=== PATIENT | male | born 1960 | race Caucasian/White ===

== ENCOUNTER 2022-04-29 07:36 | Inpatient (IN) | payer OTHER, SELFPAY ==
[2022-04-29] VITALS (23 sets, daily range): BP systolic 121–178; BP diastolic 87–119; PULSE 86–108; RESP 18–33; TEMP 36.5–36.9; O2SAT 79–98; BMI 36.0; BMI 35.6
--- NOTE | 2022-04-29 07:42 | EKG12_ITS ---
Test Reason : REPEAT-CP Blood Pressure : / mmHG Vent. Rate : 102 BPM Atrial Rate : 102 BPM P-R Int : 206 ms QRS Dur : 114 ms QT Int : 360 ms P-R-T Axes : 028 218 078 degrees QTc Int : 469 ms Sinus tachycardia Right superior axis deviation Inferior infarct , age undetermined Possible Anterior infarct , age undetermined Abnormal ECG Confirmed by HARMAN WILSON, ALYSHA ([id number]), medical transcription editor TAMMIE ESPOSITO ([id number]) on 05/03/2022 6:21:07 AM Referred By: SAVANAH Confirmed By:ALYSHA HAMMER MD
--- NOTE | 2022-04-29 07:57 | EDS_ITS ---
HPI History of Present Illness Chief Complaint: Chest Pain Narrative Narrative: 61-year-old male presenting with chest pain. He states he has a dull ache in the left upper side of his chest. This started about 630. Its associated with some dyspepsia. Patient took Rolaids and this did not help. He states he was on his way to work and became concerned because he is not had this pain before. He does admit he has been a little bit short of breath recently. He states he has been out of his triamterene hydrochlorothiazide combo medicine because he has not seen his doctor. He states that his doctor had to cancel the last couple of appointments and he did not have any refills for this because he did not let him know he was out. He states has been taking these for the last few days he notes that his lower extremity edema and shortness of breath is improved. He states he takes this is a water pill. He also has diabetes, hypertension, or hyperlipidemia. He denies fever, chills, cough. Denies nausea or vomiting. He denies history of CAD. He states last stress test was many years ago. No history of DVT/PE. [facility] Medical History Hypertension Hypothyroid Pre-diabetes Home Medications glimepiride 2 mg tablet 4 mg PO DAILY 08/29/16 [History Last Taken Unknown] losartan 100 mg tablet 100 mg PO DAILY 08/29/16 [History Last Taken Unknown] triamterene 37.5 mg-hydrochlorothiazide 25 mg tablet (Maxzide-25mg) 1 tab PO DAILY 08/29/16 [History Last Taken Unknown] levothyroxine 25 mcg tablet 25 mcg PO DAILY 04/29/22 [History Last Taken Unknown] Allergy/AdvReac Type Severity Reaction Status Date / Time No Known Allergies Allergy Verified 04/29/22 07:37 Social History Smoking Status: Never smoker ROS ROS ED Constitutional Constitutional ED: Denies chills or fever(s) Eyes Eyes: Denies none or blurry vision ENT ENT ED: Denies rhinorrhea Cardiovascular Cardiovascular: Reports as per HPI Respiratory/Chest Respiratory/Chest: Reports dyspnea; Denies cough Gastrointestinal Gastrointestinal: Denies abdominal pain or constipation Genitourinary Genitourinary ED: Denies dysuria or hematuria Musculoskeletal Musculoskeletal: Denies arthralgias or back pain Integumentary Denies abscess or Abrasions Neurologic Neurologic: Denies headache(s) or paresthesias Psychiatric Psychiatric: Denies anxiety or depression EXAM Physical Exam Const Vital Signs: 04/29/22 07:38 04/29/22 07:46 04/29/22 08:53 Temperature 97.7 F L Temperature Source Oral Pulse Rate 103 H 104 H Respiratory Rate 22 H Respiratory Pattern Normal Blood Pressure 178/119 H 170/116 H Blood Pressure Mean 138 Pulse Ox 97 Oxygen Delivery Method Room Air Oxygen Flow Rate (L/min) 04/29/22 08:50 04/29/22 08:50 04/29/22 08:45 Temperature Temperature Source Pulse Rate 105 H Respiratory Rate 33 H Respiratory Pattern Blood Pressure 170/116 H Blood Pressure Mean 134 Pulse Ox 90 90 79 Oxygen Delivery Method Nasal Cannula Nasal Cannula Room Air Oxygen Flow Rate (L/min) 6 6 04/29/22 09:02 04/29/22 09:11 04/29/22 09:10 Temperature Temperature Source Pulse Rate 104 H 103 H Respiratory Rate Respiratory Pattern Blood Pressure 156/109 H 125/87 H Blood Pressure Mean Pulse Ox 87 Oxygen Delivery Method Nasal Cannula Oxygen Flow Rate (L/min) 6 04/29/22 09:20 04/29/22 10:00 04/29/22 10:36 Temperature Temperature Source Pulse Rate Respiratory Rate Respiratory Pattern Blood Pressure Blood Pressure Mean Pulse Ox 94 94 Oxygen Delivery Method Non-Rebreather High Flow High Flow Oxygen Flow Rate (L/min) 15 8 8 Positive well nourished General Appearance ED: NAD; Negative for pallor HEENT Reports TM's clear and moist mucous membranes Tympanic Membrane ED: Yes TM's clear Eyes PERRL and EOMs intact bilaterally Chest Wall inspection of chest normal Resp normal respiratory effort and clear to auscultation bilaterally Auscultation: Negative for rales, rhonchi or wheezes Cardio regular rate and regular rhythm GI normal to inspection, nondistended, normoactive bowel sounds Neuro oriented x3 and CN's II-XII intact bilaterally Sensorium / Orientation: awake and alert Psych mental status grossly normal Skin no rashes or lesions noted General Skin Exam: Negative for jaundice or pallor Heart Score History: Slightly/Non-Suspicious ECG: Normal Age: >45 - <65 years Risk Factors: >/= 3 Risk Factors or History of CAD Score: 3 MDM MDM MDM Narrative Medical decision making narrative: 61-year-old male presenting with chest discomfort on the left side of his chest associated with dyspepsia. He also states he has had shortness of breath recently which she attributes to being out of his triamterene hydrochlorothiazide. Patient is currently on this and states his shortness of breath has been getting better as well as swelling. EKG was obtained and on my interpretation shows a sinus rhythm with a ventricular rate of 102 bpm without sign of ischemic change or dysrhythmia. [place] interval 104 ms, QRS duration 114 ms, QTC 453 ms. Chest x-ray on my interpretation shows no acute cardiopulmonary process and radiologist agree. CBC shows a normal white blood cell count of 9.0. Hemoglobin and hematocrit are 17.2/52.5. Platelet count 360 renal function and electrolytes unremarkable. High-sensitivity troponin initially 38. Patient was reevaluated at 8:15 AM and he states that he has had an uptick in his pain level to about a 4. The patient will be given some nitroglycerin. Since his D-dimer is also elevated at 1.58 he will have a CTA of the chest. CTA of the chest was negative for PE or dissection but does show concern for a right lower lung mass concerning for primary neoplastic process with metastasis to the perihilar lymph nodes. There are also areas in the right mid lung fraser concerning for metastasis. There is also a finding of loculated pleural effusion. Placed the radiologist also interpreted the CTA is showing it is evidence of involvement of the celiac axis and there is something lymphadenopathy here. Patient came back from the CTA of the chest his oxygen had dropped down to 79 he was placed on oxygen via nasal cannula. He is currently on 8 L satting 94% but he is in no distress. He is speaking full sentences without any accessory muscle use. His second high-sensitivity troponin came back at 70 which is a change of 32. Patient did receive 325 mg of aspirin. BNP slightly elevated given the fact that he is oxygen dependent currently and that his troponins have increased will need to be admitted for further care. Will discuss with hospitalist. Impression: 1. Chest pain 2. Elevated troponin 3. Right lung mass 4. Hypoxic respiratory 5. Loculated pleural effusion Lab Data Attestation: I reviewed the patient's lab results. Labs: Laboratory Results - last 24 hr 04/29/22 04/29/22 04/29/22 07:45 07:45 07:45 WBC 9.0 RBC 6.23 H Hgb 17.2 H Hct 52.5 MCV 84.3 MCH 27.6 MCHC 32.8 RDW Std Deviation 44.9 H RDW Coeff of Miles 15.4 H Plt Count 360 MPV 10.2 Immature Gran % (Auto) 0.200 Neut % (Auto) 66.0 Lymph % (Auto) 22.7 [place] % (Auto) 10.1 H Eos % (Auto) 0.3 Baso % (Auto) 0.7 Absolute Neuts (auto) 5.9 Absolute Lymphs (auto) 2.04 Nucleated RBC % 0 D-Dimer Quant (PE/DVT) 1.58 H* Sodium 135 L Potassium 3.5 Chloride 98 Carbon Dioxide 27.0 Anion Gap 10 BUN 17 Creatinine 1.19 Estim Creat Clear Calc 67.31 Est GFR (MDRD) Af Amer 80 Est GFR (MDRD) Non-Af 66 BUN/Creatinine Ratio 14.3 Glucose 199 H Calcium 10.0 Troponin I High Sens 38 B-Natriuretic Peptide 04/29/22 04/29/22 07:45 10:12 WBC RBC Hgb Hct MCV MCH MCHC RDW Std Deviation RDW Coeff of Miles Plt Count MPV Immature Gran % (Auto) Neut % (Auto) Lymph % (Auto) [place] % (Auto) Eos % (Auto) Baso % (Auto) Absolute Neuts (auto) Absolute Lymphs (auto) Nucleated RBC % D-Dimer Quant (PE/DVT) Sodium Potassium Chloride Carbon Dioxide Anion Gap BUN Creatinine Estim Creat Clear Calc Est GFR (MDRD) Af Amer Est GFR (MDRD) Non-Af BUN/Creatinine Ratio Glucose Calcium Troponin I High Sens 70 B-Natriuretic Peptide 123.8 H Radiography Diagnostic Testing: Clinical Impression(s) from Imaging Studies Chest CTA 04/29/22 08:09 IMPRESSION: No demonstrated PE, or thoracic aortic aneurysm or dissection. Suspicious large infrarenal noncalcified mass in the right medial lower lung field measuring 6.93 x 3.63 x 2.95 cm suspicious for a primary neoplastic process. Additionally, there are suspicious mediastinal and perihilar lymph nodes likely representing metastasis and there are noncalcified nodules in the right midlung field also concerning for metastasis. Diffuse pleural thickening in both hemithoraces with loculated right pleural effusion Calcified coronary vessels Degenerative bony changes Celiac axis adenopathy also suspected Electronically Signed: Priyank Treviño MD at 9:07 EDT , Discharge Plan Triage Chief Complaint: Chest Pain ED Provider: Michael Loomis Dx/Rx/DC Orders Prescriptions: No Action glimepiride 2 MG tablet 4 mg PO DAILY triamterene-hydrochlorothiazid [Maxzide-25mg] 1 EACH tablet 1 tab PO DAILY losartan 100 MG tablet 100 mg PO DAILY levothyroxine 25 mcg tablet 25 mcg PO DAILY Primary Care Provider: Carri Gannon Referrals: Carri Gannon DO [Primary Care Provider] -
[2022-04-29 07:58] LABS: Absolute Lymphocyte Count 2.04 X10^3/uL (0.83-4.51); Absolute Neutrophil Count 5.9 X10^3/uL (2.0-7.7); Basophil# 0.06 X10^3/uL; Basophil% 0.7 % (0-1); Eosinophil# 0.03 X10^3/uL; Eosinophils% 0.3 % (0-5); Hematocrit 52.5 % (40-54); Hemoglobin 17.2 g/dL (13.0-16.5); Lymphocyte # 2.04 X10^3/ul (0.83-4.51); Lymphocyte % 22.7 % (19-41); Mean Corp Hgb Conc 32.8 g/dL (32-36); Mean Corpuscular Hgb 27.6 pg (27.0-32.0); Mean Corpuscular Volume 84.3 fL (80-94); Mean Platelet Vol. 10.2 fl (6.2-12.0); Monocyte# 0.91 X10^3/uL; Monocyte% 10.1 % (0-10); NRBC Flagged by Analyzer 0 % (0-5); Neutrophil # 5.93 X10^3/uL (2.7-7.7); Platelet Count 360 K/mm3 (150-450); RBC Distribution Width CV 15.4 % (11.6-14.6); RBC Distribution Width SD 44.9 fl (35.1-43.9); Red Blood Count 6.23 M/mm3 (4.6-6.2)
[2022-04-29 08:08] LABS: D-Dimer Quantitative (DVT/PE) 1.58 FEU/ug/m (0.27-0.49)
[2022-04-29 08:09] LABS: Anion Gap 10 (5-15); BUN 17 mg/dL (7-18); BUN/Creat Ratio 14.3 RATIO (10-20); Chloride 98 mmol/L (98-107); Creatinine, Serum 1.19 mg/dL (0.70-1.30); EST Glomerular Filtration Rate 66 mL/min (>60); Est Glom Filt Rate - Afr Amer 80 mL/min (>60); Estimated Creatinine Clearance 67.31 ml/min; Glucose 199 mg/dL (74-106); Potassium 3.5 mmol/L (3.5-5.1); Sodium Level 135 mmol/L (136-145); Troponin-I HS (w/2H Reflex) 38 pg/mL (3.0-78.0)
--- NOTE | 2022-04-29 08:09 | CT_ITS ---
STUDY: CTA CHEST REASON FOR EXAM: Male, 61 years old. Atypical chest pain, diaphoresis RADIATION DOSAGE (If Supplied By Facility): CTDIvol = ( 15.68 ) mGy, DLP = ( 532.14 ) mGycm TECHNIQUE: The examination was performed with the intravenous administration of IV-100 ml Isovue 370. Post-processing of the angiographic images was performed, with multiplanar reformation and 3D reconstruction. Individualized dose optimization techniques were used for this CT. COMPARISON: None. FINDINGS: Normal enhancement of the main pulmonary artery and right and left pulmonary arteries. Normal enhancement of the bilateral peripheral pulmonary arteries. There is no demonstrated pulmonary embolism. Normal thoracic aorta and visualized great vessels. There is no demonstrated aortic dissection. Normal heart and pericardium. There are calcifications of the coronary arteries. No suspicious axillary adenopathy. There are scattered subcentimeter in short axis dimension axillary lymph nodes. There are multiple concerning mediastinal and perihilar lymph nodes measuring up to 1.5 cm in short axis dimension. There is peribronchial thickening. The lungs are well expanded. Chronic interstitial changes noted in both lung fraser with a suspicious infrahilar mass in the right lower lung field measuring 6.39 x 3.63 x 2.95 cm concerning for neoplastic process. There is associated retraction of the right lung and a loculated right pleural effusion. There is diffuse pleural thickening throughout the left hemithorax with associated atelectasis but no discrete lesion is identified. There are also noncalcified nodules in the right middle lobe present largest on axial image 122 measures 1.06 cm. There are others measuring less than a centimeter there also concerning for metastasis. Normal chest wall structures. There are degenerative changes of thoracic spine. Limited cuts of the upper abdomen do not show suspicious solid organ abnormality, there are concerning soft tissue densities around the celiac axis concerning for lymph nodes. CT/CTA Chest W/WO Contrast IMPRESSION: No demonstrated PE, or thoracic aortic aneurysm or dissection. Suspicious large infrarenal noncalcified mass in the right medial lower lung field measuring 6.93 x 3.63 x 2.95 cm suspicious for a primary neoplastic process. Additionally, there are suspicious mediastinal and perihilar lymph nodes likely representing metastasis and there are noncalcified nodules in the right midlung field also concerning for metastasis. Diffuse pleural thickening in both hemithoraces with loculated right pleural effusion Calcified coronary vessels Degenerative bony changes Celiac axis adenopathy also suspected Electronically Signed: Priyank Treviño MD at 9:07 EDT ,
--- NOTE | 2022-04-29 08:50 | EKG12_ITS ---
Test Reason : cp admit Blood Pressure : / mmHG Vent. Rate : 097 BPM Atrial Rate : 097 BPM P-R Int : 206 ms QRS Dur : 104 ms QT Int : 360 ms P-R-T Axes : 035 211 101 degrees QTc Int : 457 ms Normal sinus rhythm Inferior infarct , age undetermined Anterolateral infarct , age undetermined Abnormal ECG When compared with ECG of 29-APR-2022 08:50, MANUAL COMPARISON REQUIRED, DATA IS UNCONFIRMED Confirmed by IRENE WILSON, LILLIAM ([id number]), make up editor TAMMIE ESPOSITO ([id number]) on 05/02/2022 2:06:26 PM Referred By: Christopher Confirmed By:LILLIAM BONILLA MD
[2022-04-29] MEDS: Nitroglycerin SL (ED/IMG/CATH) 0.4 MG TABLET SL ×3 (08:53→09:11)
[2022-04-29] MEDS: Aspirin 81 MG TAB.CHEW 324 MG PO (08:53)
[2022-04-29 09:37] LABS: BNP,B-Type NATRIURETIC PEPTIDE 123.8 pg/mL (0-100)
[2022-04-29 09:49] LABS: Reflex Troponin-HS? (from REC) Y
[2022-04-29 10:39] LABS: Troponin-I HS 70 pg/mL (3.0-78.0)
--- NOTE | 2022-04-29 11:09 | PCM.HP.STD ---
HPI - General General Date of Admission: 04/29/22 Date of Service: 04/29/22 Chief Complaint: Chest pain HPI Narrative ESSENCE ENGLAND, is a 61 M who presented to the emergency department [facility] on 04/29/2022 after experiencing chest pain in the left axillary side of his chest that radiated into the medial aspect of his left arm to just above his elbow. He reported that it started about 630 this morning and was associated with some dyspepsia for which he took some Rolaids. Rolaids did not help his symptoms. He had no associated new shortness of breath but had been experiencing some shortness of breath over the last 2 weeks. He attributed this to running out of his Maxide and noted that his shortness of breath did improve after he reinitiated his Maxide. He started going to work this morning but became concerned because the pain had not gone away and he was still asked parents and it and it was a new symptom for him. He does have a family history of coronary disease in both of his parents and he has a history of diabetes and hypertension. Upon presentation his temperature was 97.7 heart rate was 103, respiratory rate was 22, blood pressure 178/119 and his oxygen saturation was 97% on room air however when he returned from CT scan he developed acute hypoxia with oxygen saturations dropping is 79% on room air and his blood pressure increased to 170/6116 with a heart rate of 105 and a respiratory rate of 33. At that time he was placed on a nonrebreather and eventually was able to be weaned to 6 L heated high flow nasal cannula. His CBC was only remarkable for erythrocytosis with a hemoglobin of 17.2. His chemistry panel was unremarkable other than hyperglycemia with his at blood glucose of 199. A D-dimer was obtained and found to be 1.58. His initial troponin was 38 with a repeat of 70. Given his D-dimer elevation a CTA of the chest was performed. The CTA showed no PE or thoracic aneurysm or dissection but showed a suspicious large infrahilar noncalcified mass in the right medial lower lung field that measured 6.93 x 3.63 x 2.95 cm that was suspicious for a primary neoplastic process and additionally there were suspicious mediastinal and perihilar lymph nodes that were concerning for metastasis. He also had a noncalcified nodules in the right midlung field that were concerning for metastatic disease. He had diffuse pleural thickening in both hemithoraces with a loculated right pleural effusion that small. EKG showed normal sinus rhythm with normal intervals however had some T wave inversions in the inferior and lateral leads. [facility] Medical History Diabetes mellitus, type 2 Hypertension Hypothyroid NSTEMI (non-ST elevated myocardial infarction) Obesity DEVI (obstructive sleep apnea) Home Medications glimepiride 2 mg tablet 4 mg PO DAILY BS 08/29/16 [History Last Taken 04/29/22] losartan 100 mg tablet 100 mg PO DAILY BP 08/29/16 [History Last Taken 04/28/22] triamterene 37.5 mg-hydrochlorothiazide 25 mg tablet (Maxzide-25mg) 1 tab PO DAILY excess fluid 08/29/16 [History Last Taken 04/29/22] levothyroxine 25 mcg tablet 25 mcg PO DAILY Thyroid] 04/29/22 [History Last Taken 04/29/22] Allergy/AdvReac Type Severity Reaction Status Date / Time No Known Allergies Allergy Verified 04/29/22 07:37 Family History (Updated 04/29/22 @ 16:[address] Jeanette White DO) Mother CVA (cerebral vascular accident) Other Diabetes Heart disease Hypertension Surgical History no surgical history no surgical history Social History (Updated 04/29/22 @ 16:[address] Jeanette White DO) household members: spouse housing: house current occupational status: employed current occupational exposures/hazards: No Smoking Status: Never smoker alcohol intake: current alcohol intake frequency: holidays/special occasions only substance use type: does not use what type of physical activity do you participate in: none ROS Constitutional Constitutional: Denies anorexia, change in weight, chills, fatigue, fever(s), malaise, night sweats, weakness or other Eyes Eyes: Denies blurry vision, change in eye color, change in vision, discharge from eye(s), double vision, erythema, eye pain, loss of vision or other ENT HEENT: Denies abnormal hearing, dysphagia, ear pain, epistaxis, headache(s), hearing loss, nasal congestion, nasal discharge, post nasal drip, sinus pressure, sore throat or other Cardiovascular Cardiovascular: Reports chest pain, dyspnea on exertion, edema and orthopnea; Denies claudication, lightheadedness, palpitations, paroxysmal nocturnal dyspnea, rapid heart rate, syncope or other Respiratory/Chest Respiratory/Chest: Reports dyspnea and shortness of breath with exertion; Denies cough, excessive phlegm production, hemoptysis, productive cough, shortness of breath at rest, wheezing or other Gastrointestinal Gastrointestinal: Denies abdominal pain, coffee ground emesis, constipation, diarrhea, dyspepsia, hematemesis, hematochezia, loose stools, melena, nausea, vomiting or other Genitourinary Genitourinary: Denies burning urination, difficulty urinating, dysuria, hematuria, nocturia, urinary frequency, urinary hesitancy, urinary incontinence, urinary urgency or other Musculoskeletal Musculoskeletal: Denies arthralgias, back pain, joint pain, joint stiffness, joint swelling, myalgias, neck pain or other Neurologic Neurologic: Denies abnormal gait, abnormal speech, confusion, disequilibrium, dizziness, focal weakness, headache(s), numbness, paresthesias, seizure-like activity, seizures, syncope, tingling, tremor(s) or other Psychiatric Psychiatric: Denies anxiety, depression, homicidal ideation, suicidal ideation or other Endocrine Endocrinology: Denies change in body appearance, cold intolerance, excessive sweating, heat intolerance, polydipsia, polyuria or other Hematologic/Lymphatic Hematologic/Lymphatic: Denies anemia, easy bleeding, easy bruising, lymphadenopathy or other Allergic/Immunologic Allergic/Immunologic: Denies rhinitis, hives, eczemia, asthma or other Vital Signs Vital Signs Vital Signs: 04/29/22 07:38 04/29/22 07:46 04/29/22 08:53 Temperature 97.7 F L Temperature Source Oral Pulse Rate 103 H 104 H Respiratory Rate 22 H Respiratory Pattern Normal Blood Pressure 178/119 H 170/116 H Blood Pressure Mean 138 Pulse Ox 97 Oxygen Delivery Method Room Air Oxygen Flow Rate (L/min) 04/29/22 08:50 04/29/22 08:50 04/29/22 08:45 Temperature Temperature Source Pulse Rate 105 H Respiratory Rate 33 H Respiratory Pattern Blood Pressure 170/116 H Blood Pressure Mean 134 Pulse Ox 90 90 79 Oxygen Delivery Method Nasal Cannula Nasal Cannula Room Air Oxygen Flow Rate (L/min) 6 6 04/29/22 09:02 04/29/22 09:11 04/29/22 09:10 Temperature Temperature Source Pulse Rate 104 H 103 H Respiratory Rate Respiratory Pattern Blood Pressure 156/109 H 125/87 H Blood Pressure Mean Pulse Ox 87 Oxygen Delivery Method Nasal Cannula Oxygen Flow Rate (L/min) 6 04/29/22 09:20 04/29/22 10:00 04/29/22 10:36 Temperature Temperature Source Pulse Rate Respiratory Rate Respiratory Pattern Blood Pressure Blood Pressure Mean Pulse Ox 94 94 Oxygen Delivery Method Non-Rebreather High Flow High Flow Oxygen Flow Rate (L/min) 15 8 8 04/29/22 11:00 Temperature 98 F Temperature Source Temporal Pulse Rate 88 Respiratory Rate 18 Respiratory Pattern Blood Pressure 132/94 H Blood Pressure Mean 106 Pulse Ox 96 Oxygen Delivery Method High Flow Oxygen Flow Rate (L/min) Weight Weight: 113.8 kg Body Mass Index (BMI) 36.0 Physical Exam Const alert, oriented x3, no apparent distress and well nourished Constitutional Narrative: Obese, upper middle-aged white male, sitting up in bed, appears comfortable nontoxic, at bedside HEENT normocephalic, head/scalp atraumatic, hearing grossly normal bilaterally and moist oral mucous membranes HEENT Narrative: Mallampati 3, dentition is good for age, no thrush Eyes PERRL, EOMs intact bilaterally and conjunctivae normal Eyes Narrative: No scleral icterus Neck no lymphadenopathy, supple and no carotid bruits Neck Narrative: Trachea midline, no thyroid enlargement Resp no retractions and no use of accessory muscles Resp Narrative: Few crackles at bases bilaterally, currently quiring 4 L nasal cannula Auscultation: crackles; Negative for rhonchi or wheezes Cardio regular rate, regular rhythm, S1 normal heart sound, S2 normal heart sound, no murmurs, no rub, no gallops, no clicks and no JVD GI normal to inspection, nondistended, normoactive bowel sounds, soft to palpation and non-tender Extremity Extremity Narrative: 2+ pedal pulses, trace bilateral lower extremity edema, no cyanosis or clubbing Neuro oriented x3, CN's II-XII intact bilaterally, moves all extremities and no focal motor deficits Speech: speech normal Motor Exam: strength 5/5 throughout Psych affect normal Psych Narrative: Very pleasant and appropriately interactive Results Lab / Micro Data Result Diagrams: 04/29/22 07:45 04/29/22 07:45 Labs: Laboratory Results - last 24 hr 04/29/22 07:45: WBC 9.0, RBC 6.23 H, Hgb 17.2 H, Hct 52.5, MCV 84.3, MCH 27.6, MCHC 32.8, RDW Std Deviation 44.9 H, RDW Coeff of Miles 15.4 H, Plt Count 360, MPV 10.2, Immature Gran % (Auto) 0.200, Neut % (Auto) 66.0, Lymph % (Auto) 22.7, [place] % (Auto) 10.1 H, Eos % (Auto) 0.3, Baso % (Auto) 0.7, Absolute Neuts (auto) 5.9, Absolute Lymphs (auto) 2.04, Nucleated RBC % 0 04/29/22 07:45: D-Dimer Quant (PE/DVT) 1.58 H* 04/29/22 07:45: Sodium 135 L, Potassium 3.5, Chloride 98, Carbon Dioxide 27.0, Anion Gap 10, BUN 17, Creatinine 1.19, Estim Creat Clear Calc 67.31, Est GFR (MDRD) Af Amer 80, Est GFR (MDRD) Non-Af 66, BUN/Creatinine Ratio 14.3, Glucose 199 H, Calcium 10.0, Troponin I High Sens 38 04/29/22 07:45: B-Natriuretic Peptide 123.8 H 04/29/22 10:12: Troponin I High Sens 70 Radiology Impression Chest CTA 04/29/22 08:09 IMPRESSION: No demonstrated PE, or thoracic aortic aneurysm or dissection. Suspicious large infrarenal noncalcified mass in the right medial lower lung field measuring 6.93 x 3.63 x 2.95 cm suspicious for a primary neoplastic process. Additionally, there are suspicious mediastinal and perihilar lymph nodes likely representing metastasis and there are noncalcified nodules in the right midlung field also concerning for metastasis. Diffuse pleural thickening in both hemithoraces with loculated right pleural effusion Calcified coronary vessels Degenerative bony changes Celiac axis adenopathy also suspected Electronically Signed: Priyank Treviño MD at 9:07 EDT , Assessment & Plan Assessment/Plan (1) NSTEMI (non-ST elevated myocardial infarction): (2) Lung mass: (3) Acute respiratory failure with hypoxia: (4) Erythrocytosis: PLAN: Plan NSTEMI -EKG shows T wave inversions in the inferior and lateral leads -Troponin trended from 38-->70 to greater than 13,000 -Heparin drip initiated -As needed nitro -Check lipids -Check hemoglobin A1c -High intensity dose statin -Aspirin 81 mg daily -Check echocardiogram -Cardiology consult for cardiac catheterization -Hopeful for cardiac catheterization to be done on Monday after CT-guided biopsy of his lung mass as he will most likely need to be on antiplatelet therapy following cardiac catheterization Right-sided lung mass/lymphadenopathy -Suspicious for primary lung carcinoma -Will need CT-guided biopsy -Anticipate this will be done on Monday -Pulmonary medicine consulted-appreciate input Acute hypoxic respiratory failure -Patient developed acute hypoxia with tachypnea, tachycardia, elevated blood pressure after lying flat for a CT in the emergency department -Initially required a nonrebreather and then was weaned to 6 L heated high flow nasal cannula -Currently is on 4 L nasal cannula -Wean as able -COVID and respiratory viral panel are negative -Lasix IV push 40 mg twice daily I do suspect there is some component of flash pulmonary edema related to his infarct -Reevaluate in a.m. Erythrocytosis -Question acute versus chronic -May be related to untreated DEVI -Repeat CBC in a.m. Hypertension -Hold Maxide -Continue losartan DM-2 -Hold home glimepiride -Check hemoglobin A1c -Sliding scale insulin -Cardiac/carb controlled diet -Accu-Cheks as ordered Hypothyroidism -Continue home levothyroxine -Check TSH DEVI -Patient noncompliant with CPAP -Monitor Obesity -Recommend weight loss -Complicates treatment, prognosis, outcomes CODE STATUS -Full code Charges/Coding Visit Charges Inpatient E&M: 08085 Init Hosp L3
--- NOTE | 2022-04-29 11:49 | CON.PCM.CC_ITS ---
Assessment & Plan Assessment/Plan (1) Lung mass: PLAN: Plan RECOMMENDATIONS: 1. Supplemental oxygen to maintain saturations at or above 90%. 2. Consider CT-guided lung biopsy, while the patient is admitted to the hospital. 3. If CT-guided lung biopsy is not feasible, an EBUS procedure can be arranged for the patient after discharge. 4. Cardiac stress test as ordered. IMPRESSIONS: 1. Chest discomfort and associated hypoxia The patient presented to the hospital with left-sided chest discomfort and subsequently developed hypoxia in the emergency department requiring the initiation of supplemental oxygen. The patient's chest imaging did demonstrate findings concerning for chronic interstitial changes along with a right-sided loculated effusion, pleural thickening on the left and a right lower lobe lung mass. No PE was identified. In light of his presenting symptoms, the patient is going to be admitted to the hospital and a cardiac stress test will be obtained. In the interim, continue supplemental oxygen to maintain saturations at or above 90%. 2. Abnormal chest imaging As noted above, the patient had a CTA chest completed which demonstrated a right lower lobe lung mass with what appeared to be a loculated effusion, chronic interstitial changes and pleural thickening in the left hemidiaphragm. The patient has no prior smoking history. I explained to the patient that these fi ndings would require additional work-up including biopsy. I would first discussed the case with radiology to see if percutaneous CT-guided lung biopsy would be feasible. If not, the patient can follow-up on an outpatient basis with us and we can arrange bronchoscopy with mediastinal lymph node sampling facilitated by EBUS. 3. Hypertension/hypothyroidism/diabetes mellitus Complicates care, management, recovery and prognosis. Continue home medications as indicated. This note was generated with [employer]AL[employer] dictation software. It may contain incorrect words, spelling, and punctuation that were not noted in checking the note before signing. HPI Consult Data Date of Consult: 04/30/22 HPI Narrative Reason for Consultation: Lung mass HPI Narrative: The patient is a 61-year-old male, with a history as outlined below, who presented to the emergency department with left-sided chest discomfort. The patient denied any known cardiac or pulmonary history. He is a lifelong non- smoker. He denied a history of venous thromboembolic disease. The patient did report that for approximately 1 week he was out of his antihypertensive medication and that since being back on the medication the chest discomfort has improved somewhat. The patient denied any unintentional weight loss or hemoptysis. He denied any high risk occupational exposure history. He was employed primarily in an office setting. The patient denied any significant amount of shortness of breath at his baseline, but did readily admit to being out of shape and overweight. On presentation to the emergency department, the patient was noted to be afebrile and hypertensive with a blood pressure of 178/119 mmHg. initial laboratory evaluation revealed no evidence of a leukocytosis. D-dimer was noted to be 1.58. Chemistry profile was unrevealing. Troponin was noted to be 70 with a BNP of 124. CTA chest did not demonstrate evidence for pulmonary embolism. However, there was evidence of peritracheal and subcarinal adenopathy along with interstitial septal thickening along with basilar predominant interstitial changes, what appears to be a loculated right-sided effusion and a sizable lung mass of approximately 6 cm in size. Left-sided pleural thickening was also noted. Although the patient was initially on room air in the emergency department, he apparently decompensated and ended up on high flow supplemental oxygen, thus prompting his admission to the hospital for further work-up. In light of his presenting symptoms, a cardiac stress test has been ordered. [facility] Medical History Diabetes mellitus, type 2 Hypertension Hypothyroid NSTEMI (non-ST elevated myocardial infarction) Obesity DEVI (obstructive sleep apnea) Home Medications glimepiride 2 mg tablet 4 mg PO DAILY BS 08/29/16 [History Last Taken 04/29/22] losartan 100 mg tablet 100 mg PO DAILY BP 08/29/16 [History Last Taken 04/28/22] triamterene 37.5 mg-hydrochlorothiazide 25 mg tablet (Maxzide-25mg) 1 tab PO DAILY excess fluid 08/29/16 [History Last Taken 04/29/22] levothyroxine 25 mcg tablet 25 mcg PO DAILY Thyroid] 04/29/22 [History Last Taken 04/29/22] Allergy/AdvReac Type Severity Reaction Status Date / Time No Known Allergies Allergy Verified 04/29/22 07:37 Family History (Updated 04/29/22 @ 16:[address] Jeanette White DO) Mother CVA (cerebral vascular accident) Other Diabetes Heart disease Hypertension Surgical History no surgical history Social History (Updated 04/29/22 @ 16:[address] Jeanette White, DO) household members: spouse housing: house current occupational status: employed current occupational exposures/hazards: No Smoking Status: Never smoker alcohol intake: current alcohol intake frequency: holidays/special occasions only substance use type: does not use what type of physical activity do you participate in: none ROS ROS Narrative 10 systems were reviewed with pertinent positives as noted in the HPI above. Physical Exam Const alert, oriented x3 and no apparent distress Constitutional Narrative: is present at the bedside. General Appearance: cooperative Nutritional Appearance: obese HEENT normocephalic and head/scalp atraumatic Eyes PERRL, EOMs intact bilaterally and conjunctivae normal Neck supple General: trachea midline Chest inspection of chest normal Resp normal respiratory effort Auscultation: Negative for rales, rhonchi or wheezes Cardio regular rate and regular rhythm GI normal to inspection, nondistended, normoactive bowel sounds Extremity no clubbing, cyanosis or edema Skin no rashes or lesions noted Neuro oriented x3, CN's II-XII intact bilaterally, moves all extremities and no focal motor deficits Psych cooperative and affect normal Lab / Micro Data Result Diagrams: 04/30/22 06:48 04/30/22 06:48 Labs: Laboratory Results - last 24 hr 04/29/22 07:45: WBC 9.0, RBC 6.23 H, Hgb 17.2 H, Hct 52.5, MCV 84.3, MCH 27.6, MCHC 32.8, RDW Std Deviation 44.9 H, RDW Coeff of Miles 15.4 H, Plt Count 360, MPV 10.2, Immature Gran % (Auto) 0.200, Neut % (Auto) 66.0, Lymph % (Auto) 22.7, [place] % (Auto) 10.1 H, Eos % (Auto) 0.3, Baso % (Auto) 0.7, Absolute Neuts (auto) 5.9, Absolute Lymphs (auto) 2.04, Nucleated RBC % 0 04/29/22 07:45: D-Dimer Quant (PE/DVT) 1.58 H* 04/29/22 07:45: Sodium 135 L, Potassium 3.5, Chloride 98, Carbon Dioxide 27.0, Anion Gap 10, BUN 17, Creatinine 1.19, Estim Creat Clear Calc 67.31, Est GFR (MDRD) Af Amer 80, Est GFR (MDRD) Non-Af 66, BUN/Creatinine Ratio 14.3, Glucose 199 H, Calcium 10.0, Troponin I High Sens 38 04/29/22 07:45: B-Natriuretic Peptide 123.8 H 04/29/22 10:12: Troponin I High Sens 70 Micro: Microbiology 04/29/22 11:15 Nasal Secretion SARS-CoV-2 Antigen (Rapid) - Final Radiology Impression Chest CTA 04/29/22 08:09 IMPRESSION: No demonstrated PE, or thoracic aortic aneurysm or dissection. Suspicious large infrarenal noncalcified mass in the right medial lower lung field measuring 6.93 x 3.63 x 2.95 cm suspicious for a primary neoplastic process. Additionally, there are suspicious mediastinal and perihilar lymph nodes likely representing metastasis and there are noncalcified nodules in the right midlung field also concerning for metastasis. Diffuse pleural thickening in both hemithoraces with loculated right pleural effusion Calcified coronary vessels Degenerative bony changes Celiac axis adenopathy also suspected Electronically Signed: Priyank Trevñio MD at 9:07 EDT , Charges/Coding Visit Charges Inpatient E&M: 03728 Init Hosp L3
[2022-04-29 14:11] LABS: Troponin-I HS 13378 pg/mL (3.0-78.0)
--- NOTE | 2022-04-29 14:28 | CASEMGMT ---
WERNER SANCHEZ assessment: Face to Face with patient for initial transition planning/care coordination assessment. RN DANIEL introduced self and role at [facility], pt voices understanding and consents to assessment. Pt is sitting up in bed in no distress on 4L nc. Pt is A/Ox4 and answers all questions appropriately. Pt's is at bedside during assessment. Care providers, pharmacy,?and demographics verified. ? Presentation: Left chest pain starting this am Admitting dx: CP/lung mass PCP: Teressa Specialists: None Preferred Pharmacy: [facility] Insurance: [employer] Prescription Benefit:?[employer] Living Will/HPOA: Pt has LW/HPOA and is aware that they are not on file at [facility]. Pt states , Agatha Sparks, is HPOA. LNOK: Agatha Sparks, Living Arrangements: Pt lives with in 1 story home with 1 step in and states no concerns at home. Pt is independent with ADL's. Transportation: Pt drives self and states no transportation concerns. DME/HHC: Pt has no current DME or need for any further DME. Pt states no preference for DME company, if qualifies for home oxygen at discharge. Pt has no hx of HHC or SNF. Pt states no concerns with going home at time of discharge. Pt works multimedia production assistant. Pt states does not smoke cigarettes or drink ETOH. Pt voices no further concerns/needs. CM to follow for any further discharge planning/needs. Advised pt/ to ask for CM if any further questions/concerns/needs arise, voices understanding. Pt Goal: Home ? Plan: Home, pending home oxygen testing. [place] WERNER SANCHEZ
--- NOTE | 2022-04-29 14:49 | ECHOCS_ITS ---
Reason For Study: Chest Pain Procedure This was a 2D Doppler, Color Flow transthoracic echocardiogram. The study was technically difficult. Contrast injection was performed. Exam performed portable in patient room. Left Ventricle Moderately dilated left ventricle. The estimated ejection fraction is 15-20 %. Right Ventricle Normal right ventricle. Mild global right ventricular systolic dysfunction. Atria The left atrium is mildly enlarged. Normal right atrium. Mitral Valve The mitral valve is structurally normal. No prolapse or stenosis seen. Mild (1+) mitral valve insufficiency. Tricuspid Valve Normal tricuspid valve. Aortic Valve Normal aortic valve. Pulmonic Valve The pulmonic valve is not well visualized. Medication Diluted definity 2ml given slow IV push to enhance endocardial definition. MMode/2D Measurements & Calculations LVIDd: 5.3 cm IVSd: 1.1 cm Ao root diam: 3.4 cm LVIDs: 4.6 cm LVPWd: 1.3 cm LA dimension: 4.1 cm RVDd: 3.3 cm FS: 12.6 % LAV(MOD-bp): 60.5 ml LVAd ap4: 39.8 cm2 SV(MOD-sp4): 28.9 ml LAV(MOD-bp) Indexed: 26.5 ml/m2 LVLd ap4: 8.9 cm LAV(MOD-sp2): 74.5 ml EDV(MOD-sp4): 145.7 ml LAV(MOD-sp4): 49.5 ml EDV(sp4-el): 150.8 ml LVAs ap4: 34.6 cm2 LVLs ap4: 8.3 cm ESV(MOD-sp4): 116.8 ml ESV(sp4-el): 122.8 ml EF(MOD-sp4): 19.9 % EF(sp4-el): 18.6 % SV(sp4-el): 28.0 ml LA A4 area: 19.0 cm2 RA A4 area: 13.3 cm2 Time Measurements MV dec time: 0.10 sec Doppler Measurements & Calculations MV E max jayro: 108.6 cm/sec Lat Peak E' Jayro: 9.2 cm/sec MV V2 max: 146.4 cm/sec MV A max jayro: 123.7 cm/sec E/E' lat: 11.9 MV max P.6 mmHg MV E/A: 0.88 MV V2 mean: 94.5 cm/sec MV mean P.1 mmHg MV V2 VTI: 25.8 cm MV P1/2t max jayro: 116.1 cm/sec Ao V2 max: 85.5 cm/sec LV V1 max: 81.0 cm/sec MV P1/2t: 63.0 msec Ao max P.9 mmHg LV V1 max P.6 mmHg MV dec slope: 539.9 cm/sec2 MVA(P1/2t): 3.5 cm2 PA V2 max: 61.8 cm/sec ECHO/Echo Complete W/ Contrast Interpretation Summary The estimated ejection fraction is 15-20 %. Severe LV systolic Dysfunction with SWMA as described,Apical akinesia with severe distal septal Hypokinesia Contrast echo used Ordering Physician: Jeanette White Referring Physician: Carri Gannon Performed By: Cesario Rachel RCS
--- NOTE | 2022-04-29 15:09 | CON.PCM.CA_ITS ---
Documented by User: Eleanor BEARDEN, PA 04/29/22 16:26 Assessment & Plan Assessment/Plan (1) NSTEMI (non-ST elevated myocardial infarction): PLAN: * Troponin significantly, will start on maximum medical therapy with ASA, Statin, BB. He is currently on Losartan at home. He will start on a Heparin Drip * Will plan for a heart cath to further evaluate. His lung mass that does require biopsy complicates this. Since he is pain free at the moment, it is reasonable to pursue his lung biopsy first while he is on maximum medical therapy and plan for a heart cath following this as he will likely need an intervention based on his elevated troponin and EKG. However will need to monitor pt closely for angina and worsening symptoms. Of note he did have orthopnea during his CTA and did have hypoxemia, will treat with diuretics for elevated BNP and O2. Will need to monitor this for his heart cath. * echo is pending (2) Lung mass: PLAN: * he is being followed by pulmonary with plans for a biopsy HPI Consult Data Date of Consult: 04/29/22 HPI Narrative HPI Narrative: ESSENCE ENGLAND, is a 61 M who presented to [facility] ER for chest pain. This was described as a dull ache in his left upper chest. Radiated down his left arm, it was a 4/10. It lasted for several hours. Currently it is improved and sometimes he feels that it is there. He also had dyspepsia that was not relieved with rolaids. The discomfort started at approx 0630, since he had not had this before he presented to the ER for further evaluation. He notes that he does have HTN but ran out of his diuretic for a few weeks but did restart it this week when he started to feel more SOB with exertion. His DDimer was elevated, he did have a CTA this was negative for PE but did demonstrate a mass primary neoplastic process with metastasis to the perihilar lymph nodes.? There are also areas in the right mid lung fraser concerning for metastasis.? There is also a finding of loculated pleural effusion. During his CTA he did desaturate and did become SOB. he did require 6L O2. Because of his CTA he was admitted to PCU. His troponins finished trending. Troponins trended 30/78/22618. BTNP was 123. [facility] Medical History Diabetes mellitus, type 2 Hypertension Hypothyroid NSTEMI (non-ST elevated myocardial infarction) Obesity DEVI (obstructive sleep apnea) Home Medications glimepiride 2 mg tablet 4 mg PO DAILY BS 08/29/16 [History Last Taken 04/29/22] losartan 100 mg tablet 100 mg PO DAILY BP 08/29/16 [History Last Taken 04/28/22] triamterene 37.5 mg-hydrochlorothiazide 25 mg tablet (Maxzide-25mg) 1 tab PO DAILY excess fluid 08/29/16 [History Last Taken 04/29/22] levothyroxine 25 mcg tablet 25 mcg PO DAILY Thyroid] 04/29/22 [History Last Taken 04/29/22] Allergy/AdvReac Type Severity Reaction Status Date / Time No Known Allergies Allergy Verified 04/29/22 07:37 Family History (Updated 04/29/22 @ 16:[address] Jeanette White DO) Mother CVA (cerebral vascular accident) Other Diabetes Heart disease Hypertension Surgical History no surgical history Social History (Updated 04/29/22 @ 16:[address] Jeanette White DO) household members: spouse housing: house current occupational status: employed current occupational exposures/hazards: No Smoking Status: Never smoker alcohol intake: current alcohol intake frequency: holidays/special occasions only substance use type: does not use what type of physical activity do you participate in: none ROS Constitutional Constitutional: Denies change in weight, chills, fatigue, frequent falls, headache(s) or lethargy Eyes Eyes: Denies acute decrease in peripheral vision, blurry vision or change in vision ENT HEENT: Denies dizziness, dry mouth, epistaxis, headache(s), tinnitus or vertigo Cardiovascular Cardiovascular: Reports other Details: See HPI Respiratory/Chest Respiratory/Chest: Reports dyspnea on exertion; Denies cough, dyspnea, tachypnea or wheezing Gastrointestinal Gastrointestinal: Denies abdominal pain, bloating, coffee ground emesis, diarrhea, heartburn, hematemesis, hematochezia, melena or nausea Genitourinary Genitourinary: Denies hematuria Musculoskeletal Musculoskeletal: Denies myalgias, numbness or tingling Neurologic Neurologic: Denies abnormal gait, abnormal speech, memory loss, paresthesias or weakness Physical Exam Const alert, oriented x3 and no apparent distress General Appearance: cooperative Nutritional Appearance: obese HEENT normocephalic and head/scalp atraumatic Eyes PERRL, EOMs intact bilaterally and conjunctivae normal Neck supple General: trachea midline Chest inspection of chest normal Resp normal respiratory effort Auscultation: crackles bilateral base Cardio regular rate and regular rhythm GI normal to inspection, nondistended, normoactive bowel sounds Extremity no clubbing, cyanosis or edema Skin no rashes or lesions noted Neuro oriented x3, CN's II-XII intact bilaterally, moves all extremities and no focal motor deficits Psych cooperative and affect normal Risk Stratification Risk Stratification Applicable: Yes Age >/= 65: No >/= 3 CAD Risk Factors (HTN, HLD, DM, family hx of CAD, or current smoker): Yes Aspirin Use in the Past 7 Days: No Severe Angina (>/= episodes in 24 hours): Yes EKG ST Changes >/= 0.5mm: No Positive Cardiac Marker: Yes FREDDY Risk Stratification Score: 3 FREDDY % Risk: 13% Risk Charges/Coding Visit Charges Office Visits / Consults: 71000 IP Consult L4 Objective Data Vital Signs: Vital Signs Temp Pulse Resp BP Pulse Ox O2 Del Method O2 Flow Rate 98.0 F 99 20 H 142/94 H 97 Nasal Cannula 4 04/29/22 13:46 04/29/22 13:46 04/29/22 13:46 04/29/22 13:46 04/29/22 14:00 04/29/22 14:45 04/29/22 14:45 Oxygen Flow Rate (L/min) 4 Oxygen Delivery Method Nasal Cannula Weight: 248 lb 14.43 oz Body Mass Index (BMI) 35.6 Lab / Micro Data Result Diagrams: 04/29/22 07:45 04/29/22 07:45 Labs: Laboratory Results - last 24 hr 04/29/22 07:45: WBC 9.0, RBC 6.23 H, Hgb 17.2 H, Hct 52.5, MCV 84.3, MCH 27.6, MCHC 32.8, RDW Std Deviation 44.9 H, RDW Coeff of Miles 15.4 H, Plt Count 360, MPV 10.2, Immature Gran % (Auto) 0.200, Neut % (Auto) 66.0, Lymph % (Auto) 22.7, [place] % (Auto) 10.1 H, Eos % (Auto) 0.3, Baso % (Auto) 0.7, Absolute Neuts (auto) 5.9, Absolute Lymphs (auto) 2.04, Nucleated RBC % 0 04/29/22 07:45: D-Dimer Quant (PE/DVT) 1.58 H* 04/29/22 07:45: Sodium 135 L, Potassium 3.5, Chloride 98, Carbon Dioxide 27.0, Anion Gap 10, BUN 17, Creatinine 1.19, Estim Creat Clear Calc 67.31, Est GFR (MDRD) Af Amer 80, Est GFR (MDRD) Non-Af 66, BUN/Creatinine Ratio 14.3, Glucose 199 H, Calcium 10.0, Troponin I High Sens 38 04/29/22 07:45: B-Natriuretic Peptide 123.8 H 04/29/22 10:12: Troponin I High Sens 70 04/29/22 13:40: Troponin I High Sens [id number] H* Micro: Microbiology 04/29/22 11:30 Mucosa - Nasopharyngeal Respiratory Panel (PCR) - Final 04/29/22 11:15 Nasal Secretion SARS-CoV-2 Antigen (Rapid) - Final Cardiology Labs/Tests 04/29/22 07:45: WBC 9.0, RBC 6.23 H, Hgb 17.2 H, Hct 52.5, MCV 84.3, MCH 27.6, MCHC 32.8, Plt Count 360, MPV 10.2, Immature Gran % (Auto) 0.200, Neut % (Auto) 66.0, Lymph % (Auto) 22.7, [place] % (Auto) 10.1 H, Eos % (Auto) 0.3, Baso % (Auto) 0.7, Absolute Neuts (auto) 5.9, Nucleated RBC % 0 04/29/22 07:45: D-Dimer Quant (PE/DVT) 1.58 H* 04/29/22 07:45: Sodium 135 L, Potassium 3.5, Chloride 98, Carbon Dioxide 27.0, Anion Gap 10, BUN 17, Creatinine 1.19, Est GFR (MDRD) Af Amer 80, Est GFR (MDRD) Non-Af 66, BUN/Creatinine Ratio 14.3, Glucose 199 H, Calcium 10.0 04/29/22 07:45: B-Natriuretic Peptide 123.8 H Rhythm:SR, there was an 8 beat run of VT EKG:NSRm inferior and anterolateral infarct ECHO:pending Radiography Diagnostic Testing: Radiology Impression Chest CTA 04/29/22 08:09 IMPRESSION: No demonstrated PE, or thoracic aortic aneurysm or dissection. Suspicious large infrarenal noncalcified mass in the right medial lower lung field measuring 6.93 x 3.63 x 2.95 cm suspicious for a primary neoplastic process. Additionally, there are suspicious mediastinal and perihilar lymph nodes likely representing metastasis and there are noncalcified nodules in the right midlung field also concerning for metastasis. Diffuse pleural thickening in both hemithoraces with loculated right pleural effusion Calcified coronary vessels Degenerative bony changes Celiac axis adenopathy also suspected Electronically Signed: Priyank Treviño MD at 9:07 EDT , Documented by User: Dr. Maco Ewnig MD 04/29/22 17:08 Assessment & Plan Assessment/Plan (1) NSTEMI (non-ST elevated myocardial infarction): (2) Lung mass: PLAN: Plan 61-year-old patient seen and evaluated today at bedside along with the nursing staff I independently reviewed all his medical record including the EKG, cardiac telemetry, current lab evaluation medical treatment His presentation is symptoms of left-sided chest discomfort with some radiation to the left arm Also had recently noted progressive symptoms of shortness of breath. Patient has no prior cardiac history he is an ex smoker years ago. Cardiac examination essentially normal Cardiac care plan recommendations; 1. Noted has significantly elevated cardiac biomarker with high sensitive troponins With an EKG consistent with a recent anteroseptal [place] 2. We will continue medical therapy with heparin, aspirin, beta-duncan and statin 3. Patient has CTA which revealed evidence of lung, right-sided and scheduled to undergo CT-guided biopsy. 4. Based on his clinical presentation with a clinical diagnosis of non-ST e levation [place], recommended to proceed and evaluated further with a left heart cath, this will be set up on Monday following CT-guided biopsy of the mass. We will continue on heparin and his symptoms of chest pain improved. HPI Consult Data Date of Consult: 04/29/22 [facility] Medical History Diabetes mellitus, type 2 Hypertension Hypothyroid NSTEMI (non-ST elevated myocardial infarction) Obesity DEVI (obstructive sleep apnea) Home Medications glimepiride 2 mg tablet 4 mg PO DAILY BS 08/29/16 [History Last Taken 04/29/22] losartan 100 mg tablet 100 mg PO DAILY BP 08/29/16 [History Last Taken 04/28/22] triamterene 37.5 mg-hydrochlorothiazide 25 mg tablet (Maxzide-25mg) 1 tab PO DAILY excess fluid 08/29/16 [History Last Taken 04/29/22] levothyroxine 25 mcg tablet 25 mcg PO DAILY Thyroid] 04/29/22 [History Last Taken 04/29/22] Allergy/AdvReac Type Severity Reaction Status Date / Time No Known Allergies Allergy Verified 04/29/22 07:37 Family History (Updated 04/29/22 @ 16:[address] Jeanette White DO) Mother CVA (cerebral vascular accident) Other Diabetes Heart disease Hypertension Surgical History no surgical history Social History (Updated 04/29/22 @ 16:[address] Jeanette White DO) household members: spouse housing: house current occupational status: employed current occupational exposures/hazards: No Smoking Status: Never smoker alcohol intake: current alcohol intake frequency: holidays/special occasions only substance use type: does not use what type of physical activity do you participate in: none Risk Stratification Age >/= 65: No FREDDY Risk Stratification Score: 3 FREDDY % Risk: 13% Risk Lab / Micro Data Result Diagrams: 04/29/22 07:45 04/29/22 07:45
--- NOTE | 2022-04-29 15:23 | CHAPLAIN ---
Type of Pastoral Visit _x__ Initial Visit ___ Follow-up Visit ___ On-call Visit ___ General Patient Visit ___ Spiritual Assessment ___ Family Conference ___ Bereavement ___ Rapid Response ___ Code Blue ___ Other (describe below) Pastoral Care Referral From __x_ Patient ___ Family ___ Nurse ___ Physician ___ Technology Integration Specialist ___ Dye Operator ___ Other (describe below) Sacrament/Intervention _x__ Active listening ___ Anointing ___ Rastafari ___ Bereavement ___ Communion ___ Sierra exploration ___ _x__ Life review _x__ Prayer ___ Reconciliation ___ Sacrament of Sick ___ Supportive presence ___ Wedding ___ Other (describe below) Pastoral Comments patient and spouse are in room; spouse is an acquaintance of this assistant director of public works; pt and spouse talk openly about health and situation; pt to have more tests done and has some apprehension until results come in ; pt willing for presence, prayer, and follow up next week
--- NOTE | 2022-04-29 15:25 | CASEMGMT ---
According to the [employer] website, the following are in-network tertiary facilities: [facility], [place], [facility], [facility], [facility], and . Mateo CALDERA CM
[2022-04-29 16:35] LABS: Bedside Glucose 228 mg/dL (74-106)
[2022-04-29 16:45] LABS: International Normalized Ratio 1.3; Prothrombin Time (Protime)PT. 15.8 SECONDS (11.7-14.9)
[2022-04-29] MEDS: Heparin Injection (Vial) 5,000 UNIT/ML VIAL 8000 UNIT IV (16:56)
[2022-04-29] MEDS: Insulin Lispro 100 UNIT/ML INSULN.PEN SC (16:58)
[2022-04-29] MEDS: Metoprolol Tartrate 25 MG Tablet PO (17:00)
[2022-04-29] MEDS: Furosemide 40 MG/4 ML Vial IV (17:01)
[2022-04-29] MEDS: HEPARIN/D5w 25,000 UNITS 25,000 UNITS/250 ML IV.SOLN. 15 UNITS CONT INF (17:04)
[2022-04-29 19:45] LABS: Magnesium 1.9 mg/dL (1.6-2.6)
[2022-04-29] MEDS: Atorvastatin Calcium 80 MG Tablet PO (20:55)
[2022-04-29] MEDS: Potassium Chloride Oral Tablet 20 MEQ 60 MEQ PO (21:24)
[2022-04-29 23:39] LABS: Partial Thromboplast Time 92.1 Seconds (24.1-36.2)
[2022-04-30] VITALS (19 sets, daily range): BP systolic 113–129; BP diastolic 77–94; PULSE 77–88; RESP 14–18; TEMP 36.3–37.2; O2SAT 95–98
[2022-04-30 00:31] LABS: Bedside Glucose 173 mg/dL (74-106)
[2022-04-30] MEDS: Levothyroxine 25 MCG TABLET PO (06:29)
[2022-04-30] MEDS: Insulin Lispro 100 UNIT/ML INSULN.PEN SC ×3 (06:29→17:01)
[2022-04-30 06:54] LABS: Absolute Lymphocyte Count 2.11 X10^3/uL (0.83-4.51); Absolute Neutrophil Count 8.1 X10^3/uL (2.0-7.7); Basophil# 0.05 X10^3/uL; Basophil% 0.4 % (0-1); Eosinophil# 0.02 X10^3/uL; Eosinophils% 0.2 % (0-5); Hematocrit 46.6 % (40-54); Hemoglobin 15.6 g/dL (13.0-16.5); Lymphocyte # 2.11 X10^3/ul (0.83-4.51); Lymphocyte % 18.5 % (19-41); Mean Corp Hgb Conc 33.5 g/dL (32-36); Mean Corpuscular Hgb 27.7 pg (27.0-32.0); Mean Corpuscular Volume 82.6 fL (80-94); Mean Platelet Vol. 9.9 fl (6.2-12.0); Monocyte% 9.6 % (0-10); NRBC Flagged by Analyzer 0 % (0-5); Neutrophil # 8.09 X10^3/uL (2.7-7.7); Neutrophil % 70.9 % (47-70); Platelet Count 336 K/mm3 (150-450); RBC Distribution Width CV 15.3 % (11.6-14.6); RBC Distribution Width SD 45.3 fl (35.1-43.9); Red Blood Count 5.64 M/mm3 (4.6-6.2); White Blood Count 11.4 K/mm3 (4.4-11.0)
[2022-04-30 07:05] LABS: Partial Thromboplast Time 71.4 Seconds (24.1-36.2)
[2022-04-30 07:10] LABS: Bedside Glucose 163 mg/dL (74-106)
[2022-04-30 07:43] LABS: ALB/GLOB Ratio 0.8 RATIO (0.9-2.4); AST(SGOT) 228 U/L (15-37); Alanine Aminotransfer ALT/SGPT 52 U/L (16-61); Albumin, Serum 3.4 g/dL (3.2-5.0); Alkaline Phosphatase 121 U/L (45-117); Anion Gap 9 (5-15); BUN 18 mg/dL (7-18); Calcium,Total 8.9 mg/dL (8.5-10.1); Chloride 98 mmol/L (98-107); Cholesterol 122 mg/dL (200); Creatinine, Serum 1.06 mg/dL (0.70-1.30); EST Glomerular Filtration Rate 75 mL/min (>60); Est Glom Filt Rate - Afr Amer 91 mL/min (>60); Estimated Creatinine Clearance 75.56 ml/min; Globulin 4.1 g/dL (2.2-4.2); Glucose 159 mg/dL (74-106); High Density Lipoprotein 35 mg/dL; Magnesium 2.3 mg/dL (1.6-2.6); Phosphorus 2.9 mg/dL (2.5-4.9); Potassium 3.6 mmol/L (3.5-5.1); Protein, Total 7.5 g/dL (6.4-8.2); Sodium Level 135 mmol/L (136-145); Thyroid Stim Hormone (TSH) 2.36 uIU/mL (0.358-3.74); Triglycerides 98 mg/dL; Very Low Density Lipoprotein 20 mg/dL (5-40)
[2022-04-30 08:18] LABS: Hemoglobin A1c 8.2 % (3.8-5.6)
[2022-04-30] MEDS: Aspirin E.C. 81 MG Tablet PO (08:35)
[2022-04-30] MEDS: Furosemide 40 MG/4 ML Vial IV ×2 (08:35→17:00)
[2022-04-30] MEDS: Metoprolol Tartrate 25 MG Tablet PO ×2 (08:35→21:38)
[2022-04-30] MEDS: HEPARIN/D5w 25,000 UNITS 25,000 UNITS/250 ML IV.SOLN. 14 UNITS CONT INF (08:36)
[2022-04-30] MEDS: Losartan Potassium 100 MG Tablet PO (08:39)
[2022-04-30] MEDS: Pantoprazole Sodium 40 MG Tablet PO (08:47)
[2022-04-30] MEDS: 0.9% Saline Lock 10 ML Syringe IV ×2 (08:48→17:00)
--- NOTE | 2022-04-30 10:45 | CASEMGMT ---
Social Work SW met w/pt in room, offered support in light of new finding of lung mass. Pt states is having a biopsy Monday and a heart cath Monday as well. Pt states at this point it's just waiting to find out what is going on. Pt states is managing okay. Pt states is supportive, will be here shortly. Support offered, SW let pt know that SW remains available for support as needed. ANNIKA Dennis
--- NOTE | 2022-04-30 10:56 | PCM.PN.HOSP ---
Subjective Subjective Short runs of VT late yesterday and through the evening. Electrolytes replaced. Patient was asymptomatic during these events with no palpitations. Denies any current chest pain. Shortness of breath is much improved. Objective Data Objective Data Vital Signs: Vital Signs Temp Pulse Resp BP Pulse Ox O2 Del Method O2 Flow Rate 97.3 F L 85 14 124/89 H 95 Nasal Cannula 2 04/30/22 08:00 04/30/22 08:35 04/30/22 08:00 04/30/22 08:35 04/30/22 08:49 04/30/22 08:49 04/30/22 08:49 Oxygen Flow Rate (L/min) 2 Oxygen Delivery Method Nasal Cannula Weight: 112.3 kg Body Mass Index (BMI) 35.6 Intake & Output: Intake and Output for Last 24 Hours 04/28/22 04/29/22 04/30/22 23:59 23:59 23:59 Intake Total 620.5 / 620.5 227.67 / 227.67 Balance 620.5 / 620.5 227.67 / 227.67 Lab / Micro Data Result Diagrams: 04/30/22 06:48 04/30/22 06:48 Labs: Laboratory Results - last 24 hr 04/29/22 13:40: Troponin I [place] Sens [id number] H* 04/29/22 16:00: PT 15.8 H, INR 1.3, APTT 30.0 04/29/22 16:15: POC Glucose 228 H 04/29/22 19:20: Magnesium 1.9 04/29/22 21:11: POC Glucose 173 H 04/29/22 23:04: APTT 92.1 H* 04/30/22 06:28: POC Glucose 163 H 04/30/22 06:48: Hemoglobin A1c 8.2 H 04/30/22 06:48: WBC 11.4 H, RBC 5.64, Hgb 15.6, Hct 46.6, MCV 82.6, MCH 27.7, MCHC 33.5, RDW Std Deviation 45.3 H, RDW Coeff of Miles 15.3 H, Plt Count 336, MPV 9.9, Immature Gran % (Auto) 0.400, Neut % (Auto) 70.9 H, Lymph % (Auto) 18.5 L, [place] % (Auto) 9.6, Eos % (Auto) 0.2, Baso % (Auto) 0.4, Absolute Neuts (auto) 8.1 H, Absolute Lymphs (auto) 2.11, Nucleated RBC % 0 04/30/22 06:48: Sodium 135 L, Potassium 3.6, Chloride 98, Carbon Dioxide 28.0, Anion Gap 9, BUN 18, Creatinine 1.06, Estim Creat Clear Calc 75.56, Est GFR (MDRD) Af Amer 91, Est GFR (MDRD) Non-Af 75, BUN/Creatinine Ratio 17.0, Glucose 159 H, Calcium 8.9, Phosphorus 2.9, Magnesium 2.3, Total Bilirubin 1.10 H, AST 228 H, ALT 52, Alkaline Phosphatase 121 H, Total Protein 7.5, Albumin 3.4, Globulin 4.1, Albumin/Globulin Ratio 0.8 L, Triglycerides 98, Cholesterol 122, LDL Cholesterol 67, VLDL Cholesterol 20, HDL Cholesterol 35 L, TSH 2.36 04/30/22 06:48: APTT 71.4 H Micro: Microbiology 04/29/22 11:30 Mucosa - Nasopharyngeal Respiratory Panel (PCR) - Final 04/29/22 11:15 Nasal Secretion SARS-CoV-2 Antigen (Rapid) - Final Physical Exam Const alert, oriented x3, no apparent distress and well nourished Constitutional Narrative: Obese, upper middle-aged white male, sitting up in bed, appears comfortable nontoxic, nursing at bedside HEENT normocephalic, head/scalp atraumatic, hearing grossly normal bilaterally and moist oral mucous membranes Resp normal respiratory effort, no retractions, no use of accessory muscles and clear to auscultation bilaterally Auscultation: Negative for crackles, rhonchi or wheezes Cardio regular rate, regular rhythm, S1 normal heart sound, S2 normal heart sound, no murmurs, no rub, no gallops and no clicks GI normal to inspection, nondistended, normoactive bowel sounds, soft to palpation and non-tender Extremity no clubbing, cyanosis or edema Neuro oriented x3, CN's II-XII intact bilaterally, moves all extremities and no focal motor deficits Speech: speech normal Assessment & Plan Assessment/Plan (1) NSTEMI (non-ST elevated myocardial infarction): (2) Lung mass: (3) Acute respiratory failure with hypoxia: (4) Erythrocytosis: PLAN: Plan NSTEMI -EKG shows T wave inversions in the inferior and lateral leads -Troponin trended from 38-->70 to greater than 13,000 -Heparin drip initiated -As needed nitro -Total cholesterol is 122/LDL 67/HDL 35 -Hemoglobin A1c is 8.2 -We will continue high intensity dose statin for pleiotropic effects but likely reduce at discharge to 20 mg given the fact that the patient's LDL was only 67 -Aspirin 81 mg daily -Continue CHANTELL inhibitor -Continue beta-duncan -Echocardiogram is pending -Cardiology is following -Hopeful for cardiac catheterization to be done on Monday after CT-guided biopsy of his lung mass as he will most likely need to be on antiplatelet therapy following cardiac catheterization Right-sided lung mass/lymphadenopathy -Suspicious for primary lung carcinoma -Will need CT-guided biopsy -Discussed with CT today to try to get this done first thing on Monday morning so he can have cardiac catheterization following -Pulmonary medicine following Acute hypoxic respiratory failure -Patient developed acute hypoxia with tachypnea, tachycardia, elevated blood pressure after lying flat for a CT in the emergency department -Initially required a nonrebreather and then was weaned to 6 L heated high flow nasal cannula -Resolved--> we have now been able to wean to room air -COVID and respiratory viral panel are negative -We will continue IV Lasix for now and likely convert to p.o. tomorrow Ventricular tachycardia -Likely related to acute ischemic event -Short asymptomatic runs -Maximize magnesium and potassium levels for magnesium greater than 2 (currently 2.3), potassium greater than 4, currently 3.6) -40 mill equivalents of p.o. potassium given given ongoing diuresis and potassium less than 4 Erythrocytosis -Resolved Hypertension -Hold Maxide -Continue losartan -Beta-duncan added DM-2 -Hold home glimepiride -A1c is elevated at 8.2 -Needs more aggressive glycemic control with goal less than 7 -Will consider SGLP 2 inhibitor at discharge -Sliding scale insulin -Cardiac/carb controlled diet -Accu-Cheks as ordered Hypothyroidism -Continue home levothyroxine -TSH within normal limits at 2.36 DEVI -Patient noncompliant with CPAP -Monitor -Utilize nocturnal oxygen at 2 L Obesity -Recommend weight loss -Complicates treatment, prognosis, outcomes CODE STATUS -Full code Charges/Coding Visit Charges Inpatient E&M: 04164 Subs Hosp L2
[2022-04-30 12:39] LABS: Partial Thromboplast Time 53.7 Seconds (24.1-36.2)
[2022-04-30] MEDS: Potassium Chloride Oral Tablet 20 MEQ 40 MEQ PO (12:46)
[2022-04-30] MEDS: Heparin Injection (Vial) 5,000 UNIT/ML VIAL IV (13:00)
[2022-04-30 13:10] LABS: Bedside Glucose 190 mg/dL (74-106)
--- NOTE | 2022-04-30 14:45 | PN.CARD_ITS ---
Subjective Subjective Mild symptoms shortness of breath at rest No chest pain Objective Data Vital Signs: Vital Signs Temp Pulse Resp BP Pulse Ox O2 Del Method O2 Flow Rate 97.3 F L 85 14 124/89 H 95 Nasal Cannula 2 04/30/22 08:00 04/30/22 08:35 04/30/22 08:00 04/30/22 08:35 04/30/22 08:49 04/30/22 08:49 04/30/22 08:49 Oxygen Flow Rate (L/min) 2 Oxygen Delivery Method Nasal Cannula Weight: 247 lb 9.266 oz Body Mass Index (BMI) 35.6 Intake & Output: Intake and Output for Last 24 Hours 04/28/22 04/29/22 04/30/22 23:59 23:59 23:59 Intake Total 620.5 / 620.5 289.27 / 289.27 Balance 620.5 / 620.5 289.27 / 289.27 Lab / Micro Data Result Diagrams: 04/30/22 06:48 04/30/22 06:48 Labs: Laboratory Results - last 24 hr 04/29/22 16:00: PT 15.8 H, INR 1.3, APTT 30.0 04/29/22 16:15: POC Glucose 228 H 04/29/22 19:20: Magnesium 1.9 04/29/22 21:11: POC Glucose 173 H 04/29/22 23:04: APTT 92.1 H* 04/30/22 06:28: POC Glucose 163 H 04/30/22 06:48: Hemoglobin A1c 8.2 H 04/30/22 06:48: WBC 11.4 H, RBC 5.64, Hgb 15.6, Hct 46.6, MCV 82.6, MCH 27.7, MCHC 33.5, RDW Std Deviation 45.3 H, RDW Coeff of Miles 15.3 H, Plt Count 336, MPV 9.9, Immature Gran % (Auto) 0.400, Neut % (Auto) 70.9 H, Lymph % (Auto) 18.5 L, Branch % (Auto) 9.6, Eos % (Auto) 0.2, Baso % (Auto) 0.4, Absolute Neuts (auto) 8.1 H, Absolute Lymphs (auto) 2.11, Nucleated RBC % 0 04/30/22 06:48: Sodium 135 L, Potassium 3.6, Chloride 98, Carbon Dioxide 28.0, Anion Gap 9, BUN 18, Creatinine 1.06, Estim Creat Clear Calc 75.56, Est GFR (MDRD) Af Amer 91, Est GFR (MDRD) Non-Af 75, BUN/Creatinine Ratio 17.0, Glucose 159 H, Calcium 8.9, Phosphorus 2.9, Magnesium 2.3, Total Bilirubin 1.10 H, AST 228 H, ALT 52, Alkaline Phosphatase 121 H, Total Protein 7.5, Albumin 3.4, Globulin 4.1, Albumin/Globulin Ratio 0.8 L, Triglycerides 98, Cholesterol 122, LDL Cholesterol 67, VLDL Cholesterol 20, HDL Cholesterol 35 L, TSH 2.36 04/30/22 06:48: APTT 71.4 H 04/30/22 12:21: APTT 53.7 H 04/30/22 12:44: POC Glucose 190 H Micro: Microbiology 04/29/22 11:30 Mucosa - Nasopharyngeal Respiratory Panel (PCR) - Final 04/29/22 11:15 Nasal Secretion SARS-CoV-2 Antigen (Rapid) - Final Cardiology Labs/Tests 04/29/22 16:00: PT 15.8 H, INR 1.3, APTT 30.0 04/29/22 19:20: Magnesium 1.9 04/29/22 23:04: APTT 92.1 H* 04/30/22 06:48: Hemoglobin A1c 8.2 H 04/30/22 06:48: WBC 11.4 H, RBC 5.64, Hgb 15.6, Hct 46.6, MCV 82.6, MCH 27.7, MCHC 33.5, Plt Count 336, MPV 9.9, Immature Gran % (Auto) 0.400, Neut % (Auto) 70.9 H, Lymph % (Auto) 18.5 L, Branch % (Auto) 9.6, Eos % (Auto) 0.2, Baso % (Auto) 0.4, Absolute Neuts (auto) 8.1 H, Nucleated RBC % 0 04/30/22 06:48: Sodium 135 L, Potassium 3.6, Chloride 98, Carbon Dioxide 28.0, Anion Gap 9, BUN 18, Creatinine 1.06, Est GFR (MDRD) Af Amer 91, Est GFR (MDRD) Non-Af 75, BUN/Creatinine Ratio 17.0, Glucose 159 H, Calcium 8.9, Phosphorus 2.9, Magnesium 2.3, Total Bilirubin 1.10 H, Triglycerides 98, Cholesterol 122, LDL Cholesterol 67, VLDL Cholesterol 20, HDL Cholesterol 35 L 04/30/22 06:48: APTT 71.4 H 04/30/22 12:21: APTT 53.7 H Rhythm: EKG: ECHO: Stress Test: Cardiac Cath: PCI: CT Surgery: Holter monitor: EPS: PPM: CXR: Chest CT Scan: Radiography Diagnostic Testing: Radiology Impression Echocardiogram 04/29/22 14:49 Interpretation Summary The estimated ejection fraction is 15-20 %. Severe LV systolic Dysfunction with SWMA as described,Apical akinesia with severe distal septal Hypokinesia Contrast echo used Ordering Physician: Jeanette White Referring Physician: Carri Gannon Performed By: Cesario Rachel RCS Physical Exam Cardio Cardio Narrative: Cardiac rhythm is normal sinus, episodes of nonsustained ventricular tachycardia Cardiovascular exam S1-S2 regular Chest exam clear to auscultation bilaterally Examination lower extremity no lower extremity edema. Assessment & Plan Assessment/Plan (1) Lung mass: (2) NSTEMI (non-ST elevated myocardial infarction): PLAN: 61-year-old patient Seen and evaluated today at bedside Mild symptoms of shortness of breath Symptoms of chest pain improving. Cardiac care plan; 1. This patient with the right lung mass, CT showed right-sided lung mass with lymphadenopathy suspicious for primary lung carcinoma and NSTEMI Currently on medical treatment. Also patient had diabetes mellitus with hemoglobin A1c in the range of around 8.2 Other medical problem include obesity obstructive sleep apnea and also noted noncompliant with CPAP, hypertension and hypothyroidism. Echocardiographic evaluation showed severe LV systolic dysfunction ejection fraction in the range of 15-20% with apical akinesia and severe distal septal hypokinesia Mild mitral regurgitation.: Patient has significantly elevated troponins Patient has episodes of nonsustained ventricular tachycardia, following electro lyte magnesium and potassium Currently he is on treatment with aspirin, heparin, losartan and beta-blocke, high-dose statin, atorvastatin 80 mg. 2. I discussed cardiac catheterization to be done on Monday following CT-guided biopsy of the right lung mass Explained the cardiac catheterization procedure and plan in detail to the patient and all questions answered and he elected to proceed on Monday following CT-guided lung biopsy.
[2022-04-30 18:21] LABS: Bedside Glucose 165 mg/dL (74-106)
--- NOTE | 2022-04-30 18:45 | NURSING ---
Charting reviewed with Zion Butt RN
--- NOTE | 2022-04-30 18:46 | NURSING ---
Patient does want to receive the flu shot this admission but he wants to get it on discharge. Flu shot left on SEP so it can be given at a later date per patient request.
[2022-04-30] MEDS: Atorvastatin Calcium 80 MG Tablet PO (21:38)
[2022-04-30 23:00] LABS: Bedside Glucose 153 mg/dL (74-106)
[2022-05-01] VITALS (14 sets, daily range): BP systolic 107–128; BP diastolic 74–86; PULSE 72–87; RESP 14–18; TEMP 36.6–37.2; O2SAT 93–98
[2022-05-01] MEDS: HEPARIN/D5w 25,000 UNITS 25,000 UNITS/250 ML IV.SOLN. 15 UNITS CONT INF ×2 (01:14→17:31)
[2022-05-01 01:52] LABS: Partial Thromboplast Time 68.4 Seconds (24.1-36.2)
[2022-05-01] MEDS: Levothyroxine 25 MCG TABLET PO (06:45)
[2022-05-01 06:52] LABS: Anion Gap 7 (5-15); BUN 20 mg/dL (7-18); BUN/Creat Ratio 19.2 RATIO (10-20); Calcium,Total 8.8 mg/dL (8.5-10.1); Chloride 98 mmol/L (98-107); Creatinine, Serum 1.04 mg/dL (0.70-1.30); EST Glomerular Filtration Rate 77 mL/min (>60); Est Glom Filt Rate - Afr Amer 93 mL/min (>60); Estimated Creatinine Clearance 77.02 ml/min; Glucose 140 mg/dL (74-106); Potassium 3.2 mmol/L (3.5-5.1); Sodium Level 135 mmol/L (136-145)
[2022-05-01 07:06] LABS: Bedside Glucose 133 mg/dL (74-106)
--- NOTE | 2022-05-01 07:32 | PCM.PN.INT ---
Assessment & Plan Assessment/Plan (1) Lung mass: PLAN: Plan RECOMMENDATIONS: 1. Supplemental oxygen to maintain saturations at or above 90%. 2. Proceed with CT-guided lung biopsy prior to cardiac catheterization. 3. If CT-guided lung biopsy is not feasible, an EBUS procedure can be arranged for the patient after discharge. 4. Continue diuresis as tolerated by hemodynamics and renal function. 5. Encourage incentive spirometer use and mobilize patient as tolerated. IMPRESSIONS: 1. Chest discomfort and associated hypoxia The patient presented to the hospital with left-sided chest discomfort and subsequently developed hypoxia in the emergency department requiring the initiation of supplemental oxygen. The patient's chest imaging did demonstrate findings concerning for chronic interstitial changes along with a right-sided loculated effusion, pleural thickening on the left and a right lower lobe lung mass. No PE was identified. Subsequent work-up revealed evidence of an NSTEMI with an ejection fraction of approximately 15 to 20%. I do suspect that this is the precipitating etiology for the patient's hypoxia. Cardiology is following with tentative plans for cardiac catheterization on Monday. In the interim, continue supplemental oxygen to maintain saturations at or above 90%, along with diuresis as tolerated by hemodynamics and renal function.. 2. Abnormal chest imaging As noted above, the patient had a CTA chest completed which demonstrated a right lower lobe lung mass with what appeared to be a loculated effusion, chronic interstitial changes and pleural thickening in the left hemidiaphragm. The patient has no prior smoking history. I explained to the patient that these findings would require additional work-up including biopsy. There are tentative plans for the patient to undergo a CT-guided lung biopsy tomorrow morning, which will then be followed by cardiac catheterization. 3. Hypertension/hypothyroidism/diabetes mellitus Complicates care, management, recovery and prognosis. Continue home medications as indicated. This note was generated with [employer] dictation software. It may contain incorrect words, spelling, and punctuation that were not noted in checking the note before signing. Subjective Subjective The patient was seen and examined at the bedside this morning. Events from the last 24 hours have been reviewed. The patient is currently afebrile, hemodynamically stable and maintaining appropriate oxygen saturations on 2 L/min via nasal cannula. Potassium is low this morning at 3.2. The patient does report interval improvement in his dyspnea. He denies any chest pain at the present time. Objective Data Objective Data The patient's most recent lab work, culture data and imaging studies have all been personally reviewed. Surface echocardiogram demonstrated a moderately dilated LV with an ejection fraction of 15 to 20%. Mild global RV systolic dysfunction was noted as well. Vital Signs: Vital Signs Temp Pulse Resp BP Pulse Ox O2 Del Method O2 Flow Rate 98.4 F 74 16 112/74 98 Nasal Cannula 2 05/01/22 06:00 05/01/22 06:00 05/01/22 06:00 05/01/22 06:00 05/01/22 06:00 05/01/22 06:00 05/01/22 06:00 Oxygen Flow Rate (L/min) 2 Oxygen Delivery Method Nasal Cannula Weight: 242 lb 4.608 oz Body Mass Index (BMI) 35.6 Intake & Output: Intake and Output for Last 24 Hours 04/29/22 04/30/22 05/01/22 23:59 23:59 23:59 Intake Total 620.5 / 620.5 1009.27 / 1609.27 983.5 / 983.5 Balance 620.5 / 620.5 1009.27 / 1609.27 983.5 / 983.5 Lab / Micro Data Attestation: I reviewed the patient's lab results. Result Diagrams: 04/30/22 06:48 05/01/22 05:08 Labs: Laboratory Results - last 24 hr 04/30/22 06:48: Hemoglobin A1c 8.2 H 04/30/22 06:48: Sodium 135 L, Potassium 3.6, Chloride 98, Carbon Dioxide 28.0, Anion Gap 9, BUN 18, Creatinine 1.06, Estim Creat Clear Calc 75.56, Est GFR (MDRD) Af Amer 91, Est GFR (MDRD) Non-Af 75, BUN/Creatinine Ratio 17.0, Glucose 159 H, Calcium 8.9, Phosphorus 2.9, Magnesium 2.3, Total Bilirubin 1.10 H, AST 228 H, ALT 52, Alkaline Phosphatase 121 H, Total Protein 7.5, Albumin 3.4, Globulin 4.1, Albumin/Globulin Ratio 0.8 L, Triglycerides 98, Cholesterol 122, LDL Cholesterol 67, VLDL Cholesterol 20, HDL Cholesterol 35 L, TSH 2.36 04/30/22 12:21: APTT 53.7 H 04/30/22 12:44: POC Glucose 190 H 04/30/22 16:56: POC Glucose 165 H 04/30/22 19:00: APTT 63.0 H 04/30/22 21:36: POC Glucose 153 H 05/01/22 01:15: APTT 68.4 H 05/01/22 05:08: Sodium 135 L, Potassium 3.2 L, Chloride 98, Carbon Dioxide 30.0, Anion Gap 7, BUN 20 H, Creatinine 1.04, Estim Creat Clear Calc 77.02, Est GFR (MDRD) Af Amer 93, Est GFR (MDRD) Non-Af 77, BUN/Creatinine Ratio 19.2, Glucose 140 H, Calcium 8.8 05/01/22 06:43: POC Glucose 133 H Micro: Microbiology 04/29/22 11:30 Mucosa - Nasopharyngeal Respiratory Panel (PCR) - Final 04/29/22 11:15 Nasal Secretion SARS-CoV-2 Antigen (Rapid) - Final Radiography Diagnostic Testing: Radiology Impression Echocardiogram 04/29/22 14:49 Interpretation Summary The estimated ejection fraction is 15-20 %. Severe LV systolic Dysfunction with SWMA as described,Apical akinesia with severe distal septal Hypokinesia Contrast echo used Ordering Physician: Jeanette White Referring Physician: Carri Gannon Performed By: Cesario Rachel RCS Physical Exam Const alert, oriented x3 and no apparent distress Constitutional Narrative: is present at the bedside. General Appearance: cooperative Nutritional Appearance: obese HEENT normocephalic and head/scalp atraumatic Eyes PERRL, EOMs intact bilaterally and conjunctivae normal Neck supple General: trachea midline Chest inspection of chest normal Resp normal respiratory effort Auscultation: Negative for rales, rhonchi or wheezes Cardio regular rate and regular rhythm GI normal to inspection, nondistended, normoactive bowel sounds Extremity no clubbing, cyanosis or edema Skin no rashes or lesions noted Neuro oriented x3, CN's II-XII intact bilaterally, moves all extremities and no focal motor deficits Psych cooperative and affect normal Charges/Coding Visit Charges Inpatient E&M: 25246 Subs Hosp L2
[2022-05-01] MEDS: Potassium Chloride Oral Tablet 20 MEQ 60 MEQ PO (09:36)
[2022-05-01] MEDS: Pantoprazole Sodium 40 MG Tablet PO (09:42)
[2022-05-01] MEDS: Metoprolol Tartrate 25 MG Tablet PO (09:42)
[2022-05-01] MEDS: Furosemide 40 MG Tablet PO (09:42)
[2022-05-01] MEDS: Losartan Potassium 100 MG Tablet PO (09:42)
--- NOTE | 2022-05-01 10:17 | PN.HOSP_ITS ---
Subjective Subjective Ports that his shortness of breath is much better overall. No chest pain. Is a bit concerned about his procedures tomorrow. Denies the need for anything but just dates he is slightly anxious about everything. I reviewed the processes with him and he voiced understanding. We did discuss the possibility that his cardiac catheterization reveals extensive coronary disease and that transfer may be required. He stated that his hospital of [facility] choice [facility]. I will have case management check with his insurance options in the morning. Objective Data Objective Data Vital Signs: Vital Signs Temp Pulse Resp BP Pulse Ox O2 Del Method O2 Flow Rate 97.8 F 84 16 122/86 H 97 Room Air 2 05/01/22 09:00 05/01/22 09:42 05/01/22 09:00 05/01/22 09:42 05/01/22 09:00 05/01/22 09:45 05/01/22 09:00 Oxygen Flow Rate (L/min) 2 Oxygen Delivery Method Room Air Weight: 109.9 kg Body Mass Index (BMI) 35.6 Intake & Output: Intake and Output for Last 24 Hours 04/29/22 04/30/22 05/01/22 23:59 23:59 23:59 Intake Total 620.5 / 620.5 1009.27 / 1609.27 983.5 / 983.5 Balance 620.5 / 620.5 1009.27 / 1609.27 983.5 / 983.5 Lab / Micro Data Result Diagrams: 04/30/22 06:48 05/01/22 05:08 Labs: Laboratory Results - last 24 hr 04/30/22 12:21: APTT 53.7 H 04/30/22 12:44: POC Glucose 190 H 04/30/22 16:56: POC Glucose 165 H 04/30/22 19:00: APTT 63.0 H 04/30/22 21:36: POC Glucose 153 H 05/01/22 01:15: APTT 68.4 H 05/01/22 05:08: Sodium 135 L, Potassium 3.2 L, Chloride 98, Carbon Dioxide 30.0, Anion Gap 7, BUN 20 H, Creatinine 1.04, Estim Creat Clear Calc 77.02, Est GFR (MDRD) Af Amer 93, Est GFR (MDRD) Non-Af 77, BUN/Creatinine Ratio 19.2, Glucose 140 H, Calcium 8.8 05/01/22 06:43: POC Glucose 133 H Micro: Microbiology 04/29/22 11:30 Mucosa - Nasopharyngeal Respiratory Panel (PCR) - Final 04/29/22 11:15 Nasal Secretion SARS-CoV-2 Antigen (Rapid) - Final Radiography Diagnostic Testing: Radiology Impression Echocardiogram 04/29/22 14:49 Interpretation Summary The estimated ejection fraction is 15-20 %. Severe LV systolic Dysfunction with SWMA as described,Apical akinesia with severe distal septal Hypokinesia Contrast echo used Ordering Physician: Jeanette White Referring Physician: Carri Gannon Performed By: Cesario Rachel RCS Physical Exam Const alert, oriented x3, no apparent distress and well nourished Constitutional Narrative: Obese, upper middle-aged white male, sitting up in bed, appears comfortable nontoxic HEENT normocephalic, head/scalp atraumatic, hearing grossly normal bilaterally and m oist oral mucous membranes Resp normal respiratory effort, no retractions, no use of accessory muscles and clear to auscultation bilaterally Resp Narrative: On room air Auscultation: Negative for crackles, rhonchi or wheezes Cardio regular rate, regular rhythm, S1 normal heart sound, S2 normal heart sound, no murmurs, no rub, no gallops and no clicks GI normal to inspection, nondistended, normoactive bowel sounds, soft to palpation and non-tender Extremity no clubbing, cyanosis or edema Extremity Narrative: Lower extremity edema has resolved Neuro oriented x3, moves all extremities and no focal motor deficits Speech: speech normal Psych affect normal Psych Narrative: Very pleasant and appropriately interactive Assessment & Plan Assessment/Plan (1) NSTEMI (non-ST elevated myocardial infarction): (2) Lung mass: (3) Acute respiratory failure with hypoxia: (4) Erythrocytosis: (5) Cardiomyopathy: (6) Hypokalemia: PLAN: Plan NSTEMI -EKG shows T wave inversions in the inferior and lateral leads -Troponin trended from 38-->70 to greater than 13,000 -Heparin drip initiated -Total cholesterol is 122/LDL 67/HDL 35 -Hemoglobin A1c is 8.2 -We will continue high intensity dose statin for pleiotropic effects but likely reduce at discharge to 20 mg given the fact that the patient's LDL was only 67 -Aspirin 81 mg daily -We will convert to Entresto -Continue beta-duncan but switch from metoprolol to Coreg with reduced ejection fraction -Echocardiogram showed EF of 15 to 20% with severe LV dysfunction having wall motion abnormality consisting of apical akinesia and severe distal septal hypokinesia, ventricle was mildly dilated -Cardiology is following -Catheterization tomorrow after CT-guided biopsy Right-sided lung mass/lymphadenopathy -Suspicious for primary lung carcinoma -CT-guided biopsy in a.m. -Pulmonary following appreciate input Cardiomyopathy -Echo shows EF of 15 to 20% -We will optimize medical therapy with converting metoprolol to Coreg 6.25 and uptitrate as able, initiating Entresto, also will initiate Tradjenta -Continue daily Lasix 40 mg -Could consider the addition of Aldactone depending on tolerance to above -Continue to follow BMP with the above changes -Would not be surprised based on his EF if this was ischemic although will need cardiac catheterization tomorrow to verify Acute hypoxic respiratory failure secondary to flash pulmonary edema -Patient developed acute hypoxia with tachypnea, tachycardia, elevated blood pressure after lying flat for a CT in the emergency department -Initially required a nonrebreather and then was weaned to 6 L heated high flow nasal cannula -Resolved--> patient remains on room air Hypokalemia -60 mill equivalents p.o. potassium -Repeat lab in a.m. -Recheck magnesium level in a.m. Ventricular tachycardia -Likely related to acute ischemic event and reduced ejection fraction -Short asymptomatic runs -Optimizing electrolytes with magnesium and potassium replacement to keep greater than 2 and 4 respectively Hypertension -Continue beta-duncan but convert to as above -Start Entresto -Discontinue losartan -Continue Lasix DM-2 -Hold home glimepiride -A1c is elevated at 8.2 -Needs more aggressive glycemic control with goal less than 7 -Start SGLP 2 inhibitor today -Continue sliding scale insulin -Cardiac/carb controlled diet -Accu-Cheks as ordered Hypothyroidism -Continue home levothyroxine -TSH within normal limits at 2.36 DEVI -Patient noncompliant with CPAP -Monitor -Utilize nocturnal oxygen at 2 L Obesity -Recommend weight loss -Complicates treatment, prognosis, outcomes CODE STATUS -Full code Charges/Coding Visit Charges Inpatient E&M: 75524 Subs Hosp L2
[2022-05-01] MEDS: LINAGLIPTIN 5 MG TABLET PO (11:39)
[2022-05-01] MEDS: Insulin Lispro 100 UNIT/ML INSULN.PEN SC (11:40)
--- NOTE | 2022-05-01 14:21 | PCM.PN.CARD ---
Subjective Subjective Seen and evaluated today at bedside at bedside at time of evaluation He still has a mild symptoms of shortness of breath Chest pain resolved. Objective Data Vital Signs: Vital Signs Temp Pulse Resp BP Pulse Ox O2 Del Method O2 Flow Rate 97.8 F 84 16 122/86 H 97 Room Air 2 05/01/22 09:00 05/01/22 09:42 05/01/22 09:00 05/01/22 09:42 05/01/22 09:00 05/01/22 09:45 05/01/22 09:00 Oxygen Flow Rate (L/min) 2 Oxygen Delivery Method Room Air Weight: 242 lb 4.608 oz Body Mass Index (BMI) 35.6 Intake & Output: Intake and Output for Last 24 Hours 04/29/22 04/30/22 05/01/22 23:59 23:59 23:59 Intake Total 620.5 / 620.5 1009.27 / 1609.27 983.5 / 983.5 Balance 620.5 / 620.5 1009.27 / 1609.27 983.5 / 983.5 Lab / Micro Data Result Diagrams: 04/30/22 06:48 05/01/22 05:08 Labs: Laboratory Results - last 24 hr 04/30/22 16:56: POC Glucose 165 H 04/30/22 19:00: APTT 63.0 H 04/30/22 21:36: POC Glucose 153 H 05/01/22 01:15: APTT 68.4 H 05/01/22 05:08: Sodium 135 L, Potassium 3.2 L, Chloride 98, Carbon Dioxide 30.0, Anion Gap 7, BUN 20 H, Creatinine 1.04, Estim Creat Clear Calc 77.02, Est GFR (MDRD) Af Amer 93, Est GFR (MDRD) Non-Af 77, BUN/Creatinine Ratio 19.2, Glucose 140 H, Calcium 8.8 05/01/22 06:43: POC Glucose 133 H Cardiology Labs/Tests 04/30/22 19:00: APTT 63.0 H 05/01/22 01:15: APTT 68.4 H 05/01/22 05:08: Sodium 135 L, Potassium 3.2 L, Chloride 98, Carbon Dioxide 30.0, Anion Gap 7, BUN 20 H, Creatinine 1.04, Est GFR (MDRD) Af Amer 93, Est GFR (MDRD) Non-Af 77, BUN/Creatinine Ratio 19.2, Glucose 140 H, Calcium 8.8 Rhythm: EKG: ECHO: Stress Test: Cardiac Cath: PCI: CT Surgery: Holter monitor: EPS: PPM: CXR: Chest CT Scan: Physical Exam Cardio Cardio Narrative: Review of cardiac telemetry showed underlying normal sinus Cardiovascular exam S1-S2 regular, no systolic or diastolic murmur Chest examination mild bilateral basal rales Examination of abdomen soft Examination of lower extremity no lower extremity edema noted. Assessment & Plan Assessment/Plan (1) Hypokalemia: (2) Acute respiratory failure with hypoxia: (3) Lung mass: (4) NSTEMI (non-ST elevated myocardial infarction): PLAN: 61-year-old patient Patient with right lung mass and non-ST elevation ID Severe LV systolic dysfunction with EF in the range of 15-20% With remarkable segmental wall motion abnormality Responding well to medical therapy still having mild symptoms of shortness of breath Chest pain resolved On the cardiac telemetry showed no further episodes of nonsustained ventricular tachycardia on the current treatment with beta-duncan, heparin, atorvastatin aspirin Diuretic with carvedilol and Lasix Serum electrolytes with magnesium and potassium has been monitored. Cardiac care plan; 1. Patient is scheduled to undergo CT-guided right lung mass tomorrow 2. Patient is scheduled to undergo left heart catheterization by Dr. Soto Explained in detail the cardiac care plan and the indication for cardiac catheterization, risk benefit of the procedure To the patient and his .
[2022-05-01 15:00] LABS: Bedside Glucose 235 mg/dL (74-106)
[2022-05-01 18:06] LABS: Bedside Glucose 147 mg/dL (74-106)
--- NOTE | 2022-05-01 18:24 | NURSING ---
Charting reviewed with Zion Butt RN
[2022-05-01] MEDS: SACUBITRIL/VALSARTAN 49-51 MG TABLET 1 EACH PO (22:26)
[2022-05-01] MEDS: Carvedilol 6.25 MG Tablet PO (22:26)
[2022-05-01] MEDS: Atorvastatin Calcium 80 MG Tablet PO (22:26)
[2022-05-01 23:06] LABS: Bedside Glucose 198 mg/dL (74-106)
[2022-05-02] VITALS (22 sets, daily range): BP systolic 95–121; BP diastolic 52–89; PULSE 71–85; RESP 9–31; TEMP 36.5–37.3; O2SAT 90–98; BMI 35.9
--- NOTE | 2022-05-02 | ASPIGT_PTH ---
PATIENT: ESSENCE ENGLAND LOC: [facility] U#:[id number] AGE/SX: 61/M ROOM: [facility] RE04/29/[address]: Dr. Jeanette White DO : 1960 BED: 1 DIS: 05/04/2022 SPEC #: [id number] RECD: 05/02/22 10:40 STATUS: [place] REQ #: [id number] TERELL: 05/02/22 00:[address]: Jeanette White DEPT: SURGICAL PATHOLOGY RECD BY: Escobar Begum ENTERED: 05/02/22 10:40 SP TYPE: ASP RAD OTHR DR: MD Dr. Esequiel Coelho DO Dr. Farouk Belal, MD Dr. Kristin McClay, MD Dr. Roberto Damian Dr., MD Christina Muller, EDUCATION SITE MANAGER-C Tissues: Lung, NOS Procedures: FNA Specimen Adequacy Special Stain Group II Surgery Specimen Level IV Imprint (control) HEADER OPERATION: CT-guided lung biopsy PRE-OP DIAGNOSIS: Right lung mass TISSUE SUBMITTED: Right lung 20-gauge core x4 MICROSCOPIC DIAGNOSIS Right lung mass, CT-guided needle core biopsy: Densely collagenized tissue. Minimal chronic inflammation. No evidence of malignancy. AM:jayy 05/03/2022 COMMENT The specimen is evaluated at the time of biopsy by Dr. Pham. Immediate Evaluation = No evidence of malignancy. MICROSCOPIC DESCRIPTION Slides are reviewed. GROSS DESCRIPTION Received is one container labeled with the patient's name and not further designated. The specimen consists of multiple elongated fragments of padilla tissue that in aggregate measure 1 x 0.1 x <0.1 cm. The specimen is totally submitted in one cassette. Four touch imprints are prepared at the time of core biopsy. / AM:jayy 05/02/2022 TC:5 CPT: 97902, 58615
--- NOTE | 2022-05-02 00:01 | CT_ITS ---
PROCEDURE: CT GUIDED CORE NEEDLE BIOPSY OF A left lower lobe LUNG LESION INDICATION: Male, 61 years old. R lung mass -- please do as early as possible Monday PHYSICIAN: Dr. EDINSON Stein CONSENT: Written informed consent was obtained having explained the risks, benefits and alternatives in detail with the patient who accepted the risks and agreed to proceed. Laboratory review and clinical assessment was performed. CONSCIOUS SEDATION PROTOCOL: The Drugs used were: 2 mg Versed, IV., and 50 mcg Fentanyl, IV. The sedation time was: 16 minutes. Conscious sedation was started at 10:07 AM and terminated at 10:23 AM. The conscious sedation protocol was independently monitored. RADIATION DOSAGE (If Supplied By Facility): CTDIvol = ( 24 ) mGy, DLP = ( 909.38 ) mGycm Individualized dose optimization techniques were used for this CT. TECHNIQUE: The patient was placed in the prone position. A noncontrast CT was performed to localize the lesion in the left lower lobe . The skin surface was prepped and draped in a sterile fashion. 1% lidocaine was used for local anesthesia. Using CT guidance, a 20-gauge coaxial biopsy device was advanced to the periphery of the lesion. A total of 4 core specimens were obtained. The specimens were placed in a formalin solution. A post procedure CT demonstrated no adverse sequelae or pneumothorax. The patient tolerated the procedure well without adverse event. A negative biopsy does not exclude malignancy. Further imaging or clinical followup based on patient condition and degree of clinical suspicion for malignancy. Suggest rebiopsy, if biopsy results do not match with clinical scenario. CT/Biopsy/Inj or Needle Placement IMPRESSION: 1. CT directed core needle biopsy of the left lower lobe pulmonary nodule using CT image guidance with image documentation as described. Pathology results are pending. 2. Conscious Sedation protocol utilized with independent monitoring. Electronically Signed: Rashi Farnsworth MD at 10:50 EDT ,
--- NOTE | 2022-05-02 05:55 | EKG12_ITS ---
Test Reason : AM EKG Blood Pressure : / mmHG Vent. Rate : 075 BPM Atrial Rate : 075 BPM P-R Int : 220 ms QRS Dur : 104 ms QT Int : 450 ms P-R-T Axes : 028 214 164 degrees QTc Int : 502 ms Sinus rhythm with 1st degree A-V block Inferior infarct , age undetermined Anterolateral infarct , age undetermined Prolonged QT Abnormal ECG When compared with ECG of 29-APR-2022 13:03, MANUAL COMPARISON REQUIRED, DATA IS UNCONFIRMED Confirmed by IRENE WILSON, LILLIAM ([id number]), assignment desk editor TAMMIE ESPOSITO ([id number]) on 05/02/2022 2:05:41 PM Referred By: Confirmed By:LILLIAM BONILLA MD
[2022-05-02] MEDS: Levothyroxine 25 MCG TABLET PO (06:27)
[2022-05-02 07:10] LABS: Bedside Glucose 164 mg/dL (74-106)
[2022-05-02 07:19] LABS: Partial Thromboplast Time 71.3 Seconds (24.1-36.2)
[2022-05-02 07:20] LABS: Absolute Lymphocyte Count 2.15 X10^3/uL (0.83-4.51); Basophil# 0.05 X10^3/uL; Basophil% 0.5 % (0-1); Eosinophil# 0.04 X10^3/uL; Eosinophils% 0.4 % (0-5); Hematocrit 47.3 % (40-54); Hemoglobin 15.4 g/dL (13.0-16.5); Lymphocyte # 2.15 X10^3/ul (0.83-4.51); Mean Corp Hgb Conc 32.6 g/dL (32-36); Mean Corpuscular Hgb 27.3 pg (27.0-32.0); Mean Corpuscular Volume 83.9 fL (80-94); Mean Platelet Vol. 10.4 fl (6.2-12.0); Monocyte# 0.99 X10^3/uL; Monocyte% 9.6 % (0-10); NRBC Flagged by Analyzer 0 % (0-5); Neutrophil % 68.2 % (47-70); Platelet Count 335 K/mm3 (150-450); RBC Distribution Width CV 15.2 % (11.6-14.6); RBC Distribution Width SD 46.3 fl (35.1-43.9); Red Blood Count 5.64 M/mm3 (4.6-6.2); White Blood Count 10.3 K/mm3 (4.4-11.0)
[2022-05-02 07:25] LABS: Anion Gap 9 (5-15); BUN 21 mg/dL (7-18); BUN/Creat Ratio 20.6 RATIO (10-20); Chloride 101 mmol/L (98-107); Creatinine, Serum 1.02 mg/dL (0.70-1.30); EST Glomerular Filtration Rate 79 mL/min (>60); Est Glom Filt Rate - Afr Amer 95 mL/min (>60); Estimated Creatinine Clearance 78.53 ml/min; Glucose 154 mg/dL (74-106); Magnesium 2.3 mg/dL (1.6-2.6); Potassium 3.7 mmol/L (3.5-5.1); Sodium Level 135 mmol/L (136-145)
[2022-05-02] MEDS: 0.9% Saline Lock 10 ML Syringe IV (08:15)
[2022-05-02] MEDS: Carvedilol 6.25 MG Tablet PO ×2 (09:19→22:45)
[2022-05-02] MEDS: Midazolam 2 MG/2 ML Syringe IV (10:05)
[2022-05-02] MEDS: fentaNYL 100 MCG/2 ML Ampul IV (10:07)
[2022-05-02] MEDS: Lidocaine 2% (20 ml mdv) 20 ML Vial INFILT (10:07)
--- NOTE | 2022-05-02 10:30 | RAD_ITS ---
STUDY: X-RAY CHEST REASON FOR EXAM: Male, 61 years old. Post lung bx -- Immediately post lung biopsy TECHNIQUE: Immediate post right lung biopsy radiographs were obtained. COMPARISON: None. FINDINGS: There is evidence of a small right apical pneumothorax. RAD/Chest Insp/Exp 2 View IMPRESSION: Small right apical pneumothorax on the immediate post right lung biopsy radiograph. The patient is asymptomatic. Electronically Signed: Rashi Farnsworth MD at 11:10 EDT ,
--- NOTE | 2022-05-02 12:30 | RAD_ITS ---
STUDY: X-RAY CHEST REASON FOR EXAM: Male, 61 years old. 2 HR POST BX TECHNIQUE: AP inspiration and expiration views. COMPARISON: Comparison is made with prior study done earlier today. FINDINGS: Stable small right apical pneumothorax. RAD/Chest Insp/Exp 2 View IMPRESSION: Stable small right apical pneumothorax. Electronically Signed: Rashi Farnsworth MD at 12:49 EDT ,
--- NOTE | 2022-05-02 12:52 | PN.HOSP_ITS ---
Objective Data Objective Data Vital Signs: Vital Signs Temp Pulse Resp BP Pulse Ox O2 Del Method O2 Flow Rate 97.7 F L 79 31 H 103/79 97 Room Air 2 05/02/22 09:56 05/02/22 11:24 05/02/22 11:24 05/02/22 11:24 05/02/22 11:24 05/02/22 11:24 05/02/22 10:05 Oxygen Flow Rate (L/min) [4] 2 Oxygen Flow Rate (L/min) [3] 2 Oxygen Flow Rate (L/min) [2] 2 Oxygen Flow Rate (L/min) 2 Oxygen Delivery Method [4] Nasal Cannula Oxygen Delivery Method [3] Nasal Cannula Oxygen Delivery Method [2] Nasal Cannula Oxygen Delivery Method [1 ( Room Air Initial Baseline)] Oxygen Delivery Method Room Air Weight: 113.398 kg Body Mass Index (BMI) 35.9 Intake & Output: Intake and Output for Last 24 Hours 04/30/22 05/01/22 05/02/22 23:59 23:59 23:59 Intake Total 1009.27 / 1609.27 2307.75 / 3057.75 968.25 / 968.25 Balance 1009.27 / 1609.27 2307.75 / 3057.75 968.25 / 968.25 Lab / Micro Data Result Diagrams: 05/03/22 03:19 05/04/22 04:27 Labs: Laboratory Results - last 24 hr 05/01/22 11:36: POC Glucose 235 H 05/01/22 17:06: POC Glucose 147 H 05/01/22 22:24: POC Glucose 198 H 05/02/22 06:23: APTT 71.3 H 05/02/22 06:23: WBC 10.3, RBC 5.64, Hgb 15.4, Hct 47.3, MCV 83.9, MCH 27.3, MCHC 32.6, RDW Std Deviation 46.3 H, RDW Coeff of Miles 15.2 H, Plt Count 335, MPV 10.4, Immature Gran % (Auto) 0.300, Neut % (Auto) 68.2, Lymph % (Auto) 21.0, [place] % (Auto) 9.6, Eos % (Auto) 0.4, Baso % (Auto) 0.5, Absolute Neuts (auto) 7.0, Absolute Lymphs (auto) 2.15, Nucleated RBC % 0 05/02/22 06:23: Sodium 135 L, Potassium 3.7, Chloride 101, Carbon Dioxide 25.0, Anion Gap 9, BUN 21 H, Creatinine 1.02, Estim Creat Clear Calc 78.53, Est GFR (MDRD) Af Amer 95, Est GFR (MDRD) Non-Af 79, BUN/Creatinine Ratio 20.6 H, Glucose 154 H, Calcium 9.0, Magnesium 2.3 05/02/22 06:25: POC Glucose 164 H Micro: Microbiology 04/29/22 11:30 Mucosa - Nasopharyngeal Respiratory Panel (PCR) - Final 04/29/22 11:15 Nasal Secretion SARS-CoV-2 Antigen (Rapid) - Final Radiography Diagnostic Testing: Radiology Impression Biopsy CT 05/02/22 00:01 IMPRESSION: 1. CT directed core needle biopsy of the left lower lobe pulmonary nodule using CT image guidance with image documentation as described. Pathology results are pending. 2. Conscious Sedation protocol utilized with independent monitoring. Electronically Signed: Rashi Farnsworth MD at 10:50 EDT , Chest X-Ray 05/02/22 10:30 IMPRESSION: Small right apical pneumothorax on the immediate post right lung biopsy radiograph. The patient is asymptomatic. Electronically Signed: Rashi Farnsworth MD at 11:10 EDT , Chest X-Ray 05/02/22 12:30 IMPRESSION: Stable small right apical pneumothorax. Electronically Signed: Rashi Farnsworth MD at 12:49 EDT ,
--- NOTE | 2022-05-02 13:01 | PCM.PN.HOSP ---
Subjective Subjective Patient denies any issues. Currently on room air. Appears comfortable. Awaiting his biopsy and heart catheterization later today. Objective Data Objective Data Vital Signs: Vital Signs Temp Pulse Resp BP Pulse Ox O2 Del Method O2 Flow Rate 97.7 F L 79 31 H 103/79 97 Room Air 2 05/02/22 09:56 05/02/22 11:24 05/02/22 11:24 05/02/22 11:24 05/02/22 11:24 05/02/22 11:24 05/02/22 10:05 Oxygen Flow Rate (L/min) [4] 2 Oxygen Flow Rate (L/min) [3] 2 Oxygen Flow Rate (L/min) [2] 2 Oxygen Flow Rate (L/min) 2 Oxygen Delivery Method [4] Nasal Cannula Oxygen Delivery Method [3] Nasal Cannula Oxygen Delivery Method [2] Nasal Cannula Oxygen Delivery Method [1 ( Room Air Initial Baseline)] Oxygen Delivery Method Room Air Weight: 113.398 kg Body Mass Index (BMI) 35.9 Intake & Output: Intake and Output for Last 24 Hours 04/30/22 05/01/22 05/02/22 23:59 23:59 23:59 Intake Total 1009.27 / 1609.27 2307.75 / 3057.75 968.25 / 968.25 Balance 1009.27 / 1609.27 2307.75 / 3057.75 968.25 / 968.25 Lab / Micro Data Result Diagrams: 05/02/22 06:23 05/02/22 06:23 Labs: Laboratory Results - last 24 hr 05/01/22 11:36: POC Glucose 235 H 05/01/22 17:06: POC Glucose 147 H 05/01/22 22:24: POC Glucose 198 H 05/02/22 06:23: APTT 71.3 H 05/02/22 06:23: WBC 10.3, RBC 5.64, Hgb 15.4, Hct 47.3, MCV 83.9, MCH 27.3, MCHC 32.6, RDW Std Deviation 46.3 H, RDW Coeff of [place] 15.2 H, Plt Count 335, MPV 10.4, Immature Gran % (Auto) 0.300, Neut % (Auto) 68.2, Lymph % (Auto) 21.0, [place] % (Auto) 9.6, Eos % (Auto) 0.4, Baso % (Auto) 0.5, Absolute Neuts (auto) 7.0, Absolute Lymphs (auto) 2.15, Nucleated RBC % 0 05/02/22 06:23: Sodium 135 L, Potassium 3.7, Chloride 101, Carbon Dioxide 25.0, Anion Gap 9, BUN 21 H, Creatinine 1.02, Estim Creat Clear Calc 78.53, Est GFR (MDRD) Af Amer 95, Est GFR (MDRD) Non-Af 79, BUN/Creatinine Ratio 20.6 H, Glucose 154 H, Calcium 9.0, Magnesium 2.3 05/02/22 06:25: POC Glucose 164 H Micro: Microbiology 04/29/22 11:30 Mucosa - Nasopharyngeal Respiratory Panel (PCR) - Final 04/29/22 11:15 Nasal Secretion SARS-CoV-2 Antigen (Rapid) - Final Radiography Diagnostic Testing: Radiology Impression Biopsy CT 05/02/22 00:01 IMPRESSION: 1. CT directed core needle biopsy of the left lower lobe pulmonary nodule using CT image guidance with image documentation as described. Pathology results are pending. 2. Conscious Sedation protocol utilized with independent monitoring. Electronically Signed: Rashi Farnsworth MD at 10:50 EDT , Chest X-Ray 05/02/22 10:30 IMPRESSION: Small right apical pneumothorax on the immediate post right lung biopsy radiograph. The patient is asymptomatic. Electronically Signed: Rashi Farnsworth MD at 11:10 EDT , Chest X-Ray 05/02/22 12:30 IMPRESSION: Stable small right apical pneumothorax. Electronically Signed: Rashi Farnsworth MD at 12:49 EDT , Physical Exam Const alert, oriented x3, no apparent distress and well nourished Constitutional Narrative: Obese, upper middle-aged white male, sitting up in bed, appears comfortable nontoxic, at bedside HEENT normocephalic, head/scalp atraumatic, hearing grossly normal bilaterally and moist oral mucous membranes Resp normal respiratory effort, no retractions, no use of accessory muscles and clear to auscultation bilaterally Resp Narrative: On room air Auscultation: Negative for crackles, rhonchi or wheezes Cardio regular rate, regular rhythm, S1 normal heart sound, S2 normal heart sound, no murmurs, no rub, no gallops and no clicks GI normal to inspection, nondistended, normoactive bowel sounds, soft to palpation and non-tender Extremity no clubbing, cyanosis or edema Neuro oriented x3, moves all extremities and no focal motor deficits Speech: speech normal Assessment & Plan Assessment/Plan (1) NSTEMI (non-ST elevated myocardial infarction): (2) Lung mass: (3) Acute respiratory failure with hypoxia: (4) Erythrocytosis: (5) Cardiomyopathy: (6) Hypokalemia: PLAN: Plan NSTEMI -EKG shows T wave inversions in the inferior and lateral leads -Troponin trended from 38-->70 to greater than 13,000 -Heparin drip initiated -Total cholesterol is 122/LDL 67/HDL 35 -Hemoglobin A1c is 8.2 -We will continue high intensity dose statin for pleiotropic effects but likely reduce at discharge to 20 mg given the fact that the patient's LDL was only 67 -Aspirin 81 mg daily -Continue Entresto -Continue Coreg -Echocardiogram showed EF of 15 to 20% with severe LV dysfunction having wall motion abnormality consisting of apical akinesia and severe distal septal hypokinesia, ventricle was mildly dilated -Cardiology is following -Cardiac catheterization with pneumothorax after biopsy Postprocedural pneumothorax -We will hyperoxygenated -Small and does not need chest tube -Chest x-ray in a.m. that -Pulmonary medicine aware Right-sided lung mass/lymphadenopathy -Await final pathology -CT-guided biopsy performed and preliminary results are fibrotic changes -Pulmonary following appreciate input Cardiomyopathy -Echo shows EF of 15 to 20% -We will optimize medical therapy with converting metoprolol to Coreg 6.25 and uptitrate as able, initiating Entresto, also will initiate Tradjenta -Continue daily Lasix 40 mg -Could consider the addition of Aldactone depending on tolerance to above -Continue to follow BMP with the above changes -Would not be surprised based on his EF if this was ischemic although will need cardiac catheterization tomorrow to verify Acute hypoxic respiratory failure secondary to flash pulmonary edema -Patient developed acute hypoxia with tachypnea, tachycardia, elevated blood pressure after lying flat for a CT in the emergency department -Initially required a nonrebreather and then was weaned to 6 L heated high flow nasal cannula -Resolved--> patient remains on room air Hypokalemia - resolved Ventricular tachycardia -Likely related to acute ischemic event and reduced ejection fraction -Short asymptomatic runs -Optimizing electrolytes with magnesium and potassium replacement to keep greater than 2 and 4 respectively Hypertension -Continue beta-duncan but convert to as above -Continue Entresto -Continue Lasix DM-2 -Hold home glimepiride -A1c is elevated at 8.2 -Needs more aggressive glycemic control with goal less than 7 -Continue SGLP 2 inhibitor today -Continue sliding scale insulin -Cardiac/carb controlled diet -Accu-Cheks as ordered Hypothyroidism -Continue home levothyroxine -TSH within normal limits at 2.36 DEVI -Patient noncompliant with CPAP -Monitor -Utilize nocturnal oxygen at 2 L Obesity -Recommend weight loss -Complicates treatment, prognosis, outcomes CODE STATUS -Full code Charges/Coding Visit Charges Inpatient E&M: 33185 Subs Hosp L2
[2022-05-02 13:40] LABS: Bedside Glucose 150 mg/dL (74-106)
--- NOTE | 2022-05-02 14:32 | PCM.PN.INT ---
Documented by User: Dr. Jarod Elliott MD 05/02/22 17:09 Assessment & Plan Assessment/Plan (1) Lung mass: PLAN: Plan RECOMMENDATIONS: 1. Empiric supplemental oxygen at 4 L to help with pneumothorax resolution 2. Consider bare-metal stent if necessary on heart catheterization 3. Continue diuresis as tolerated by hemodynamics and renal function. 4. Encourage incentive spirometer use and mobilize patient as tolerated. 5. Will need to follow with serial CT scans to ensure resolution IMPRESSIONS: 1. Chest discomfort and associated hypoxia The patient presented to the hospital with left-sided chest discomfort and subsequently developed hypoxia in the emergency department requiring the initiation of supplemental oxygen. The patient's chest imaging did demonstrate findings concerning for chronic interstitial changes along with a right-sided loculated effusion, pleural thickening on the left and a right lower lobe lung mass. No PE was identified. Subsequent work-up revealed evidence of an NSTEMI with an ejection fraction of approximately 15 to 20%. I do suspect that this is the precipitating etiology for the patient's hypoxia. Cardiology is following with tentative plans for cardiac catheterization tomorrow, given potential need for antiplatelet therapy following catheterization. Biopsy complicated by iatrogenic pneumothorax. Patient placed on supplemental oxygen to help with resolution 2. Abnormal chest imaging As noted above, the patient had a CTA chest completed which demonstrated a right lower lobe lung mass with what appeared to be a loculated effusion, chronic interstitial changes and pleural thickening in the left hemidiaphragm. The patient has no prior smoking history; however, the patient does report a remote history of a previous pleural effusion with thoracentesis at an outside facility. 3. Hypertension/hypothyroidism/diabetes mellitus Complicates care, management, recovery and prognosis. Continue home medications as indicated. This note was generated with [employer] dictation software. It may contain incorrect words, spelling, and punctuation that were not noted in checking the note before signing. Subjective Subjective On evaluation, patient is sitting comfortably, upright in bed with at bedside. Patient denies pain or shortness of breath. Patient feels subjectively better following biopsy. Patient states he felt sharp stabbing pain initially, but this has resolved. Patient is not reporting any cough. Patient did not have supplemental oxygen in place during my evaluation. Objective Data Objective Data Vital Signs: Vital Signs Temp Pulse Resp BP Pulse Ox O2 Del Method O2 Flow Rate 36.6 C 72 16 103/76 97 Room Air 2 05/02/22 13:05 05/02/22 13:05 05/02/22 13:05 05/02/22 13:05 05/02/22 13:05 05/02/22 13:15 05/02/22 10:05 Oxygen Flow Rate (L/min) [4] 2 Oxygen Flow Rate (L/min) [3] 2 Oxygen Flow Rate (L/min) [2] 2 Oxygen Flow Rate (L/min) 2 Oxygen Delivery Method [4] Nasal Cannula Oxygen Delivery Method [3] Nasal Cannula Oxygen Delivery Method [2] Nasal Cannula Oxygen Delivery Method [1 ( Room Air Initial Baseline)] Oxygen Delivery Method Room Air Weight: 113.398 kg Body Mass Index (BMI) 35.9 Intake & Output: Intake and Output for Last 24 Hours 04/30/22 05/01/22 05/02/22 23:59 23:59 23:59 Intake Total 1009.27 / 1609.27 2307.75 / 3057.75 1010.25 / 1010.25 Balance 1009.27 / 1609.27 2307.75 / 3057.75 1010.25 / 1010.25 Lab / Micro Data Attestation: I reviewed the patient's lab results. Result Diagrams: 05/02/22 06:23 05/02/22 06:23 Labs: Laboratory Results - last 24 hr 05/01/22 11:36: POC Glucose 235 H 05/01/22 17:06: POC Glucose 147 H 05/01/22 22:24: POC Glucose 198 H 05/02/22 06:23: APTT 71.3 H 05/02/22 06:23: WBC 10.3, RBC 5.64, Hgb 15.4, Hct 47.3, MCV 83.9, MCH 27.3, MCHC 32.6, RDW Std Deviation 46.3 H, RDW Coeff of [place] 15.2 H, Plt Count 335, MPV 10.4, Immature Gran % (Auto) 0.300, Neut % (Auto) 68.2, Lymph % (Auto) 21.0, [place] % (Auto) 9.6, Eos % (Auto) 0.4, Baso % (Auto) 0.5, Absolute Neuts (auto) 7.0, Absolute Lymphs (auto) 2.15, Nucleated RBC % 0 05/02/22 06:23: Sodium 135 L, Potassium 3.7, Chloride 101, Carbon Dioxide 25.0, Anion Gap 9, BUN 21 H, Creatinine 1.02, Estim Creat Clear Calc 78.53, Est GFR (MDRD) Af Amer 95, Est GFR (MDRD) Non-Af 79, BUN/Creatinine Ratio 20.6 H, Glucose 154 H, Calcium 9.0, Magnesium 2.3 05/02/22 06:25: POC Glucose 164 H 05/02/22 13:11: POC Glucose 150 H Micro: Microbiology 04/29/22 11:30 Mucosa - Nasopharyngeal Respiratory Panel (PCR) - Final 04/29/22 11:15 Nasal Secretion SARS-CoV-2 Antigen (Rapid) - Final Radiography Diagnostic Testing: Radiology Impression Biopsy CT 05/02/22 00:01 IMPRESSION: 1. CT directed core needle biopsy of the left lower lobe pulmonary nodule using CT image guidance with image documentation as described. Pathology results are pending. 2. Conscious Sedation protocol utilized with independent monitoring. Electronically Signed: Rashi Farnsworth MD at 10:50 EDT , Chest X-Ray 05/02/22 10:30 IMPRESSION: Small right apical pneumothorax on the immediate post right lung biopsy radiograph. The patient is asymptomatic. Electronically Signed: Rashi Farnsworth MD at 11:10 EDT , Chest X-Ray 05/02/22 12:30 IMPRESSION: Stable small right apical pneumothorax. Electronically Signed: Rashi Farnsworth MD at 12:49 EDT , Physical Exam Const alert, oriented x3 and no apparent distress Constitutional Narrative: is present at the bedside. General Appearance: cooperative Nutritional Appearance: obese HEENT normocephalic and head/scalp atraumatic Eyes PERRL, EOMs intact bilaterally and conjunctivae normal Neck supple General: trachea midline Chest inspection of chest normal Resp normal respiratory effort Auscultation: Negative for rales, rhonchi or wheezes Cardio regular rate and regular rhythm GI normal to inspection, nondistended, normoactive bowel sounds Extremity no clubbing, cyanosis or edema Skin no rashes or lesions noted Neuro oriented x3, CN's II-XII intact bilaterally, moves all extremities and no focal motor deficits Psych cooperative and affect normal Charges/Coding Visit Charges Inpatient E&M: 64695 Subs Hosp L2 Documented by User: PERRY MOORE 05/02/22 15:04 Assessment & Plan Assessment/Plan (1) Lung mass: PLAN: Plan RECOMMENDATIONS: 1. Supplemental oxygen to maintain saturations at or above 90%. 2. Proceed with CT-guided lung biopsy prior to cardiac catheterization. 3. Continue diuresis as tolerated by hemodynamics and renal function. 4. Encourage incentive spirometer use and mobilize patient as tolerated. IMPRESSIONS: 1. Chest discomfort and associated hypoxia The patient presented to the hospital with left-sided chest discomfort and subsequently developed hypoxia in the emergency department requiring the initiation of supplemental oxygen. The patient's chest imaging did demonstrate findings concerning for chronic interstitial changes along with a right-sided loculated effusion, pleural thickening on the left and a right lower lobe lung mass. No PE was identified. Subsequent work-up revealed evidence of an NSTEMI with an ejection fraction of approximately 15 to 20%. I do suspect that this is the precipitating etiology for the patient's hypoxia. Cardiology is following with tentative plans for cardiac catheterization after lung biopsy, given potential need for antiplatelet therapy following catheterization. In the interim, continue supplemental oxygen to maintain saturations at or above 90%, along with diuresis as tolerated by hemodynamics and renal function. 2. Abnormal chest imaging As noted above, the patient had a CTA chest completed which demonstrated a right lower lobe lung mass with what appeared to be a loculated effusion, chronic interstitial changes and pleural thickening in the left hemidiaphragm. The patient has no prior smoking history; however, the patient does report a remote history of a previous pleural effusion with thoracentesis at an outside facility. The patient is in agreement to proceed with CT-guided lung biopsy this morning, which will then be followed by cardiac catheterization. 3. Hypertension/hypothyroidism/diabetes mellitus Complicates care, management, recovery and prognosis. Continue home medications as indicated. This note was generated with [employer] dictation software. It may contain incorrect words, spelling, and punctuation that were not noted in checking the note before signing. Subjective Subjective On evaluation, patient is sitting comfortably, upright in bed with at bedside. Patient denies pain or shortness of breath. Objective Data Objective Data Patient is alert and appropriately interactive. Patient is aware of plan for lung biopsy and heart cath today. Patient has flat affect, and expresses apprehension for results of procedures. Patient is able to speak in complete sentences, and has had no episodes of chest pain since the emergency department. Lab / Micro Data Attestation: I reviewed the patient's lab results. Result Diagrams: 05/02/22 06:23 05/02/22 06:23 Physical Exam Const alert, oriented x3 and no apparent distress General Appearance: cooperative; Negative for in distress, lethargic, ill appearing, frail or patient mechanically ventilated Nutritional Appearance: obese HEENT normocephalic, head/scalp atraumatic and moist oral mucous membranes Eyes PERRL, EOMs intact bilaterally, conjunctivae normal and no scleral icterus Neck supple and no JVD General: trachea midline Lymph Lymphatic: no lymphadenopathy noted Chest inspection of chest normal Resp normal respiratory effort Effort and Inspection: able to speak in complete sentences; Negative for tachypneic, labored, actively coughing, uses accessory muscles or prolonged expiratory phase Auscultation: clear to auscultation bilaterally; Negative for rales, rhonchi or wheezes Cardio regular rate, regular rhythm, S1 normal heart sound, S2 normal heart sound, no murmurs, no rub, no gallops and no JVD GI normal to inspection, nondistended, normoactive bowel sounds and soft to palpation Inspection: Negative for anasarca present or abdominal distention Palpation: Negative for tender, guarding, rigid or ascites Extremity no clubbing, cyanosis or edema Skin no rashes or lesions noted Neuro oriented x3, CN's II-XII intact bilaterally, moves all extremities and no focal motor deficits Speech: speech normal Psych cooperative Psych Narrative: Flat affect, expresses apprehension. Appearance: well kempt; Negative for unkempt Activity / Motor Behavior: Negative for restless Speech: normal speech Mood & Affect: flat affect; Negative for anxious or labile affect
[2022-05-02] MEDS: HEPARIN/D5w 25,000 UNITS 25,000 UNITS/250 ML IV.SOLN. 15 UNITS CONT INF (14:57)
[2022-05-02] MEDS: Pantoprazole Sodium 40 MG Tablet PO (15:06)
[2022-05-02] MEDS: LINAGLIPTIN 5 MG TABLET PO (15:06)
[2022-05-02] MEDS: Furosemide 40 MG Tablet PO (15:06)
[2022-05-02] MEDS: SACUBITRIL/VALSARTAN 49-51 MG TABLET 1 EACH PO ×2 (15:06→22:45)
[2022-05-02] MEDS: Insulin Lispro 100 UNIT/ML INSULN.PEN SC (16:18)
[2022-05-02 16:50] LABS: Bedside Glucose 195 mg/dL (74-106)
[2022-05-02 21:37] LABS: Partial Thromboplast Time 57.4 Seconds (24.1-36.2)
[2022-05-02] MEDS: Atorvastatin Calcium 80 MG Tablet PO (22:45)
[2022-05-03] VITALS (23 sets, daily range): BP systolic 88–121; BP diastolic 58–84; PULSE 67–90; RESP 14–19; TEMP 36.4–36.9; O2SAT 95–99; BMI 35.0
[2022-05-03 00:31] LABS: Bedside Glucose 165 mg/dL (74-106)
[2022-05-03 03:45] LABS: Absolute Lymphocyte Count 2.37 X10^3/uL (0.83-4.51); Absolute Neutrophil Count 6.9 X10^3/uL (2.0-7.7); Basophil# 0.05 X10^3/uL; Basophil% 0.5 % (0-1); Hematocrit 45.1 % (40-54); Hemoglobin 15.3 g/dL (13.0-16.5); Lymphocyte # 2.37 X10^3/ul (0.83-4.51); Lymphocyte % 22.9 % (19-41); Mean Corp Hgb Conc 33.9 g/dL (32-36); Mean Corpuscular Hgb 28.4 pg (27.0-32.0); Mean Corpuscular Volume 83.8 fL (80-94); Mean Platelet Vol. 10.4 fl (6.2-12.0); Monocyte# 1.05 X10^3/uL; Monocyte% 10.1 % (0-10); NRBC Flagged by Analyzer 0 % (0-5); Neutrophil # 6.86 X10^3/uL (2.7-7.7); Neutrophil % 66.3 % (47-70); Platelet Count 329 K/mm3 (150-450); RBC Distribution Width CV 15.3 % (11.6-14.6); RBC Distribution Width SD 45.8 fl (35.1-43.9); Red Blood Count 5.38 M/mm3 (4.6-6.2); White Blood Count 10.4 K/mm3 (4.4-11.0)
[2022-05-03 04:09] LABS: Partial Thromboplast Time 64.6 Seconds (24.1-36.2)
[2022-05-03 04:13] LABS: Anion Gap 7 (5-15); BUN 22 mg/dL (7-18); Calcium,Total 9.1 mg/dL (8.5-10.1); Chloride 101 mmol/L (98-107); EST Glomerular Filtration Rate 81 mL/min (>60); Est Glom Filt Rate - Afr Amer 98 mL/min (>60); Glucose 158 mg/dL (74-106); Magnesium 2.3 mg/dL (1.6-2.6); Phosphorus 3.3 mg/dL (2.5-4.9); Potassium 3.4 mmol/L (3.5-5.1); Sodium Level 135 mmol/L (136-145)
[2022-05-03] MEDS: Levothyroxine 25 MCG TABLET PO (06:32)
[2022-05-03] MEDS: Aspirin E.C. 81 MG Tablet PO (06:33)
[2022-05-03 07:25] LABS: Bedside Glucose 146 mg/dL (74-106)
[2022-05-03] MEDS: 0.9% Normal Saline 1,000 ML 15 ML IV (07:34)
--- NOTE | 2022-05-03 07:41 | RAD_ITS ---
STUDY: X-RAY CHEST REASON FOR EXAM: Male, 61 years old. Pneumothorax TECHNIQUE: AP portable upright. COMPARISON: Comparison is made with prior study dated 05/02/2022. FINDINGS: The previously seen right apical pneumothorax has decreased in size. Minimal right apical pneumothorax persists. RAD/Chest 1 View (Portable) IMPRESSION: Interval decrease in size of the right pneumothorax. A minimal right apical pneumothorax persists. Electronically Signed: Rashi Farnsworth MD at 9:21 EDT ,
--- NOTE | 2022-05-03 08:22 | EKG12_ITS ---
Test Reason : HEART CATH Blood Pressure : / mmHG Vent. Rate : 071 BPM Atrial Rate : 071 BPM P-R Int : 222 ms QRS Dur : 112 ms QT Int : 440 ms P-R-T Axes : 016 190 137 degrees QTc Int : 478 ms Consider limb lead misplacement Possible Sinus rhythm with 1st degree A-V block Inferior infarct , age undetermined, cannot be excluded Anterolateral infarct , age undetermined, cannot be excluded Recommend repeat ECG Abnormal ECG Confirmed by HARMAN WILSON, ALYSHA ([id number]), editorial cartoonist TAMMIE ESPOSITO ([id number]) on 05/04/2022 11:11:45 AM Referred By: ALYCIA Confirmed By:ALYSHA HAMMER MD
--- NOTE | 2022-05-03 09:36 | PN.CC_ITS ---
Assessment & Plan Assessment/Plan (1) Lung mass: PLAN: Plan RECOMMENDATIONS: 1. Ok to discontinue oxygen therapy 2. Consider bare-metal stent if necessary on heart catheterization. Await cath 3. Continue diuresis as tolerated by hemodynamics and renal function. 4. Encourage incentive spirometer use and mobilize patient as tolerated. 5. Will need to follow with serial CT scans to ensure resolution or stability for 2 years IMPRESSIONS: 1. Chest discomfort and associated hypoxia The patient presented to the hospital with left-sided chest discomfort and subsequently developed hypoxia in the emergency department requiring the initiation of supplemental oxygen. The patient's chest imaging did demonstrate findings concerning for chronic interstitial changes along with a right-sided loculated effusion, pleural thickening on the left and a right lower lobe lung mass. No PE was identified. Subsequent work-up revealed evidence of an NSTEMI with an ejection fraction of approximately 15 to 20%. I do suspect that this is the precipitating etiology for the patient's hypoxia. Cardiology is following with tentative plans for cardiac catheterization today. Biopsy complicated by iatrogenic pneumothorax. Patient placed on supplemental oxygen to help with resolution 2. Abnormal chest imaging As noted above, the patient had a CTA chest completed which demonstrated a right lower lobe lung mass with what appeared to be a loculated effusion, chronic interstitial changes and pleural thickening in the left hemidiaphragm. The patient has no prior smoking history; however, the patient does report a remote history of a previous pleural [facility]. 3. Hypertension/hypothyroidism/diabetes mellitus Complicates care, management, recovery and prognosis. Continue home medications as indicated. This note was generated with [employer] dictation software. It may contain incorrect words, spelling, and punctuation that were not noted in checking the note before signing. Subjective Subjective Patient did well overnight. Patient reports no dyspnea. Patient has been on supplemental oxygen and tolerating this well without any epistaxis. Patient with several questions about the biopsy and plan moving forward. Objective Data Objective Data Vital Signs: Vital Signs Temp Pulse Resp BP Pulse Ox O2 Del Method O2 Flow Rate 36.6 C 74 18 108/72 95 Nasal Cannula 3 05/03/22 06:45 05/03/22 07:00 05/03/22 06:45 05/03/22 06:45 05/03/22 08:25 05/03/22 08:25 05/03/22 08:25 Oxygen Flow Rate (L/min) [4] 2 Oxygen Flow Rate (L/min) [3] 2 Oxygen Flow Rate (L/min) [2] 2 Oxygen Flow Rate (L/min) 3 Oxygen Delivery Method [4] Nasal Cannula Oxygen Delivery Method [3] Nasal Cannula Oxygen Delivery Method [2] Nasal Cannula Oxygen Delivery Method [1 ( Room Air Initial Baseline)] Oxygen Delivery Method Nasal Cannula Weight: 110.9 kg Body Mass Index (BMI) 35.0 Intake & Output: Intake and Output for Last 24 Hours 05/01/22 05/02/22 05/03/22 23:59 23:59 23:59 Intake Total 2307.75 / 3057.75 1517.25 / 1517.25 231.25 / 231.25 Balance 2307.75 / 3057.75 1517.25 / 1517.25 231.25 / 231.25 Lab / Micro Data Attestation: I reviewed the patient's lab results. Result Diagrams: 05/03/22 03:19 05/03/22 03:19 Labs: Laboratory Results - last 24 hr 05/02/22 13:11: POC Glucose 150 H 05/02/22 16:17: POC Glucose 195 H 05/02/22 21:11: APTT 57.4 H 05/02/22 22:41: POC Glucose 165 H 05/03/22 03:19: WBC 10.4, RBC 5.38, Hgb 15.3, Hct 45.1, MCV 83.8, MCH 28.4, MCHC 33.9, RDW Std Deviation 45.8 H, RDW Coeff of Miles 15.3 H, Plt Count 329, MPV 10.4, Immature Gran % (Auto) 0.200, Neut % (Auto) 66.3, Lymph % (Auto) 22.9, [place] % (Auto) 10.1 H, Eos % (Auto) 0.0, Baso % (Auto) 0.5, Absolute Neuts (auto) 6.9, Absolute Lymphs (auto) 2.37, Nucleated RBC % 0 05/03/22 03:19: Sodium 135 L, Potassium 3.4 L, Chloride 101, Carbon Dioxide 27.0, Anion Gap 7, BUN 22 H, Creatinine 1.00, Estim Creat Clear Calc 80.10, Est GFR (MDRD) Af Amer 98, Est GFR (MDRD) Non-Af 81, BUN/Creatinine Ratio 22.0 H, Glucose 158 H, Calcium 9.1, Phosphorus 3.3, Magnesium 2.3 05/03/22 03:19: APTT 64.6 H 05/03/22 06:36: POC Glucose 146 H Micro: Microbiology 04/29/22 11:30 Mucosa - Nasopharyngeal Respiratory Panel (PCR) - Final 04/29/22 11:15 Nasal Secretion SARS-CoV-2 Antigen (Rapid) - Final Radiography Diagnostic Testing: Radiology Impression Biopsy CT 05/02/22 00:01 IMPRESSION: 1. CT directed core needle biopsy of the left lower lobe pulmonary nodule using CT image guidance with image documentation as described. Pathology results are pending. 2. Conscious Sedation protocol utilized with independent monitoring. Electronically Signed: Rashi Farnsworth MD at 10:50 EDT , Chest X-Ray 05/02/22 10:30 IMPRESSION: Small right apical pneumothorax on the immediate post right lung biopsy radiograph. The patient is asymptomatic. Electronically Signed: Rasih Farnsworth MD at 11:10 EDT , Chest X-Ray 05/02/22 12:30 IMPRESSION: Stable small right apical pneumothorax. Electronically Signed: Rashi Farnsworth MD at 12:49 EDT , Chest X-Ray 05/03/22 07:41 IMPRESSION: Interval decrease in size of the right pneumothorax. A minimal right apical pneumothorax persists. Electronically Signed: Rashi Farnsworth MD at 9:21 EDT , Physical Exam Const alert, oriented x3 and no apparent distress Constitutional Narrative: is present at the bedside. General Appearance: cooperative Nutritional Appearance: obese HEENT normocephalic and head/scalp atraumatic Eyes PERRL, EOMs intact bilaterally and conjunctivae normal Neck supple General: trachea midline Chest inspection of chest normal Resp normal respiratory effort Auscultation: Negative for rales, rhonchi or wheezes Cardio regular rate, regular rhythm, S1 normal heart sound, S2 normal heart sound, no murmurs, no rub and no gallops GI normal to inspection, nondistended, normoactive bowel sounds Extremity no clubbing, cyanosis or edema Skin no rashes or lesions noted Neuro oriented x3, CN's II-XII intact bilaterally, moves all extremities and no focal motor deficits Psych cooperative and affect normal Charges/Coding Visit Charges Inpatient E&M: 50747 Subs Hosp L2
[2022-05-03] MEDS: Carvedilol 6.25 MG Tablet PO ×2 (10:04→21:33)
[2022-05-03] MEDS: SACUBITRIL/VALSARTAN 49-51 MG TABLET 1 EACH PO ×2 (10:04→21:33)
--- NOTE | 2022-05-03 11:39 | NURSING ---
report called to Sahil CALDERA superintendent geophysical laboratory
--- NOTE | 2022-05-03 12:38 | CL.D_ITS ---
Patient Name: ESSENCE ENGLAND Study Date: 05/03/2022 Performing: Chester Soto MD Ht: 70 inches 177.8 cm : 1960 Wt: 244.49 lbs 110.9 kg Age: 61 Gender: male BSA: 2.27 PROCEDURE(S) PERFORMED [id number])LHC/COR/LV CLINICAL PROFILE AND INDICATIONS Indications: Suspected CAD, Suspected CAD Heart Failure: NYHA Class: 3, Newly Diagnosed: Yes, Heart Failure Type: Systolic Stress/Imaging Stress/Image Study Performed: No CONCLUSIONS Severe triple-vessel disease as noted above with depressed left ventricular systolic function noted. Patient is also noted to have a lung mass which has been biopsied and awaiting pathology. RECOMMENDATIONS Will need to consider evaluation for viability as well as candidate chart for coronary artery bypass surgery. This will also depend on the results of the pathology for the lung mass. DESCRIPTION OF PROCEDURE The patient arrived to the procedure lab. The risks and benefits of the procedure as well as a full description of our services here and current unavailability of surgical backup were fully explained to the patient and/or their significant other prior to the catheterization. The Timeout was completed, verifying the correct patient and procedure. The patient's procedural site was prepped and draped in the usual fashion. Local anesthetic was given subcutaneously to right radial region with Lidocaine 2%. Using a modified Seldinger technique, arterial access was obtained via the right radial artery, a 6Fr sheath was inserted. Right Coronary Artery selective angiography was then performed in multiple views using a 5 Fr. 4.0 Auxier catheter. Left Coronary Artery selective angiography was performed in multiple views using a 5 Fr. 4.0 Auxier catheter.The arterial sheath was pulled and a TR Band was applied for hemostasis CORONARY ANGIOGRAPHY DOMINANCE: Right Dominant LEFT HEART ASSESSMENT Left Ventricular Ejection Fraction: by LV Gram 20 % Global Hypokinesis - Severe. Inferior Mid Akinesis Depressed Left Ventricular systolic function LEFT MAIN: Angiographically normal LEFT ANTERIOR DESCENDING ARTERY: MID LAD: The mid left anterior descending artery is subtotally occluded with a small ghost vessel. A small diagonal branch is also noted. CIRCUMFLEX ARTERY: This is a nondominant vessel with the first bifurcating obtuse marginal branch with proximal high-grade stenosis and diffuse distal disease noted in the rest of the circumflex artery. RIGHT CORONARY ARTERY: Dominant right coronary artery ectatic with proximal 60 to 70%, mid 80% and distal eccentric 80% stenosis and severe disease noted in the posterior descending artery COMPLICATIONS No Complications PROCEDURE MEDICATIONS Fentanyl 50 mcg IV Versed 1 mg IV Oxygen: 2 L/min via nasal cannula Heparin given IA 05/03/2022 12:19:34 SUMMARY OF HEMODYNAMIC DATA Time AIR REST ECG 12:00:14 AO 92/57 (74) SA 12:20:23 LV 80/7, 19 12:27:41 LV 82/6, 19 12:27:48 LV 78/13, 24 12:28:53 LVp 78/16, 23 12:28:57 AOp 83/51 (65) 12:29:02 Signed By Chester Soto MD On 05/03/2022 12:37:57 Chester Soto MD
--- NOTE | 2022-05-03 12:38 | PN.CARD_ITS ---
Subjective Subjective Patient seen and evaluated. Appears to be doing well. Underwent repeat chest x-ray as well as cardiac catheterization today. Objective Data Vital Signs: Vital Signs Temp Pulse Resp BP Pulse Ox O2 Del Method O2 Flow Rate 98 F 73 16 100/69 99 Nasal Cannula 3 05/03/22 10:00 05/03/22 10:00 05/03/22 10:00 05/03/22 10:00 05/03/22 10:00 05/03/22 10:00 05/03/22 10:00 Oxygen Flow Rate (L/min) [4] 2 Oxygen Flow Rate (L/min) [3] 2 Oxygen Flow Rate (L/min) [2] 2 Oxygen Flow Rate (L/min) 3 Oxygen Delivery Method [4] Nasal Cannula Oxygen Delivery Method [3] Nasal Cannula Oxygen Delivery Method [2] Nasal Cannula Oxygen Delivery Method [1 ( Room Air Initial Baseline)] Oxygen Delivery Method Nasal Cannula Weight: 244 lb 7.882 oz Body Mass Index (BMI) 35.0 Intake & Output: Intake and Output for Last 24 Hours 05/01/22 05/02/22 05/03/22 23:59 23:59 23:59 Intake Total 2307.75 / 3057.75 1517.25 / 1517.25 231.25 / 231.25 Balance 2307.75 / 3057.75 1517.25 / 1517.25 231.25 / 231.25 Lab / Micro Data Result Diagrams: 05/03/22 03:19 05/03/22 03:19 Labs: Laboratory Results - last 24 hr 05/02/22 13:11: POC Glucose 150 H 05/02/22 16:17: POC Glucose 195 H 05/02/22 21:11: APTT 57.4 H 05/02/22 22:41: POC Glucose 165 H 05/03/22 03:19: WBC 10.4, RBC 5.38, Hgb 15.3, Hct 45.1, MCV 83.8, MCH 28.4, MCHC 33.9, RDW Std Deviation 45.8 H, RDW Coeff of Miles 15.3 H, Plt Count 329, MPV 10.4, Immature Gran % (Auto) 0.200, Neut % (Auto) 66.3, Lymph % (Auto) 22.9, [place] % (Auto) 10.1 H, Eos % (Auto) 0.0, Baso % (Auto) 0.5, Absolute Neuts (auto) 6.9, Absolute Lymphs (auto) 2.37, Nucleated RBC % 0 05/03/22 03:19: Sodium 135 L, Potassium 3.4 L, Chloride 101, Carbon Dioxide 27.0, Anion Gap 7, BUN 22 H, Creatinine 1.00, Estim Creat Clear Calc 80.10, Est GFR (MDRD) Af Amer 98, Est GFR (MDRD) Non-Af 81, BUN/Creatinine Ratio 22.0 H, Glucose 158 H, Calcium 9.1, Phosphorus 3.3, Magnesium 2.3 05/03/22 03:19: APTT 64.6 H 05/03/22 06:36: POC Glucose 146 H Cardiology Labs/Tests 05/02/22 21:11: APTT 57.4 H 05/03/22 03:19: WBC 10.4, RBC 5.38, Hgb 15.3, Hct 45.1, MCV 83.8, MCH 28.4, MCHC 33.9, Plt Count 329, MPV 10.4, Immature Gran % (Auto) 0.200, Neut % (Auto) 66.3, Lymph % (Auto) 22.9, [place] % (Auto) 10.1 H, Eos % (Auto) 0.0, Baso % (Auto) 0.5, Absolute Neuts (auto) 6.9, Nucleated RBC % 0 05/03/22 03:19: Sodium 135 L, Potassium 3.4 L, Chloride 101, Carbon Dioxide 27.0, Anion Gap 7, BUN 22 H, Creatinine 1.00, Est GFR (MDRD) Af Amer 98, Est GFR (MDRD) Non-Af 81, BUN/Creatinine Ratio 22.0 H, Glucose 158 H, Calcium 9.1, Phosphorus 3.3, Magnesium 2.3 05/03/22 03:19: APTT 64.6 H Rhythm: EKG: ECHO: Stress Test: Cardiac Cath: PCI: CT Surgery: Holter monitor: EPS: PPM: CXR: Chest CT Scan: Radiography Diagnostic Testing: Radiology Impression Chest X-Ray 05/02/22 12:30 IMPRESSION: Stable small right apical pneumothorax. Electronically Signed: Rashi Farnsworth MD at 12:49 EDT , Chest X-Ray 05/03/22 07:41 IMPRESSION: Interval decrease in size of the right pneumothorax. A minimal right apical pneumothorax persists. Electronically Signed: Rashi Farnsworth MD at 9:21 EDT , Physical Exam Const alert, oriented x3 and no apparent distress General Appearance: cooperative HEENT hearing grossly normal bilaterally Head and Scalp: atraumatic Eyes EOMs intact bilaterally Neck General: normal visual inspection Chest inspection of chest normal and palpation of chest normal Resp normal respiratory effort Auscultation: clear to auscultation bilaterally Cardio regular rate, regular rhythm, S1 normal heart sound and S2 normal heart sound Jugular Venous Distention: JVD GI normal to inspection, nondistended, normoactive bowel sounds Extremity normal capillary refill and no pedal edema Peripheral Pulses: Yes pulses 2+ throughout and femoral pulses present Skin no rashes or lesions noted Neuro oriented x3 and CN's II-XII intact bilaterally Psych Appearance: grossly normal and appropriate Assessment & Plan Assessment/Plan (1) Cardiomyopathy: PLAN: He does have evidence of severe cardiomyopathy. He underwent a cardiac catheterization today which demonstrated the following: Normal left main coronary tree. Left anterior descending artery with subtotal occlusion noted in the mid LAD. Left circumflex artery with high-grade proximal disease. Dominant right coronary artery with diffuse disease noted in the proximal mid and distal segments. Severe left ventricular systolic dysfunction with an estimated ejection fraction of 20% with an akinetic mid inferior wall. Based on the above angiographic findings I would recommend consideration for coronary artery bypass surgery. He will however need a viability scan or a cardiac MRI before proceeding with such a test. In addition this is complicated by the fact that he does have a mass in the right lung which has been biopsied and would need to await the final pathology results before further definitive therapy is undertaken. I did explain the above to his and the patient that he may need to be seen as an outpatient in 1 of these tertiary care facilities. Thank you for allowing me to participate in the care of your patient. Please don't hesitate to call if any issues arise.
--- NOTE | 2022-05-03 12:51 | PCM.PN.HOSP ---
Subjective Subjective Soundly on my arrival. Heart cath later today. Objective Data Objective Data Vital Signs: Vital Signs Temp Pulse Resp BP Pulse Ox O2 Del Method O2 Flow Rate 98 F 73 16 100/69 99 Nasal Cannula 3 05/03/22 10:00 05/03/22 10:00 05/03/22 10:00 05/03/22 10:00 05/03/22 10:00 05/03/22 10:00 05/03/22 10:00 Oxygen Flow Rate (L/min) [4] 2 Oxygen Flow Rate (L/min) [3] 2 Oxygen Flow Rate (L/min) [2] 2 Oxygen Flow Rate (L/min) 3 Oxygen Delivery Method [4] Nasal Cannula Oxygen Delivery Method [3] Nasal Cannula Oxygen Delivery Method [2] Nasal Cannula Oxygen Delivery Method [1 ( Room Air Initial Baseline)] Oxygen Delivery Method Nasal Cannula Weight: 110.9 kg Body Mass Index (BMI) 35.0 Intake & Output: Intake and Output for Last 24 Hours 05/01/22 05/02/22 05/03/22 23:59 23:59 23:59 Intake Total 2307.75 / 3057.75 1517.25 / 1517.25 231.25 / 231.25 Balance 2307.75 / 3057.75 1517.25 / 1517.25 231.25 / 231.25 Lab / Micro Data Result Diagrams: 05/03/22 03:19 05/03/22 03:19 Labs: Laboratory Results - last 24 hr 05/02/22 13:11: POC Glucose 150 H 05/02/22 16:17: POC Glucose 195 H 05/02/22 21:11: APTT 57.4 H 05/02/22 22:41: POC Glucose 165 H 05/03/22 03:19: WBC 10.4, RBC 5.38, Hgb 15.3, Hct 45.1, MCV 83.8, MCH 28.4, MCHC 33.9, RDW Std Deviation 45.8 H, RDW Coeff of Miles 15.3 H, Plt Count 329, MPV 10.4, Immature Gran % (Auto) 0.200, Neut % (Auto) 66.3, Lymph % (Auto) 22.9, [place] % (Auto) 10.1 H, Eos % (Auto) 0.0, Baso % (Auto) 0.5, Absolute Neuts (auto) 6.9, Absolute Lymphs (auto) 2.37, Nucleated RBC % 0 05/03/22 03:19: Sodium 135 L, Potassium 3.4 L, Chloride 101, Carbon Dioxide 27.0, Anion Gap 7, BUN 22 H, Creatinine 1.00, Estim Creat Clear Calc 80.10, Est GFR (MDRD) Af Amer 98, Est GFR (MDRD) Non-Af 81, BUN/Creatinine Ratio 22.0 H, Glucose 158 H, Calcium 9.1, Phosphorus 3.3, Magnesium 2.3 05/03/22 03:19: APTT 64.6 H 05/03/22 06:36: POC Glucose 146 H Micro: Microbiology 04/29/22 11:30 Mucosa - Nasopharyngeal Respiratory Panel (PCR) - Final 04/29/22 11:15 Nasal Secretion SARS-CoV-2 Antigen (Rapid) - Final Radiography Diagnostic Testing: Radiology Impression Chest X-Ray 05/03/22 07:41 IMPRESSION: Interval decrease in size of the right pneumothorax. A minimal right apical pneumothorax persists. Electronically Signed: Rashi Farnsworth MD at 9:21 EDT , Physical Exam Const no apparent distress and well nourished Constitutional Narrative: Obese upper middle-aged white male, lying in bed sleeping soundly, appears comfortable nontoxic HEENT normocephalic and head/scalp atraumatic Resp normal respiratory effort, no retractions, no use of accessory muscles and clear to auscultation bilaterally Auscultation: Negative for crackles, rhonchi or wheezes Cardio regular rate, regular rhythm, S1 normal heart sound, S2 normal heart sound, no murmurs, no rub, no gallops, no clicks and no JVD GI normal to inspection, nondistended, normoactive bowel sounds, soft to palpation and non-tender Extremity no clubbing, cyanosis or edema Extremity Narrative: Lower extremity edema has resolved Neuro Neuro Narrative: Patient sleeping Assessment & Plan Assessment/Plan (1) NSTEMI (non-ST elevated myocardial infarction): (2) Lung mass: (3) Acute respiratory failure with hypoxia: (4) Erythrocytosis: (5) Cardiomyopathy: (6) Hypokalemia: PLAN: Plan NSTEMI -EKG shows T wave inversions in the inferior and lateral leads -Troponin trended from 38-->70 to greater than 13,000 -Heparin drip initiated -Total cholesterol is 122/LDL 67/HDL 35 -Hemoglobin A1c is 8.2 -We will continue high intensity dose statin for pleiotropic effects but likely reduce at discharge to 20 mg given the fact that the patient's LDL was only 67 -Aspirin 81 mg daily -Continue Entresto -Continue Coreg -Echocardiogram showed EF of 15 to 20% with severe LV dysfunction having wall motion abnormality consisting of apical akinesia and severe distal septal hypokinesia, ventricle was mildly dilated -Cardiology is following -Cardiac catheterization today pending Postprocedural pneumothorax -Continue hyperoxygenation -Repeat chest x-ray in a.m. -Chest x-ray from this morning shows resolving right apical pneumothorax -Pulmonary medicine is following Right-sided lung mass/lymphadenopathy -Await final pathology--> remains pending -CT-guided biopsy performed and preliminary results are fibrotic changes -Pulmonary following appreciate input Cardiomyopathy -Echo shows EF of 15 to 20% -Continue Tradjenta -Continue Coreg -Continue Entresto -Continue daily Lasix 40 mg -We will hold off on the addition of Aldactone at this time given blood pressures are normal but low normal -Continue to follow BMP with the above changes -Cardiac catheterization pending Acute hypoxic respiratory failure secondary to flash pulmonary edema -Patient developed acute hypoxia with tachypnea, tachycardia, elevated blood pressure after lying flat for a CT in the emergency department -Initially required a nonrebreather and then was weaned to 6 L heated high flow nasal cannula -Resolved--> patient on oxygen but for hyperoxygenation secondary to pneumothorax which is resolving Hypokalemia -40 mill equivalents p.o. potassium and repeat in a.m. -Need to discharge home on low-dose potassium supplementation Ventricular tachycardia -Likely related to acute ischemic event and reduced ejection fraction -Short asymptomatic runs -Optimizing electrolytes with magnesium and potassium replacement to keep greater than 2 and 4 respectively Hypertension -Continue Coreg -Continue Entresto -Continue Lasix DM-2 -Hold home glimepiride -A1c is elevated at 8.2 -Needs more aggressive glycemic control with goal less than 7 -Continue SGLP 2 inhibitor -Restart metformin at discharge -Continue sliding scale insulin -Cardiac/carb controlled diet -Accu-Cheks as ordered Hypothyroidism -Continue home levothyroxine -TSH within normal limits at 2.36 DEVI -Patient noncompliant with CPAP -Monitor -Utilize nocturnal oxygen at 2 L Obesity -Recommend weight loss -Complicates treatment, prognosis, outcomes CODE STATUS -Full code Charges/Coding Visit Charges Inpatient E&M: 61054 Subs Hosp L2
[2022-05-03] MEDS: LINAGLIPTIN 5 MG TABLET PO (14:26)
[2022-05-03] MEDS: Pantoprazole Sodium 40 MG Tablet PO (14:26)
--- NOTE | 2022-05-03 14:37 | CHAPLAIN ---
Type of Pastoral Visit ___ Initial Visit _x__ Follow-up Visit ___ On-call Visit ___ General Patient Visit ___ Spiritual Assessment ___ Family Conference ___ Bereavement ___ Rapid Response ___ Code Blue ___ Other (describe below) Pastoral Care Referral From _x__ Patient ___ Family ___ Nurse ___ Physician ___ [employer] Worker ___ Lawyers ___ Other (describe below) Sacrament/Intervention _x__ Active listening ___ Anointing ___ Mu-Ism ___ Bereavement ___ Communion ___ [place] exploration ___ ___ Life review _x__ Prayer ___ Reconciliation ___ Sacrament of Sick _x__ Supportive presence ___ Wedding ___ Other (describe below) Pastoral Comments patient is returned from his procedures and spouse is at bedside; pt reports on what he knows so far - some of it is positive and some not as much; spouse states waiting on confirmation of situation and a plan for what is next; pt states that it is taking him some time to take it all in; pt open to support through presence and prayer
[2022-05-03] MEDS: Furosemide 40 MG Tablet PO (15:33)
[2022-05-03] MEDS: Potassium Chloride Oral Tablet 20 MEQ 40 MEQ PO (15:33)
[2022-05-03] MEDS: Insulin Lispro 100 UNIT/ML INSULN.PEN SC (15:37)
[2022-05-03 16:01] LABS: Bedside Glucose 174 mg/dL (74-106)
[2022-05-03] MEDS: Atorvastatin Calcium 80 MG Tablet PO (21:33)
[2022-05-03 22:05] LABS: Bedside Glucose 177 mg/dL (74-106)
[2022-05-04] VITALS (8 sets, daily range): BP systolic 97–106; BP diastolic 72–76; PULSE 71–77; RESP 16; TEMP 36.7–36.8; O2SAT 91–98
[2022-05-04 05:55] LABS: Anion Gap 5 (5-15); BUN 20 mg/dL (7-18); BUN/Creat Ratio 21.6 RATIO (10-20); Calcium,Total 8.9 mg/dL (8.5-10.1); Chloride 105 mmol/L (98-107); Creatinine, Serum 0.93 mg/dL (0.70-1.30); EST Glomerular Filtration Rate 88 mL/min (>60); Est Glom Filt Rate - Afr Amer 106 mL/min (>60); Estimated Creatinine Clearance 86.13 ml/min; Glucose 151 mg/dL (74-106); Potassium 3.7 mmol/L (3.5-5.1); Sodium Level 137 mmol/L (136-145)
--- NOTE | 2022-05-04 06:00 | RAD_ITS ---
INDICATION: PTX EXAMINATION/TECHNIQUE: X-RAY - XR Chest 1 View COMPARISON: 05/03/22 . FINDINGS: LINES/DEVICES: None. LUNGS: Trace right apical pneumothorax, decreased from May 03, 2022. No consolidation. Trace bilateral basilar pleural effusions. Mild perihilar and basilar interstitial thickening. No pneumothorax. MEDIASTINUM AND CARDIOVASCULAR STRUCTURES: Cardiac silhouette not enlarged. BONES AND SOFT TISSUES: Unremarkable. RAD/Chest 1 View (Portable) IMPRESSION: Mild perihilar and basilar interstitial edema with trace infralateral effusions. Electronically Signed: Grant Estrada MD at 6:42 EDT ,
[2022-05-04] MEDS: Levothyroxine 25 MCG TABLET PO (06:41)
[2022-05-04] MEDS: Insulin Lispro 100 UNIT/ML INSULN.PEN SC ×2 (06:41→11:07)
[2022-05-04 07:00] LABS: Bedside Glucose 164 mg/dL (74-106)
--- NOTE | 2022-05-04 08:01 | PN.CARD_ITS ---
Subjective Subjective Patient seen and evaluated. Appears to be doing well this morning. Objective Data Vital Signs: Vital Signs Temp Pulse Resp BP Pulse Ox O2 Del Method O2 Flow Rate 98.2 F 71 16 98/72 98 Room Air 3 05/04/22 04:00 05/04/22 04:00 05/04/22 04:00 05/04/22 04:00 05/04/22 04:00 05/04/22 04:00 05/04/22 04:00 Oxygen Flow Rate (L/min) [4] 2 Oxygen Flow Rate (L/min) [3] 2 Oxygen Flow Rate (L/min) [2] 2 Oxygen Flow Rate (L/min) 3 Oxygen Delivery Method [4] Nasal Cannula Oxygen Delivery Method [3] Nasal Cannula Oxygen Delivery Method [2] Nasal Cannula Oxygen Delivery Method [1 ( Room Air Initial Baseline)] Oxygen Delivery Method Room Air Weight: 247 lb 9.266 oz Body Mass Index (BMI) 35.0 Intake & Output: Intake and Output for Last 24 Hours 05/02/22 05/03/22 05/04/22 23:59 23:59 23:59 Intake Total 1517.25 / 1517.25 1357.00 / 1557.00 200 / 200 Balance 1517.25 / 1517.25 1357.00 / 1557.00 200 / 200 Lab / Micro Data Result Diagrams: 05/03/22 03:19 05/04/22 04:27 Labs: Laboratory Results - last 24 hr 05/03/22 15:36: POC Glucose 174 H 05/03/22 21:31: POC Glucose 177 H 05/04/22 04:27: Sodium 137, Potassium 3.7, Chloride 105, Carbon Dioxide 27.0, Anion Gap 5, BUN 20 H, Creatinine 0.93, Estim Creat Clear Calc 86.13, Est GFR (MDRD) Af Amer 106, Est GFR (MDRD) Non-Af 88, BUN/Creatinine Ratio 21.6 H, Glucose 151 H, Calcium 8.9 05/04/22 06:40: POC Glucose 164 H Cardiology Labs/Tests 05/04/22 04:27: Sodium 137, Potassium 3.7, Chloride 105, Carbon Dioxide 27.0, Anion Gap 5, BUN 20 H, Creatinine 0.93, Est GFR (MDRD) Af Amer 106, Est GFR (MDRD) Non-Af 88, BUN/Creatinine Ratio 21.6 H, Glucose 151 H, Calcium 8.9 Rhythm: EKG: ECHO: Stress Test: Cardiac Cath: PCI: CT Surgery: Holter monitor: EPS: PPM: CXR: Chest CT Scan: Radiography Diagnostic Testing: Radiology Impression Chest X-Ray 05/03/22 07:41 IMPRESSION: Interval decrease in size of the right pneumothorax. A minimal right apical pneumothorax persists. Electronically Signed: Rashi Farnsworth MD at 9:21 EDT , Chest X-Ray 05/04/22 06:00 IMPRESSION: Mild perihilar and basilar interstitial edema with trace infralateral effusions. Electronically Signed: Grant Estrada MD at 6:42 EDT , Physical Exam Const no apparent distress and well nourished Constitutional Narrative: Obese upper middle-aged white male, lying in bed sleeping soundly, appears comfortable nontoxic HEENT normocephalic and head/scalp atraumatic Resp normal respiratory effort, no retractions, no use of accessory muscles and clear to auscultation bilaterally Auscultation: Negative for crackles, rhonchi or wheezes Cardio regular rate, regular rhythm, S1 normal heart sound, S2 normal heart sound, no murmurs, no rub, no gallops, no clicks and no JVD GI normal to inspection, nondistended, normoactive bowel sounds, soft to palpation and non-tender Extremity no clubbing, cyanosis or edema Extremity Narrative: Lower extremity edema has resolved Neuro Neuro Narrative: Patient sleeping Assessment & Plan Assessment/Plan (1) Cardiomyopathy: PLAN: He does have evidence of severe cardiomyopathy. He underwent a cardiac catheterization which demonstrated the following: Normal left main coronary tree. Left anterior descending artery with subtotal occlusion noted in the mid LAD. Left circumflex artery with high-grade proximal disease. Dominant right coronary artery with diffuse disease noted in the proximal mid a nd distal segments. Severe left ventricular systolic dysfunction with an estimated ejection fraction of 20% with an akinetic mid inferior wall. Based on the above angiographic findings I would recommend consideration for coronary artery bypass surgery. He will however need a viability scan or a c ardiac MRI before proceeding with such a test. In addition this is complicated by the fact that he does have a mass in the right lung which has been biopsied and would need to await the final pathology results before further definitive therapy is undertaken. I did explain the above to his and the patient that he may need to be seen as an outpatient in 1 of these tertiary care facilities. Thank you for allowing me to participate in the care of your patient. Please don't hesitate to call if any issues arise.
[2022-05-04] MEDS: Carvedilol 6.25 MG Tablet PO (08:45)
[2022-05-04] MEDS: LINAGLIPTIN 5 MG TABLET PO (08:45)
[2022-05-04] MEDS: Furosemide 40 MG Tablet PO (08:45)
[2022-05-04] MEDS: Pantoprazole Sodium 40 MG Tablet PO (08:45)
[2022-05-04] MEDS: Aspirin E.C. 81 MG Tablet PO (08:45)
[2022-05-04] MEDS: SACUBITRIL/VALSARTAN 49-51 MG TABLET 1 EACH PO (08:45)
[2022-05-04] MEDS: FLU VACC QS2022-23(6MOS UP)/PF 60 MCG/0.5 ML SYRINGE IM (10:30)
--- NOTE | 2022-05-04 11:10 | DS.PCM_ITS ---
Providers Date of Admission: 04/29/22 Date of Discharge: 05/04/22 Primary Care Physician: Dr. Carri Gannon, DO Consultations 04/29/22 11:54 Consult: Call Or Contact Centre Team Leader / Pulmonary Medicine Routine Consulting Provider: [facility] Reason for Consult: R infrahilar lung mass EMERGENT Consult: No Notified: Yes Date Notified: 04/29/22 Time Notified: 11:06 Method of Notification: Text 04/29/22 14:26 Consult: Cardiology Routine Consulting Provider: Maco Ewing Reason for Consult: NSTEMI EMERGENT Consult: No Notified: Yes Date Notified: 04/29/22 Time Notified: 14:26 Method of Notification: Text Reason For Visit: CHEST PAIN/ LUNG MASS Diagnosis Discharge Diagnosis (1) Cardiomyopathy: Status: Acute Code(s): I42.9 - Cardiomyopathy, unspecified Medications at Discharge Home Medications glimepiride 2 mg tablet 4 mg PO DAILY BS 08/29/16 levothyroxine 25 mcg tablet 25 mcg PO DAILY Thyroid] 04/29/22 aspirin 81 mg tablet,delayed release 81 mg PO BREAKFAST #0 tabs 05/04/22 atorvastatin 80 mg tablet 80 mg PO QHS #30 tabs 05/04/22 carvedilol 6.25 mg tablet 6.25 mg PO BID #60 tabs 05/04/22 empagliflozin 10 mg tablet (Jardiance) 10 mg PO DAILY #30 tabs 05/04/22 furosemide 40 mg tablet 40 mg PO DAILY #30 tabs 05/04/22 sacubitril 49 mg-valsartan 51 mg tablet (Entresto) 1 tab PO BID #60 tabs 05/04/22 Hospital Course Operations None Procedures 2-D Echocardiogram, Cardiac catheterization, EKG and - (CT-guided biopsy) Summary of Care Provided Minutes Spent on Discharge: 39 Hospital Course: Mr. Saravia is a 61-year-old white male who presented to the emergency department [facility] on 04/29/2022 after experiencing chest pain in the left axillary side of his chest that radiated into the medial aspect of his left arm just above the elbow. He reported that it started approximately 6:30 in the morning of admission and was associated with some dyspepsia for which she took some Rolaids. The Rolaids provided no relief. He had no new associated shortness of breath but had been experiencing increasing shortness of breath in the last 2 weeks prior to presentation. He had attributed this to running out of his Maxide and noticed that his shortness of breath did improve after he reinitiated his Maxide. Upon presentation his temperature was 97.7 heart rate was 103, respiratory rate was 22, blood pressure 178/119 and his oxygen saturation was 97% on room air however when he returned from CT scan he developed acute hypoxia with oxygen saturations dropping is 79% on room air and his blood pressure increased to 170/6116 with a heart rate of 105 and a respiratory rate of 33.? At that time he was placed on a nonrebreather and eventually was able to be weaned to 6 L heated high flow nasal cannula.? His CBC was only remarkable for erythrocytosis with a hemoglobin of 17.2.? His chemistry panel was unremarkable other than hyperglycemia with his at blood glucose of 199.? A D-dimer was obtained and found to be 1.58.? His initial troponin was 38 with a repeat of 70.? Given his D-dimer elevation a CTA of the chest was per formed.? The CTA showed no PE or thoracic aneurysm or dissection but showed a suspicious large infrahilar noncalcified mass in the right medial lower lung field that measured 6.93 x 3.63 x 2.95 cm that was suspicious for a primary neoplastic process and additionally there were suspicious mediastinal and perihilar lymph nodes that were concerning for metastasis.? He also had a noncalcified nodules in the right midlung field that were concerning for metastatic disease.? He had diffuse pleural thickening in both hemithoraces with a loculated right pleural effusion that small.? EKG showed normal sinus rhythm with normal intervals however had some T wave inversions in the inferior and lateral leads. He was admitted to the PCU and his cardiac enzymes were cycled and trended up to greater than 13,000 therefore a stress test was held and cardiac catheterization was recommended. A heparin drip was initiated at that point and cardiology was consulted. An echocardiogram was obtained and showed an ejection fraction of 15 to 70% with severe LV dysfunction and wall motion abnormalities including apical akinesis and severe distal septal hypokinesis. He was started on goal-directed therapy for heart failure including a beta- jackie and Coreg and Entresto along with Jardiance. He was maintained on the aspirin and statin that he was started on on presentation. The mass in his chest was able to be biopsied on Monday. Unfortunately, he developed a pneumothorax as a result and his cardiac cath that was planned for following his biopsy was delayed to Monday. His pneumothorax resolved spontaneously without any intervention other than hyperoxygenation. Cardiac cath position revealed severe triple-vessel disease with a depressed LV. The case was discussed with cardiology during his hospitalization and they recommended follow-up as an outpatient with CT surgery given the work-up with his chest mass was in progress. Initial biopsy of his chest mass pathology revealed densely collagenous tissue and minimal chronic inflammation with no evidence of malignancy. I discussed the case with pulmonology and they still are suspicious that there may be a malignancy here and will follow-up as an outpatient. His hemoglobin A1c was obtained while he was hospitalized and found to be 8.2. He was maintained on his glimepiride at discharge and Jardiance 10 mg daily was ad ded to his regimen for improved control and to help with his heart failure. Overall his cholesterol panel was good with a total cholesterol 122/LDL 67/HDL 35 however he was placed on a high intensity dose statin for pleiotropic effects in the short-term until he can further address his coronary artery disease with definitive treatment. Cardiology is working on setting up appointment for him to be evaluated at [facility] with Dr. Jackson per patient's preference. As noted above he was discharged on new medications including atorvastatin 80 mg nightly, carvedilol 6.25 mg twice daily, Jardiance 10 mg daily, Lasix 40 mg daily, and Entresto 1 mg p.o. twice daily. His losartan and Maxide were discontinued prior to discharge. We reviewed diet for heart failure, discussed daily weighing, and information with regards to heart failure was sent with him upon discharge. I encouraged him to weigh himself on a daily basis and if he gains more than 3 to 5 pounds in a 24-hour period to take an extra Lasix dose and contact cardiology. He was instructed to follow-up with pulmonary medicine and an appointment was made for him prior to discharge. He will need a follow-up CT scan in 6 to 8 weeks. He is to follow-up with his primary care physician in the next 1 to 2 weeks. He is to follow-up with cardiology in the next 4 weeks. And as noted above CT surgery will be jose luating the patient soon for CABG. He was discharged home in stable condition on 05/04/2022. He may go back to work but we did discuss avoiding extensive exertional activities. Discharge diagnoses: NSTEMI type I Postprocedural pneumothorax-resolved Right-sided lung mass/lymphadenopathy Ischemic cardiomyopathy Acute hypoxic respiratory failure secondary to flash pulmonary edema-resolved Hypokalemia-resolved Nonsustained ventricular tachycardia-stabilized Hypertension [id number] Hypothyroidism DEVI Obesity Physical Exam Const alert, oriented x3, no apparent distress and well nourished Constitutional Narrative: Obese upper middle-aged white male, sitting up in bed, appears comfortable, nontoxic, very pleasant General Appearance: cooperative, comfortable, well kempt and well developed Orientation / Consciousness: awake, oriented to person, oriented to place and oriented to time Exam Limitations: no limitations HEENT normocephalic, head/scalp atraumatic, hearing grossly normal bilaterally and moist oral mucous membranes Eyes PERRL, EOMs intact bilaterally and conjunctivae normal Eyes Narrative: No scleral icterus Neck no lymphadenopathy, supple and no carotid bruits Neck Narrative: Trachea midline, no thyroid enlargement Resp normal respiratory effort, no retractions, no use of accessory muscles and clear to auscultation bilaterally Auscultation: Negative for crackles, rhonchi or wheezes Cardio regular rate, regular rhythm, S1 normal heart sound, S2 normal heart sound, no murmurs, no rub, no gallops, no clicks and no JVD GI normal to inspection, nondistended, normoactive bowel sounds, soft to palpation and non-tender Extremity no clubbing, cyanosis or edema Skin no rashes or lesions noted, no wounds, skin turgor normal and no jaundice Neuro oriented x3, CN's II-XII intact bilaterally, moves all extremities and no focal motor deficits Speech: speech normal Motor Exam: strength 5/5 throughout Psych affect normal Psych Narrative: Very pleasant and appropriately interactive Weight / BMI Weight Weight: 112.3 kg Body Mass Index (BMI) 35.0 ABG / Lab / Microbiology Data Result Diagrams: 05/03/22 03:19 05/04/22 04:27 Laboratory: Laboratory Results - last 24 hr 05/03/22 15:36: POC Glucose 174 H 05/03/22 21:31: POC Glucose 177 H 05/04/22 04:27: Sodium 137, Potassium 3.7, Chloride 105, Carbon Dioxide 27.0, An ion Gap 5, BUN 20 H, Creatinine 0.93, Estim Creat Clear Calc 86.13, Est GFR ( MDRD) Af Amer 106, Est GFR (MDRD) Non-Af 88, BUN/Creatinine Ratio 21.6 H, Glucose 151 H, Calcium 8.9 05/04/22 06:40: POC Glucose 164 H Microbiology: Microbiology 04/29/22 11:30 Mucosa - Nasopharyngeal Respiratory Panel (PCR) - Final 04/29/22 11:15 Nasal Secretion SARS-CoV-2 Antigen (Rapid) - Final Radiography Diagnostic Testing: Radiology Impression Chest X-Ray 05/04/22 06:00 IMPRESSION: Mild perihilar and basilar interstitial edema with trace infralateral effusions. Electronically Signed: Grant Estrada MD at 6:42 EDT Reading Location ID and State: [facility] / [place] Tel , Service support , D/C Instructions Discharge Diet: Low fat / Low cholesterol (Limit oral fluids to 2 L or less) and 1800 Calorie Control Diet Meaningful Use Info Meaningful Use Diagnoses (Choose all that apply): AMI and CHF AMI/Post PCI/Angioplasty Aspirin given w/in 24hrs of arrival?: Yes ASA at discharge?: Yes Statins at discharge?: Yes Maldonado/ARB at discharge?: Yes Beta Jackie at discharge?: Yes Done w/ Acute VT measure.: Yes CHF MALDONADO/ARB ordered at discharge?: Yes Documented LVEF (%): 15 Discharge Plan Admission Admit Date/Time: 04/29/22 11:08 Primary Reason for Your Visit: Shortness of breath Attending Provider: Jeanette White Primary Care Provider: Carri Gannno Consulting Providers: Jarod Elliott ; Esequiel Gibson ; Christopher Rico ; Roberto Chavez ; Tammy Chiu NP ; Maco Ewing Instructions Patient Instructions: Heart Failure Flare Up Signs, Heart Failure Make Changes Diet, RAD print developer automatic Instructions Needle Biopsy: Lung, Heart Failure and Physical Activity, Heart Failure, RAD RN Procedural Sedation Additional Instructions / Restrictions: Dr. Soto is in the process of making you a follow-up appointment with the CT surgeon over at [facility] (Dr. Sánchez) Please weigh yourself daily and take an extra dose of Lasix if you gain more than 3 to 5 pounds in a 24-hour period and at that time call cardiology--> I recommend weighing yourself the same time every day Monitor your home blood pressure periodically Discharge Orders/Prescriptions Prescriptions: New aspirin 81 mg Tablet,Delayed Release (Dr/Ec) 81 mg PO BREAKFAST Qty: 0 0RF atorvastatin 80 mg Tablet 80 mg PO QHS Qty: 30 1RF carvedilol 6.25 mg Tablet 6.25 mg PO BID Qty: 60 1RF furosemide 40 mg Tablet 40 mg PO DAILY Qty: 30 1RF Entresto 49-51 mg Tablet 1 tab PO BID Qty: 60 1RF Jardiance 10 mg tablet 10 mg PO DAILY Qty: 30 1RF Continued glimepiride 2 MG tablet 4 mg PO DAILY levothyroxine 25 mcg tablet 25 mcg PO DAILY Discontinued triamterene-hydrochlorothiazid [Maxzide-25mg] 1 EACH tablet 1 tab PO DAILY losartan 100 MG tablet 100 mg PO DAILY Referrals / Follow Up: Chester Soto MD [Med Staff - Active Staff] - Within 1 Month Carri Gannon DO [Primary Care Provider] - Within 1 Week Tammy Chiu NP, [employer]PAREL MANAGER-C [Med Staff - Adv Practice Prof] - 05/19/22 8:15 am Disposition Disposition (needs filled in before D/C Order can be placed): Home, Self Care Charges/Coding Visit Charges Inpatient E&M: 26018 Disch Hosp
--- NOTE | 2022-05-04 11:12 | CASEMGMT ---
Addendum entered by Tonya Shaikh 05/04/22 12:21: This RN CM able to reach Oma at [employer] prior auth and prior auth for Entresto started and they are requesting clinicals to be faxed. Dr. White and pt aware, voice understanding. Clinicals faxed jessica. Call to [facility] pharmacy and Jardiance is covered but cost is $160. There is a jardiance co-pay card online and pt/ are agreeable to inputting info and obtaining card. Card was then tubed to [facility] retail pharmacy and copy to pt/. CM To follow for Entresto PA. Pt/ voice no further questions/concerns/needs for discharge. Mateo RN CM Original Note: Per Kiley CALDERA, pt does not qualify for home oxygen. Call to [facility] pharmacy and per Su, pt's Entresto needs a prior auth and the tradjenta is not on formulary but januvia is. Dr. White updated and states tradjenta changed to jardiance as it is supposed to be a SGLT2 inhibitor. Call to try and complete prior auth and this RN CM has been hung up on twice. CM still attempting to complete prior auth for Entresto. Mateo CALDERA CM
[2022-05-04 11:30] LABS: Bedside Glucose 214 mg/dL (74-106)
--- NOTE | 2022-05-04 12:28 | PN.CC_ITS ---
Assessment & Plan Assessment/Plan (1) Lung mass: PLAN: Plan RECOMMENDATIONS: 1. Ok to discontinue oxygen therapy 2. Outpatient evaluation for CABG at [facility] 3. Continue diuresis as tolerated by hemodynamics and renal function. 4. Encourage incentive spirometer use and mobilize patient as tolerated. 5. Will need to follow with serial CT scans to ensure resolution or stabili ty for 2 years IMPRESSIONS: 1. Chest discomfort and associated hypoxia The patient presented to the hospital with left-sided chest discomfort and subsequently developed hypoxia in the emergency department requiring the initiation of supplemental oxygen. The patient's chest imaging did demonstrate findings concerning for chronic interstitial changes along with a right-sided loculated effusion, pleural thickening on the left and a right lower lobe lung mass. No PE was identified. Subsequent work-up revealed evidence of an NSTEMI with an ejection fraction of approximately 15 to 20%. Cath consistent with triple vessel disease. Biopsy is negative. 2. Abnormal chest imaging As noted above, the patient had a CTA chest completed which demonstrated a right lower lobe lung mass with what appeared to be a loculated effusion, chronic interstitial changes and pleural thickening in the left hemidiaphragm. The patient has no prior smoking history; however, the patient does report a remote history of a previous pleural effusion with thoracentesis at an outside facility. 3. Hypertension/hypothyroidism/diabetes mellitus Complicates care, management, recovery and prognosis. Continue home medications as indicated. This note was generated with [employer] dictation software. It may contain incorrect words, spelling, and punctuation that were not noted in checking the note before signing. Subjective Subjective Patient did well overnight. No chest pain at this time. No orthostatic symptoms reported. Objective Data Objective Data Vital Signs: Vital Signs Temp Pulse Resp BP Pulse Ox O2 Del Method O2 Flow Rate 36.7 C 73 16 97/72 98 Room Air 0 05/04/22 11:38 05/04/22 11:38 05/04/22 11:38 05/04/22 11:38 05/04/22 11:38 05/04/22 11:38 05/04/22 10:51 Oxygen Flow Rate (L/min) [ 0 AMBULATING on Room Air] Oxygen Flow Rate (L/min) [At 0 REST on Room Air] Oxygen Flow Rate (L/min) [4] 2 Oxygen Flow Rate (L/min) [3] 2 Oxygen Flow Rate (L/min) [2] 2 Oxygen Flow Rate (L/min) 2 Oxygen Delivery Method [4] Nasal Cannula Oxygen Delivery Method [3] Nasal Cannula Oxygen Delivery Method [2] Nasal Cannula Oxygen Delivery Method [1 ( Room Air Initial Baseline)] Oxygen Delivery Method Room Air Weight: 112.3 kg Body Mass Index (BMI) 35.0 Intake & Output: Intake and Output for Last 24 Hours 05/02/22 05/03/22 05/04/22 23:59 23:59 23:59 Intake Total 1517.25 / 1517.25 1357.00 / 1557.00 200 / 200 Balance 1517.25 / 1517.25 1357.00 / 1557.00 200 / 200 Lab / Micro Data Attestation: I reviewed the patient's lab results. Result Diagrams: 05/03/22 03:19 05/04/22 04:27 Labs: Laboratory Results - last 24 hr 05/03/22 15:36: POC Glucose 174 H 05/03/22 21:31: POC Glucose 177 H 05/04/22 04:27: Sodium 137, Potassium 3.7, Chloride 105, Carbon Dioxide 27.0, Anion Gap 5, BUN 20 H, Creatinine 0.93, Estim Creat Clear Calc 86.13, Est GFR (MDRD) Af Amer 106, Est GFR (MDRD) Non-Af 88, BUN/Creatinine Ratio 21.6 H, Glucose 151 H, Calcium 8.9 05/04/22 06:40: POC Glucose 164 H 05/04/22 11:06: POC Glucose 214 H Micro: Microbiology 04/29/22 11:30 Mucosa - Nasopharyngeal Respiratory Panel (PCR) - Final 04/29/22 11:15 Nasal Secretion SARS-CoV-2 Antigen (Rapid) - Final Radiography Diagnostic Testing: Radiology Impression Chest X-Ray 05/04/22 06:00 IMPRESSION: Mild perihilar and basilar interstitial edema with trace infralateral effusions. Electronically Signed: Grant Estrada MD at 6:42 EDT , Physical Exam Const alert, oriented x3 and no apparent distress General Appearance: cooperative Nutritional Appearance: obese HEENT normocephalic and head/scalp atraumatic Eyes PERRL, EOMs intact bilaterally and conjunctivae normal Neck supple General: trachea midline Chest inspection of chest normal Resp normal respiratory effort Auscultation: Negative for rales, rhonchi or wheezes Cardio regular rate, regular rhythm, S1 normal heart sound, S2 normal heart sound, no murmurs, no rub and no gallops GI normal to inspection, nondistended, normoactive bowel sounds Extremity no clubbing, cyanosis or edema Skin no rashes or lesions noted Neuro oriented x3, CN's II-XII intact bilaterally, moves all extremities and no focal motor deficits Psych cooperative and affect normal Charges/Coding Visit Charges Inpatient E&M: 90776 Subs Hosp L2
--- NOTE | 2022-05-04 14:00 | CASEMGMT ---
Kendra BEARDEN not back yet. [facility] retail pharmacy is agreeable to fill 2 tabs, one for tonight and one for the am so that pt can go home and have his meds. Per [facility] BEARD[facility] rep, PA should not take more than 24 hours. CM to follow. Pt/ agreeable to all. Mateo CALDERA CM
--- NOTE | 2022-05-05 14:55 | CASEMGMT ---
Call to [facility] BEARDEN as this RN CM has not obtained fax stating auth approved or denied and they had stated that the max time would be 24 hours. Per rep, they are checking with pharmacist to make sure they have all the documentation needed. This RN CM then got cut off. Call back to [facility] and this RN CM spoke with pharmacist who then states has all clinical info needed and she will approve Entresto for 12 months. Call to pt and [facility] pharmacy to update, voice understanding. Mateo CALDERA CM
== END 2022-05-04 14:23 | disposition home or self-care (01) | DRG 280 ==
LOC: ED 08:11 → PCU 11:15
PROVIDERS: Internal Medicine Interventional Cardiology; Admitting Provider Internal Medicine; Emergency Provider Student in an Organized Health Care Education/Training Program; PCP Family Medicine; Visit Provider Internal Medicine
DX: I21.4 Non-ST elevation (NSTEMI) myocardial infarction (principal); J96.01 Acute respiratory failure with hypoxia; J81.0 Acute pulmonary edema; I47.20 Ventricular tachycardia, unspecified; C34.91 Malignant neoplasm of unspecified part of right bronchus or lung; J90 Pleural effusion, not elsewhere classified; J95.811 Postprocedural pneumothorax; E11.65 Type 2 diabetes mellitus with hyperglycemia; Z79.4 Long term (current) use of insulin; I25.10 Atherosclerotic heart disease of native coronary artery without angina pectoris; E03.9 Hypothyroidism, unspecified; E87.6 Hypokalemia; I34.0 Nonrheumatic mitral (valve) insufficiency; G47.33 Obstructive sleep apnea (adult) (pediatric); J92.9 Pleural plaque without asbestos; I25.5 Ischemic cardiomyopathy; I10 Essential (primary) hypertension; E66.9 Obesity, unspecified; Z68.35 Body mass index [BMI] 35.0-35.9, adult; Z23 Encounter for immunization; Z91.199 Patient's noncompliance with other medical treatment and regimen due to unspecified reason; Z20.822 Contact with and (suspected) exposure to COVID-19; Z79.82 Long term (current) use of aspirin; Z79.84 Long term (current) use of oral hypoglycemic drugs; Z79.890 Hormone replacement therapy; Z79.899 Other long term (current) drug therapy; Z87.891 Personal history of nicotine dependence; R59.9 Enlarged lymph nodes, unspecified
CPT/HCPCS: 36415; 71045; 71046; 71275; 77012; 80048; 80053; 80061; 82962; 83036; 83735; 83880; 84100; 84443; 84484; 85025; 85379; 85610; 85730; 87633; 87811; 88172; 88305; 88313; 93005; 93306; 93458; 94762; 99152; 99153; 99156; 99251; 99285; J7030; J7050; Q9957; Q9967; 90686; A4216; C1769; C1894; C2613; C8929; G0463; J1940

== ENCOUNTER → 2022-07-05 | Outpatient (CLI) | payer OTHER, SELFPAY ==
--- NOTE | 2022-07-05 09:42 | PCM.CR.ITP ---
Diagnosis - General Information Admitting Diagnosis: NSTEMI, PCI w/RAMILA to LAD Secondary Diagnosis: DM Type II, Obesity, HTN, mixed Hyperlipidemia, GERD Personal Learning Style:: Audio/Visual, Written Barriers to Learning: No Barriers Stage of change r/t lifestyle modifications:: Action Gave educational material for:: Treating Heart Disease, Emotions & Heart Disease, Stress Management & Relaxation, Sleep Disorders & Heart Disease, How The Heart Works, What it means to have Heart Disease, How Coronary Artery Disease is Diagnosed, Heart Procedures, What Heart Medications Do, Risk Factors & Modifications, Living an Active Life, Nutrition - Education/Goals Individual Counseling: Initial Assessment: Abnormal Cholesterol Levels, High Blood Pressure, Overweight/Obesity, Diabetes, A. Fasting Blood Sugar >100 - 151, A1c 8.2%, B. Waist Circumference >35/Females >40/Males, Low HDL <40/Males or <50/Females - 35 Cardiac Rehabilitation Goals: 1. Maintain the individual as the primary focus of care. 2. To improve the patient's quality of life. 3. Identification of cardiac risk factors and provide cardiac risk factor management. 4. Enhance the psychosocial status of the patient. 5. Reconditioning enough to allow the patient to resume customary activities. 6. Control symptoms of cardiac disease Personal Goals: Initial Assessment: Improve energy level, Improve muscle strength and endurance, Improve diet and eating habits (eat healthier), Control risk factors (learn risk factor modification) Scale for measuring improvement of personal goals: Enter appropriate number in Comments. 2 = Unchanged. 3 = Slightly Better. 4 = Moderate Improvement. 5 = Met my Goal - Diagnosis & Disease Process Outcomes/Goals: Pt IDs own risk factors & lifestyle modifications by Session 10, Verbalizes symptoms of angina & response by session 3., Pt independently manages Plan/Interventions: Assist Pt to ID & engage in lifestyle modification to reduce CVD risk, Instruct on individual risk factors, Review symptoms of angina & emergency actions, Review secondary diagnosis & identify educational needs. - Safety Referral to Physical Therapy: No Referral to [facility] Case Management: No Assistive Devices:: None Exercise - Initial Assessment - Visit Date of Eval: 07/05/22 Session #:: 0 - Pre-cardiac rehab evaluation Mets: Pre-: >7 METS for 30 minutes by discharge - Physician Prescribed Exercise Modalities: Treadmill, Rower, Airdyne Intensity: 60-80% of age predicted maximum heart rate reserve Current METSs:: 4.0 Target Heart Rate:: 103-119 Resting Blood Pressure: 98/68 EKG Type: Sinus bradycardia rhythm Current Physical Activity or Exercising minutes: 30-60 - Outcomes & Goals Goals:: Verbalizes understanding of THR, RPE & goal METS by session 6, Documents in home exercise log/reports 30 min aerobic 5 day/wk by DC, Demonstrates accurate pulse taking by DC - Intervention & Plan Exercise Program Goals: Instruct on personal THR & RPE, Instruct on MET level & personal MET goal, Show patient to take own pulse /validate performance until accurate, Instruct on home exercise - Physical Activity Home Exercise Physical Activity - Home Exercise: Safe Exercise, Warm-up, Self-monitoring, Cool-Down, Home Exercise > 30 min Daily, Sitting Time <3 hours/daily - Outcomes & Goals Outcomes/Goals: Demonstrates correct Warm-up/exercise Cool-Down (S3) if = 2.5 METs, Verbalizes symptoms of exercise intolerance by Session 3 (S3), Demonstrate safe equipment use (S3) & follows exercise prescrition (6) - Intervention & Plan Plan/Intervention: Instruct warm-up & cool-down if exercising at > 2 METs, Instruct on symptoms of exercise intolerance & actions to take, Instruct & monitor on saf, Assess intial functional capacity & safety risk Nutrition - Initial Assessment - Program Goals Nutrition Program Goals: LDL <100 optimal. 100 - 129 Near optimal. 130 - 159 Borderline High. 160 - 189 High. Total Cholesterol <200 desirable. 200 - 239 Borderline High. >/= 240 High. HDL < 40 Low >/=60 High. Triglycerides <150 desirable. <199 optimal. VlDL 5 - 40. HgbA1C <7%. BMI <25 Patient has diagnosis of Hyperlipidemia (ICD E78)?: Yes - Visit Date of Assessment:: 07/05/22 Session #:: 0 - pre-cardiac rehab evaluation - Cholesterol/Lipids (Other Core Measures) Triglycerides (mg/dL): 98 Total Cholesterol (mg/dL): 122 LDL Cholesterol (mg/dL): 67 HDL Cholesterol (mg/dL): 35 Determine presence & major risk factors that modify LDL goal: Hypertension or hypertensive medication, Low HDL cholesterol <40 mg/dL*, Family history of premature CHD in Male < 55 years: female <65 yearsFa, Age men > 45 years; women >/= 55 years Outcomes/Goals: Pt IDs own risk factors & lifestyle modifications by Session 10, Verbalizes symptoms of angina & response by session 3., Pt independently manages Intervention/Plan: Instruct on personal lipid levels & lipid goals/NCEP guidelines, Instruct on cholesterol - Diabetes (Other Core Measures) Diabetes Type: Diagnosis Type II ICD-10 E11 Fasting blood glucose:: 151 Hgb A1C (4.2 - 6.3): 8.2 Insulin dependent injection/pump?: Yes Non-Insulin Dependent?: Yes Do you monitor your blood sugar at home?: Yes Referral to Diabetic Clinic:: Yes Outcomes/Goals:: Able to state symptoms of, Able to state, Able to state Intervention/Plan:: Instruct on, Refer to, Instruct on - Weight Mgt (Other Care) Not Applicable: No Height: 5 ft 9 in Weight:: 235 lb BMI: 34.7 Diagnosis Overweight/Obesity BMI> 30% ICD-10 E66: Yes Diagnosis High BMI/Morbid Obesity BMI> 35% ICD-10 Z68: No Outcomes/Goals: Pt sets, maintains & shows weight loss goal & trend during rehab Intervention/Plan: Instruct on ideal BMI & set weight loss goal w/patient, Assist pt to ID & incorporate diet changes for weight loss by S9, Refer to Structured Weight Loss program as appropriate, Encourage goal of using 250-300dcal per session for weight loss - Healthy Eating Habits Will attend diet classes:: Yes Outcomes/Goals:: Consume diet rich in vegs,fruits,whole grain/high fiber,fish,lean meat, Limit sat/trans fats,cholesterol & added salts & sugars Intervention/Plan:: Assess current eating habits - Education Gave educational materials for:: Signs & symptoms of hypoglycemia, Signs & symptoms of hyperglycemia, Relate diabetes to coronary artery disease, Healthy eating Nutrition - 30-Day Assessment Nutrition - 60-Day Assessment Nutrition - 90-Day Assessment Nutrition - Final Assessment Core - Initial Assessment - Visit Date of Eval: 07/05/22 Session #:: 0 - pre-cardiac rehab evaluation - Medication Compliance Preventative Medication(s):: Aspirin, Ticagrelor/P2Y12 inhibitor - causing shortness of breath, may be changing to Plavix, Statin/lipid, Beta duncan H/O mental health issues: depression, anxiety, or addiction?: No Doesn?t believe in the benefits of treatment?: No Believes medications are unnecessary or harmful?: No Has a concern about medication side effects?: Yes - Concerned with the dyspnea related to possibly the [employer] concern over the cost of medications?: No Outcomes/Goals: Verbalizes medications,desired effect & common side effects @ DC, Pt self-reports following medication regimen, Keeps card in wallet w/medications listed by DC Interventions/plans: Instruct on medication effects & side effects, Review medication list w/patient every two weeks, Instruct importance of taking meds as ordered & assist problem solving - Tobacco Use Tobacco Use: Non-smoker - Hypertension Resting Blood Pressure:: 98/68 - controlled, no symptoms [employer] Hypertension Guidelines: [place] [employer] Hypertension Guidelines. Normal BP Less than 120/80. Elevated BP 120/80. Hypertension Stage 1: BP 130-139/80-89. Hypertesnion Stage 2: BP 140 or higher/90 or higher. Hypertension Crisis: BP higher than 180/120 Outcomes/Goals: Able to verbalize/achieve optimal blood pressure <130/80, Incorporates diet changes & exercise for blood pressure control by DC Interventions/plan: Instruct on optimal blood pressure, hypertension & medications, Instruct on effects of sodium, alcohol, stress, exercise &hypertension - Tobacco Cessation Referral Smoking Cessation Referral:: No Individual Education/Counseling:: No Education Schedule Given:: Yes Core - 30-Day Assessment Core - 60-Day Assessment Core - 90 Day Assessment Core - Final Assessment Psychosocial - Initial Assess - VIsit Date of Eval: 07/05/22 Session #:: 0 - pre-cardiac rehab evaluation Not Applicable: Yes History of previous Mental disease:: No - Psychosocial Test Tool Used:: [facility] QOL Cardiac, PHQ-9 Questionnaire phq-9 Severity: Severity. 1-4 Minimal Depression. 5-9 Mild Depression. 10-14 Moderate Depression. 15-19 Moderately Sever Depression. 20-27 Severe Depression. Rule: See PHQ-9 Score: 14 - Recommend Behavioral Counseling for patient - Referral to Behavioral Health PS - Interventions: Yes Referral to Behavioral Health if PHQ-9 score >9:, Yes Referral to Physician if PHQ-9 if score is 5-9: - Dr. Gannon or Dr. Melo to address Depression, Yes Attend Stress Management Classes, No Referral to [facility] - Outcomes/Goals: See list Psychosocial Outcomes/Goals:: ID's personal stressors & 2 strategies to manage stress by discharge - Intervention/Plan: See List Interventions/Plan:: Assess stressors,coping strategies & signs of derpression on admission, Instruct/assist pt to develop coping & personal stress Mgt strategies, Refer to Behavioral Health if appropriate, Instruct patient to recognize signs & symptoms of depression, Instruct patient to recog Psychosocial - 30-Day Assess Psychosocial - 60-Day Assess Psychosocial - 90-Day Assess Psychosocial - Final Assessmen Patient Health Questionnaire Initial Assessment 1. Little interest or pleasure in doing things: Several days 2. Feeling down, depressed, or hopeless: Several days 3. Trouble falling or staying asleep, or sleeping too much: Nearly every day 4. Feeling tired or having little energy: Nearly every day 5. Poor appetite or overeating: Several days 6. Feeling bad about yourself -- or that you are a failure or have let yourself or your family down: Several days 7. Trouble concentrating on things, such as reading the newspaper or watching television: Several days 8. Moving or speaking so slowly that other people could have noticed. Or the opposite - being so fidgety or restless that you have been moving around a lot more than usual: Nearly every day 9. Thoughts that you would be better off , or of hurting yourself in some way: Not at all How difficult have these problems made it for you to do your work, take care of things at home, or get along with other people?: Somewhat difficult Total Score: 14 BLANCO-Q SV Test - Statements CAD is a disease of the arteries in the heart: False Examples of risk factors for heart disease: True Angina is chest pain or discomfort: True The benefits of resistance training include: True Eating more meat and dairy products: False Anti-platelet medications such as aspirin are important: True The only effective way to manage stress: False An exercise warm-up slowly increases heart rate: True Prepared, processed foods usually have high sodium: True Depression is common after a heart attack: True The statin medications lower cholesterol: True To control blood pressure, lower the amount of sodium: True If someone gets chest discomfort during walking: False Transfats are partially hydrogenated vegetable oils: True Sleep apnea that is not treated increases the risk: False To control cholesterol, one should become a vegetarian: False Someone knows if he/she is exercising at the right level: True Diabetes cannot be prevented with exercise & health eating: False Stress is a large risk for heart attack: False A diet that can help lower blood pressure is rich in: True - Total Score Total Correct Responses: 19 Self-Efficacy Initial Assessment We would like to know how confident you are in doing certain activities. Please select your confidence level for:: Select your confidence level for the following using the scale 1-10 where 1 is not at all confident and 10 is totally confident. Your score is the average of all 6 responses. Fatigue: How confident are you that you can keep the fatigue caused by your disease from interfering with the things you want to do? Select Number: 2 Physical Discomfort or Pain: How confident are you that you can keep the physical discomfort or pain of your disease from interfering with the things you want to do? Select Number: 4 Emotional Distress: How confident are you that you can keep the emotional distress caused by your disease from interfering with the things you want to do? Select Number: 5 Other Symptoms or Health Problems: How confident are you that you can keep other symptoms or health problems from interfering with the things you want to do? Select Number: 4 Different Tasks and Activities: How confident are you that you can do the different tasks and activities needed to manage your health condition so as to reduce your need to see a doctor? Select Number: 4 Medication: How confident are you that you can do things other than just taking medication to reduce how much your illness affects your everyday life? Select Number: 5 Total Score:: 4 Nutrition Survey - Nutrition Survey Initial Have you lost >10 lbs over the past 2 months without trying?: Yes Are you following a special diet at home for diabetes, low fat, or low salt?: Yes Are you interested in meeting with a dietitian for help understanding your diet?: Yes Do you eat less than 3 meals a day?: No Do you eat fatty meats (shirley, sausage, ribs, etc), fried foods, desserts, large amounts of salad dressings, margarine, butter, or cheese most days?: No Do you have food allergies? [Enter types in comment field]: No Do you eat in restaurants more than 3 times a week?: No Do you season food with salt, seasoning salt, or garlic salt?: No Do you used canned, boxed, frozen meals, or soups, seasoning packets?: No Total Score:: 3
--- NOTE | 2022-07-05 09:42 | PCM.CR.HP2 ---
CR - History & Physical - General Arrival date:: 07/05/22 Arrival time:: 09:30 Date of Referral:: 06/14/22 Date of CR Evaluation:: 07/05/22 Referring Physician: Dr. Breanna Aguilar Primary Diagnosis: PTCA, PCI w/RAMILA - History of Present Cardiac Event Onset Date: Enter Onset Date of cardiac illnesses in Comment field below Acute Myocardial Infarction within 12 months:: Yes - Non-ST Elevated Myocardial Infarction 05/03/[address] Sánchez PTCA or coronary stenting:: Yes - 06/14/2022 Vessel: LAD disease Type of Symptoms:: Dyspnea, discomfort on left side of chest, was driving to work and decided better stop in the emergency room to be checked, chest pain Interventions with present event:: Heart Cath @ [facility], refer to Dr. Sánchez possible CABG Were there any complications?: Heart was not viable for CABG, Dr. Sánchez stented the LAD vessel. - Sleep Disorder Evaluation Hx of Sleep Apnea: Yes Do you snore loudly (louder than talking or can be heard through closed doors)?: Yes Do you often feel tired/ fatigued/ sleepy during daytime?: Yes Has anyone observed you stop breathing during sleep?: Yes History of Hypertension (for STOP score): Yes - History of DEVI on CPAP at home (non-compliant with wearing). STOP Results: Positive - Medications Home Medications: Ambulatory Orders Medication Instructions Recorded glimepiride 2 mg tablet 4 mg PO DAILY BS 08/29/16 levothyroxine 25 mcg tablet 25 mcg PO DAILY Thyroid] 04/29/22 aspirin 81 mg tablet,delayed 81 mg PO BREAKFAST #0 tabs 05/04/22 release atorvastatin 80 mg tablet 80 mg PO QHS #30 tabs 05/04/22 carvedilol 6.25 mg tablet 6.25 mg PO BID #60 tabs 05/04/22 empagliflozin 10 mg tablet 10 mg PO DAILY #30 tabs 05/04/22 (Jardiance) furosemide 40 mg tablet 40 mg PO DAILY #30 tabs 05/04/22 sacubitril 49 mg-valsartan 51 mg 1 tab PO BID #60 tabs 05/04/22 tablet (Entresto) losartan 100 mg tablet (Cozaar) 100 mg PO DAILY 07/05/22 ticagrelor 90 mg tablet (Brilinta) 90 mg PO Q12H 07/05/22 - Allergies Allergies/Adverse Reactions: Allergies No Known Allergies Allergy (Verified 05/19/22 08:13) Advanced Directives - Advanced Directives Power of Tie Bucker: Yes Living Will: Yes Advance Directives Information Provided: No Advance Directives on File: Yes DNR Order?:: No - MOLST See MOLST form: No Past Medical History - Covid-19 Screening Fever: No Unexplained muscle aches: No Current respiratory symptoms: No Upper respiratory infections symptoms: No - History of GERD Gastro-intestinal symptoms: Yes Yik-Dzff-Kghvte symptoms: No Has High Risk Exposures ID'd by Health dept/Inf Control team: No 65 years or older:: No Lives in Assisted Living facility:: No Has a chronic lung disease or moderate to severe asthma:: No Has a serious heart condition:: Yes Immunocompromised:: No Severely obese (Body Mass Index of 40 or higher):: No Diabetic:: Yes Has chronic kidney disease undergoing dialysis:: No Has liver disease:: No - Past Medical Illness Medical History: Past Medical History (Last Updated 05/31/22 @ 20:29 by Beverley Nevarez) Atherosclerosis of coronary artery without angina pectoris I25.10 Cardiomyopathy I42.9 Diabetes mellitus, type 2 E11.9 Essential hypertension I10 Hypothyroid E03.9 Lung mass R91.8 NSTEMI (non-ST elevated myocardial infarction) Onset Date: 04/29/22 I21.4 Obesity E66.9 DEVI (obstructive sleep apnea) G47.33 Noncompliant with CPAP - Past Surgical History Surgical History: Past Surgical History (Last Updated 06/27/22 @ 13:34 by Janice Keene) History of coronary artery stent placement Onset Date: 06/14/22 Z95.5 PCI-RAMILA-LAD w/ 2.5 x 23 mm RAMILA 06/14/22 History of left heart catheterization Onset Date: 05/03/22 Z98.890 - Family History Summary Family History: Family History (Last Updated 04/29/22 @ 16:[address] Jeanette White, DO) Mother CVA (cerebral vascular accident) Other Diabetes Heart disease Hypertension Social History - Smoking History Smoking Status: Never smoker Hx Tobacco Use: No Hx Smoking Exposure: No - Alcohol Use Alcohol Usage: No - Substance Abuse Hx Substance Use: No - Occupation Occupation (List type of work in comments):: Employed Hours worked per day:: 8 Returned to work on:: 06/20/22 - Hobbies, Recreation, Social Activities Hobbies: None - Just moved from [place] and built a home so trying to get the home together., Other Social Environment - Status Marital Status: - Current Living Arrangements Living Environment:: Spouse - Children Do any of your children live nearby?: No - Safety Do you feel safe in your surroundings?: Yes - Assistance Do you need any assistance at home?: no Review of Systems - Review of Systems Hints: Right click = Denies (Slash). Left click = Reports ([place]) Review of Present Symptoms: Reports: Shortness of Breath at Rest, Shortness of Breath with Exertion, Fatigue, Appetite - Special Diet - Not really diet but recommended low sodium low fats. Denies: Angina, Dizziness/Lightheadedness, Heart Arrhythmia/Irregularities, Appetite - Normal - not really, have lost weight has cut down on added sugars and portions., Sleep - Normal - Having to sleep in a recliner at night or on sofa with multiple pillows. Patient feels the fluid is being maintained with the lasix 40 mg daily, Sexual Changes - Pain Is Patient Pain Free?: Yes Pain Location: none Risk Factor Assessment - Chief Complaint Chief Complaint: Patient is a [address] Melo who was originally seen here at [facility] by Dr. Soto. Patient was referred to Dr. Sánchez at [facility] for possible coronary artery bypass, but Dr. Sánchez felt the heart was not viable enough for the surgery so settled for a single stent in the LAD vessel. - Vital Signs Temperature: 97.6 F Respiratory Rate: 14 Pulse Ox: 98 Blood Pressure: 98/68 - Pulse Pulse Rate: 74 - Hypertension How long have you been treated?: maybe 9 years now On medication(s)?: yes Blood Pressure Sitting - Left Arm: 98/68 - Blood Cholesterol/Lipids Total Cholesterol (mg/dL) Goal = less than 200 mg/dL: 122 HDL Cholesterol (mg/dL) Goal = less than 40 mg/dL: 35 LDL Cholesterol (mg/dL) Goal = less than 70 mg/dL: 67 Triglycerides (mg/dL) Goal = less than 150 mg/dL: 98 - Diabetes Diabetic History: Type II, Medication Dependent Nutrition Referral for Diabetes: Yes - Obesity Height: 5 ft 10 in Weight:: 248 lb Weight in Pounds: 248.0 lbs Weight Source: Stated by Patient Body Mass Index (BMI): 35.6 Nutritional Referral for Obesity: Yes - Risk Stratification Risk Guidelines: Lowest Risk: Risk Factor for Smoking, Risk Factor for Dyslipidemia, Risk Factor for Hypertension, Risk Factor for Sedentary Lifestyle, Moderate Risk: Risk Factor for Sedentary Lifestyle, Highest Risk: Risk Factor for Diabetes - Glucose 151, last A1c 8.2%, Risk Factor for Obesity - BMI 35. - Family History Family History: Family History (Last Updated 04/29/22 @ 16:[address] Jeanette White, DO) Mother CVA (cerebral vascular accident) Other Diabetes Heart disease Hypertension Motivation - Motivation to Participate On a scale of 1 to 10, how prepared are you to commit to attending program?: 8 What do you see as barriers to successfully being able to complete the program?: none What do you see as the benefits of succesfully completing the program? In other words, what do you hope to get out of participating in the program?: Hopefully improve physical health Are there issues you are dealing with that will interfere with completing the program?: fatigue, continued shortness of breath Do you have a spouse or signficant other, family or friends who will help support you to complete the program?: Yes
[2022-07-05 10:59] VITALS: BP 98/68; BMI 34.7
[2022-07-05 11:01] VITALS: BP 98/68; PULSE 74; RESP 14; TEMP 36.4; O2SAT 98; BMI 35.6
== END | disposition home or self-care (01) ==
LOC: CR 09:30
PROVIDERS: PCP Family Medicine; Visit Provider Internal Medicine Cardiovascular Disease
DX: I10 Essential (primary) hypertension (principal); E11.9 Type 2 diabetes mellitus without complications; E03.9 Hypothyroidism, unspecified; I25.10 Atherosclerotic heart disease of native coronary artery without angina pectoris; G47.33 Obstructive sleep apnea (adult) (pediatric)

== ENCOUNTER 2022-07-25 13:36 | Outpatient (RCR) | payer OTHER, SELFPAY ==
[2022-07-05 10:59] VITALS: BMI 34.7
== END 2022-08-09 23:59 ==
LOC: DC 13:36
PROVIDERS: PCP Family Medicine; Visit Provider Internal Medicine Cardiovascular Disease
DX: E03.9 Hypothyroidism, unspecified (principal); E11.9 Type 2 diabetes mellitus without complications; I10 Essential (primary) hypertension; I25.10 Atherosclerotic heart disease of native coronary artery without angina pectoris; G47.33 Obstructive sleep apnea (adult) (pediatric)
CPT/HCPCS: 97802

== ENCOUNTER 2022-08-08 15:45 | Outpatient (RCR) | payer OTHER, SELFPAY ==
[2022-07-05 10:59] VITALS: BMI 34.7
--- NOTE | 2022-08-08 08:27 | CR.ITP_ITS ---
Diagnosis Exercise - 30-day Assessment - Visit Date of Eval: 08/08/22 Session #:: 8 - Physician Prescribed Exercise Modalities: Treadmill, Airdyne, NuStep Frequency: 3x/week for 12 weeks [36 sessions] Intensity: 60-80% of age predicted maximum heart rate reserve Duration: 30 - 45 minutes Current METSs:: 4.0 Target Heart Rate:: 103-119 Current RPE:: 12 Maximum Excercise HR:: 93 Resting Blood Pressure: 90/60 Maximum Exercise Blood Pressure: 110/62 EKG Type: NSR w/ BBB occasional PVCs, vent couplet, rare PAC Current Physical Activity or Exercising minutes: 36:32 - Outcomes & Goals Goals:: Verbalizes understanding of THR, RPE & goal METS by session 6, Documents in home exercise log/reports 30 min aerobic 5 day/wk by DC, Demonstrates accurate pulse taking by DC - Intervention & Plan Exercise Program Goals: Instruct on personal THR & RPE, Instruct on MET level & personal MET goal, Show patient to take own pulse /validate performance until accurate, Instruct on home exercise - 30-day Reassessments 30 day Reassessments:: Progressing - Physical Activity Home Exercise Physical Activity - Home Exercise: Safe Exercise, Warm-up, Self-monitoring, Cool-Down, Home Exercise > 30 min Daily, Sitting Time <3 hours/daily - Outcomes & Goals Outcomes/Goals: Demonstrates correct Warm-up/exercise Cool-Down (S3) if = 2.5 METs, Verbalizes symptoms of exercise intolerance by Session 3 (S3), Demonstrate safe equipment use (S3) & follows exercise prescrition (6) - Intervention & Plan Plan/Intervention: Instruct warm-up & cool-down if exercising at > 2 METs, Instruct on symptoms of exercise intolerance & actions to take, Instruct & monitor on saf, Assess intial functional capacity & safety risk - 30-day Reassessments 30 day Reassessments:: Progressing Nutrition - Initial Assessment Nutrition - 30-Day Assessment - Program Goals Nutrition Program Goals: LDL <100 optimal. 100 - 129 Near optimal. 130 - 159 Borderline High. 160 - 189 High. Total Cholesterol <200 desirable. 200 - 239 Borderline High. >/= 240 High. HDL < 40 Low >/=60 High. Triglycerides <150 desirable. <199 optimal. VlDL 5 - 40. HgbA1C <7%. BMI <25 Patient has diagnosis of Hyperlipidemia (ICD E78)?: Yes - Visit Date of Assessment:: 08/08/22 Session #:: 8 - Cholesterol/Lipids (Other Core Measures) Triglycerides (mg/dL): 98 - 04/30/2022 Total Cholesterol (mg/dL): 122 LDL Cholesterol (mg/dL): 67 HDL Cholesterol (mg/dL): 35 Determine presence & major risk factors that modify LDL goal: Hypertension or hypertensive medication, Low HDL cholesterol <40 mg/dL*, Family history of p remature CHD in Male < 55 years: female <65 yearsFa Outcomes/Goals: Pt IDs own risk factors & lifestyle modifications by Session 10, Verbalizes symptoms of angina & response by session 3., Pt independently manages Intervention/Plan: Instruct on personal lipid levels & lipid goals/NCEP guidelines, Instruct on cholesterol Referral to dietitian:: Yes - Medical Nutrition Therapy 30-day Reassessments:: Progressing - Diabetes (Other Core Measures) Diabetes Type: Diagnosis Type II ICD-10 E11 Fasting blood glucose:: 151 Hgb A1C (4.2 -6.3): 8.2 Insulin dependent injection/pump?: No Non-Insulin Dependent?: Yes Do you monitor your blood sugar at home?: No Referral to Diabetic Clinic:: Yes - Weight Mgt (Other Care) Not Applicable: No Height: 5 ft 9 in Weight:: 222 lb BMI: 32.8 Diagnosis Overweight/Obesity BMI> 30% ICD-10 E66: Yes Diagnosis High BMI/Morbid Obesity BMI> 35% ICD-10 Z68: No Outcomes/Goals: Pt sets, maintains & shows weight loss goal & trend during rehab Intervention/Plan: Instruct on ideal BMI & set weight loss goal w/patient, Assist pt to ID & incorporate diet changes for weight loss by S9, Refer to Structured Weight Loss program as appropriate, Encourage goal of using 250- 300dcal per session for weight loss 30 day Reassessments:: Progressing - Healthy Eating Habits Will attend diet classes:: Yes Outcomes/Goals:: Consume diet rich in vegs,fruits,whole grain/high fiber,fish,lean meat, Limit sat/trans fats,cholesterol & added salts & sugars Intervention/Plan:: Assess current eating habits - Education Gave educational materials for:: Healthy eating Nutrition - 60-Day Assessment Nutrition - 90-Day Assessment Nutrition - Final Assessment Core - Initial Assessment Core - 30-Day Assessment - Visit Date of Eval: 08/08/22 Session #:: 8 - Medication Compliance Preventative Medication(s):: Aspirin, Statin/lipid, Beta duncan H/O mental health issues: depression, anxiety, or addiction?: No Doesn?t believe in the benefits of treatment?: No Believes medications are unnecessary or harmful?: No Has a concern about medication side effects?: No Expresses concern over the cost of medications?: No Outcomes/Goals: Verbalizes medications,desired effect & common side effects @ DC, Pt self-reports following medication regimen, Keeps card in wallet w/medications listed by DC Interventions/plans: Instruct on medication effects & side effects, Review medication list w/patient every two weeks, Instruct importance of taking meds as ordered & assist problem solving - Tobacco Use Tobacco Use: Non-smoker - Hypertension Hypertension Diagnosis:: Hypertension ICD-10 I10 Resting Blood Pressure:: 90/60 [place] [employer] Hypertension Guidelines: [place] [employer] Hypertension Guidelines. Normal BP Less than 120/80. Elevated BP 120/80. Hypertension Stage 1: BP 130-139/80-89. Hypertesnion Stage 2: BP 140 or higher/90 or higher. Hypertension Crisis: BP higher than 180/120 Peak Exercise Blood Pressure:: 120/74 Outcomes/Goals: Able to verbalize/achieve optimal blood pressure <130/80, Incorporates diet changes & exercise for blood pressure control by DC Interventions/plan: Instruct on optimal blood pressure, hypertension & medications, Instruct on effects of sodium, alcohol, stress, exercise &hypertension 30 day Reassessments:: Progressing - Tobacco Cessation Referral Smoking Cessation Referral:: No Individual Education/Counseling:: No Education Schedule Given:: Yes Core - 60-Day Assessment Core - 90 Day Assessment Core - Final Assessment Psychosocial - Initial Assess Psychosocial - 30-Day Assess - VIsit Date of Eval: 08/08/22 Session #:: 8 Not Applicable: Yes History of previous Mental disease:: No - Psychosocial Test Tool Used:: [employer] QOL Cardiac, PHQ-9 Questionnaire phq-9 Severity: Severity. 1-4 Minimal Depression. 5-9 Mild Depression. 10-14 Moderate Depression. 15-19 Moderately Sever Depression. 20-27 Severe Depression. Rule: - Referral to Behavioral Health PS - Interventions: Yes Referral to Physician if PHQ-9 if score is 5-9:, Yes Attend Stress Management Classes, No Referral to Behavioral Health if PHQ-9 score >9:, No Referral to [facility] - Outcomes/Goals: See list Psychosocial Outcomes/Goals:: ID's personal stressors & 2 strategies to manage stress by discharge - Intervention/Plan: See List Interventions/Plan:: Assess stressors,coping strategies & signs of derpression on admission, Instruct/assist pt to develop coping & personal stress Mgt strategies, Instruct patient to recognize signs & symptoms of depression, Instruct patient to recog - 30-day Reassessments: 30 day Reassessments:: Progressing Psychosocial - 60-Day Assess Psychosocial - 90-Day Assess Psychosocial - Final Assessmen Patient Health Questionnaire 30-Day Re-eval Assessment 1. Little interest or pleasure in doing things: Several days 2. Feeling down, depressed, or hopeless: Several days 3. Trouble falling or staying asleep, or sleeping too much: Nearly every day 4. Feeling tired or having little energy: Nearly every day 5. Poor appetite or overeating: Several days 6. Feeling bad about yourself -- or that you are a failure or have let yourself or your family down: Several days 7. Trouble concentrating on things, such as reading the newspaper or watching television: Several days 8. Moving or speaking so slowly that other people could have noticed. Or the opposite - being so fidgety or restless that you have been moving around a lot more than usual: Nearly every day 9. Thoughts that you would be better off , or of hurting yourself in some way: Not at all How difficult have these problems made it for you to do your work, take care of things at home, or get along with other people?: Very difficult Total Score: 14 Self-Efficacy 30-Day Re-eval Assessment We would like to know how confident you are in doing certain activities. Please select your confidence level for:: Select your confidence level for the [facility] using the scale 1-10 where 1 is not at all confident and 10 is totally confident. Your score is the average of all 6 responses. Fatigue: How confident are you that you can keep the fatigue caused by your disease from interfering with the things you want to do? Select Number: 2 Physical Discomfort or Pain: How confident are you that you can keep the physical discomfort or pain of your disease from interfering with the things you want to do? Select Number: 4 Emotional Distress: How confident are you that you can keep the emotional distress caused by your disease from interfering with the things you want to do? Select Number: 5 Other Symptoms or Health Problems: How confident are you that you can keep other symptoms or health problems from interfering with the things you want to do? Select Number: 4 Different Tasks and Activities: How confident are you that you can do the different tasks and activities needed to manage your health condition so as to reduce your need to see a doctor? Select Number: 4 Medication: How confident are you that you can do things other than just taking medication to reduce how much your illness affects your everyday life? Select Number: 5 Total Score:: 4 Nutrition Survey
[2022-08-08 08:39] VITALS: BP 120/74; BP 90/60; BMI 32.8
== END 2022-08-09 23:59 ==
LOC: CR 15:45
PROVIDERS: PCP Family Medicine; Visit Provider Internal Medicine Cardiovascular Disease
DX: I21.4 Non-ST elevation (NSTEMI) myocardial infarction (principal); Z95.5 Presence of coronary angioplasty implant and graft
CPT/HCPCS: 93798

== ENCOUNTER → 2022-08-10 | Outpatient (CLI) | payer OTHER, SELFPAY ==
[2022-07-05 10:59] VITALS: BMI 34.7
[2022-08-08 08:39] VITALS: BMI 32.8
== END | disposition home or self-care (01) ==
LOC: SL 14:58
PROVIDERS: PCP Family Medicine; Visit Provider Internal Medicine Critical Care Medicine
DX: Z00.00 Encounter for general adult medical examination without abnormal findings (principal)

== ENCOUNTER 2022-08-29 16:34 | Outpatient (RCR) | payer SELFPAY | END 2022-09-06 23:59 | LOC: DC 16:34 | PROVIDERS: PCP Family Medicine; Visit Provider Internal Medicine Cardiovascular Disease | DX: E11.9 Type 2 diabetes mellitus without complications (principal); I10 Essential (primary) hypertension; E03.9 Hypothyroidism, unspecified; I25.10 Atherosclerotic heart disease of native coronary artery without angina pectoris; G47.33 Obstructive sleep apnea (adult) (pediatric) | CPT/HCPCS: 97803 ==

== ENCOUNTER 2022-09-05 15:45 | Outpatient (RCR) | payer OTHER, SELFPAY ==
[2022-08-10 00:40] VITALS: BP 120/74; BP 90/60
== END 2022-09-06 23:59 ==
LOC: CR 15:45
PROVIDERS: PCP Family Medicine; Visit Provider Internal Medicine Cardiovascular Disease
DX: I21.4 Non-ST elevation (NSTEMI) myocardial infarction (principal); Z95.5 Presence of coronary angioplasty implant and graft
CPT/HCPCS: 93798

== ENCOUNTER → 2022-09-12 | Outpatient (CLI) | payer OTHER, SELFPAY ==
[2022-07-05 10:59] VITALS: BMI 34.7
--- NOTE | 2022-09-12 06:56 | CT_ITS ---
STUDY: CT CHEST WITHOUT CONTRAST REASON FOR EXAM: Male, 61 years old. Lung Mass follow up RADIATION DOSAGE (If Supplied By Facility): CTDIvol = ( 16.55 ) mGy, DLP = ( 587.10 ) mGycm TECHNIQUE: Transaxial imaging was performed without the administration of intravenous contrast material. Multiplanar coronal and sagittal images were reformatted. Individualized dose optimization techniques were used for this CT. COMPARISON: Comparison is made with prior study dated April 29, 2022. FINDINGS: CHEST Mildly enlarged left axillary lymph nodes. Small right axillary lymph notes. Stable small bilateral pleural effusions. Stable chronic interstitial changes in both lungs worse in the lung bases. 4 cm x 4 cm heterogeneous mass in the posterior medial segment of the right lower lobe. There is evidence of twisting of the hilar structures into this mass lesion. This most likely represents round atelectasis. Stable pleural thickening in the lateral aspect of the left lung. Stable noncalcified nodules in the peripheral aspect of the right upper lobe. There are calcifications of the coronary arteries. Multiple mediastinal lymph nodes. These are slightly enlarged. Normal hilar regions. Normal unenhanced pulmonary arteries. There is atherosclerotic calcification of the aortic arch with tortuosity and elongation of the aortic arch and descending thoracic aorta. There are multi-level degenerative changes of the thoracic spine. There is no demonstrated abnormality of the visualized upper abdomen. CT/Chest without Contrast IMPRESSION: Essentially stable examination. Findings are suggestive of a round atelectasis with bilateral pleural effusions slightly greater on the right side with the pleural thickening more prominent in the left hemithorax. Electronically Signed: Rashi Farnsworth MD at 11:26 EST ,
== END | disposition home or self-care (01) ==
PROVIDERS: PCP Family Medicine; Referring Provider Internal Medicine Critical Care Medicine; Visit Provider Internal Medicine Critical Care Medicine
DX: R91.8 Other nonspecific abnormal finding of lung field (principal)
CPT/HCPCS: 71250

== ENCOUNTER 2022-09-26 14:00 | Outpatient (RCR) | payer OTHER, SELFPAY | END 2022-10-07 23:59 | LOC: DC 14:00 | PROVIDERS: PCP Family Medicine; Visit Provider Internal Medicine Cardiovascular Disease | DX: I10 Essential (primary) hypertension (principal); E11.9 Type 2 diabetes mellitus without complications; E03.9 Hypothyroidism, unspecified; I25.10 Atherosclerotic heart disease of native coronary artery without angina pectoris; G47.33 Obstructive sleep apnea (adult) (pediatric) | CPT/HCPCS: 97803 ==

== ENCOUNTER → 2022-10-04 | Outpatient (CLI) | payer OTHER, SELFPAY ==
[2022-10-03 11:48] VITALS: BMI 33.7
--- NOTE | 2022-10-04 09:40 | PFTCOMP_ITS ---
COMPLETE PULMONARY FUNCTION TEST INTERPRETATION Brief HPI: Patient is a 61-year-old male, currently under the care of Tammy Chiu, who presents to [facility] for complete pulmonary function tests secondary to diagnosis of dyspnea. Respiratory therapist reports good effort and reproducible results. Interpretation: Forced expiration spirometry shows no large airways obstructive ventilatory defect with an FEV1 of 53% predicted. There is no significant bronchodilator response by strict ATS criteria. Spirograms are of poor quality and show exhalation for only 1 to 3 seconds, likely underestimating FVC. The respiratory flow volume loop shows a normal pattern. Lung volumes by body plethysmography show a moderately decreased total lung capacity at 4.36 L, 68% predicted. FRC and RV are elevated out of proportion. Lung volume measurements are consistent with air-trapping. Diffusion capacity by carbon monoxide is decreased at 50% predicted. The airway resistance is slightly elevated. No previous pulmonary function tests were available for review. Impression: Moderate restrictive ventilatory defect with a symmetric reduction diffusion capacity. There is some subtle signs of possible concomitant airway obstruction.
== END | disposition home or self-care (01) ==
LOC: PSN 06:53
PROVIDERS: PCP Family Medicine; Referring Provider Nurse Practitioner Acute Care; Visit Provider Nurse Practitioner Acute Care
DX: R06.02 Shortness of breath (principal)
CPT/HCPCS: 94060; 94726; 94729

== ENCOUNTER 2022-10-07 15:45 | Outpatient (RCR) | payer OTHER, SELFPAY ==
[2022-09-07 00:26] VITALS: BP 120/74; BP 90/60
--- NOTE | 2022-10-03 11:39 | CR.ITP_ITS ---
Diagnosis Exercise - 90-day Assessment - Visit Date of Eval: 10/03/22 Session #:: 32 - Physician Prescribed Exercise Modalities: Treadmill, Airdyne, NuStep Frequency: 3x/week for 12 weeks [36 sessions] Intensity: 60-80% of age predicted maximum heart rate reserve Current METSs:: 5 Target Heart Rate:: 103-119 Current RPE:: 11-13 Maximum Excercise HR:: 100 Resting Blood Pressure: 98/54 Maximum Exercise Blood Pressure: 124/76 EKG Type: NSR to ST with occas multifocal PVC's - Outcomes & Goals Goals:: Verbalizes understanding of THR, RPE & goal METS by session 6, Documents in home exercise log/reports 30 min aerobic 5 day/wk by DC, Demonstrates accurate pulse taking by DC, Other additional outcome/goals: see below - Intervention & Plan Exercise Program Goals: Instruct on personal THR & RPE, Instruct on MET level & personal MET goal, Show patient to take own pulse /validate performance until accurate, Instruct on home exercise, Other additional plan/int - 30-day Reassessments 30 day Reassessments:: Met - Physical Activity Home Exercise Physical Activity - Home Exercise: Safe Exercise, Warm-up, Self-monitoring, Cool-Down, Home Exercise > 30 min Daily, Sitting Time <3 hours/daily - Outcomes & Goals Outcomes/Goals: Demonstrates correct Warm-up/exercise Cool-Down (S3) if = 2.5 METs, Verbalizes symptoms of exercise intolerance by Session 3 (S3), Demonstrate safe equipment use (S3) & follows exercise prescrition (6), Other: See below - Intervention & Plan Plan/Intervention: Instruct warm-up & cool-down if exercising at > 2 METs, Instruct on symptoms of exercise intolerance & actions to take, Instruct & monitor on saf, Assess intial functional capacity & safety risk, Other See below - 30-day Reassessments 30 day Reassessments:: Met Nutrition - Initial Assessment Nutrition - 30-Day Assessment Nutrition - 60-Day Assessment Nutrition - 90-Day Assessment - Program Goals Nutrition Program Goals: LDL <100 optimal. 100 - 129 Near optimal. 130 - 159 Borderline High. 160 - 189 High. Total Cholesterol <200 desirable. 200 - 239 Borderline High. >/= 240 High. HDL < 40 Low >/=60 High. Triglycerides <150 desirable. <199 optimal. VlDL 5 - 40. HgbA1C <7%. BMI <25 Patient has diagnosis of Hyperlipidemia (ICD E78)?: Yes - Visit Date of Assessment:: 10/03/22 Session #:: 32 - Cholesterol/Lipids (Other Core Measures) Determine presence & major risk factors that modify LDL goal: Hypertension or hypertensive medication, Low HDL cholesterol <40 mg/dL*, Family history of premature CHD in Male < 55 years: female <65 yearsFa, Age men > 45 years; women >/= 55 years Outcomes/Goals: Pt IDs own risk factors & lifestyle modifications by Session 10, Verbalizes symptoms of angina & response by session 3., Pt independently manages, Other Additional Outcomes/Goals: Intervention/Plan: Advocate for lipid panel cholesterol medication if applicable, Instruct on personal lipid levels & lipid goals/NCEP guidelines, Instruct on cholesterol, Other additional plan/int 30-day Reassessments:: Met - Diabetes (Other Core Measures) Diabetes Type: Diagnosis Type II ICD-10 E11 Insulin dependent injection/pump?: No Non-Insulin Dependent?: No Do you monitor your blood sugar at home?: No Referral to Diabetic Clinic:: Yes Outcomes/Goals:: Able to state symptoms of, Able to state, Able to state, Other additional Intervention/Plan:: Instruct on, Refer to, Instruct on, Other 30-day Reassessments:: Met - re - Weight Mgt (Other Care) Height: 5 ft 9 in Weight:: 103.646 kg BMI: 33.7 Diagnosis Overweight/Obesity BMI> 30% ICD-10 E66: Yes Diagnosis High BMI/Morbid Obesity BMI> 35% ICD-10 Z68: No Outcomes/Goals: Pt sets, maintains & shows weight loss goal & trend during rehab, Other additional outcomes/goals Intervention/Plan: Instruct on ideal BMI & set weight loss goal w/patient, Assist pt to ID & incorporate diet changes for weight loss by S9, Refer to Structured Weight Loss program as appropriate, Encourage goal of using 250- 300dcal per session for weight loss, Other additional plan/interventions 30 day Reassessments:: Met - Healthy Eating Habits Will attend diet classes:: Yes Outcomes/Goals:: Consume diet rich in vegs,fruits,whole grain/high fiber,fish,lean meat, Limit sat/trans fats,cholesterol & added salts & sugars, Other additional outcome/goals: 30-day Reassessments:: Met - Education Gave educational materials for:: Signs & symptoms of hypoglycemia, Signs & symptoms of hyperglycemia, Relate diabetes to coronary artery disease, Healthy eating Nutrition - Final Assessment Core - Initial Assessment Core - 30-Day Assessment Core - 60-Day Assessment Core - 90 Day Assessment - Visit Date of Eval: 10/03/22 Session #:: 32 - Medication Compliance H/O mental health issues: depression, anxiety, or addiction?: No Doesn?t believe in the benefits of treatment?: No Believes medications are unnecessary or harmful?: No Has a concern about medication side effects?: No Expresses concern over the cost of medications?: No Outcomes/Goals: Verbalizes medications,desired effect & common side effects @ DC, Pt self-reports following medication regimen, Keeps card in wallet w/medications listed by DC, Other additional outcome/goals: Interventions/plans: Instruct on medication effects & side effects, Review medication list w/patient every two weeks, Instruct importance of taking meds as ordered & assist problem solving, Other additional 30-day Reassessments:: Met - Tobacco Use Tobacco Use: Non-smoker Do you use smokeless tobacco?: No 30-day Reassessments:: Met - Hypertension Resting Blood Pressure:: 98/54 [place] [employer] Hypertension Guidelines: [place] [employer] Hypertension Guidelines. Normal BP Less than 120/80. Elevated BP 120/80. Hypertension Stage 1: BP 130-139/80-89. Hypertesnion Stage 2: BP 140 or higher/90 or higher. Hypertension Crisis: BP higher than 180/120 Peak Exercise Blood Pressure:: 124/76 Outcomes/Goals: Able to verbalize/achieve optimal blood pressure <130/80, Incorporates diet changes & exercise for blood pressure control by DC, Other additional outcomes/goals Interventions/plan: Instruct on optimal blood pressure, hypertension & medications, Instruct on effects of sodium, alcohol, stress, exercise &hypert ension, Other additional plan/interventions 30 day Reassessments:: Met - Tobacco Cessation Referral Smoking Cessation Referral:: No Individual Education/Counseling:: No Education Schedule Given:: Yes Core - Final Assessment Psychosocial - Initial Assess Psychosocial - 30-Day Assess Psychosocial - 60-Day Assess Psychosocial - 90-Day Assess - VIsit Date of Eval: 10/03/22 History of previous Mental disease:: No - Outcomes/Goals: See list Psychosocial Outcomes/Goals:: ID's personal stressors & 2 strategies to manage stress by discharge, Other Additional outcome/goals: - Intervention/Plan: See List Interventions/Plan:: Assess stressors,coping strategies & signs of derpression on admission, Instruct/assist pt to develop coping & personal stress Mgt strategies, Refer to Behavioral Health if appropriate, Refer to Physician if appropriate, Instruct patient to recognize signs & symptoms of depression, Instruct patient to recog, Other additional plan/intervention - 30-day Reassessments: 30 day Reassessments:: Met Psychosocial - Final Assessmen Patient Health Questionnaire 90-Day Re-eval Assessment 1. Little interest or pleasure in doing things: Several days 2. Feeling down, depressed, or hopeless: Several days 3. Trouble falling or staying asleep, or sleeping too much: Nearly every day 4. Feeling tired or having little energy: Nearly every day 5. Poor appetite or overeating: Several days 6. Feeling bad about yourself -- or that you are a failure or have let yourself or your family down: Several days 7. Trouble concentrating on things, such as reading the newspaper or watching television: Several days 8. Moving or speaking so slowly that other people could have noticed. Or the opposite - being so fidgety or restless that you have been moving around a lot more than usual: Several days 9. Thoughts that you would be better off , or of hurting yourself in some way: Not at all How difficult have these problems made it for you to do your work, take care of things at home, or get along with other people?: Very difficult Total Score: 12 Self-Efficacy 90-Day Re-eval Assessment We would like to know how confident you are in doing certain activities. Please select your confidence level for:: Select your confidence level for the following using the scale 1-10 where 1 is not at all confident and 10 is totally confident. Your score is the average of all 6 responses. Fatigue: How confident are you that you can keep the fatigue caused by your disease from interfering with the things you want to do? Select Number: 2 Physical Discomfort or Pain: How confident are you that you can keep the physical discomfort or pain of your disease from interfering with the things you want to do? Select Number: 4 Emotional Distress: How confident are you that you can keep the emotional distress caused by your disease from interfering with the things you want to do? Select Number: 5 Other Symptoms or Health Problems: How confident are you that you can keep other symptoms or health problems from interfering with the things you want to do? Select Number: 4 Different Tasks and Activities: How confident are you that you can do the different tasks and activities needed to manage your health condition so as to reduce your need to see a doctor? Select Number: 4 Medication: How confident are you that you can do things other than just taking medication to reduce how much your illness affects your everyday life? Select Number: 5 Total Score:: 4 Nutrition Survey
[2022-10-03 11:48] VITALS: BP 124/76; BP 98/54; BMI 33.7
== END 2022-10-07 23:59 ==
LOC: CR 15:45
PROVIDERS: PCP Family Medicine; Visit Provider Internal Medicine Cardiovascular Disease
DX: I25.2 Old myocardial infarction (principal); Z95.5 Presence of coronary angioplasty implant and graft
CPT/HCPCS: 93798

== ENCOUNTER 2022-10-19 15:15 | Outpatient (RCR) | payer OTHER, SELFPAY ==
[2022-10-03 11:48] VITALS: BMI 33.7
[2022-10-08 01:48] VITALS: BP 124/76; BP 98/54
== END 2022-11-06 23:59 ==
LOC: CR 15:15
PROVIDERS: PCP Family Medicine; Visit Provider Internal Medicine Cardiovascular Disease
DX: I25.2 Old myocardial infarction (principal); Z95.5 Presence of coronary angioplasty implant and graft
CPT/HCPCS: 93798

== ENCOUNTER → 2022-10-20 | Outpatient (CLI) | payer OTHER, SELFPAY ==
[2022-10-03 11:48] VITALS: BMI 33.7
[2022-10-20 08:41] VITALS: PULSE 68; PULSE 75; PULSE 78; PULSE 81; PULSE 87; PULSE 89; PULSE 90; PULSE 92; O2SAT 88; O2SAT 89; O2SAT 90; O2SAT 91; O2SAT 92; O2SAT 94; O2SAT 96
--- NOTE | 2022-10-20 08:45 | CPS ---
Patient walked without breaks and room air for the entire 6 minutes. The last 25 seconds of testing pulse ox was reading 88-89%,
--- NOTE | 2022-10-20 14:29 | WT_ITS ---
PSN 6 Minute Walk Test 6 Minute Walk Test 6 Minute Walk Test: 6 Minute Walk Test PSN:6-Minute Walk Test Start: 10/20/22 08:40 Freq: Status: Active Protocol: RESP.6MINW Document 10/20/22 08:41 YANG (Rec: 10/20/22 08:47 YANG [id number]) 6 Minute Walk Test Date Performed 10/20/22 Time Performed 08:15 Height 5 ft 9 in Weight: 104.326 kg Weight in Pounds 230.[address]: Tammy Chiu [employer] Assistive device used: None Pre-test Oxygen Delivery Method Room Air Pulse Ox (%) 94 Pulse Rate (60-100 beats/min) 68 Dyspnea Easton Scale (0-10) 0 Exertion Easton Scale (6-20) 6 1st minute Oxygen Delivery Method Room Air Pulse Ox (%) 92 Pulse Rate (60-100 beats/min) 78 2nd minute Oxygen Delivery Method Room Air Pulse Ox (%) 91 Pulse Rate (60-100 beats/min) 81 3rd minute Oxygen Delivery Method Room Air Pulse Ox (%) 91 Pulse Rate (60-100 beats/min) 87 4th minute Oxygen Delivery Method Room Air Pulse Ox (%) 90 Pulse Rate (60-100 beats/min) 89 5th minute Oxygen Delivery Method Room Air Pulse Ox (%) 89 Pulse Rate (60-100 beats/min) 90 6th minute Oxygen Delivery Method Room Air Pulse Ox (%) 88 Pulse Rate (60-100 beats/min) 92 Dyspnea Easton Scale (0-10) 4 Exertion Easton Scale (6-20) 14 Post-test Oxygen Delivery Method Room Air Pulse Ox (%) 96 Pulse Rate (60-100 beats/min) 75 Full Laps Walked 16 Partial Lap, Number of Tiles Walked 18 Total Distance Walked (ft) 962 10/20/22 08:45 Cardiopulmonary Services by Columba Wynne Patient walked without breaks and room air for the entire 6 minutes. The last 25 seconds of testing pulse ox was reading 88-89%, Initialized on 10/20/22 08:45 - END OF NOTE Interpretation Interpretation: The patient was able to ambulate 962 feet over the course of 6 minutes on room air with no assistive devices or breaks. No significant tachycardia was noted, but patient did have significant desaturation from a baseline of 94% to as low as 88% in the 6-minute. These findings are consistent with a respiratory limitation exercise tolerance. Recommendations Recommendations: The patient requires no supplemental oxygen at rest, but may require supplemen rachel oxygen at 2 L/min with extreme exertion.
== END | disposition home or self-care (01) ==
PROVIDERS: PCP Family Medicine; Referring Provider Nurse Practitioner Acute Care; Visit Provider Nurse Practitioner Acute Care
DX: R06.02 Shortness of breath (principal)
CPT/HCPCS: 94618

== ENCOUNTER → 2022-12-26 | Outpatient (CLI) | payer OTHER, SELFPAY ==
[2022-10-03 11:48] VITALS: BMI 33.7
[2022-12-26 12:55] VITALS: PULSE 71; PULSE 78; PULSE 86; PULSE 87; PULSE 91; PULSE 92; O2SAT 88; O2SAT 90; O2SAT 91; O2SAT 92; O2SAT 93; O2SAT 94; O2SAT 96
--- NOTE | 2022-12-26 12:58 | CPS ---
Pt was placed on 1 lpm at 4minutes into walk for a saturation of 88%. Pt came up to 93% and walk was resumed. Pt finished walk on 1 lpm with saturations in normal range. Pt did state he felt less S.O.B with the oxygen on also. Pulmonary medicine was called and spoke to Barbi since pt had his Dr visit in October and his next visit is not till February. Flowsheet with the data also faxed to office.
--- NOTE | 2022-12-27 05:52 | WT_ITS ---
PSN 6 Minute Walk Test 6 Minute Walk Test 6 Minute Walk Test: 6 Minute Walk Test PSN:6-Minute Walk Test Start: 12/26/22 12:55 Freq: Status: Active Protocol: RESP.6MINW Document 12/26/22 12:55 [facility] (Rec: 12/26/22 13:03 [facility] [id number]) 6 Minute Walk Test Date Performed 12/26/22 Time Performed 12:30 Height 5 ft 9 in Weight: 108.862 kg Weight in Pounds 240.[address]: Dr Gibson Assistive device used: None Pre-test Oxygen Delivery Method Room Air Pulse Ox (%) 92 Pulse Rate (60-100 beats/min) 71 Dyspnea Easton Scale (0-10) 0 Exertion Easton Scale (6-20) 6 1st minute Oxygen Delivery Method Room Air Pulse Ox (%) 94 Pulse Rate (60-100 beats/min) 86 2nd minute Oxygen Delivery Method Room Air Pulse Ox (%) 91 Pulse Rate (60-100 beats/min) 92 3rd minute Oxygen Delivery Method Room Air Pulse Ox (%) 90 Pulse Rate (60-100 beats/min) 91 4th minute Oxygen Delivery Method Room Air Pulse Ox (%) 88 Pulse Rate (60-100 beats/min) 91 Dyspnea Easton Scale (0-10) 1 Reported Symptoms Increased Work of Breathing 5th minute Oxygen Flow Rate (L/min) (L/min) 1 Oxygen Delivery Method Nasal Cannula Pulse Ox (%) 93 Pulse Rate (60-100 beats/min) 91 6th minute Oxygen Flow Rate (L/min) (L/min) 1 Oxygen Delivery Method Nasal Cannula Pulse Ox (%) 92 Pulse Rate (60-100 beats/min) 87 Dyspnea Easton Scale (0-10) 0.5 Exertion Easton Scale (6-20) 12 Post-test Oxygen Flow Rate (L/min) (L/min) 1 Oxygen Delivery Method Nasal Cannula Pulse Ox (%) 96 Pulse Rate (60-100 beats/min) 78 Full Laps Walked 15 Partial Lap, Number of Tiles Walked 0 Total Distance Walked (ft) 885 12/26/22 12:58 Cardiopulmonary Services by Sigrid Mehta Pt was placed on 1 lpm at 4minutes into walk for a saturation of 88%. Pt came up to 93% and walk was resumed. Pt finished walk on 1 lpm with saturations in normal range. Pt did state he felt less S.O.B with the oxygen on also. Pulmonary medicine was called and spoke to Barbi since pt had his Dr visit in October and his next visit is not till February. Flowsheet with the data also faxed to office. Initialized on 12/26/22 12:58 - END OF NOTE Interpretation Interpretation: The patient was noted to be 90% on room air at rest, but did desaturate to 88% in the fourth minute of ambulation requiring supplemental oxygen. In total, the patient was able to travel 885 feet over the course of 6 minutes with no assistive devices, but 1 break and no significant tachycardia. Patient did require 1 L/min to maintain saturations with exertion. Recommendations Recommendations: Patient requires no supplemental oxygen at rest, but should be using at least 1 L/min with any ambulation.
== END | disposition home or self-care (01) ==
PROVIDERS: PCP Family Medicine; Referring Provider Internal Medicine Critical Care Medicine; Visit Provider Internal Medicine Critical Care Medicine
DX: R91.8 Other nonspecific abnormal finding of lung field (principal)
CPT/HCPCS: 94618

== ENCOUNTER → 2023-03-01 | Outpatient (CLI) | payer OTHER, SELFPAY ==
[2022-10-03 11:48] VITALS: BMI 33.7
[2023-03-01 18:01] LABS: AST(SGOT) 24 U/L (15-37); Alanine Aminotransfer ALT/SGPT 25 U/L (16-61); Albumin, Serum 3.6 g/dL (3.2-5.0); Alkaline Phosphatase 259 U/L (45-117); Bilirubin, Direct 0.54 mg/dL (0.00-0.30); Ferritin 110 ng/mL (26-388); GGTP 308 U/L (15-85); Globulin 4.2 g/dL (2.2-4.2); Protein, Total 7.8 g/dL (6.4-8.2)
[2023-03-01 18:14] LABS: Hepatitis B Surface Antigen Non-Reactive (Nonreactive)
[2023-03-03 14:10] LABS: ANTINUCLEAR ANTIBODIES DIRECT Negative (Negative); Anti-Mitochondrial AB <20.0 Units (0.0-20.0); Anti-Smooth Muscle ABS 45 Units (0-19)
== END | disposition home or self-care (01) ==
LOC: MTLAB 16:00
PROVIDERS: PCP Family Medicine; Referring Provider Internal Medicine Gastroenterology; Visit Provider Internal Medicine Gastroenterology
DX: K76.0 Fatty (change of) liver, not elsewhere classified (principal)
CPT/HCPCS: 36415; 80076; 82728; 82977; 83516; 86038; 87340

== ENCOUNTER → 2023-03-07 | Outpatient (CLI) | payer OTHER, SELFPAY ==
[2022-10-03 11:48] VITALS: BMI 33.7
[2023-03-09 16:09] LABS: Albumin 3.7 g/dL (2.9-4.4); Alpha-1-Globulins 0.3 g/dL (0.0-0.4); Alpha-2-Globulins 0.5 g/dL (0.4-1.0); Gamma Globulin 1.6 g/dL (0.4-1.8); IMMUNOFIXATION RESULT,S Comment: (.); Immunoglobulin A 443 mg/dL (61-437); Immunoglobulin G 1425 mg/dL (603-1613); Immunoglobulin M 143 mg/dL (20-172); PROEL- TOTAL PROTEIN 7.1 g/dL (6.0-8.5)
== END | disposition home or self-care (01) ==
LOC: MTLAB 16:48
PROVIDERS: PCP Family Medicine; Referring Provider Internal Medicine Gastroenterology; Visit Provider Internal Medicine Gastroenterology
DX: K75.4 Autoimmune hepatitis (principal)
CPT/HCPCS: 36415; 82784; 84165; 86334

== ENCOUNTER 2023-11-03 05:44 | Inpatient (IN) | payer OTHER, SELFPAY ==
[2022-10-03 11:48] VITALS: BMI 33.7
[2023-11-03] VITALS (12 sets, daily range): BP systolic 109–120; BP diastolic 66–81; PULSE 65–96; RESP 15–20; TEMP 36.6–36.8; O2SAT 85–97; BMI 37.4; BMI 37.5
--- NOTE | 2023-11-03 05:55 | CT_ITS ---
INDICATION: Dizziness EXAMINATION: CT BRAIN - CT Head or Brain W/O Contrast Injection TECHNIQUE: Multiple axial images were obtained of the head without intravenous contrast. A radiation dose optimization technique was used for this scan. IV Contrast dosage and agent: None. RADIATION DOSAGE (If Supplied By Facility): CTDIvol = ( 44.99 ) mGy, DLP = ( 812.98 ) mGycm COMPARISON: No relevant prior comparison study available FINDINGS: BRAIN PARENCHYMA: No intra- or extra-axial hemorrhage. No evidence of acute infarct. No intracranial mass or mass effect. Ill-defined areas of low-density in the periventricular and subcortical white matter most likely represent chronic microvascular ischemic changes. Posterior fossa structures are unremarkable. CSF SPACES: Appropriate for age. No hydrocephalus. Basal cisterns are patent. CALVARIUM, SKULL BASE, PARANASAL SINUSES AND MASTOID AIR CELLS: Clear. No discrete lytic or blastic abnormalities. ORBITS: Both globes, extraocular muscles, optic nerves and retrobulbar fat appear unremarkable. ASPECTS Score for Acute Strokes: 10 CT/Brain/Head without Contrast IMPRESSION: Chronic white matter microvascular ischemic changes. There is no acute intracranial abnormality. Electronically Signed: Catherine Gonzalez MD at 6:50 EDT ,
--- NOTE | 2023-11-03 05:55 | RAD_ITS ---
INDICATION: CAD EXAMINATION/TECHNIQUE: X-RAY - XR Chest 1 View COMPARISON: CT ChestMar 2022 FINDINGS: LINES/DEVICES: CT ChestMar 2022 LUNGS: Stable small chronic bilateral pleural effusions. Compressive atelectasis in the lung bases. Diffuse interstitial thickening suggesting mild pulmonary edema. There is rounded atelectasis in the right lung base measuring 4 cm in diameter has not changed the previous study. Multiple mediastinal lymph nodes. MEDIASTINUM AND CARDIOVASCULAR STRUCTURES: Cardiac silhouette is moderately enlarged. Central airways and mediastinal contour are unremarkable. BONES AND SOFT TISSUES: Unremarkable. RAD/Chest 1 View (Portable) IMPRESSION: Stable small chronic bilateral pleural effusions. Compressive atelectasis in the lung bases. Diffuse interstitial thickening suggesting mild pulmonary edema. There is rounded atelectasis in the right lung base measuring 4 cm in diameter has not changed the previous study. Multiple mediastinal lymph nodes. Electronically Signed: Catherine Gonzalez MD at 6:58 EDT ,
--- NOTE | 2023-11-03 05:55 | EKG12_ITS ---
Test Reason : DYSRHYTHMIA Blood Pressure : / mmHG Vent. Rate : 068 BPM Atrial Rate : 068 BPM P-R Int : 276 ms QRS Dur : 100 ms QT Int : 428 ms P-R-T Axes : 017 196 079 degrees QTc Int : 455 ms Sinus rhythm with 1st degree A-V block Low voltage QRS Inferior infarct (cited on or before 29-APR-2022) Anterolateral infarct (cited on or before 29-APR-2022) Abnormal ECG Confirmed by IRENE WILSON, LILLIAM ([id number]), business editor NINA MENDENHALL ([id number]) on 11/06/2023 10:03:09 AM Referred By: Confirmed By:LILLIAM BONILLA MD
--- NOTE | 2023-11-03 05:56 | EDS_ITS ---
HPI History of Present Illness Chief Complaint: Dizziness Narrative Narrative: 63-year-old male past medical history of NSTEMI and CHF, has had vertigo in the past. He states that he awoke at around 4:45, almost an hour ago because he had to go to the bathroom. Complaining of dizziness and lightheadedness with mild nausea. He states he cannot hold himself up and is very weak. His gait was off balance. While his had vertigo in the past, he states this was a little different. He was concerned that had something to do with his heart although he is not having chest pain. No shortness of breath. No other symptoms. It seems to be worse with standing. He states he can barely stand up without assistance. [facility] Medical History Atherosclerosis of coronary artery without angina pectoris Cardiomyopathy Diabetes mellitus, type 2 Essential hypertension Hypothyroid Lung mass NSTEMI (non-ST elevated myocardial infarction) (04/29/22) Obesity DEVI (obstructive sleep apnea) Home Medications levothyroxine 25 mcg tablet 25 mcg PO DAILY Thyroid] 04/29/22 [History Last Taken 04/29/22] aspirin 81 mg tablet,delayed release 81 mg PO BREAKFAST #0 tabs 05/04/22 [Rx Last Taken Unknown] carvedilol 6.25 mg tablet 6.25 mg PO BID #60 tabs 05/04/22 [Rx Last Taken Unknown] empagliflozin 10 mg tablet (Jardiance) 10 mg PO DAILY #30 tabs 05/04/22 [Rx Last Taken Unknown] sacubitril 49 mg-valsartan 51 mg tablet (Entresto) 1 tab PO BID #60 tabs 05/04/22 [Rx Last Taken Unknown] clopidogrel 75 mg tablet 75 mg PO DAILY 09/21/22 [History Last Taken Unknown] albuterol sulfate 90 mcg/actuation aerosol inhaler 2 puff inhalation Q4H PRN shortness of breath or wheezing #8.5 grams 11/10/22 [Rx Last Taken Unknown] spironolactone 25 mg tablet 25 mg PO DAILY 11/10/22 [History Last Taken Unknown] atorvastatin 80 mg tablet 40 mg PO QHS 11/03/23 [History Last Taken Unknown] budesonide-formoterol HFA 160 mcg-4.5 mcg/actuation aerosol inhaler (Symbicort) 2 puff inhalation BID PRN sob 11/03/23 [History Last Taken Unknown] torsemide 20 mg tablet 20 mg PO DAILY 11/03/23 [History Last Taken Unknown] Allergy/AdvReac Type Severity Reaction Status Date / Time No Known Allergies Allergy Verified 11/03/23 05:45 Family History Mother CVA (cerebral vascular accident) Other Diabetes Heart disease Hypertension Surgical History History of coronary artery stent placement (06/14/22) History of left heart catheterization (05/03/22) Social History household members: spouse housing: house current occupational status: employed current occupational exposures/hazards: No Smoking Status: Never smoker alcohol intake: current alcohol intake frequency: holidays/special occasions only substance use type: does not use what type of physical activity do you participate in: none ROS ROS ED ROS Narrative Constitutional: No fever, no chills. Generalized weakness. HEENT: No sore throat. No neck pain. No loss of vision. No rhinorrhea. Cardiovascular: No chest pain. No palpitations. No pedal edema. Respiratory: No cough, no shortness of breath. Abdominal: No abdominal pain. No nausea. No vomiting. Genitourinary: No dysuria. No hematuria. Musculoskeletal: No myalgias. No arthralgias. Neurologic: No headaches. Positive dizziness. Positive lightheadedness. Skin: No rash. No change in color. Psychiatric: No depression. No anxiety. EXAM Physical Exam Narrative Exam Narrative: Afebrile. Vital signs noted. HEENT: Normocephalic. Atraumatic. PERRL, EOMI. Neck soft and supple. No point tenderness or step off. No nystagmus. Cardiovascular: Regular rate and rhythm. No murmurs, rubs, or gallops appreciated. Respiratory: No tachypnea. Lungs clear to auscultation bilaterally. Gastrointestinal: Abdomen soft, nontender, with normoactive bowel sounds. No rebound or guarding. Neurological: Awake. Alert. Nonfocal, nonlateralizing. Able to turn head [id number]. Skin: No rash. Normal color. No pallor. Musculoskeletal: Bilateral symmetric pedal edema. Full range of motion extremities. Const Vital Signs: 11/03/23 05:44 11/03/23 05:44 11/03/23 06:26 Temperature 97.9 F Temperature Source Temporal Pulse Rate 72 Pulse Rate [Lying] 67 Pulse Rate [Sitting (for 1 minute prior to obtaining)] 68 Respiratory Rate 15 Respiratory Effort Normal Non-Labored Respiratory Pattern Normal Blood Pressure 120/68 Blood Pressure [Lying] 109/75 Blood Pressure [Sitting (for 1 minute prior to obtaining)] 115/76 Blood Pressure Mean 85 Blood Pressure Mean [Lying] 86 Blood Pressure Mean [Sitting (for 1 minute prior to obtaining)] 89 Pulse Ox 90 Oxygen Delivery Method Room Air MDM MDM MDM Narrative Medical decision making narrative: In the differential diagnosis is orthostatic hypotension versus ACS versus positional vertigo versus dehydration. Patient already takes Plavix and 81 mg of aspirin. Comprehensive workup was pursued. I do think that he would be able to handle a bolus of IV fluids. CT of the brain will be obtained as well as chest x-ray, CBC, CMP, and serial cardiac enzymes. Chest x-ray in 1 view will also be obtained to rule out pneumonia. EKG was obtained and interpreted by myself independently as sinus rhythm with first-degree AV block at 68 bpm but no acute ST changes. No STEMI. I reviewed his prior laboratory work. He had elevated troponin in the past. In review of his laboratory work from today, he has normal white count of 6.8, hemoglobin normal at 16.3, no anemia, hematocrit 49.8, platelet count normal at 264. Sodium slightly low at 135 which I think is nonspecific, normal potassium 3.9, chloride 104, BUN is slightly elevated 24 with a creatinine of 1.21. Glucose is appropriately elevated at 127 with a normal anion gap of 7. High-sensitivity troponin is 11. He has an alk phos that slightly elevated at 127, but has been elevated in the past in comparison to other laboratories. BNP is elevated at 393, but he does have a history of heart failure. Chest x-ray 1 view interpreted by myself shows small pleural effusions and slight interstitial edema, but no evidence of pneumothorax or consolidation. I do not feel antibiotics are indicated. I reviewed the radiology report which confirms my independent interpretation. He was unable to complete orthostatics, stating he was unable to stand. CT of the brain was obtained and radiology report reviewed. There is no evidence of hemorrhage or mass, no acute process. He states he developed slight headache mainly on the left. I offered him Tylenol, but he declined. He was administered meclizine 25 mg orally. At this point in time, patient signed out to Dr. Hudson Cano to check the delta troponin, and reassess the patient after meclizine. Patient was told that if he is unable to stand or if his dizziness persists, that he would most likely need observation. Currently, patient is in stable condition. History & Record Review Discussion w/independent historian: Patient Lab Data Attestation: I reviewed the patient's lab results. Labs: Laboratory Results - last 24 hr 11/03/23 05:51 WBC 6.8 RBC 5.51 Hgb 16.3 Hct 49.8 MCV 90.4 MCH 29.6 MCHC 32.7 RDW Std Deviation 50.3 H RDW Coeff of Miles 15.2 H Plt Count 264 MPV 10.6 Immature Gran % (Auto) 0.100 Neut % (Auto) 62.8 Lymph % (Auto) 20.0 Garfield % (Auto) 13.4 H Eos % (Auto) 2.8 Baso % (Auto) 0.9 Absolute Neuts (auto) 4.3 Absolute Lymphs (auto) 1.36 Nucleated RBC % 0 Sodium 135 L Potassium 3.9 Chloride 104 Carbon Dioxide 24.0 Anion Gap 7 BUN 24 H Creatinine 1.21 Estim Creat Clear Calc 75.73 Est GFR (MDRD) Af Amer 78 Est GFR (MDRD) Non-Af 64 BUN/Creatinine Ratio 19.8 Glucose 127 H Calcium 8.8 Total Bilirubin 1.60 H AST 24 ALT 23 Alkaline Phosphatase 233 H Troponin I High Sens 11 B-Natriuretic Peptide 393.5 H Total Protein 7.9 Albumin 3.7 Globulin 4.2 Albumin/Globulin Ratio 0.9 Radiography Diagnostic Testing: Clinical Impression(s) from Imaging Studies Brain CT 11/03/23 05:55 IMPRESSION: Chronic white matter microvascular ischemic changes. There is no acute intracranial abnormality. Electronically Signed: Catherine Gonzalez MD at 6:50 EDT , Chest X-Ray 11/03/23 05:55 IMPRESSION: Stable small chronic bilateral pleural effusions. Compressive atelectasis in the lung bases. Diffuse interstitial thickening suggesting mild pulmonary edema. There is rounded atelectasis in the right lung base measuring 4 cm in diameter has not changed the previous study. Multiple mediastinal lymph nodes. Electronically Signed: Catherine Gonzalez MD at 6:58 EDT , Discharge Plan Triage Chief Complaint: Dizziness ED Provider: Morris Sawyer Dx/Rx/DC Orders Prescriptions: No Action clopidogrel 75 mg tablet 75 mg PO DAILY spironolactone 25 mg tablet 25 mg PO DAILY albuterol sulfate 90 mcg/actuation HFA aerosol inhaler 2 puff inhalation Q4H PRN (Reason: shortness of breath or wheezing) Qty: 8.5 3RF Rx Instructions: administer with spacer levothyroxine 25 mcg tablet 25 mcg PO DAILY aspirin 81 mg Tablet,Delayed Release (Dr/Ec) 81 mg PO BREAKFAST Qty: 0 0RF carvedilol 6.25 mg Tablet 6.25 mg PO BID Qty: 60 1RF Entresto 49-51 mg Tablet 1 tab PO BID Qty: 60 1RF Jardiance 10 mg tablet 10 mg PO DAILY Qty: 30 1RF torsemide 20 mg tablet 20 mg PO DAILY atorvastatin 80 mg Tablet 40 mg PO QHS budesonide-formoterol [Symbicort] 160-4.5 mcg/actuation HFA aerosol inhaler 2 puff inhalation BID PRN (Reason: sob) Rx Instructions: administer with spacer, rinse mouth after each use Primary Care Provider: Carri Gannon Referrals: Carri Gannon DO [Primary Care Provider] -
[2023-11-03 06:06] LABS: Absolute Lymphocyte Count 1.36 X10^3/uL (0.83-4.51); Absolute Neutrophil Count 4.3 X10^3/uL (2.0-7.7); Basophil# 0.06 X10^3/uL; Basophil% 0.9 % (0-1); Eosinophil# 0.19 X10^3/uL; Eosinophils% 2.8 % (0-5); Hematocrit 49.8 % (40-54); Hemoglobin 16.3 g/dL (13.0-16.5); Lymphocyte # 1.36 X10^3/ul (0.83-4.51); Mean Corp Hgb Conc 32.7 g/dL (32-36); Mean Corpuscular Hgb 29.6 pg (27.0-32.0); Mean Corpuscular Volume 90.4 fL (80-94); Mean Platelet Vol. 10.6 fl (6.2-12.0); Monocyte# 0.91 X10^3/uL; Monocyte% 13.4 % (0-10); NRBC Flagged by Analyzer 0 % (0-5); Neutrophil # 4.26 X10^3/uL (2.7-7.7); Neutrophil % 62.8 % (47-70); Platelet Count 264 K/mm3 (150-450); RBC Distribution Width CV 15.2 % (11.6-14.6); RBC Distribution Width SD 50.3 fl (35.1-43.9); Red Blood Count 5.51 M/mm3 (4.6-6.2); White Blood Count 6.8 K/mm3 (4.4-11.0)
[2023-11-03] MEDS: 0.9% Normal Saline (1000mL) 1,000 ML 1000 ML IV (06:10)
[2023-11-03 06:15] LABS: Bacteria 0 SEEN /hpf (None Seen); Mucous, Urine 0 SEEN /hpf (<or=2+); White Blood Cells 0 SEEN /hpf (0-5)
[2023-11-03 06:17] LABS: Color, Urine Yellow (Yellow); Glucose, Dipstick 1000 mg/dl (Normal); Ketone-Dipstick Negative (Negative); Leukocyte Esterase-Dipstick Negative /ul (Negative); Nitrite-Dipstick Negative (Negative); Occult Blood-Urine 50 /ul (Negative); Protein-Dipstick 30 mg/dl (Negative); Urine Bilirubin Dipstick Negative (Negative); Urine Clarity Clear (Clear); Urine Urobilinogen Normal (Normal)
[2023-11-03 06:24] LABS: ALB/GLOB Ratio 0.9 RATIO (0.9-2.4); AST(SGOT) 24 U/L (15-37); Alanine Aminotransfer ALT/SGPT 23 U/L (16-61); Albumin, Serum 3.7 g/dL (3.2-5.0); Alkaline Phosphatase 233 U/L (45-117); Anion Gap 7 (5-15); BUN 24 mg/dL (7-18); BUN/Creat Ratio 19.8 RATIO (10-20); Calcium,Total 8.8 mg/dL (8.5-10.1); Chloride 104 mmol/L (98-107); Creatinine, Serum 1.21 mg/dL (0.70-1.30); EST Glomerular Filtration Rate 64 mL/min (>60); Est Glom Filt Rate - Afr Amer 78 mL/min (>60); Estimated Creatinine Clearance 75.73 ml/min; Globulin 4.2 g/dL (2.2-4.2); Glucose 127 mg/dL (74-106); Potassium 3.9 mmol/L (3.5-5.1); Protein, Total 7.9 g/dL (6.4-8.2); Sodium Level 135 mmol/L (136-145); Troponin-I HS (w/2H Reflex) 11 pg/mL (3.0-78.0)
[2023-11-03] MEDS: Meclizine HCl 25 MG Tablet PO (07:05)
[2023-11-03 07:08] LABS: BNP,B-Type NATRIURETIC PEPTIDE 393.5 pg/mL (0-100)
[2023-11-03 07:22] LABS: Red Blood Cells-Urine 0-5 SEEN /hpf (0-5); Squamous Epithelial Cells - UA 0-5 SEEN /hpf (0-5)
[2023-11-03 08:02] LABS: Reflex Troponin-HS? (from REC) Y
[2023-11-03] MEDS: Metoclopramide 10 MG/2 ML Vial 5 MG IV (08:25)
[2023-11-03 08:29] LABS: Troponin-I HS 12 pg/mL (3.0-78.0)
[2023-11-03] MEDS: LORazepam 2 MG/ML Syringe 0.5 MG IV (08:52)
--- NOTE | 2023-11-03 09:04 | MRI_ITS ---
We are attempting to reach an attending provider to discuss findings. An addendum with communication details will be sent when the communication is complete. STUDY: MRI BRAIN WITH AND WITHOUT CONTRAST REASON FOR EXAM: Male, 63 years old. vertigo PT WITH DIZZINESS, NAUSEA, LIGHTHEADNESS X8 HOURS HX: LUNG CANCER, VERTIGO CT''S FOR COMPARISON TECHNIQUE: Standardized multiplanar fat and water weighted pulse sequences were obtained. IV 22cc clariscan was administered for the contrast portion of the examination. COMPARISON: Head CT dated November 03, 2023 FINDINGS: A moderate size acute infarct is present in the anterior superior to mid aspect aspect of the left cerebellar lobe. Small acute infarcts are also present on the right side of the cerebellar vermis and in the posterior midline aspect of the right cerebellar lobe. No acute infarcts are present in the supratentorial regions of the brain. There is mild cerebral atrophy with widening of the extra-axial spaces and ventricular dilatation. There are multiple white matter hyperintensities, distributed throughout the deep white matter tracts of the cerebral hemispheres, consistent with moderate chronic white matter ischemic changes. Normal T2* images of the brain without demonstrated susceptibility artifact. There is no demonstrated hemosiderin stain. No hydrocephalus or midline shift is present. Normal bilateral basal ganglia. Normal thalami. There is no extra-axial fluid accumulation. Normal flow voids within the major intracranial circulation suggesting patency by spin echo criteria. Normal venous enhancement. There is no enhancing intra-axial or extra-axial abnormality. Normal sella turcica, pituitary gland, infundibular stalk, optic chiasm and hypothalamus. Normal tectal plate and pineal gland. Normal midbrain, malou and medulla. Normal basal cisterns. Normal bilateral temporal bones. Normal bilateral internal auditory canals. No demonstrated orbital abnormality, within the constraints of a routine brain study. Normal visualized paranasal sinuses. Normal calvarium and skull base. Normal visualized soft tissue structures. Normal visualized upper cervical spine. MRI/Brain W/WO Contrast IMPRESSION: Bilateral acute cerebellar infarcts. 1. A moderate size acute infarct is present in the anterior superior to mid aspect aspect of the left cerebellar lobe. Small acute infarcts are also present on the right side of the cerebellar vermis and in the posterior midline aspect of the right cerebellar lobe. No acute infarcts are present in the supratentorial regions of the brain. Electronically Signed: Arthur Zhang MD at 13:45 EDT ,
--- NOTE | 2023-11-03 09:06 | PCM.HP.STD ---
HPI - General General Date of Admission: 11/03/23 Date of Service: 11/03/23 Chief Complaint: Vertigo HPI Narrative ESSENCE ENGLAND, is a 63 M who presented to the emergency department at [facility] on 11/03/2023 early in the morning for vertigo/dizziness he stated he was fine yesterday and felt well. He woke up this morning at about 4 3445 to get up to go to the bathroom and he had severe dizziness that started at that time. It was associated with mild nausea and he has not been able to keep his eyes open because of the dizziness. He indicated his gait was markedly off and he felt incredibly weak. He has had this once before back in 2017 however his reports that it was much less severe than this and he was in the emergency department in [place] for about 6 hours and then was able to go home. She states this is much more severe than that episode and seems to be different however cannot explain exactly how it is different compared to previous episode. He states he did not take his Lasix yesterday and has not taken any of his medications yet this morning. Upon my evaluation he is able to interact appropriately and has no focal deficits but has significant dizziness and does not really like keeping his eyes open. He does have some lateral nystagmus that is mild when he turns his head in bilateral directions. He denies any chest pain or shortness of breath however he is currently on 2 L as he desatted on room air. He does wear BiPAP at night. His lung exam exhibits some crackles bilaterally and he has lower extremity edema. He states everything is pretty stable from his heart failure standpoint and indicates he really would be here if he did not have the vertigo. He denies any recent illnesses. His vital signs on presentation showed a temperature of 97.8, heart rate 67, blood pressure was 109/75, respiratory was 19 oxygen saturations were 85% on room air. He was placed on 2 L nasal cannula with improvement to his oxygen saturations up to 91 to 92%. He does have a history of sleep apnea and wears CPAP while sleeping. Orthostatic vitals are unremarkable. His CBC is overall unremarkable other than a monocytosis at 13.4%. His chemistry panel shows mild hyponatremia with a sodium of 135, glucose 127 and his bilirubin is elevated at 1.6 however he does appear to have a chronically elevated bilirubin. Cardiac enzymes were cycled x 2 and 12 both times. His BNP was elevated at 393.5. His UA shows some occult blood but was otherwise unremarkable and no signs of infection. EKG is sinus rhythm with no acute ST-T wave changes and a first-degree heart block. CT of the brain showed chronic white matter microvascular ischemic changes but no acute intracranial abnormality. Chest x-ray showed stable bilateral pleural effusions that are chronic and compressive atelectasis with diffuse interstitial thickening suggestive of mild pulmonary edema. He was initially given some IV fluids in emergency department and some Antivert however his vertigo was persistent and he was not able to ambulate so required admission to the hospital. [facility] Medical History Atherosclerosis of coronary artery without angina pectoris Cardiomyopathy Diabetes mellitus, type 2 Essential hypertension Hypothyroid Lung mass NSTEMI (non-ST elevated myocardial infarction) (04/29/22) Obesity DEVI (obstructive sleep apnea) Home Medications levothyroxine 25 mcg tablet 25 mcg PO DAILY Thyroid] 04/29/22 [History Last Taken 04/29/22] aspirin 81 mg tablet,delayed release 81 mg PO BREAKFAST #0 tabs 05/04/22 [Rx Last Taken Unknown] carvedilol 6.25 mg tablet 6.25 mg PO BID #60 tabs 05/04/22 [Rx Last Taken Unknown] empagliflozin 10 mg tablet (Jardiance) 10 mg PO DAILY #30 tabs 05/04/22 [Rx Last Taken Unknown] sacubitril 49 mg-valsartan 51 mg tablet (Entresto) 1 tab PO BID #60 tabs 05/04/22 [Rx Last Taken Unknown] clopidogrel 75 mg tablet 75 mg PO DAILY 09/21/22 [History Last Taken Unknown] albuterol sulfate 90 mcg/actuation aerosol inhaler 2 puff inhalation Q4H PRN shortness of breath or wheezing #8.5 grams 11/10/22 [Rx Last Taken Unknown] spironolactone 25 mg tablet 25 mg PO DAILY 11/10/22 [History Last Taken Unknown] atorvastatin 80 mg tablet 40 mg PO QHS 11/03/23 [History Last Taken Unknown] budesonide-formoterol HFA 160 mcg-4.5 mcg/actuation aerosol inhaler (Symbicort) 2 puff inhalation BID PRN sob 11/03/23 [History Last Taken Unknown] torsemide 20 mg tablet 20 mg PO DAILY 11/03/23 [History Last Taken Unknown] Allergy/AdvReac Type Severity Reaction Status Date / Time No Known Allergies Allergy Verified 11/03/23 05:45 Family History Mother CVA (cerebral vascular accident) Other Diabetes Heart disease Hypertension Surgical History History of coronary artery stent placement (06/14/22) History of left heart catheterization (05/03/22) Social History household members: spouse housing: house current occupational status: employed current occupational exposures/hazards: No Smoking Status: Never smoker alcohol intake: current alcohol intake frequency: holidays/special occasions only substance use type: does not use what type of physical activity do you participate in: none ROS Constitutional Constitutional: Reports weakness; Denies anorexia, change in weight, chills, fatigue, fever(s), malaise, night sweats or other Eyes Eyes: Denies blurry vision, change in eye color, change in vision, discharge from eye(s), double vision, erythema, eye pain, loss of vision or other ENT HEENT: Denies abnormal hearing, dysphagia, ear pain, epistaxis, headache(s), hearing loss, nasal congestion, nasal discharge, post nasal drip, sinus pressure, sore throat or other Cardiovascular Cardiovascular: Reports edema; Denies chest pain, claudication, dyspnea on exertion, lightheadedness, orthopnea, palpitations, paroxysmal nocturnal dyspnea, rapid heart rate, syncope or other Respiratory/Chest Respiratory/Chest: Denies cough, dyspnea, excessive phlegm production, hemoptysis, productive cough, shortness of breath at rest, shortness of breath with exertion, wheezing or other Gastrointestinal Gastrointestinal: Reports nausea and vomiting; Denies abdominal pain, coffee ground emesis, constipation, diarrhea, dyspepsia, hematemesis, hematochezia, loose stools, melena or other Genitourinary Genitourinary: Denies burning urination, difficulty urinating, dysuria, hematuria, nocturia, urinary frequency, urinary hesitancy, urinary incontinence, urinary urgency or other Musculoskeletal Musculoskeletal: Reports joint pain and joint stiffness; Denies arthralgias, back pain, joint swelling, myalgias, neck pain or other Neurologic Neurologic: Reports abnormal gait and dizziness; Denies abnormal speech, confusion, disequilibrium, focal weakness, headache(s), numbness, paresthesias, seizure-like activity, seizures, syncope, tingling, tremor(s) or other Psychiatric Psychiatric: Denies anxiety, depression, homicidal ideation, suicidal ideation or other Endocrine Endocrinology: Denies change in body appearance, cold intolerance, excessive sweating, heat intolerance, polydipsia, polyuria or other Hematologic/Lymphatic Hematologic/Lymphatic: Denies anemia, easy bleeding, easy bruising, lymphadenopathy or other Allergic/Immunologic Allergic/Immunologic: Denies rhinitis, hives, eczemia, asthma or other Vital Signs Vital Signs Vital Signs: 11/03/23 05:44 11/03/23 05:44 11/03/23 06:26 Temperature 97.9 F Temperature Source Temporal Pulse Rate 72 Pulse Rate [Lying] 67 Pulse Rate [Sitting (for 1 minute prior to obtaining)] 68 Respiratory Rate 15 Respiratory Effort Normal Non-Labored Respiratory Pattern Normal Blood Pressure 120/68 Blood Pressure [Lying] 109/75 Blood Pressure [Sitting (for 1 minute prior to obtaining)] 115/76 Blood Pressure Mean 85 Blood Pressure Mean [Lying] 86 Blood Pressure Mean [Sitting (for 1 minute prior to obtaining)] 89 Pulse Ox 90 Oxygen Delivery Method Room Air Oxygen Flow Rate (L/min) 11/03/23 07:44 11/03/23 08:26 11/03/23 08:27 Temperature Temperature Source Pulse Rate 65 Pulse Rate [Lying] Pulse Rate [Sitting (for 1 minute prior to obtaining)] Respiratory Rate 19 H Respiratory Effort Respiratory Pattern Blood Pressure 116/76 Blood Pressure [Lying] Blood Pressure [Sitting (for 1 minute prior to obtaining)] Blood Pressure Mean 89 Blood Pressure Mean [Lying] Blood Pressure Mean [Sitting (for 1 minute prior to obtaining)] Pulse Ox 90 85 91 Oxygen Delivery Method Room Air Room Air Nasal Cannula Oxygen Flow Rate (L/min) 2 11/03/23 08:53 Temperature 97.8 F Temperature Source Pulse Rate 70 Pulse Rate [Lying] Pulse Rate [Sitting (for 1 minute prior to obtaining)] Respiratory Rate 20 H Respiratory Effort Respiratory Pattern Blood Pressure 120/81 H Blood Pressure [Lying] Blood Pressure [Sitting (for 1 minute prior to obtaining)] Blood Pressure Mean 94 Blood Pressure Mean [Lying] Blood Pressure Mean [Sitting (for 1 minute prior to obtaining)] Pulse Ox 92 Oxygen Delivery Method Oxygen Flow Rate (L/min) Weight Weight: 111.6 kg Body Mass Index (BMI) 37.4 Physical Exam Const alert, oriented x3 and well nourished; Negative for no apparent distress, average body habitus or healthy appearing Constitutional Narrative: Unwell appearing obese, upper middle-aged white male lying in bed with his eyes closed, at bedside, does not appear toxic but it is obvious that he is not feeling well, in no distress at this time General Appearance: cooperative HEENT normocephalic, head/scalp atraumatic, hearing grossly normal bilaterally and moist oral mucous membranes HEENT Narrative: Mallampati is 3, no thrush Eyes PERRL, EOMs intact bilaterally and conjunctivae normal Eyes Narrative: Bilateral lateral nystagmus noted with turning head to either direction Neck no lymphadenopathy and supple Neck Narrative: Trachea midline, neck is short and thick, no thyroid enlargement noted Resp normal respiratory effort, no retractions, no use of accessory muscles and No clear to auscultation bilaterally Resp Narrative: Few crackles at bases bilaterally Auscultation: crackles; Negative for rhonchi or wheezes Cardio regular rate, regular rhythm, S1 normal heart sound, S2 normal heart sound, no murmurs, no rub, no gallops and no clicks GI normal to inspection, nondistended, normoactive bowel sounds, soft to palpation and non-tender Extremity Extremity Narrative: 2+ bilateral lower extremity pitting edema-patient states chronic, no cyanosis or clubbing Skin no rashes or lesions noted, no wounds, skin turgor normal, no jaundice, no petechiae and no mottling Skin Narrative: Bilateral lower extremity skin changes consistent with chronic venous stasis Neuro oriented x3, CN's II-XII intact bilaterally, moves all extremities and no focal motor deficits Neuro Narrative: Nystagmus noted with turning his head both the left and the right, nystagmus was lateral and fine Speech: speech normal Psych Psych Narrative: Affect is flat but appropriate for his current condition, patient interacted appropriately and answers all questions Results Lab / Micro Data 11/03/23 05:51 11/03/23 05:51 Labs: Laboratory Results - last 24 hr 11/03/23 05:51: WBC 6.8, RBC 5.51, Hgb 16.3, Hct 49.8, MCV 90.4, MCH 29.6, MCHC 32.7, RDW Std Deviation 50.3 H, RDW Coeff of Miles 15.2 H, Plt Count 264, MPV 10.6, Immature Gran % (Auto) 0.100, Neut % (Auto) 62.8, Lymph % (Auto) 20.0, Nelson % (Auto) 13.4 H, Eos % (Auto) 2.8, Baso % (Auto) 0.9, Absolute Neuts (auto) 4.3, Absolute Lymphs (auto) 1.36, Nucleated RBC % 0, Sodium 135 L, Potassium 3.9, Chloride 104, Carbon Dioxide 24.0, Anion Gap 7, BUN 24 H, Creatinine 1.21, Estim Creat Clear Calc 75.73, Est GFR (MDRD) Af Amer 78, Est GFR (MDRD) Non-Af 64, BUN/Creatinine Ratio 19.8, Glucose 127 H, Calcium 8.8, Total Bilirubin 1.60 H, AST 24, ALT 23, Alkaline Phosphatase 233 H, Troponin I High Sens 11, B-Natriuretic Peptide 393.5 H, Total Protein 7.9, Albumin 3.7, Globulin 4.2, Albumin/Globulin Ratio 0.9 11/03/23 06:11: Urine Color Yellow, Urine Clarity Clear, Urine pH 5.0, Ur Specific [place] 1.020, Urine Protein 30 H, Urine Glucose (UA) 1000 H, Urine Ketones Negative, Urine Occult Blood 50 H, Urine Nitrite Negative, Urine Bilirubin Negative, Urine Urobilinogen Normal, Ur Leukocyte Esterase Negative, Urine RBC 0-5 SEEN, Urine WBC 0 SEEN, Ur Squamous Epith Cells 0-5 SEEN, Urine Bacteria 0 SEEN, Urine Mucus 0 SEEN 11/03/23 08:06: Troponin I High Sens 12 Imaging Radiology Impression Brain CT 11/03/23 05:55 IMPRESSION: Chronic white matter microvascular ischemic changes. There is no acute intracranial abnormality. Electronically Signed: Catherine Gonzalez MD at 6:50 EDT Reading Location ID and State: [facility] / [place] Tel , Service support , Chest X-Ray 11/03/23 05:55 IMPRESSION: Stable small chronic bilateral pleural effusions. Compressive atelectasis in the lung bases. Diffuse interstitial thickening suggesting mild pulmonary edema. There is rounded atelectasis in the right lung base measuring 4 cm in diameter has not changed the previous study. Multiple mediastinal lymph nodes. Electronically Signed: Catherine Gonzalez MD at 6:58 EDT , Assessment & Plan Assessment/Plan (1) Hypoxia: (2) Acute on chronic HFrEF (heart failure with reduced ejection fraction): (3) Vertigo, peripheral: PLAN: Plan Vertigo -Highly suspect peripheral next-patient has lateral nystagmus that is fine on exam -Will get MRI to rule out any central cause -As needed Antivert -PT/OT consultation -As needed antiemetics to help with associated nausea Acute hypoxia secondary to acute on chronic heart failure with reduced ejection fraction -Last echocardiogram was done in 2021 and showed an EF of 15 to 20% with severe LV dysfunction and apical akinesis with severe distal septal hypokinesis and mild right global ventricular dysfunction as well as +1 mitral valve insufficiency -Repeat echocardiogram with vertigo and decompensated heart failure -BNP is almost 400 and there are crackles on exam with lower extremity edema -Hold home torsemide -Bumex 1 mg IV push twice daily -Lower extremity Maldonado bandages -Accurate I's and O's -Daily weights -Sodium and fluid restricted diet -Patient is off of on appropriate goal-directed therapy and will continue Ischemic cardiomyopathy -Last EF was 15 to 20% -Continue goal-directed therapy as able -Strongly encouraged outpatient follow-up CAD/HTN/HPL Continue home aspirin -Continue atorvastatin -Continue home carvedilol -Continue home Plavix -Continue home Jardiance -Continue home Entresto -Continue home Aldactone -Hold home torsemide until off IV Bumex DM-2 -Continue home Jardiance -Blood sugar appears to be well-controlled -Cardiac/carb controlled diet Asthma/reactive airway disease -Continue as needed albuterol -Continue home Symbicort -No signs of current decompensation -Recommend ongoing outpatient follow-up Hypothyroidism -Continue home levothyroxine -Check TSH in a.m. EDVI -Continue home CPAP with 9 cm of water - is to bring in home unit Obesity -BMI is 37.4 -Recommend weight loss -Complicates treatment, prognosis, outcomes CODE STATUS -Full code as verified on admission Charges/Coding Visit Charges Inpatient E&M: 73990 Init Hosp L2
--- NOTE | 2023-11-03 10:31 | ECHOCS_ITS ---
Procedure This was a 2D Doppler, Color Flow transthoracic echocardiogram. The study was technically difficult. Exam performed portable in patient room. Left Ventricle Mildly dilated left ventricle. The estimated ejection fraction is 25-30 %. There is evidence of diastolic dysfunction. Severe hypokinesis of the apex, inferior wall, lateral wall. Right Ventricle Normal RV size. Normal systolic function. Atria Normal left atrium. Normal right atrium. No doppler evidence for ASD. Bubble contrast study negative for right to left interatrial shunt. Mitral Valve There is moderate mitral annular calcification. There is no mitral valve stenosis. Trivial mitral valve insufficiency. Tricuspid Valve There is no tricuspid stenosis. Trivial tricuspid valve insufficiency. Pulmonary artery systolic pressure is 60 mmHg. Aortic Valve Trisinus/trileaflet aortic valve. There is no aortic stenosis. No aortic valve insufficiency. Pulmonic Valve There is no pulmonic valvular stenosis. No pulmonic valve insufficiency. Great Vessels Normal aortic root. Pericardium/Pleural No pericardial effusion. Medication Performed a rapid injection of agitated mix of 9 cc saline and 1cc air to assess for atrial septal defect. Diluted definity 2.0ml given slow IV push to enhance endocardial definition. MMode/2D Measurements & Calculations LVIDd: 5.0 cm IVSd: 1.1 cm Ao root diam: 3.1 cm LVIDs: 3.6 cm LVPWd: 1.2 cm RVDd: 3.9 cm FS: 28.5 % LAV(MOD-bp): 71.2 ml LVAd ap4: 33.6 cm2 LVAd ap2: 31.9 cm2 LAV(MOD-bp) Indexed: 31.9 ml/m2 LVLd ap4: 8.0 cm LVLd ap2: 8.5 cm LAV(MOD-sp2): 85.6 ml EDV(MOD-sp4): 116.2 ml EDV(MOD-sp2): 99.3 ml LAV(MOD-sp4): 59.4 ml EDV(sp4-el): 120.5 ml EDV(sp2-el): 102.1 ml LVAs ap4: 28.2 cm2 LVAs ap2: 28.2 cm2 LVLs ap4: 7.4 cm LVLs ap2: 7.8 cm ESV(MOD-sp4): 87.2 ml ESV(MOD-sp2): 84.4 ml ESV(sp4-el): 90.7 ml ESV(sp2-el): 86.3 ml EF(MOD-sp4): 25.0 % EF(MOD-sp2): 15.0 % EF(sp4-el): 24.8 % SV(MOD-sp4): 29.0 ml SV(MOD-sp2): 14.9 ml SV(sp4-el): 29.9 ml LA A4 area: 21.3 cm2 LA dimension(2D): 4.5 cm RA A4 area: 19.0 cm2 TAPSE: 1.0 cm Time Measurements MV dec time: 0.17 sec Doppler Measurements & Calculations MV E max jayro: 123.5 cm/sec Lat Peak E' Jayro: 7.2 cm/sec Med Peak E' Jayro: 6.8 cm/sec MV A max jayro: 85.8 cm/sec E/E' lat: 17.2 E/E' med: 18.2 MV E/A: 1.4 Ao V2 max: 109.5 cm/sec LV V1 max: 89.5 cm/sec MV dec slope: 745.4 cm/sec2 Ao max P.8 mmHg LV V1 max P.2 mmHg Ao V2 mean: 78.4 cm/sec LV V1 mean P.6 mmHg Ao mean P.7 mmHg LV V1 mean: 58.3 cm/sec Ao V2 VTI: 25.7 cm LV V1 VTI: 19.1 cm AV (velocity ratio): 0.74 PA V2 max: 77.9 cm/sec TR max jayro: 370.2 cm/sec TR max P.8 mmHg ECHO/Echo Complete W/ Contrast Interpretation Summary Mildly dilated left ventricle. The estimated ejection fraction is 25-30 %. There is evidence of diastolic dysfunction. Severe hypokinesis of the apex, inferior wall, lateral wall Trivial mitral valve insufficiency. Ordering Physician: Jeanette White Performed By:
--- NOTE | 2023-11-03 13:50 | CT_ITS ---
STUDY: CTA HEAD AND NECK WITH CONTRAST REASON FOR EXAM: Male, 63 years old. Neuro deficit, acute, stroke suspected RADIATION DOSAGE (If Supplied By Facility): CTDIvol = ( 24.46 ) mGy, DLP = ( 765.84 ) mGycm TECHNIQUE: CT angiography was performed with a multi-detector CT scanner. Data acquisition was obtained from the skull base through the vertex following intravenous administration of IV 100mL [id number]-370. MIP images were reconstructed from the axial data set. Post-processing of the angiographic images was performed, with multiplanar reformation and 3D reconstruction. Individualized dose optimization techniques were used for this CT. COMPARISON: Head CT dated November 03, 2023. MRI of the brain dated November 03, 2023 FINDINGS: The middle one third to distal aspects of the left superior cerebellar artery are occluded CT images 107/343 series 601 through 109/243, consistent with moderate area of acute infarction seen in the anterior superior and central region of the left cerebellar lobe. Short segment of high-grade stenosis is seen in the proximal aspect of the left superior cerebellar artery on image 107/343 series 601. Small infarcts seen in the right cerebellar vermis and posterior aspect of the cerebellar lobe are from tiny perforating vessels which are not identified on this study. Normal bilateral petrous carotid arteries. There is calcified plaque formation of the right cavernous carotid artery, with a mild stenosis (less than 50%). There is calcified plaque formation of the left cavernous carotid artery, with a mild stenosis (less than 50%). Normal right A1 segments of the anterior cerebral artery. Normal left A1 segments of the anterior cerebral artery. Normal intact anterior communicating artery (ACOM). Normal bilateral A2 segments of the anterior cerebral arteries. Normal right M1 and M2 segments of the middle cerebral arteries, with a normal M1 bifurcation. Normal left M1 and M2 segments of the middle cerebral arteries, with a normal M1 bifurcation. Normal right posterior communicating artery (PCOM). Normal left posterior communicating artery (PCOM). There is a small atretic left vertebral artery with a dominant right vertebral artery. Mild to moderate atherosclerotic plaque is present in the distal aspect of the intracranial right vertebral artery with mild luminal stenosis. Normal basilar artery with a normal basilar bifurcation. Normal right superior cerebellar artery. Normal bilateral P1, P2 and visualized P3 segments of the posterior cerebral arteries. There is no demonstrated aneurysm of the [place] of [place]. No visualized thrombus of the large arteries. No demonstrated large artery occlusion or hemodynamically significant stenosis. AORTIC ARCH: Normal visualized aortic arch. Normal origins of the brachiocephalic, left common carotid, and left subclavian arteries. RIGHT CAROTID ARTERIES: Normal right common carotid artery (CCA). There is mild atherosclerotic plaque formation with minimal narrowing of the right carotid bulb. There is mild atherosclerotic plaque formation of the origin of the right internal carotid artery with less than 50% cross sectional diameter stenosis. Normal visualized cervical portion of the right internal carotid artery. Normal origin of the right external carotid artery (ECA). LEFT CAROTID ARTERIES: Normal left common carotid artery (CCA). There is mild atherosclerotic plaque formation with minimal narrowing of the left carotid bulb. Normal origin of the left internal carotid (ICA) artery without a hemodynamically significant stenosis. Normal visualized cervical portion of the left internal carotid artery. Normal origin of the left external carotid artery (ECA). VERTEBRAL ARTERIES: There is enhancement within the bilateral vertebral arteries with a small right vertebral artery, and a dominant left vertebral artery. CT/CTA Head AND Neck W/ Contrast IMPRESSION: 1. The middle one third to distal aspects of the left superior cerebellar artery are occluded CT images 107/343 series 601 through 109/243, consistent with moderate area of acute infarction seen in the anterior superior and central region of the left cerebellar lobe. Short segment of high-grade stenosis is seen in the proximal aspect of the left superior cerebellar artery on image 107/343 series 601. Small infarcts seen in the right cerebellar vermis and posterior aspect of the cerebellar lobe are from tiny perforating vessels which are not identified on this study. 2. Mild atherosclerotic plaque and stenosis of the bilateral internal carotid arteries of the neck. Electronically Signed: Arthur Zhang MD at 15:12 EDT ,
--- NOTE | 2023-11-03 13:53 | PCM.HOSP.N ---
Hospitalist Note Follow-up of MRI demonstrates acute stroke which explains his vertigo. MRI shows a moderate size acute infarct in the anterior superior mid aspect of the right cerebellar lobe with small acute infarcts also present in the right side of the cerebellar vermis and the posterior midline aspect of the right cerebellar lobe. Given these findings I would become concerned for cardioembolic event. Will check CTA of the head and neck stat. Increase atorvastatin from 40 to 80 mg. Continue aspirin and Plavix. Check lipids and hemoglobin A1c. Neurology consult.
[2023-11-03] MEDS: Ondansetron 4 MG/2 ML Vial IV ×3 (13:54→23:43)
[2023-11-03 15:14] LABS: Bedside Glucose 151 mg/dL (74-106)
--- NOTE | 2023-11-03 15:56 | CHAPLAIN ---
Type of Pastoral Visit _x__ Initial Visit ___ Follow-up Visit ___ On-call Visit ___ General Patient Visit ___ Spiritual Assessment ___ Family Conference ___ Bereavement ___ Rapid Response ___ Code Blue ___ Other (describe below) Pastoral Care Referral From _x__ Patient _x__ Family ___ Nurse ___ Physician ___ [employer] ___ Reed Repairer ___ Other (describe below) Sacrament/Intervention _x__ Active listening ___ Anointing ___ Anglican ___ Bereavement ___ Communion ___ Sierra exploration ___ ___ Life review _x__ Prayer ___ Reconciliation ___ Sacrament of Sick _x__ Supportive presence ___ Wedding ___ Other (describe below) Pastoral Comments patient was out for testing but then came back; spouse is talkative and explains situation; spouse admits to feelings and in need of answers and help as patient has multiple health needs; pt returns and asks for a prayer; pt is not feeling well and is then left for a time of rest/sleep
[2023-11-03] MEDS: Clopidogrel Bisulfate 75 MG Tablet PO (16:43)
[2023-11-03] MEDS: Enoxaparin 40 MG/0.4 ML Syringe SC (16:43)
[2023-11-03] MEDS: Scopolamine 1mg/72hr Patch 1 PATCH TD (16:54)
[2023-11-03] MEDS: Aspirin E.C. 81 MG Tablet PO (16:54)
[2023-11-03] MEDS: Budesonide Respules 0.5 MG/2 ML AMPUL.NEB. INHALATION (19:03)
[2023-11-03] MEDS: Albuterol 2.5 MG/3 ML VIAL.NEB. INHALATION (19:03)
--- NOTE | 2023-11-03 21:46 | CPS ---
Pt brought own cpap in from home but does not want to wear tonight for fear of aspiration, bc of the vomiting earlier today. pt on 2.5L nasal O2.
[2023-11-03] MEDS: Atorvastatin Calcium 80 MG Tablet PO (22:18)
[2023-11-04 01:51] VITALS: BP 114/71; PULSE 83; RESP 18; TEMP 36.8; O2SAT 94
[2023-11-04 04:20] VITALS: BMI 36.9
[2023-11-04] MEDS: Ondansetron 4 MG/2 ML Vial IV (05:34)
[2023-11-04 05:38] VITALS: BP 106/70; PULSE 75; RESP 18; TEMP 36.8; O2SAT 94
--- NOTE | 2023-11-04 05:51 | CT_ITS ---
We are attempting to reach an attending provider to discuss findings. An addendum with communication details will be sent when the communication is complete. EXAM: CT HEAD WITHOUT INTRAVENOUS CONTRAST CLINICAL INDICATION: Stroke TECHNIQUE: Multiple axial images were obtained of the head without intravenous contrast. This CT exam was performed using one or more of the following dose reduction techniques: automated exposure control, adjustment of the mA and/or kV according to patient size, and/or use of iterative reconstruction technique. RADIATION DOSE: CTDIvol = 44.99 mGy, DLP = 863.60 mGy-cm. COMPARISON: MRI November 03, 2023 at 12:49 PM, showing moderate zone of infarct in the left superior cerebellum 2 punctate foci of restricted diffusion inferior-medial right cerebellum near the vermis, and another linear focus in the posterior mid right cerebellum. FINDINGS: BRAIN AND EXTRA-AXIAL SPACES: There is a well-circumscribed low-attenuation ischemic infarct of roughly 4.5 cm x 2.9 cm in the superior left cerebellum best seen on coronal images. Mild patchy low attenuation in the right cerebellar vermis and small linear low-attenuation in the mid right posterior cerebellum are also noted in the area of restricted diffusion seen on prior MRI. Small focus of low attenuation right thalamus appears likely chronic. There are mild scattered low-attenuation supratentorial white matter changes. No intracranial hemorrhage. The fourth ventricle is narrowed but there is no hydrocephalus, the lateral ventricles are small. No intracranial mass or mass effect. Basal cisterns are patent. BONES/JOINTS: Unremarkable. No discrete lytic or blastic abnormalities. SINUSES: Unremarkable as visualized. Clear. MASTOID AIR CELLS: Unremarkable. Clear. ORBITS: Visualized globes, extraocular muscles, optic nerves and retrobulbar fat appear unremarkable. CT/Brain/Head without Contrast IMPRESSION: 1. Chronic changes. Acute posterior fossa ischemic infarcts, bilateral. 2. Review of CTA: Distended and occluded roughly 2 cm long segment of proximal right vertebral artery distal to a short and distended but slightly centrally opacified 5 mm long segment of artery near its origin. Suspected roughly 2 cm long thrombosis. Cannot exclude underlying dissection.Well enhanced dominant 5.5 mm right vertebral artery at the level of the C6 transverse foramen and more superiorly. Electronically Signed: Lynn Gtz MD at 8:16 EDT ,
[2023-11-04 07:18] LABS: Absolute Lymphocyte Count 0.87 X10^3/uL (0.83-4.51); Absolute Neutrophil Count 7.8 X10^3/uL (2.0-7.7); Basophil# 0.04 X10^3/uL; Basophil% 0.4 % (0-1); Hematocrit 47.3 % (40-54); Lymphocyte # 0.87 X10^3/ul (0.83-4.51); Mean Corp Hgb Conc 31.7 g/dL (32-36); Mean Corpuscular Hgb 29.2 pg (27.0-32.0); Mean Corpuscular Volume 92.2 fL (80-94); Mean Platelet Vol. 10.1 fl (6.2-12.0); Monocyte# 0.99 X10^3/uL; Monocyte% 10.2 % (0-10); NRBC Flagged by Analyzer 0 % (0-5); Neutrophil # 7.76 X10^3/uL (2.7-7.7); Neutrophil % 80.2 % (47-70); Platelet Count 215 K/mm3 (150-450); RBC Distribution Width CV 15.5 % (11.6-14.6); RBC Distribution Width SD 52.3 fl (35.1-43.9); Red Blood Count 5.13 M/mm3 (4.6-6.2); White Blood Count 9.7 K/mm3 (4.4-11.0)
[2023-11-04] MEDS: Budesonide Respules 0.5 MG/2 ML AMPUL.NEB. INHALATION (07:24)
[2023-11-04] MEDS: Albuterol 2.5 MG/3 ML VIAL.NEB. INHALATION (07:24)
[2023-11-04 07:25] VITALS: PULSE 79; RESP 18; O2SAT 93
[2023-11-04 07:56] LABS: ALB/GLOB Ratio 0.9 RATIO (0.9-2.4); AST(SGOT) 25 U/L (15-37); Alanine Aminotransfer ALT/SGPT 21 U/L (16-61); Albumin, Serum 3.5 g/dL (3.2-5.0); Alkaline Phosphatase 190 U/L (45-117); Anion Gap 6 (5-15); BUN 23 mg/dL (7-18); BUN/Creat Ratio 19.3 RATIO (10-20); Calcium,Total 9.1 mg/dL (8.5-10.1); Chloride 107 mmol/L (98-107); Cholesterol 103 mg/dL (200); Creatinine, Serum 1.19 mg/dL (0.70-1.30); EST Glomerular Filtration Rate 66 mL/min (>60); Est Glom Filt Rate - Afr Amer 79 mL/min (>60); Estimated Creatinine Clearance 76.53 ml/min; Globulin 3.9 g/dL (2.2-4.2); Glucose 101 mg/dL (74-106); High Density Lipoprotein 51 mg/dL; Magnesium 2.3 mg/dL (1.6-2.6); Phosphorus 2.5 mg/dL (2.5-4.9); Potassium 4.2 mmol/L (3.5-5.1); Protein, Total 7.4 g/dL (6.4-8.2); Sodium Level 135 mmol/L (136-145); Thyroid Stim Hormone (TSH) 2.95 uIU/mL (0.358-3.74); Triglycerides 59 mg/dL; Very Low Density Lipoprotein 12 mg/dL (5-40)
[2023-11-04 08:18] LABS: Hemoglobin A1c 5.7 % (3.8-5.6)
--- NOTE | 2023-11-04 08:52 | CASEMGMT ---
Social Work PHQ-9 deferred at this time after speaking w/physician, pt is getting transferred to [facility]. ANNIKA Dennis
[2023-11-04] MEDS: Empagliflozin 10 MG Tablet PO (09:07)
[2023-11-04] MEDS: Aspirin E.C. 81 MG Tablet PO (09:07)
[2023-11-04] MEDS: Enoxaparin 40 MG/0.4 ML Syringe SC (09:07)
[2023-11-04] MEDS: Clopidogrel Bisulfate 75 MG Tablet PO (09:07)
[2023-11-04] MEDS: proCHLORPERazine 10 MG/2 ML Vial IV (09:10)
[2023-11-04 09:24] VITALS: BP 113/73; PULSE 78; RESP 18; TEMP 37.1; O2SAT 95
[2023-11-04 09:30] VITALS: BMI 36.9
--- NOTE | 2023-11-04 09:30 | PCM.DC.SUM ---
Providers Date of Admission: 11/03/23 Date of Discharge: 11/04/23 Primary Care Physician: Dr. Carri Gannon, Consultations 11/03/23 13:48 Consult: Tele-Neurology Routine Consulting Provider: [facility] Reason for Consult: stroke EMERGENT Consult: No MD Notified: Yes Date Notified: 11/03/23 Time Notified: 14:16 Method of Notification: Answering Service Nursing Unit Staff Notify [facility] of Tele-Neurology Consult: Yes Reason For Visit: VERTIGO/SOB Diagnosis Discharge Diagnosis (1) Hypoxia: Status: Acute Code(s): R09.02 - Hypoxemia (2) Acute on chronic HFrEF (heart failure with reduced ejection fraction): Status: Chronic Code(s): I50.23 - Acute on chronic systolic (congestive) heart failure (3) Vertigo, peripheral: Status: Acute Code(s): H81.399 - Other peripheral vertigo, unspecified ear Medications at Discharge Home Medications levothyroxine 25 mcg tablet 25 mcg PO DAILY Thyroid] 04/29/22 aspirin 81 mg tablet,delayed release 81 mg PO BREAKFAST #0 tabs 05/04/22 carvedilol 6.25 mg tablet 6.25 mg PO BID #60 tabs 05/04/22 empagliflozin 10 mg tablet (Jardiance) 10 mg PO DAILY #30 tabs 05/04/22 sacubitril 49 mg-valsartan 51 mg tablet (Entresto) 1 tab PO BID #60 tabs 05/04/22 clopidogrel 75 mg tablet 75 mg PO DAILY 09/21/22 albuterol sulfate 90 mcg/actuation aerosol inhaler 2 puff inhalation Q4H PRN shortness of breath or wheezing #8.5 grams 11/10/22 spironolactone 25 mg tablet 25 mg PO DAILY 11/10/22 atorvastatin 80 mg tablet 40 mg PO QHS 11/03/23 budesonide-formoterol HFA 160 mcg-4.5 mcg/actuation aerosol inhaler (Symbicort) 2 puff inhalation BID PRN sob 11/03/23 torsemide 20 mg tablet 20 mg PO DAILY 11/03/23 Hospital Course Operations None Procedures 2-D Echocardiogram, EKG and - (CT brain x 2/MRI brain/CTA head and neck) Summary of Care Provided Minutes Spent on Discharge: 45 Hospital Course: ESSENCE ENGLAND, is a 63 M who presented to the emergency department at [facility] on 11/03/2023 early in the morning for vertigo/dizziness he stated he was fine yesterday and felt well. He woke up on the morning morning of admission at about 4:30-4:45 to get up to go to the bathroom and he had severe dizziness that was there at the time he woke. It was associated with mild nausea and he had not been able to keep his eyes open because of the dizziness. He indicated his gait was markedly off and he felt incredibly weak. He has had this once before back in 2017 however his reports that it was much less severe than this and he was in the emergency department in [place] for about 6 hours and then was able to go home. She states this is much more severe than that episode and seems to be different however cannot explain exactly how it is different compared to previous episode. He stated he did not take his Lasix the day prior to presentation and had not taken any of his medications prior to admission. Upon my evaluation, he is able to interact appropriately and had no focal deficits but has significant dizziness and did not really like keeping his eyes open. He did seem to have some bilateral lateral nystagmus that was present fairly consistently that worsened with head turning but exam was difficult as he really did not like to keep his eyes open all that much. He denied any chest pain or shortness of breath however he was requiring 2 L via nasal cannula as he desatted on room air. He does wear BiPAP at night. His lung exam did exhibit some crackles bilaterally and he has chronic lower extremity edema but he stated everything was pretty stable from his heart failure standpoint and indicated he really would be in the emergency department if he did not have the vertigo. He denied any recent illnesses. His vital signs on presentation showed a temperature of 97.8, heart rate 67, blood pressure was 109/75, respiratory was 19 oxygen saturations were 85% on room air. He was placed on 2 L nasal cannula with improvement to his oxygen saturations up to 91 to 92%. He does have a history of sleep apnea and wears CPAP while sleeping. Orthostatic vitals are unremarkable. His CBC is overall unremarkable other than a monocytosis at 13.4%. His chemistry panel shows mild hyponatremia with a sodium of 135, glucose 127 and his bilirubin is elevated at 1.6 however he does appear to have a chronically elevated bilirubin. Cardiac enzymes were cycled x 2 and 12 both times. His BNP was elevated at 393.5. His UA shows some occult blood but was otherwise unremarkable and no signs of infection. EKG is sinus rhythm with no acute ST-T wave changes and a first-degree heart block. CT of the brain showed chronic white matter microvascular ischemic changes but no acute intracranial abnormality. Chest x-ray showed stable bilateral pleural effusions that are chronic and compressive atelectasis with diffuse interstitial thickening suggestive of mild pulmonary edema. He was initially given some IV fluids in emergency department and some Antivert however his vertigo was persistent and he was not able to ambulate so required admission to the hospital. I admitted him to PCU and initiated a stroke workup with the persistent dizziness. A stat MRI was obtained and demonstrated a moderate-sized acute infarct in the anterior superior to the mid aspect of the left cerebellar lobe and small acute infarcts were also present on the right side of the vermis as well as the posterior midline aspect of the right cerebellar lobe. CTA was done and showed the middle one third of the distal aspects of the left superior cerebellar artery were occluded and this was consistent with a moderate area of acute infarction seen on the MRI and there is also short segment high-grade stenosis in the proximal aspect of the left superior cerebellar artery correlating with the small infarcts noted. Mild atherosclerotic plaque and stenosis of bilateral internal carotids was noted and vertebral arteries were read as normal. I called [facility] stroke neurology and discussed the case with the on-call stroke neurologist and they recommended repeating a CT of the brain on the morning of 11/04/2023 but felt that we could continue to manage him here. I repeated the CT of the brain and there were no changes with regards to that however I did receive a call from the radiologist as she reviewed the CTA of the head and neck given the findings on the CT of the brain and she felt that there was a distended and occluded roughly 2 cm long segment of the proximal right vertebral artery distal to a short and distended but slightly centrally opacified 5 mm long segment of the artery near its origin with suspected roughly 2 cm long thrombus and underlying dissection could not be excluded. She called me to notify me of these changes from the initial read and I called [facility] and discussed the case with Dr. Shea from stroke neurology who recommended transfer to [facility]. Patient and family were notified and the patient was transferred down to [facility] on 11/04/2023. The patient was maintained on his home aspirin and Plavix during his hospitalization as well as atorvastatin 80 mg at at bedtime. His blood pressure medications were held to allow for some permissive hypertension. NIH is 0 but the patient had severe ongoing vertigo. His hemoglobin A1c was 5.7 and his cholesterol showed a total cholesterol of 103/LDL 40/HDL 51/triglycerides 59. TSH was 2.95. 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 Const alert, oriented x3 and well nourished; Negative for no apparent distress, average body habitus or healthy appearing Constitutional Narrative: Unwell appearing obese, upper middle-aged white male lying in bed with his eyes closed, does not appear toxic but it is still obvious that he is not feeling well, in no distress at this time General Appearance: cooperative, comfortable, well kempt and well developed Orientation / Consciousness: awake, oriented to person, oriented to place and oriented to time Exam Limitations: no limitations Nutritional Appearance: obese HEENT normocephalic, head/scalp atraumatic, hearing grossly normal bilaterally and moist oral mucous membranes HEENT Narrative: Mallampati 3, no thrush Eyes PERRL, EOMs intact bilaterally and conjunctivae normal Eyes Narrative: Bilateral nystagmus noted at rest Neck no lymphadenopathy and supple Neck Narrative: Trachea midline, neck is short and thick, no thyroid enlargement noted Resp normal respiratory effort, no retractions, no use of accessory muscles and No clear to auscultation bilaterally Auscultation: Negative for crackles, rhonchi or wheezes Cardio regular rate, regular rhythm, S1 normal heart sound, S2 normal heart sound, no murmurs, no rub, no gallops and no clicks GI normal to inspection, nondistended, normoactive bowel sounds, soft to palpation and non-tender Extremity Extremity Narrative: 2+ bilateral lower extremity pitting edema-patient states chronic, no cyanosis or clubbing Skin no rashes or lesions noted, no wounds, skin turgor normal, no jaundice, no petechiae and no mottling Skin Narrative: Bilateral lower extremity skin changes consistent with chronic venous stasis Neuro oriented x3, CN's II-XII intact bilaterally, moves all extremities and no focal motor deficits Neuro Narrative: Nystagmus as noted above Speech: speech normal Psych Psych Narrative: Affect is flat but appropriate for his current condition, patient interacted appropriately and answers all questions Weight / BMI Weight Weight: 110.3 kg Body Mass Index (BMI) 36.9 ABG / Lab / Microbiology Data 11/04/23 06:55 11/04/23 06:55 Laboratory: Laboratory Results - last 24 hr 11/03/23 14:55: POC Glucose 151 H 11/04/23 06:55: WBC 9.7, RBC 5.13, Hgb 15.0, Hct 47.3, MCV 92.2, MCH 29.2, MCHC 31.7 L, RDW Std Deviation 52.3 H, RDW Coeff of Mlies 15.5 H, Plt Count 215, MPV 10.1, Immature Gran % (Auto) 0.200, Neut % (Auto) 80.2 H, Lymph % (Auto) 9.0 L, Lamb % (Auto) 10.2 H, Eos % (Auto) 0.0, Baso % (Auto) 0.4, Absolute Neuts (auto) 7.8 H, Absolute Lymphs (auto) 0.87, Nucleated RBC % 0, Sodium 135 L, Potassium 4.2, Chloride 107, Carbon Dioxide 22.0, Anion Gap 6, BUN 23 H, Creatinine 1.19, Estim Creat Clear Calc 76.53, Est GFR (MDRD) Af Amer 79, Est GFR (MDRD) Non-Af 66, BUN/Creatinine Ratio 19.3, Glucose 101, Calcium 9.1, Phosphorus 2.5, Magnesium 2.3, Total Bilirubin 2.20 H, AST 25, ALT 21, Alkaline Phosphatase 190 H, Total Protein 7.4, Albumin 3.5, Globulin 3.9, Albumin/Globulin Ratio 0.9, Triglycerides 59, Cholesterol 103, LDL Cholesterol 40, VLDL Cholesterol 12, HDL Cholesterol 51, TSH 2.95 11/04/23 07:15: Hemoglobin A1c 5.7 H Radiography Diagnostic Testing: Radiology Impression Brain MRI 11/03/23 09:04 IMPRESSION: Bilateral acute cerebellar infarcts. 1. A moderate size acute infarct is present in the anterior superior to mid aspect aspect of the left cerebellar lobe. Small acute infarcts are also present on the right side of the cerebellar vermis and in the posterior midline aspect of the right cerebellar lobe. No acute infarcts are present in the supratentorial regions of the brain. Electronically Signed: Arthur Zhang MD at 13:45 EDT , ADDENDUM: 11/03/23 1404 IMPRESSION: Bilateral acute cerebellar infarcts. 1. A moderate size acute infarct is present in the anterior superior to mid aspect aspect of the left cerebellar lobe. Small acute infarcts are also present on the right side of the cerebellar vermis and in the posterior midline aspect of the right cerebellar lobe. No acute infarcts are present in the supratentorial regions of the brain. N.B. : The above Results were Read Back by Arthur Zhang MD to Shivani Munoz RN, and understanding confirmed on 11/03/2023 13:57:55 (ET). Electronically Signed: Arthur Zhang MD at 13:45 EDT , Echocardiogram 11/03/23 10:31 Interpretation Summary Mildly dilated left ventricle. The estimated ejection fraction is 25-30 %. There is evidence of diastolic dysfunction. Severe hypokinesis of the apex, inferior wall, lateral wall Trivial mitral valve insufficiency. Ordering Physician: Jeanette White Performed By: Head/Neck CTA 11/03/23 13:50 IMPRESSION: 1. The middle one third to distal aspects of the left superior cerebellar artery are occluded CT images 107/343 series 601 through 109/243, consistent with moderate area of acute infarction seen in the anterior superior and central region of the left cerebellar lobe. Short segment of high-grade stenosis is seen in the proximal aspect of the left superior cerebellar artery on image 107/343 series 601. Small infarcts seen in the right cerebellar vermis and posterior aspect of the cerebellar lobe are from tiny perforating vessels which are not identified on this study. 2. Mild atherosclerotic plaque and stenosis of the bilateral internal carotid arteries of the neck. Electronically Signed: Arthur Zhang MD at 15:12 EDT , Brain CT 11/04/23 05:51 IMPRESSION: 1. Chronic changes. Acute posterior fossa ischemic infarcts, bilateral. 2. Review of CTA: Distended and occluded roughly 2 cm long segment of proximal right vertebral artery distal to a short and distended but slightly centrally opacified 5 mm long segment of artery near its origin. Suspected roughly 2 cm long thrombosis. Cannot exclude underlying dissection.Well enhanced dominant 5.5 mm right vertebral artery at the level of the C6 transverse foramen and more superiorly. Electronically Signed: Lynn Gtz MD at 8:16 EDT , ADDENDUM: 11/04/23 0838 IMPRESSION: 1. Chronic changes. Acute posterior fossa ischemic infarcts, bilateral. 2. Review of CTA: Distended and occluded roughly 2 cm long segment of proximal right vertebral artery distal to a short and distended but slightly centrally opacified 5 mm long segment of artery near its origin. Suspected roughly 2 cm long thrombosis. Cannot exclude underlying dissection.Well enhanced dominant 5.5 mm right vertebral artery at the level of the C6 transverse foramen and more superiorly. N.B. : The above Results were Read Back by Lynn Gtz MD to Patricia Butt RN, and understanding confirmed on 11/04/2023 08:31:38 (ET). Electronically Signed: Lynn Gtz MD at 8:16 EDT , Meaningful Use Info Meaningful Use Meaningful Use Diagnoses (Choose all that apply): Ischemic CVA CVA Therapy Assessed for PT,OT and/or ST?: No Reason therapy not assessed?: Patient Refused (Vertigo to severe) Ischemic Stroke Antithrombotic order at d/c?: Yes Dx of Atrial fib/flutter?: No Anticoagulant at discharge?: No Reason anticoagulant not ordered: Procedure not Indicated Statin Dosing Therapy Reference: STATIN DOSE THERAPY REFERENCE: * Patients > 75 years receive moderate or high dose statin therapy. * Patients 75 years or YOUNGER should receive HIGH intensity statin dose unless contraindicated. You will be required to document reason for non-treatment if statin daily dose does not meet guidelines. HIGH DOSE STATIN THERAPY DAILY Atorvastatin > than or = to 40 mg Rosuvastatin > than or = to 20 mg Amlodipine + Atorvastatin > than or = to 2.5/40 mg Ezetimibe + Simvastatin 10/80 mg Simvastatin 80mg Statins at discharge?: Yes If patient is 75 or younger, pt will be discharged on HIGH intensity statin.: Yes Primary Dx Acute Ischemic CVA?: Yes IV thrombolytic ordered during stay?: No Reason IV thrombolytic not ordered: Procedure not Indicated Discharge Plan Admission Admit Date/Time: 11/03/23 15:36 Primary Reason for Your Visit: Dizziness Attending Provider: Jeanette White Primary Care Provider: Carri Gannon Consulting Providers: Jason Castano; Iris Bañuelos; Kenisha Ott; Jaleesa Alvarez; Serenity Noguera; Giovanny Chang; Karlie Borjas; Gregory Jean; David Wilson; Lennie Gonzales; Grant Swenson; Marie Whyte; Jose Licea; Barrie Marcos; Lincoln Rhodes; Beto Gutiérrez; Mulugeta Laws; Ghada White; Ludivina Littlejohn Discharge Orders/Prescriptions Prescriptions: No Action clopidogrel 75 mg tablet 75 mg PO DAILY spironolactone 25 mg tablet 25 mg PO DAILY albuterol sulfate 90 mcg/actuation HFA aerosol inhaler 2 puff inhalation Q4H PRN (Reason: shortness of breath or wheezing) Qty: 8.5 3RF Rx Instructions: administer with spacer levothyroxine 25 mcg tablet 25 mcg PO DAILY aspirin 81 mg Tablet,Delayed Release (Dr/Ec) 81 mg PO BREAKFAST Qty: 0 0RF carvedilol 6.25 mg Tablet 6.25 mg PO BID Qty: 60 1RF Entresto 49-51 mg Tablet 1 tab PO BID Qty: 60 1RF Jardiance 10 mg tablet 10 mg PO DAILY Qty: 30 1RF torsemide 20 mg tablet 20 mg PO DAILY atorvastatin 80 mg Tablet 40 mg PO QHS budesonide-formoterol [Symbicort] 160-4.5 mcg/actuation HFA aerosol inhaler 2 puff inhalation BID PRN (Reason: sob) Rx Instructions: administer with spacer, rinse mouth after each use Referrals / Follow Up: Carri Ganonn DO [Primary Care Provider] - Disposition Disposition (needs filled in before D/C Order can be placed): Acute Care Hospital Charges/Coding Visit Charges Inpatient E&M: 97852 Disch Hosp >30min
== END 2023-11-04 10:04 | disposition short-term general hospital (02) | DRG 64 ==
LOC: ED 08:48 → PCU 09:20
PROVIDERS: Admitting Provider Internal Medicine; Emergency Provider Emergency Medicine; PCP Family Medicine; Visit Provider Internal Medicine
DX: I63.543 Cerebral infarction due to unspecified occlusion or stenosis of bilateral cerebellar arteries (principal); I50.23 Acute on chronic systolic (congestive) heart failure; I11.0 Hypertensive heart disease with heart failure; E11.9 Type 2 diabetes mellitus without complications; E03.9 Hypothyroidism, unspecified; J45.909 Unspecified asthma, uncomplicated; I25.10 Atherosclerotic heart disease of native coronary artery without angina pectoris; I25.5 Ischemic cardiomyopathy; G47.33 Obstructive sleep apnea (adult) (pediatric); I25.2 Old myocardial infarction; H55.09 Other forms of nystagmus; E66.9 Obesity, unspecified; R09.02 Hypoxemia; Z79.02 Long term (current) use of antithrombotics/antiplatelets; Z79.82 Long term (current) use of aspirin; Z95.5 Presence of coronary angioplasty implant and graft; Z68.37 Body mass index [BMI] 37.0-37.9, adult; Z99.89 Dependence on other enabling machines and devices; Z79.899 Other long term (current) drug therapy; Z79.84 Long term (current) use of oral hypoglycemic drugs
CPT/HCPCS: 36415; 70450; 70496; 70498; 70553; 71045; 80053; 80061; 81001; 82962; 83036; 83735; 83880; 84100; 84443; 84484; 85025; 93005; 93306; 94640; 94668; 94762; 99285; A9575; J7030; Q9957; Q9967; A4216; C8929; J2405

== ENCOUNTER 2023-11-09 18:09 | Inpatient (IN) | payer OTHER, SELFPAY ==
[2022-10-03 11:48] VITALS: BMI 33.7
[2023-11-09 18:41] VITALS: BMI 33.0
[2023-11-09 18:44] VITALS: BP 97/62; PULSE 74; RESP 18; TEMP 37.2; O2SAT 94
[2023-11-09 20:00] VITALS: O2SAT 97
--- NOTE | 2023-11-09 20:02 | CPS ---
[2000] Pt.'s home CPAP unit is ready for use. 2L bleed-in added at this time per pt.'s increase in oxygen needs as of recent.
[2023-11-09] MEDS: Atorvastatin Calcium 80 MG Tablet PO (21:18)
[2023-11-09] MEDS: Furosemide 40 MG Tablet PO (21:18)
[2023-11-09] MEDS: Senna/Docusate Sodium 1 Tablet 2 TABLET PO (21:19)
[2023-11-09] MEDS: Insulin Lispro 100 UNIT/ML INSULN.PEN SC (21:29)
[2023-11-09 21:54] LABS: Bedside Glucose 187 mg/dL (74-106)
[2023-11-09 22:00] VITALS: BP 104/66; PULSE 74; RESP 16; TEMP 36.6; O2SAT 96
[2023-11-10] MEDS: Levothyroxine 25 MCG TABLET PO (05:44)
[2023-11-10] MEDS: Enoxaparin 40 MG/0.4 ML Syringe SC (05:44)
[2023-11-10 06:29] LABS: Bedside Glucose 94 mg/dL (74-106)
[2023-11-10 07:15] LABS: Absolute Lymphocyte Count 0.94 X10^3/uL (0.83-4.51); Absolute Neutrophil Count 5.3 X10^3/uL (2.0-7.7); Basophil# 0.05 X10^3/uL; Basophil% 0.7 % (0-1); Eosinophil# 0.23 X10^3/uL; Hematocrit 48.6 % (40-54); Hemoglobin 15.8 g/dL (13.0-16.5); Lymphocyte # 0.94 X10^3/ul (0.83-4.51); Lymphocyte % 12.4 % (19-41); Mean Corp Hgb Conc 32.5 g/dL (32-36); Mean Corpuscular Hgb 29.4 pg (27.0-32.0); Mean Corpuscular Volume 90.3 fL (80-94); Mean Platelet Vol. 10.3 fl (6.2-12.0); Monocyte# 1.02 X10^3/uL; Monocyte% 13.5 % (0-10); NRBC Flagged by Analyzer 0 % (0-5); Neutrophil # 5.31 X10^3/uL (2.7-7.7); Neutrophil % 70.1 % (47-70); Platelet Count 247 K/mm3 (150-450); RBC Distribution Width CV 14.4 % (11.6-14.6); RBC Distribution Width SD 47.9 fl (35.1-43.9); Red Blood Count 5.38 M/mm3 (4.6-6.2); White Blood Count 7.6 K/mm3 (4.4-11.0)
[2023-11-10 07:46] VITALS: BP 100/65; PULSE 69; RESP 17; TEMP 36.6; O2SAT 95
[2023-11-10 08:16] LABS: ALB/GLOB Ratio 0.7 RATIO (0.9-2.4); AST(SGOT) 28 U/L (15-37); Alanine Aminotransfer ALT/SGPT 17 U/L (16-61); Alkaline Phosphatase 198 U/L (45-117); Anion Gap 4 (5-15); BUN 21 mg/dL (7-18); BUN/Creat Ratio 24.9 RATIO (10-20); Calcium,Total 8.9 mg/dL (8.5-10.1); Chloride 97 mmol/L (98-107); Creatinine, Serum 0.84 mg/dL (0.70-1.30); EST Glomerular Filtration Rate 98 mL/min (>60); Est Glom Filt Rate - Afr Amer 118 mL/min (>60); Estimated Creatinine Clearance 102.41 ml/min; Globulin 4.1 g/dL (2.2-4.2); Glucose 96 mg/dL (74-106); Phosphorus 2.2 mg/dL (2.5-4.9); Potassium 3.3 mmol/L (3.5-5.1); Protein, Total 7.1 g/dL (6.4-8.2); Sodium Level 136 mmol/L (136-145)
[2023-11-10] MEDS: Aspirin E.C. 81 MG Tablet PO (08:18)
[2023-11-10] MEDS: Clopidogrel Bisulfate 75 MG Tablet PO (08:18)
[2023-11-10] MEDS: Famotidine 20 MG Tablet PO (08:18)
[2023-11-10] MEDS: Empagliflozin 10 MG Tablet PO (08:18)
[2023-11-10] MEDS: Furosemide 40 MG Tablet PO (08:18)
[2023-11-10] MEDS: Senna/Docusate Sodium 1 Tablet 2 TABLET PO (08:19)
--- NOTE | 2023-11-10 09:04 | EX.PCM.HP.RE ---
HPI - General General Date of Admission: 11/09/23 Date of Service: 11/10/23 Chief Complaint: Post Stroke debility HPI Narrative ESSENCE ENGLAND, is a 63 YO M with a PMH of obesity, hypothyroidism, coronary artery disease, Hx of STEMI, Hx of stenting of the LAD 0n 06/14/2022, ischemic cardiomyopathy (EF 15-20%) , diabetes mellitus type 2, essential hypertension, obstructive sleep apnea, secondary pulmonary hypertension and a lung mass who presented to the emergency department at [facility] on 11/03/2023 complaining of vertigo/dizziness. He felt fine when he went to bed on 11/02/23 but, he awoke in the middle of the night to use the restroom and was severely dizzy and nauseated. He felt weak had had difficulty ambulating. Stat noncontrast CT brain showed chronic white matter changes but no acute findings. He was given Antivert with no improvement and he was unable to ambulate. He was admitted to the hospitalist service. MRI showed a moderate size acute infarct present in left cerebellar lobe. There were small acute infarcts present on the right side of the cerebellar vermis and in the posterior midline aspect of the right cerebellar lobe. CTA of the head and neck showed an occluded left superior cerebellar artery and an occluded right vertebral artery. There was mild atherosclerotic plaque and stenosis of the bilateral internal carotid arteries of the neck with less than 50% stenosis. Transthoracic echocardiogram showed a mildly dilated left ventricle with an ejection fraction estimated at 25 to 30%. There was evidence of diastolic dysfunction and there was severe hypokinesis of the apex, inferior wall and lateral wall. There was no significant valvular disease. Consult was obtained with tele-neurology and he was transferred to [facility] for additional W/U on 11/04/23. At presentation to [facility] he was alert but agitated. NIH was 3 for dysarthria, limb ataxia and left upper extremity weakness. Repeat CT head at [facility] showed bilateral cerebellar infarcts, left occipital infarct, right greater than left thalamic CVA with hemorrhagic conversion. There was acute cytotoxic cerebral edema with brain compression. Neurosurgery was consulted but the patient did not require EVD or craniotomy. Antiplatelet agents were placed on hold but, ASA was restarted on 11/05 when follow up CTH showed the hemorrhagic transformation to be stable. He had a FEES on 10/27/23 and was placed on a carb controlled diet with regular textures and thin liquids. While at [facility] he was seen by PT/OT/ST and recommendation was made for acute inpatient rehab at discharge from [facility]. He was transferred to the acute inpatient rehab unit at [facility] on 11/09/2023 for 3 hours of therapy daily to restore function/independence at or near his level prior to the recent strokes. Significant lab at [facility] included a LDL of 40 and a hemoglobin A1c of 5.7. He had a repeat echocardiogram at [facility] that showed a 35 to 40% ejection fraction with grade 2 diastolic dysfunction and right ventricular enlargement. He was seen by cardiology at [facility] and recommendations at DC were continue ASA, statin and resumption of Plavix when neurology felt it was safe. He will also continue Entresto, spironolactone, carvedilol Jardiance and Torsemide. NIHSS at DC from [facility] was 1 for limb ataxia. PFTs in September 2022 showed a moderate restrictive ventilatory defect with a symmetric reduction in diffusion capacity. 6-minute walk test in December 2022 showed he needed supplemental oxygen applied at 4 minutes due to a decrease in oxygen saturations to 88%. The pulmonary impression was he required no oxygen at rest but should be on 1 L with exertion. All lab obtained this morning was personally reviewed. White blood cell count is normal at 7.6. Hemoglobin is 15.8 normochromic normocytic indices. Platelet count is normal. Sodium is normal at 136 but potassium is low at 3.3 today. He has metabolic alkalosis with an elevated serum bicarb of 35. The BUN is 21 with a creatinine of 0.84 which is good for him. Magnesium is 2 and the phosphorus is low at 2.2. Total bilirubin is elevated at 2.2......this is not new for him. Alkaline phosphatase is elevated at 198 and transaminases are within normal limits. Med list was reviewed. He is not on Entresto. Will have his bring in his medication from home. He is also not taking Coreg (he previously on 6.25 mg twice daily) or Spironolactone (previously taking 25 mg daily). He is currently taking atorvastatin 80 mg nightly and both aspirin and Plavix. Admitted to me that he does not take diuretics as instructed. Also admitted that he has not shared this with his coding spec. He realizes that he has lost a lot of water weight in the past week. He has BAILEY routinely at home. He also has orthopnea and sleeps with the HOB elevated. He has oxygen at home to use with exertion since he had an abnormal 6 minute walk test but, he does not wear the oxygen. [facility] Medical History (Updated 11/10/23 @ 14:[address] Serenity Jalloh DO) Asthma Atherosclerosis of coronary artery without angina pectoris Cardiomyopathy Diabetes mellitus, type 2 Essential hypertension Grade II diastolic dysfunction Hypothyroid Hypoxia Ischemic cardiomyopathy Lung mass NSTEMI (non-ST elevated myocardial infarction) (04/29/22) Obesity DEVI (obstructive sleep apnea) Restrictive airway disease Right ventricular enlargement Home Medications levothyroxine 25 mcg tablet 25 mcg PO DAILY Thyroid] 04/29/22 [History Last Taken 11/09/23] empagliflozin 10 mg tablet (Jardiance) 10 mg PO DAILY Diabetes #30 tabs 05/04/22 [Rx Last Taken Unknown] clopidogrel 75 mg tablet 75 mg PO DAILY heart 09/21/22 [History Last Taken Unknown] albuterol sulfate 90 mcg/actuation aerosol inhaler 2 puff inhalation Q4H PRN shortness of breath or wheezing #8.5 grams 11/10/22 [Rx Last Taken Unknown] atorvastatin 80 mg tablet 80 mg PO QHS cholesterol 11/03/23 [History Last Taken 11/08/23] budesonide-formoterol HFA 160 mcg-4.5 mcg/actuation aerosol inhaler (Symbicort) 2 puff inhalation BID PRN sob 11/03/23 [History Last Taken Unknown] torsemide 20 mg tablet 20 mg PO BID Diuretic 11/03/23 [History Last Taken 11/09/23] aspirin 81 mg tablet,delayed release 81 mg PO DAILY heart health 11/09/23 [History Last Taken Unknown] famotidine 20 mg tablet 20 mg PO DAILY antacid 11/09/23 [History Last Taken 11/09/23] Allergy/AdvReac Type Severity Reaction Status Date / Time No Known Allergies Allergy Verified 11/03/23 05:45 Family History Mother CVA (cerebral vascular accident) Other Diabetes Heart disease Hypertension Surgical History History of coronary artery stent placement (06/14/22) History of left heart catheterization (05/03/22) Social History household members: spouse housing: house current occupational status: employed current occupational exposures/hazards: No Smoking Status: Never smoker alcohol intake: current alcohol intake frequency: holidays/special occasions only substance use type: does not use what type of physical activity do you participate in: none ROS Constitutional Constitutional: Reports change in weight, fatigue, weakness, weight loss and other Details: wt loss is due to diuresis for acute CHF. ; Denies anorexia, chills, fever(s) or night sweats Eyes Eyes: Denies blurry vision, change in vision, eye pain or loss of vision ENT HEENT: Denies abnormal hearing, dysphagia, headache(s), hearing loss, nasal congestion or sore throat Cardiovascular Cardiovascular: Denies chest pain, dyspnea on exertion, edema, lightheadedness, orthopnea, palpitations, paroxysmal nocturnal dyspnea or syncope Respiratory/Chest Respiratory/Chest: Reports shortness of breath with exertion; Denies cough, dyspnea, shortness of breath at rest or wheezing Gastrointestinal Gastrointestinal: Denies abdominal pain, constipation, diarrhea, dyspepsia, hematemesis, hematochezia, nausea or vomiting Genitourinary Genitourinary: Reports nocturia; Denies dysuria, hematuria, urinary frequency, urinary hesitancy, urinary incontinence or urinary urgency Musculoskeletal Musculoskeletal: Denies back pain, joint pain, joint swelling or neck pain Integumentary Integumentary: Reports other Details: He has a puncture site on the extensor surface of the R forearm from an IV ; Denies jaundice, pruritus or rash Neurologic Neurologic: Reports disequilibrium, dizziness and weakness; Denies confusion, focal weakness, headache(s), paresthesias, seizures or tremor(s) Psychiatric Psychiatric: Denies anxiety, depression, homicidal ideation or suicidal ideation Endocrine Endocrinology: Denies change in body appearance, polydipsia or polyuria Hematologic/Lymphatic Hematologic/Lymphatic: Denies easy bleeding, easy bruising or lymphadenopathy Allergic/Immunologic Allergic/Immunologic: Denies rhinitis, eczemia or asthma Vital Signs Vital Signs Vital Signs: 11/09/23 18:44 11/09/23 20:00 11/09/23 22:00 Temperature 98.9 F 97.9 F Temperature Source Temporal Temporal Pulse Rate 74 74 Respiratory Rate 18 16 Blood Pressure 97/62 104/66 Blood Pressure Mean 73 78 Blood Pressure Source Monitor Monitor Blood Pressure Position Semi-Fowlers Semi-Fowlers Blood Pressure Location Right Arm Left Arm Pulse Ox 94 97 96 Oxygen Delivery Method Nasal Cannula Nasal Cannula Nasal Cannula Oxygen Flow Rate (L/min) 1 2 2 11/10/23 07:46 Temperature 98 F Temperature Source Temporal Pulse Rate 69 Respiratory Rate 17 Blood Pressure 100/65 Blood Pressure Mean 76 Blood Pressure Source Monitor Blood Pressure Position Semi-Fowlers Blood Pressure Location Right Arm Pulse Ox 95 Oxygen Delivery Method Room Air Oxygen Flow Rate (L/min) Weight Weight: 217 lb 2.485 oz Body Mass Index (BMI) 33.0 Indicators for Scoring Admitted with or Primary Diagnosis of CVA/Stroke: Yes Hx of CVA/Stroke: Yes Modified Bceky Score MRS Score at time of Evaluation: 4-Moderate/severe disability NIHSS NIHSS 1a. Level of Consciousness: Alert; keenly responsive 1b. LOC Questions: Answers BOTH questions correctly. 1c. LOC Commands: Performs both tasks correctly. 2. Best Gaze: Normal 3. Visual: No visual loss 4. Facial Palsy: Normal symmetrical movements 5a. Left Arm: No drift; arm holds 90 (or 45) degrees for full 10 seconds 5b. Right Arm: No drift; arm holds 90 (or 45) degrees for full 10 seconds 6a. Left Leg: No drift; leg holds 30-degree position for full 5 seconds 6b. Right Leg: No drift; leg holds 30-degree position for full 5 seconds 7. Limb Ataxia: Present in 1 limb (mild in the LUE-) 8. Sensory: Normal; no sensory loss 9. Best Language: No aphasia; normal 10. Dysarthria: Normal 11. Extinction and Inattention: No abnormality Total: 1 Stroke Questions Stroke Team Activated: No Physical Exam Const alert, oriented x3, no apparent distress and well nourished General Appearance: cooperative and well developed Orientation / Consciousness: Negative for confused HEENT HEENT Narrative: Dry MM Tongue protrudes on the midline. No evidence of thrush. Eyes PERRL Eyes Narrative: The R eye does not adduct all the way to the lateral canthus. He has nystagmus R>L eye with R lateral gaze. His eyelids are droopy but, he tells me this has been this way for a long time. Neck no lymphadenopathy, supple, no JVD, No nodes and no carotid bruits General: trachea midline Resp normal respiratory effort, normal air movement and clear to auscultation bilaterally Resp Narrative: Symmetrical chest rise. Excellent air exchange throughout. No conversational dyspnea. Effort and Inspection: Negative for tachypneic or labored Cardio regular rate, regular rhythm, S1 normal heart sound, S2 normal heart sound, no murmurs, no rub and no gallops Cardio Narrative: No ectopy. Event monitor is in place. GI normal to inspection, nondistended, normoactive bowel sounds, soft to palpation and non-tender GI Narrative: No guarding with palpation. Extremity no calf tenderness Extremity Narrative: Trace of ankle edema on the right. General Extremity: Negative for clubbing or cyanosis Skin no jaundice and no petechiae Skin Narrative: There is evidence of a puncture wound on the right forearm extensor surface. This was site of a previous IV. There is no discharge from the puncture however he has erythema and increased warmth to touch and also has some tenderness with palpation of the area. Rashes: no rashes Neuro CN's II-XII intact bilaterally, no focal motor deficits and no sensory deficits noted Neuro Narrative: Tongue protrudes on the midline. Ataxia with the left upper extremity which is mild. Negative for extinction. No visual field cuts. Bbin-da-igle test on the lower extremities is normal. Tells me that he is having some trouble with memory and recalling words. Speech: speech normal Psych cooperative and affect normal Psych Narrative: Affect is a little flat. Appearance: appropriate Attitude: No agitated Mood & Affect: Negative for anxious Thought Content: No suicidality, No homicidality, No delusion(s) and No hallucination(s) Results Lab / Micro Data 11/10/23 06:49 11/10/23 06:49 Labs: Laboratory Results - last 24 hr 11/09/23 21:16: POC Glucose 187 H 11/10/23 05:47: POC Glucose 94 11/10/23 06:49: WBC 7.6, RBC 5.38, Hgb 15.8, Hct 48.6, MCV 90.3, MCH 29.4, MCHC 32.5, RDW Std Deviation 47.9 H, RDW Coeff of Miles 14.4, Plt Count 247, MPV 10.3, Immature Gran % (Auto) 0.300, Neut % (Auto) 70.1 H, Lymph % (Auto) 12.4 L, [place] % (Auto) 13.5 H, Eos % (Auto) 3.0, Baso % (Auto) 0.7, Absolute Neuts (auto) 5.3, Absolute Lymphs (auto) 0.94, Nucleated RBC % 0, Sodium 136, Potassium 3.3 L, Chloride 97 L, Carbon Dioxide 35.0 H, Anion Gap 4 L, BUN 21 H, Creatinine 0.84, Estim Creat Clear Calc 102.41, Est GFR (MDRD) Af Amer 118, Est GFR (MDRD) Non-Af 98, BUN/Creatinine Ratio 24.9 H, Glucose 96, Calcium 8.9, Phosphorus 2.2 L, Magnesium 2.0, Total Bilirubin 2.20 H, AST 28, ALT 17, Alkaline Phosphatase 198 H, Total Protein 7.1, Albumin 3.0 L, Globulin 4.1, Albumin/Globulin Ratio 0.7 L Assessment & Plan Assessment/Plan (1) Debility: (2) Ischemic cerebrovascular accident (CVA): (3) Vertigo due to acute cerebrovascular disease: PLAN: With Nystagmus (4) Dysphagia: PLAN: Passed his FEES and is on regular textures and thin liquids at the time of transfer to acute inpt rehab. (5) Cellulitis: QUALIFIERS: Site of cellulitis: extremity Site of cellulitis of extremity: upper extremity Laterality: right Qualified Code(s): L03.113 - Cellulitis of right upper limb (6) Hypophosphatemia: (7) Hypokalemia: (8) Metabolic alkalosis: PLAN: Suspect may be due to contraction alkalosis. (9) Diabetes mellitus, type 2: QUALIFIERS: Diabetes mellitus mcc insulin use: without mcc use Diabetes mellitus complication status: with circulatory complication (10) DEVI (obstructive sleep apnea): PLAN: States he is compliant with CPAP (11) Essential hypertension: (12) Atherosclerosis of coronary artery without angina pectoris: (13) Noncompliance: PLAN: With medications and O2 use with exertion. Does not check BS's at home. (14) Ischemic cardiomyopathy: PLAN: EF is 35-40% with many wall motion abnormalities. (15) Grade II diastolic dysfunction: (16) Right ventricular enlargement: (17) Abnormal LFTs: PLAN: Etiology? He had elevated anti-smooth muscle antibodies in February 2023. Antimitochondrial antibodies were normal. POLO was negative. Hepatitis B surface antigen was negative. After review of the EMR he has not had a liver biopsy. autoimmune hepatitis? Transaminases are normal but, bili and AP are elevated. No imaging of the liver has been done at [facility]. PLAN: Plan PLAN PT for gait stability OT for ADL's ST for evaluation Analgesics as needed Bowel protocol Fall precautions Assess for Anxiety/Depression GI prophylaxis -famotidine 20 mg daily DVT prophylaxis with enoxaparin 40 mg subcu daily Follow up with PCP, cardiology and neurology following DC from [facility] Re[facility] AM lab including CMP, CBC, Mag and Phos -all personally reviewed Check an ammonia level - affect is strange and he is having some trouble with memory and word finding at times. LFT's are abnormal. Decrease the Lasix to once a day Daily weights and I&O's I encouraged him to increase his fluid intake somewhat today. Start Keflex 500 mg 3 times daily for 7 days. Supplement potassium and phosphorus and recheck lab on Monday Restart spironolactone 25 mg daily to help conserve potassium Blood pressure is borderline and cannot restart Entresto at this time. Obtain records from PCP., ncluding any imaging he has had of his liver or biopsies. Pt educated on the importance of taking medications as prescribed and being honest with his physicians about medication compliance. 75 Minutes spent reviewing past diagnostic tests, lab results, vital sign trends, medical history, medications, all additional paperwork sent by the previous hospital, and ordering medications, examining the the patient and completing documentation. Charges/Coding Visit Charges Inpatient E&M: 94948 Init Hosp L3
[2023-11-10 09:08] VITALS: O2SAT 96
[2023-11-10 10:22] VITALS: BP 105/58; BP 88/55; BP 98/58; PULSE 78; PULSE 85
[2023-11-10 10:35] LABS: BNP,B-Type NATRIURETIC PEPTIDE 241.9 pg/mL (0-100)
[2023-11-10] MEDS: Potassium Chloride Oral Tablet 20 MEQ 40 MEQ PO ×2 (11:36→16:55)
[2023-11-10 12:02] LABS: Bedside Glucose 140 mg/dL (74-106)
--- NOTE | 2023-11-10 14:32 | PCM.RU.PYE ---
Admission Information Primary Diagnosis:: Post stroke debility Status Changes from Prescreening?: Medical (He has cellulitis which was undiagnosed at the time of admission to acute rehab.) Actual Problem List:: Infection, Skin Intergrity, Cognitve Impr/Memory Loss, Mobility Impaired, Self Care Deficit, Diabetes, Hyperglycemia, BP, Hypotension and Alteration-Leisure Activ. Risk of Complications DVT: LMWH and CRYSTAL Hose Bleeding: Monitor Lab Values, Nursing to Teach Precautions for anti-coagulation therapy., Wound, if applicable, to be assessed every shift. and Stroke patients assessed for lethargy or change in status. Infection: Clinical Staff to Monitor for S/S of infection: and S/S of infection include fever, redness, warmth, etc. Urinary Tract Infection: Monitor for frequency, burning, discomfort, or incontinence. and Nursing will obtain urine sample for urinalysis and C&S when ordered. Aspiration: Clinical staff will monitor for coughing, drooling, congestion., Speech will evaluate swallowing and dsyphasia. and Nursing will monitor patient swallowing during meals. Falls: Patient will be evaluated for Fall Precautions and Patient will be placed on Fall Precautions as indicated per protocol. Skin Breakdown: Nursing will assess skin daily using assessment tool. and Nursing will place on Skin Breakdown Precautions as indicated. Pain: Clinical staff will assess patient's pain level per protocol., Medications will be given, if needed, and the pain level reassessed. and Other methods: Massage, distraction, decrease stimulus, etc. used PRN. Plan of Care Patient requires physician specializing in physical medicine and rehab oversight to provide close medical supervision of rehab issues including: Pain Management, Sleep Problems, Bowel and Bladder, Medical and co-morbidity Management, DVT prophylaxis, Rehabilitation Leadership and Coordination of treatment team Patient needs Physical Therapy: For a minimum of 1 hour and At least 5 out of 7 days Patient needs Physical Therapy to improve:: Mobility, Strengthening, Transfers, Stretching, ROM, Endurance, Stairs, Gait and Balance Patient needs Occupational Therapy: For a minimum of 1 hour and At least 5 out of 7 days Patient needs Occupational Therapy to improve ADL's incl.: Eating, Grooming, Bathing, Dressing, Toileting, Toilet transfers, Community Reintegration, Higher functioning activities, Household tasks, Adaptive Equipment, Splinting and Other activities as determined Patient requires speech therapy: For a minimum of 1 hour and At least 5 out of 7 days Patient requires speech therapy for: Swallowing, Cognition, Language Skills and Compensatory Strategies Patient requires 24/ Rehabilitation Nursing for: Pain Issues, Identifying and preventing risk factors, Monitoring and reporting current medical conditions, Assisting with ambulation, transfer, and all ADL's, Teaching patients about disease process and medications, Family teaching, Providing safe environment, Bowel and Bladder Issues, Skin integrity and Medication Management Patient needs Supervisor Matrix/ Case Management for: Discharge Planning, Arranging Home Equipment or Services and Family Interventions Patient needs Dietary and Nutrition Services for: Adequate Nutrition, Nutritional Supplements and Nutritional Education Goals Goals Patient will remain: free from falls Patient will perform eating at: MOD I level of assist. Patient will perform bed mobility at: MOD I level of assist. Patient will complete transfers from bed to chair at: MOD I level of assist. Patient will ambulate: - (350 feet with least restrictive device at mod I on various surfaces to allow return to home, community and work.) Patient will complete upper body dressing at: MOD I level of assist. Patient will complete lower body dressing at: MOD I level of assist. (With adaptive equipment as needed for increased independence with self-care.) Patient will complete toilet transfer at: MOD I level of assist. Patient will complete toileting at: MOD I level of assist. Patient will perform bathing at: MOD I level of assist. Patient will perform Tub/Shower transfer at: - (Supervision for at least 1 to 2 weeks post discharge.) Patient will complete grooming at: MOD I level of assist. Patient will achieve: - (One-step with least restrictive device at standby assist.) Discharge Planning Pt Prognosis for Sig. Practical Improv. w/in Reasonable Time: Good Estimated Length of stay (days): 21 Anticipated D/C Destination: TBD Was Preadmission Assessment Accurate?: Yes
[2023-11-10 14:36] VITALS: BP 103/59; BP 94/56; PULSE 74; PULSE 83
[2023-11-10] MEDS: Cephalexin 500 MG Capsule PO ×2 (15:02→22:46)
[2023-11-10] MEDS: Na Biphos/Potassium Phosphate PACKET 1 PACKET PO ×2 (15:02→22:46)
[2023-11-10 16:41] LABS: Bedside Glucose 124 mg/dL (74-106)
[2023-11-10 20:00] VITALS: BP 100/68; PULSE 76; RESP 18; TEMP 36.9; O2SAT 98
--- NOTE | 2023-11-10 20:15 | CPS ---
Patient set up with own PAP machine for the night.
[2023-11-10] MEDS: Atorvastatin Calcium 80 MG Tablet PO (22:46)
[2023-11-10 23:19] LABS: Bedside Glucose 119 mg/dL (74-106)
[2023-11-11] MEDS: Enoxaparin 40 MG/0.4 ML Syringe SC (06:52)
[2023-11-11] MEDS: Furosemide 40 MG Tablet PO (06:53)
[2023-11-11] MEDS: Na Biphos/Potassium Phosphate PACKET 1 PACKET PO ×3 (06:53→21:52)
[2023-11-11] MEDS: Levothyroxine 25 MCG TABLET PO (06:53)
[2023-11-11] MEDS: Cephalexin 500 MG Capsule PO ×3 (06:54→21:52)
[2023-11-11 07:19] LABS: Bedside Glucose 86 mg/dL (74-106)
[2023-11-11 07:48] VITALS: BP 104/71; PULSE 70; RESP 18; TEMP 36.8; O2SAT 96
[2023-11-11 08:06] VITALS: O2SAT 94
[2023-11-11] MEDS: Spironolactone 25 MG Tablet PO (09:05)
[2023-11-11] MEDS: Clopidogrel Bisulfate 75 MG Tablet PO (09:06)
[2023-11-11] MEDS: Empagliflozin 10 MG Tablet PO (09:06)
[2023-11-11] MEDS: Aspirin E.C. 81 MG Tablet PO (09:06)
[2023-11-11] MEDS: Famotidine 20 MG Tablet PO (09:06)
[2023-11-11 10:57] VITALS: BMI 32.8
[2023-11-11 11:58] LABS: Bedside Glucose 106 mg/dL (74-106)
[2023-11-11 16:53] LABS: Bedside Glucose 116 mg/dL (74-106)
[2023-11-11 20:00] VITALS: BP 107/75; PULSE 75; RESP 17; TEMP 36.4; O2SAT 96
[2023-11-11] MEDS: Atorvastatin Calcium 80 MG Tablet PO (21:52)
[2023-11-11 22:17] VITALS: O2SAT 96
[2023-11-11 22:26] LABS: Bedside Glucose 129 mg/dL (74-106)
[2023-11-12 06:00] VITALS: BMI 32.8
[2023-11-12] MEDS: Na Biphos/Potassium Phosphate PACKET 1 PACKET PO ×3 (06:08→21:48)
[2023-11-12] MEDS: Enoxaparin 40 MG/0.4 ML Syringe SC (06:08)
[2023-11-12] MEDS: Cephalexin 500 MG Capsule PO ×3 (06:09→21:48)
[2023-11-12] MEDS: Levothyroxine 25 MCG TABLET PO (06:09)
[2023-11-12 07:00] VITALS: BP 95/61
[2023-11-12 07:17] LABS: Bedside Glucose 102 mg/dL (74-106)
[2023-11-12 07:26] VITALS: O2SAT 95
[2023-11-12 08:23] VITALS: BP 100/61; PULSE 76; RESP 16; TEMP 36.2; O2SAT 96
[2023-11-12] MEDS: Famotidine 20 MG Tablet PO (09:49)
[2023-11-12] MEDS: Empagliflozin 10 MG Tablet PO (09:50)
[2023-11-12] MEDS: Clopidogrel Bisulfate 75 MG Tablet PO (09:50)
[2023-11-12] MEDS: Aspirin E.C. 81 MG Tablet PO (09:50)
[2023-11-12 09:52] VITALS: BP 108/66; PULSE 83; RESP 16; TEMP 36.7; O2SAT 98
[2023-11-12 11:39] LABS: Bedside Glucose 147 mg/dL (74-106)
[2023-11-12] MEDS: Spironolactone 25 MG Tablet PO (12:40)
[2023-11-12 17:20] LABS: Bedside Glucose 115 mg/dL (74-106)
[2023-11-12 20:25] VITALS: BP 96/60; PULSE 71; RESP 15; TEMP 36.8; O2SAT 96
[2023-11-12] MEDS: Atorvastatin Calcium 80 MG Tablet PO (21:48)
[2023-11-12 22:22] LABS: Bedside Glucose 111 mg/dL (74-106)
[2023-11-13] MEDS: Enoxaparin 40 MG/0.4 ML Syringe SC (05:54)
[2023-11-13] MEDS: Cephalexin 500 MG Capsule PO ×3 (05:54→21:40)
[2023-11-13] MEDS: Na Biphos/Potassium Phosphate PACKET 1 PACKET PO (05:55)
[2023-11-13] MEDS: Levothyroxine 25 MCG TABLET PO (05:55)
[2023-11-13 06:00] VITALS: BP 104/66; PULSE 74; RESP 18; TEMP 36.9; O2SAT 95; BMI 32.9
[2023-11-13 06:28] LABS: Anion Gap 8 (5-15); BUN 19 mg/dL (7-18); BUN/Creat Ratio 25.4 RATIO (10-20); Calcium,Total 9.2 mg/dL (8.5-10.1); Chloride 102 mmol/L (98-107); Creatinine, Serum 0.75 mg/dL (0.70-1.30); EST Glomerular Filtration Rate 112 mL/min (>60); Est Glom Filt Rate - Afr Amer 136 mL/min (>60); Estimated Creatinine Clearance 114.76 ml/min; Glucose 90 mg/dL (74-106); Phosphorus 3.3 mg/dL (2.5-4.9); Potassium 3.8 mmol/L (3.5-5.1); Sodium Level 136 mmol/L (136-145)
[2023-11-13 06:30] VITALS: BP 114/71; PULSE 91
[2023-11-13 07:09] LABS: Bedside Glucose 90 mg/dL (74-106)
[2023-11-13 07:20] VITALS: O2SAT 94
[2023-11-13 08:27] VITALS: BP 114/71; PULSE 74; RESP 18; TEMP 36.9; O2SAT 95
[2023-11-13] MEDS: Empagliflozin 10 MG Tablet PO (08:31)
[2023-11-13] MEDS: Clopidogrel Bisulfate 75 MG Tablet PO (08:31)
[2023-11-13] MEDS: Famotidine 20 MG Tablet PO (08:31)
[2023-11-13] MEDS: Spironolactone 25 MG Tablet PO (08:31)
[2023-11-13] MEDS: Furosemide 40 MG Tablet PO (08:31)
[2023-11-13] MEDS: Aspirin E.C. 81 MG Tablet PO (08:31)
[2023-11-13 11:26] LABS: Bedside Glucose 128 mg/dL (74-106)
--- NOTE | 2023-11-13 12:13 | PN_ITS ---
Subjective Subjective Yan was seen on team rounds today. No family was available to participate. Afebrile VSS - BP is better today with increase in fluids yesterday. Maintaining appropriate oxygen saturation on RA Oral intake - FOOD good FLUIDS much improved The blood sugar record was reviewed and the blood sugars are well-controlled with no hypoglycemia. Discussed with nursing - He had a fall in the shower this AM. There was a staff member with him but, she turned her head and he lost his balance and fell on his buttocks. No injuries. Reviewed the THERAPY notes Medication list reviewed. All lab from this morning was personally reviewed. Sodium is 136 and the potassium is 3.8. BUN is slightly better at 19 and his creatinine is stable at 0.75. Phosphorus is now normal at 3.3 following supplementation. Yan denies chest pain, orthopnea, paroxysmal nocturnal dyspnea, palpitations, lightheadedness, nausea/vomiting/abdominal pain, dysuria and calf tenderness. Objective Data Objective Data Vital Signs: Vital Signs Temp Pulse Resp BP Pulse Ox O2 Del Method O2 Flow Rate 98.5 F 74 18 114/71 95 Room Air 2 11/13/23 08:27 11/13/23 08:27 11/13/23 08:27 11/13/23 08:27 11/13/23 08:27 11/13/23 08:27 11/12/23 07:26 Oxygen Flow Rate (L/min) 2 Oxygen Delivery Method Room Air Weight: 217 lb 6.012 oz Body Mass Index (BMI) 32.9 Intake & Output: Intake and Output for Last 24 Hours 11/11/23 11/12/23 11/13/23 23:59 23:59 23:59 Intake Total 1830 / 2130 4456 / 4456 240 / 240 Output Total 1675 / 2375 2950 / 3800 1350 / 1350 Balance 155 / -245 1506 / 656 -1110 / -1110 Lab / Micro Data 11/10/23 06:49 11/17/23 08:35 Labs: Laboratory Results - last 24 hr 11/12/23 17:00: POC Glucose 115 H 11/12/23 21:45: POC Glucose 111 H 11/13/23 05:27: Sodium 136, Potassium 3.8, Chloride 102, Carbon Dioxide 26.0, Anion Gap 8, BUN 19 H, Creatinine 0.75, Estim Creat Clear Calc 114.76, Est GFR (MDRD) Af Amer 136, Est GFR (MDRD) Non-Af 112, BUN/Creatinine Ratio 25.4 H, Glucose 90, Calcium 9.2, Phosphorus 3.3 11/13/23 06:33: POC Glucose 90 11/13/23 11:06: POC Glucose 128 H Physical Exam Const alert, oriented x3 and no apparent distress Constitutional Narrative: Much more alert and better able to focus on what I am saying today. General Appearance: cooperative Orientation / Consciousness: Negative for confused HEENT moist oral mucous membranes Resp normal respiratory effort and clear to auscultation bilaterally Resp Narrative: No conversational dyspnea GI normal to inspection, nondistended, normoactive bowel sounds, soft to palpation and non-tender Extremity no calf tenderness General Extremity: Negative for edema Skin General Skin Exam: no breakdown Rashes: no rashes Psych affect normal Appearance: appropriate Attitude: No agitated Activity / Motor Behavior: Negative for restless Assessment & Plan Assessment/Plan (1) Debility: (2) Ischemic cerebrovascular accident (CVA): (3) Dysphagia: (4) Diabetes mellitus, type 2: QUALIFIERS: Diabetes mellitus termite exterminator helper insulin use: without termite exterminator helper use Diabetes mellitus complication status: with circulatory complication (5) DEVI (obstructive sleep apnea): (6) Ischemic cardiomyopathy: (7) Grade II diastolic dysfunction: (8) Right ventricular enlargement: (9) Abnormal LFTs: PLAN: Plan 1. Continue therapy 2. Continue current medications 3. reinforced again today the need to be compliant with medications to help prevent any further cardiovascular events. He does acknowledge his breathing, marcelino with exercise, is much better on the Lasix. The dose was decreased to daily from BID and he has clear lungs and no peripheral edema today. Charges/Coding Visit Charges Inpatient E&M: 38682 Subs Hosp L1
--- NOTE | 2023-11-13 13:25 | CASEMGMT ---
Social Work IDT met with patient at bedside to complete care plans meeting. Discussed patient progress with therapy (PT/OT/ST) and nursing. Patient is progressing with therapy Min A/ contact guard. Patient continues to progress with therapy. Patient expressed some concerns with left side. Patient has some difficulty with recall and memory; ST continues to follow. SW educated patient on [employer]; next review date 11/15/23. Patient would like to remain on [facility] for continued progress. Patient reviewed living arrangements with CM. Patient has no history of home health care. Patient may benefit from home health v. outpatient therapy. Patient expressed concerns for echo appointment at end of month. Patient hoping to discharge prior to appointment at end of month. BERT King
--- NOTE | 2023-11-13 15:38 | CHAPLAIN ---
Type of Pastoral Visit _x__ Initial Visit ___ Follow-up Visit ___ On-call Visit ___ General Patient Visit ___ Spiritual Assessment ___ Family Conference ___ Bereavement ___ Rapid Response ___ Code Blue ___ Other (describe below) Pastoral Care Referral From _x__ Patient ___ Family ___ Nurse ___ Physician ___ Occupational Therapy Specialist ___ Information Architect ___ Other (describe below) Sacrament/Intervention _x__ Active listening ___ Anointing ___ Restoration ___ Bereavement ___ Communion ___ [place] exploration ___ ___ Life review _x__ Prayer ___ Reconciliation ___ Sacrament of Sick _x__ Supportive presence ___ Wedding ___ Other (describe below) Pastoral Comments patient returned back to rehab from [facility] after a stroke; pt is able to function but has a few minor limitations now with left side and fuzzy thinking; pt admits to some discouragement and anxious thoughts about the future; pt is able to express himself and explain his situation; pt welcomes prayer for support and the presence of the manager technical services
[2023-11-13 18:09] LABS: Bedside Glucose 115 mg/dL (74-106)
[2023-11-13] MEDS: Atorvastatin Calcium 80 MG Tablet PO (21:40)
[2023-11-13 21:43] LABS: Bedside Glucose 143 mg/dL (74-106)
[2023-11-13 22:00] VITALS: BP 99/67; PULSE 75; RESP 14; TEMP 36.6; O2SAT 96
[2023-11-14] MEDS: Cephalexin 500 MG Capsule PO ×3 (05:27→22:10)
[2023-11-14] MEDS: Enoxaparin 40 MG/0.4 ML Syringe SC (05:27)
[2023-11-14] MEDS: Levothyroxine 25 MCG TABLET PO (05:28)
[2023-11-14 06:00] VITALS: BMI 32.5
[2023-11-14 06:50] LABS: Bedside Glucose 92 mg/dL (74-106)
[2023-11-14 07:42] VITALS: BP 98/65; PULSE 73; RESP 14; TEMP 36.5; O2SAT 97
[2023-11-14 07:43] VITALS: BP 98/65; PULSE 73; RESP 14; TEMP 36.5; O2SAT 97
[2023-11-14 08:39] VITALS: O2SAT 96
[2023-11-14] MEDS: Clopidogrel Bisulfate 75 MG Tablet PO (09:12)
[2023-11-14] MEDS: Spironolactone 25 MG Tablet PO (09:12)
[2023-11-14] MEDS: Furosemide 40 MG Tablet PO (09:12)
[2023-11-14] MEDS: Aspirin E.C. 81 MG Tablet PO (09:12)
[2023-11-14] MEDS: Famotidine 20 MG Tablet PO (09:12)
[2023-11-14] MEDS: Empagliflozin 10 MG Tablet PO (09:13)
[2023-11-14 11:20] LABS: Bedside Glucose 107 mg/dL (74-106)
--- NOTE | 2023-11-14 13:54 | CASEMGMT ---
Social Work SW met with patient at bedside to complete initial intake assessment. Patient confirmed demographics and contact information for , Agatha. Patient confirmed code status as full code. Patient informed SW that he has an advanced directive in medical chart with , Agatha assigned as primary decision maker. Patient informed SW that he has a history of outpatient therapy [facility] after cardiac arrest. Patient informed SW that his goals are to return home at baseline with the ability to ambulate without second guessing mobility. Patient would like to return to driving when medically cleared. SW discussed discharge supportive services home health and outpatient therapy. Patient informed SW that he would require additional information from insurance to ensure coverage. SW to follow up with patient insurance to determine benefits. Patient currently has [employer] insurance; NRD 11/14. Patient informed SW that he would like to remain on rehab for continued therapy. BERT King
[2023-11-14 17:06] LABS: Bedside Glucose 138 mg/dL (74-106)
[2023-11-14 22:00] VITALS: BP 100/61; PULSE 77; RESP 16; TEMP 36.1; O2SAT 96
[2023-11-14] MEDS: Atorvastatin Calcium 80 MG Tablet PO (22:10)
[2023-11-14 22:59] LABS: Bedside Glucose 113 mg/dL (74-106)
--- NOTE | 2023-11-15 02:24 | NURSING ---
Reviewed and agree with Jemal THEODORE, documentation and assessment charting.
[2023-11-15 06:00] VITALS: BMI 32.6
[2023-11-15] MEDS: Levothyroxine 25 MCG TABLET PO (06:20)
[2023-11-15] MEDS: Enoxaparin 40 MG/0.4 ML Syringe SC (06:20)
[2023-11-15] MEDS: Cephalexin 500 MG Capsule PO ×3 (06:20→22:31)
[2023-11-15] MEDS: Furosemide 40 MG Tablet PO (06:21)
[2023-11-15 07:22] LABS: Bedside Glucose 93 mg/dL (74-106)
[2023-11-15 07:26] VITALS: BP 107/70; PULSE 71; RESP 16; TEMP 36.5; O2SAT 97
[2023-11-15] MEDS: Clopidogrel Bisulfate 75 MG Tablet PO (09:49)
[2023-11-15] MEDS: SACUBITRIL/VALSARTAN 49-51 MG TABLET 1 EACH PO ×2 (09:49→22:31)
[2023-11-15] MEDS: Aspirin E.C. 81 MG Tablet PO (09:49)
[2023-11-15] MEDS: Famotidine 20 MG Tablet PO (09:49)
[2023-11-15] MEDS: Empagliflozin 10 MG Tablet PO (09:49)
[2023-11-15] MEDS: Spironolactone 25 MG Tablet PO (09:49)
[2023-11-15 11:40] LABS: Bedside Glucose 144 mg/dL (74-106)
[2023-11-15 16:41] LABS: Bedside Glucose 118 mg/dL (74-106)
[2023-11-15 20:17] VITALS: BP 101/66; PULSE 73; RESP 16; TEMP 36.8; O2SAT 97
[2023-11-15] MEDS: Atorvastatin Calcium 80 MG Tablet PO (22:31)
[2023-11-15 23:37] LABS: Bedside Glucose 111 mg/dL (74-106)
[2023-11-16 06:00] VITALS: BMI 32.4
[2023-11-16 07:26] LABS: Bedside Glucose 95 mg/dL (74-106)
[2023-11-16] MEDS: Cephalexin 500 MG Capsule PO ×3 (07:39→22:16)
[2023-11-16] MEDS: Enoxaparin 40 MG/0.4 ML Syringe SC (07:39)
[2023-11-16 07:55] VITALS: BP 104/67; PULSE 71; RESP 17; TEMP 36.6; O2SAT 97
[2023-11-16] MEDS: Furosemide 40 MG Tablet PO (08:23)
[2023-11-16] MEDS: Aspirin E.C. 81 MG Tablet PO (08:23)
[2023-11-16] MEDS: Famotidine 20 MG Tablet PO (08:23)
[2023-11-16] MEDS: Empagliflozin 10 MG Tablet PO (08:23)
[2023-11-16] MEDS: Clopidogrel Bisulfate 75 MG Tablet PO (08:23)
[2023-11-16] MEDS: SACUBITRIL/VALSARTAN 49-51 MG TABLET 1 EACH PO ×2 (08:23→22:16)
[2023-11-16] MEDS: Spironolactone 25 MG Tablet PO (08:25)
[2023-11-16] MEDS: Levothyroxine 25 MCG TABLET PO (09:41)
--- NOTE | 2023-11-16 12:08 | PCM.PROGNOTE ---
Subjective Subjective Afebrile VSS -he was started back on Entresto yesterday and his blood pressure is stable. He denies lightheadedness when standing. Blood pressure this morning was 104/67 with a heart rate of 71. Maintaining appropriate oxygen saturation on RA Oral intake - FOOD good FLUIDS good Discussed with nursing - no problems that need addressed Reviewed the THERAPY notes Medication list reviewed. Yan denies lightheadedness, cephalgia, chest pain, shortness of breath at rest, orthopnea, palpitations, nausea/vomiting/abdominal pain, dysuria and calf tenderness. He tells me that he is less SOB with exertion than he was at admission. He was restarted on Entresto yesterday and his BP is adequate and he denies lightheadedness. He also tells me that he feels his thought processing is improving. He has been cooperative with therapy and is motivated to get better and go home. Still feeling off balance at times when ambulating. He has transition from a wheeled walker to a straight cane today. He is still mildly ataxic, especially with the left lower extremity. Objective Data Objective Data Vital Signs: Vital Signs Temp Pulse Resp BP Pulse Ox O2 Del Method O2 Flow Rate 97.9 F 71 17 104/67 97 Room Air 2 11/16/23 07:55 11/16/23 07:55 11/16/23 07:55 11/16/23 07:55 11/16/23 07:55 11/16/23 07:55 11/12/23 07:26 Oxygen Flow Rate (L/min) 2 Oxygen Delivery Method Room Air Weight: 214 lb 1.102 oz Body Mass Index (BMI) 32.4 Intake & Output: Intake and Output for Last 24 Hours 11/14/23 11/15/23 11/16/23 23:59 23:59 23:59 Intake Total 1500 / 1500 1380 / 1380 360 / 360 Output Total 1650 / 1650 1300 / 1300 250 / 250 Balance -150 / -150 80 / 80 110 / 110 Lab / Micro Data 11/10/23 06:49 11/13/23 05:27 Labs: Laboratory Results - last 24 hr 11/15/23 16:20: POC Glucose 118 H 11/15/23 22:29: POC Glucose 111 H 11/16/23 06:19: POC Glucose 95 Physical Exam Const alert, oriented x3 and no apparent distress General Appearance: cooperative Orientation / Consciousness: Negative for confused Resp normal respiratory effort, normal air movement and clear to auscultation bilaterally Effort and Inspection: Negative for tachypneic Cardio regular rate, regular rhythm, no rub and no gallops GI normal to inspection, nondistended, normoactive bowel sounds, soft to palpation and non-tender GI Narrative: No guarding with palpation Extremity no calf tenderness General Extremity: Negative for edema Skin General Skin Exam: no breakdown Rashes: no rashes Neuro Neuro Narrative: He is more alert than at admission and he tells me that is thought processes are improving. Occasional cough......with taking medications with water.......not taking small sips. No cough with eating. Psych cooperative and affect normal Appearance: appropriate Attitude: No agitated Activity / Motor Behavior: Negative for restless Assessment & Plan Assessment/Plan (1) Debility: (2) Ischemic cerebrovascular accident (CVA): (3) Vertigo due to acute cerebrovascular disease: (4) Dysphagia: (5) Diabetes mellitus, type 2: QUALIFIERS: Diabetes mellitus shelter insulin use: without shelter use Diabetes mellitus complication status: with circulatory complication (6) DEVI (obstructive sleep apnea): (7) Ischemic cardiomyopathy: (8) Grade II diastolic dysfunction: (9) Right ventricular enlargement: (10) Abnormal LFTs: PLAN: Plan 1. Continue therapy 2. No changes to the drug regimen today 3. Recheck a BMP, phosphorus and magnesium tomorrow 4. Additional education provided today about what potentially caused his strokes and why that may have happened. Reinforced the need for taking his medications exactly as prescribed at discharge. Charges/Coding Visit Charges Inpatient E&M: 43815 Subs Hosp L1
[2023-11-16 12:09] LABS: Bedside Glucose 115 mg/dL (74-106)
[2023-11-16 16:37] LABS: Bedside Glucose 126 mg/dL (74-106)
[2023-11-16 21:50] VITALS: BP 106/66; PULSE 77; RESP 16; TEMP 36.9; O2SAT 97; O2SAT 98
[2023-11-16] MEDS: Atorvastatin Calcium 80 MG Tablet PO (22:16)
[2023-11-16 22:40] LABS: Bedside Glucose 121 mg/dL (74-106)
[2023-11-17] MEDS: Enoxaparin 40 MG/0.4 ML Syringe SC (05:22)
[2023-11-17] MEDS: Levothyroxine 25 MCG TABLET PO (05:22)
[2023-11-17] MEDS: Cephalexin 500 MG Capsule PO ×2 (05:22→13:40)
[2023-11-17 06:00] VITALS: BMI 32.2
[2023-11-17 06:54] LABS: Bedside Glucose 93 mg/dL (74-106)
[2023-11-17] MEDS: Furosemide 40 MG Tablet PO (06:55)
[2023-11-17 07:41] VITALS: BP 102/68; PULSE 73; RESP 16; TEMP 36.3; O2SAT 97
--- NOTE | 2023-11-17 07:59 | NURSING ---
Late Entry for 11/13/23 @ 0615. Pt X1 assist to shower. Pt wearing registration clerk socks, lost his balance and slid down shower wall landing on his buttocks. Fall was witnessed, Pt did not hit his head and denies any injuries. Both Dr. Jalloh and nurse nanny/household manager notified.
[2023-11-17] MEDS: Clopidogrel Bisulfate 75 MG Tablet PO (08:07)
[2023-11-17] MEDS: Spironolactone 25 MG Tablet PO (08:07)
[2023-11-17] MEDS: Famotidine 20 MG Tablet PO (08:07)
[2023-11-17] MEDS: SACUBITRIL/VALSARTAN 49-51 MG TABLET 1 EACH PO (08:07)
[2023-11-17] MEDS: Aspirin E.C. 81 MG Tablet PO (08:07)
[2023-11-17] MEDS: Empagliflozin 10 MG Tablet PO (08:07)
[2023-11-17 09:23] LABS: Anion Gap 5 (5-15); BUN 19 mg/dL (7-18); BUN/Creat Ratio 18.3 RATIO (10-20); Calcium,Total 9.2 mg/dL (8.5-10.1); Chloride 101 mmol/L (98-107); Creatinine, Serum 1.04 mg/dL (0.70-1.30); EST Glomerular Filtration Rate 77 mL/min (>60); Est Glom Filt Rate - Afr Amer 93 mL/min (>60); Estimated Creatinine Clearance 81.85 ml/min; Glucose 158 mg/dL (74-106); Magnesium 2.1 mg/dL (1.6-2.6); Sodium Level 136 mmol/L (136-145)
--- NOTE | 2023-11-17 09:48 | PN_ITS ---
Subjective Subjective Afebrile VSS - Maintaining appropriate oxygen saturation on RA Oral intake - FOOD good FLUIDS good Weight is down approximately 5 pounds since admission to rehab. The blood sugar record was reviewed and blood sugars are well-controlled with no hypoglycemia. Discussed with nursing - no problems that need addressed Reviewed the THERAPY notes Medication list reviewed. All lab drawn this morning was personally reviewed. Sodium is stable at 136 and the potassium is stable at 4.0. Serum bicarb is normal. The BUN is 19 and the creatinine is 1.04 which is within his baseline. Phosphorus is normal and the magnesium is 2.1. Yan denies lightheadedness, cephalgia, chest pain, palpitations, orthopnea, par oxysmal nocturnal dyspnea, dyspnea with exertion, nausea/vomiting/abdominal pain, dysuria and calf tenderness. He feels as though his thought processes are almost back to baseline. He is very alert and pleasant and is better able to participate in conversation than he was at admission to rehab. Objective Data Objective Data Vital Signs: Vital Signs Temp Pulse Resp BP Pulse Ox O2 Del Method O2 Flow Rate 97.4 F L 73 16 102/68 97 Room Air 2 11/17/23 07:41 11/17/23 07:41 11/17/23 07:41 11/17/23 07:41 11/17/23 07:41 11/17/23 07:41 11/12/23 07:26 Oxygen Flow Rate (L/min) 2 Oxygen Delivery Method Room Air Weight: 212 lb 8.41 oz Body Mass Index (BMI) 32.2 Intake & Output: Intake and Output for Last 24 Hours 11/15/23 11/16/23 11/17/23 23:59 23:59 23:59 Intake Total 1380 / 1380 1060 / 1060 180 / 180 Output Total 1300 / 1300 1350 / 1350 850 / 850 Balance 80 / 80 -290 / -290 -670 / -670 Lab / Micro Data 11/10/23 06:49 11/17/23 08:35 Labs: Laboratory Results - last 24 hr 11/16/23 11:51: POC Glucose 115 H 11/16/23 16:12: POC Glucose 126 H 11/16/23 22:19: POC Glucose 121 H 11/17/23 06:36: POC Glucose 93 11/17/23 08:35: Sodium 136, Potassium 4.0, Chloride 101, Carbon Dioxide 30.0, Anion Gap 5, BUN 19 H, Creatinine 1.04, Estim Creat Clear Calc 81.85, Est GFR (MDRD) Af Amer 93, Est GFR (MDRD) Non-Af 77, BUN/Creatinine Ratio 18.3, Glucose 158 H, Calcium 9.2, Phosphorus 3.0, Magnesium 2.1 Physical Exam Const alert, oriented x3 and no apparent distress General Appearance: cooperative Orientation / Consciousness: Negative for confused HEENT moist oral mucous membranes Eyes Eyes Narrative: Has a few beats of nystagmus with lateral gaze to the R. Resp normal respiratory effort and clear to auscultation bilaterally Resp Narrative: No conversational dyspnea Effort and Inspection: tachypneic GI normal to inspection, nondistended, normoactive bowel sounds, soft to palpation and non-tender Extremity no calf tenderness General Extremity: Negative for edema Skin General Skin Exam: no breakdown Rashes: no rashes Psych affect normal Appearance: appropriate Attitude: No agitated Activity / Motor Behavior: Negative for restless Assessment & Plan Assessment/Plan (1) Debility: (2) Ischemic cerebrovascular accident (CVA): (3) Dysphagia: (4) Diabetes mellitus, type 2: QUALIFIERS: Diabetes mellitus predatory animal exterminator insulin use: without correction use Diabetes mellitus complication status: with circulatory complication (5) DEVI (obstructive sleep apnea): (6) Ischemic cardiomyopathy: (7) Grade II diastolic dysfunction: (8) Right ventricular enlargement: (9) Abnormal LFTs: PLAN: Plan 1. Continue therapy 2. No changes to the drug regimen today 3. Recheck a BMP, phosphorus and magnesium tomorrow 4. Additional education provided today about what potentially caused his strokes and why that may have happened. Reinforced the need for taking his medications exactly as prescribed at discharge. Charges/Coding Visit Charges Inpatient E&M: 58731 Subs Hosp L1
[2023-11-17 11:57] LABS: Bedside Glucose 119 mg/dL (74-106)
[2023-11-17 17:25] LABS: Bedside Glucose 124 mg/dL (74-106)
[2023-11-17 20:00] VITALS: BP 88/56; PULSE 82; RESP 20; TEMP 36.8; O2SAT 97
[2023-11-17 21:45] VITALS: BP 96/64; PULSE 82; RESP 18; TEMP 36.7
[2023-11-17 22:29] LABS: Bedside Glucose 114 mg/dL (74-106)
[2023-11-17] MEDS: Atorvastatin Calcium 80 MG Tablet PO (22:45)
[2023-11-18] MEDS: Levothyroxine 25 MCG TABLET PO (05:41)
[2023-11-18] MEDS: Enoxaparin 40 MG/0.4 ML Syringe SC (05:41)
[2023-11-18 05:46] VITALS: BMI 31.8
[2023-11-18 07:00] VITALS: BP 99/65
[2023-11-18 07:34] LABS: Bedside Glucose 92 mg/dL (74-106)
[2023-11-18] MEDS: Aspirin E.C. 81 MG Tablet PO (08:07)
[2023-11-18] MEDS: Famotidine 20 MG Tablet PO (08:08)
[2023-11-18] MEDS: Empagliflozin 10 MG Tablet PO (08:08)
[2023-11-18] MEDS: Clopidogrel Bisulfate 75 MG Tablet PO (08:09)
[2023-11-18 08:12] VITALS: BP 92/56; PULSE 72; RESP 18; TEMP 36.8; O2SAT 95
[2023-11-18] MEDS: Spironolactone 25 MG Tablet PO (09:47)
[2023-11-18 09:48] VITALS: BP 99/56
[2023-11-18 11:49] LABS: Bedside Glucose 140 mg/dL (74-106)
[2023-11-18 14:10] VITALS: BP 99/58
[2023-11-18 17:20] LABS: Bedside Glucose 108 mg/dL (74-106)
[2023-11-18 19:17] VITALS: BP 99/60; PULSE 72; RESP 18; TEMP 36.9; O2SAT 98
[2023-11-18 21:48] VITALS: BP 95/59; PULSE 73
[2023-11-18] MEDS: Atorvastatin Calcium 80 MG Tablet PO (21:50)
[2023-11-18 22:13] LABS: Bedside Glucose 128 mg/dL (74-106)
--- NOTE | 2023-11-19 01:45 | NURSING ---
Reviewed and agree with Kandice THEODORE, documentation and assessment charting.
[2023-11-19] MEDS: Enoxaparin 40 MG/0.4 ML Syringe SC (05:55)
[2023-11-19] MEDS: Levothyroxine 25 MCG TABLET PO (05:56)
[2023-11-19 06:00] VITALS: BMI 32.3
[2023-11-19 06:42] LABS: Bedside Glucose 96 mg/dL (74-106)
[2023-11-19 07:30] VITALS: BP 102/66; PULSE 71; RESP 18; TEMP 36.8; O2SAT 97
[2023-11-19] MEDS: Empagliflozin 10 MG Tablet PO (07:39)
[2023-11-19] MEDS: SACUBITRIL/VALSARTAN 49-51 MG TABLET 1 EACH PO ×2 (07:39→21:32)
[2023-11-19] MEDS: Furosemide 40 MG Tablet PO (07:39)
[2023-11-19] MEDS: Spironolactone 25 MG Tablet PO (07:39)
[2023-11-19] MEDS: Famotidine 20 MG Tablet PO (07:39)
[2023-11-19] MEDS: Clopidogrel Bisulfate 75 MG Tablet PO (07:39)
[2023-11-19] MEDS: Aspirin E.C. 81 MG Tablet PO (07:39)
[2023-11-19] MEDS: Insulin Lispro 100 UNIT/ML INSULN.PEN SC (11:34)
[2023-11-19 11:37] LABS: Bedside Glucose 153 mg/dL (74-106)
[2023-11-19 16:49] LABS: Bedside Glucose 122 mg/dL (74-106)
[2023-11-19 19:30] VITALS: BP 103/66; PULSE 75; RESP 18; TEMP 37.1; O2SAT 98
[2023-11-19 21:27] VITALS: BP 109/67; PULSE 82
[2023-11-19] MEDS: Atorvastatin Calcium 80 MG Tablet PO (21:32)
[2023-11-19 22:28] LABS: Bedside Glucose 125 mg/dL (74-106)
--- NOTE | 2023-11-20 01:39 | NURSING ---
Reviewed and agree with Kandice THEODORE, documentation and assessment charting.
--- NOTE | 2023-11-20 01:41 | NURSING ---
Reviewed and agree with Kandice THEODORE, documentation and assessment charting.
[2023-11-20 06:24] LABS: Bedside Glucose 105 mg/dL (74-106)
[2023-11-20] MEDS: Enoxaparin 40 MG/0.4 ML Syringe SC (06:25)
[2023-11-20] MEDS: Levothyroxine 25 MCG TABLET PO (06:26)
--- NOTE | 2023-11-20 08:48 | PN_ITS ---
Subjective Subjective Yan was seen on team rounds today. His Agatha was present in the room for rounds. All questions were answered to their satisfaction. Afebrile VSS -blood pressure is a little on the low side but mean arterial pressures are greater than 70. Maintaining appropriate oxygen saturation on RA Oral intake - FOOD good FLUIDS good Fluid balance has been consistently negative since admission Weight are stable now The blood sugar record was reviewed. Blood sugars are well-controlled with no hypoglycemia. Discussed with nursing - no problems that need addressed Reviewed the THERAPY notes Medication list reviewed. Yan denies lightheadedness, shortness of breath, cough, palpitations, nausea/vomiting, dysuria and calf tenderness. He still has a head sensation when standing up and trying to balance. Objective Data Objective Data Vital Signs: Vital Signs Temp Pulse Resp BP Pulse Ox O2 Del Method O2 Flow Rate 98.7 F 82 18 109/67 98 Room Air 2 11/19/23 19:30 11/19/23 21:27 11/19/23 19:30 11/19/23 21:27 11/19/23 19:30 11/19/23 19:30 11/17/23 21:45 Oxygen Flow Rate (L/min) 2 Oxygen Delivery Method Room Air Weight: 212 lb 15.465 oz Body Mass Index (BMI) 32.3 Intake & Output: Intake and Output for Last 24 Hours 11/18/23 11/19/23 11/20/23 23:59 23:59 23:59 Intake Total 1900 / 1900 1460 / 1460 360 / 360 Output Total 3950 / 3950 1500 / 1950 650 / 650 Balance -2050 / -2050 -40 / -490 -290 / -290 Lab / Micro Data 11/10/23 06:49 11/17/23 08:35 Labs: Laboratory Results - last 24 hr 11/19/23 11:19: POC Glucose 153 H 11/19/23 16:29: POC Glucose 122 H 11/19/23 21:31: POC Glucose 125 H 11/20/23 06:06: POC Glucose 105 Physical Exam Const alert, oriented x3 and no apparent distress General Appearance: cooperative Orientation / Consciousness: Negative for confused HEENT moist oral mucous membranes Resp normal respiratory effort and clear to auscultation bilaterally Resp Narrative: No conversational dyspnea Effort and Inspection: tachypneic GI normal to inspection, nondistended, normoactive bowel sounds, soft to palpation and non-tender Extremity no calf tenderness General Extremity: Negative for edema Skin General Skin Exam: no breakdown Rashes: no rashes Psych affect normal Appearance: appropriate Attitude: No agitated Activity / Motor Behavior: Negative for restless Assessment & Plan Assessment/Plan (1) Debility: (2) Ischemic cerebrovascular accident (CVA): (3) Dysphagia: (4) Diabetes mellitus, type 2: QUALIFIERS: Diabetes mellitus intermediate card tender insulin use: without intermediate card tender use Diabetes mellitus complication status: with circulatory complication (5) DEVI (obstructive sleep apnea): (6) Ischemic cardiomyopathy: (7) Grade II diastolic dysfunction: (8) Right ventricular enlargement: (9) Abnormal LFTs: PLAN: Plan 1. Continue therapy 2. Decrease Accu-Cheks to twice daily 3. Agatha will come in to rehab on morning for shared care. Agatha will not always be home with Yan so he must be able to be by himself safely prior to DC. Walking with a cane now, 200' today, with no LOB on various surfaces. Unsteady at times. Has ataxic movement of the LLE. He is able to do two 6 inch steps and three 4 inch steps with 1 handrail at contact-guard assist now. He completed the tug and 16.33 seconds today and can do 7 sit to stands in 30 seconds using his bilateral upper extremities. I think that he is fearful about going home..........will see how it goes on , suspect he may need another week in therapy be able to be by himself at home. 4. Agatha will get me the fax of office numbers for his photographer news and will fax him a copy of ECHO, Labs and H&P and DSC when he is ready to go home. 5. He is stable on Lasix 40 mg only once daily in the AM. Charges/Coding Visit Charges Inpatient E&M: 91803 Subs Hosp L2
[2023-11-20] MEDS: SACUBITRIL/VALSARTAN 49-51 MG TABLET 1 EACH PO (09:26)
[2023-11-20] MEDS: Famotidine 20 MG Tablet PO (09:26)
[2023-11-20] MEDS: Aspirin E.C. 81 MG Tablet PO (09:26)
[2023-11-20] MEDS: Clopidogrel Bisulfate 75 MG Tablet PO (09:27)
[2023-11-20] MEDS: Furosemide 40 MG Tablet PO (09:27)
[2023-11-20] MEDS: Spironolactone 25 MG Tablet PO (09:27)
[2023-11-20] MEDS: Empagliflozin 10 MG Tablet PO (09:27)
[2023-11-20 09:28] VITALS: BP 105/59; PULSE 88; RESP 16; TEMP 36.8; O2SAT 95
[2023-11-20 11:33] LABS: Bedside Glucose 129 mg/dL (74-106)
--- NOTE | 2023-11-20 14:18 | CASEMGMT ---
Team meeting held today with pt and pt's present. PT/OT/SN updated pt on progress with therapy. NRD with insurance is 11/22. MARIA INES spoke with pt and spouse regarding setting a discharge date as pt has improved greatly with therapy. Pt to come in for family training on and dc date set for Friday 11/24. Therapy is recommending outpt PT/OT and pt would like to use [facility]. Pt has a cane but would like to get a cane similar to the one he has used on rehab. SW will provide pt with a script. Continue with therapy at this time with dc home with on 11/24. JALEN Balderas
[2023-11-20 17:13] LABS: Bedside Glucose 101 mg/dL (74-106)
[2023-11-20 19:53] VITALS: BP 98/65; PULSE 79; RESP 16; TEMP 36.4; O2SAT 100
[2023-11-20 21:45] VITALS: PULSE 79; RESP 16
[2023-11-20] MEDS: Atorvastatin Calcium 80 MG Tablet PO (22:10)
[2023-11-21 06:00] VITALS: BMI 32.3
[2023-11-21] MEDS: Levothyroxine 25 MCG TABLET PO (07:06)
[2023-11-21] MEDS: Enoxaparin 40 MG/0.4 ML Syringe SC (07:06)
[2023-11-21 07:13] VITALS: BP 98/66; PULSE 67; RESP 17; TEMP 36.7; O2SAT 95
[2023-11-21 07:13] LABS: Bedside Glucose 114 mg/dL (74-106)
[2023-11-21] MEDS: Clopidogrel Bisulfate 75 MG Tablet PO (08:27)
[2023-11-21] MEDS: Spironolactone 25 MG Tablet PO (08:27)
[2023-11-21] MEDS: Empagliflozin 10 MG Tablet PO (08:28)
[2023-11-21] MEDS: Aspirin E.C. 81 MG Tablet PO (08:28)
[2023-11-21] MEDS: Famotidine 20 MG Tablet PO (08:28)
--- NOTE | 2023-11-21 10:23 | PCM.PROGNOTE ---
Subjective Subjective Afebrile VSS - Maintaining appropriate oxygen saturation on RA Oral intake - FOOD good FLUIDS poor the past few days. Most days he is in negative fluid balance. Weight today is 212 pounds and 15 ounces which is up approximately 2-1/2 pounds since 11/18/2023. Discussed with nursing - no problems that need addressed Reviewed the THERAPY notes Medication list reviewed. The last 2 doses of Entresto have been held secondary to systolic blood pressure less than 100. Yan denies lightheadedness, cephalgia, vertigo, chest pain, orthopnea, dyspnea on exertion, dysuria and calf tenderness. He has no complaints today. Objective Data Objective Data Vital Signs: Vital Signs Temp Pulse Resp BP Pulse Ox O2 Del Method O2 Flow Rate 98.1 F 67 17 98/66 95 Room Air 2 11/21/23 07:13 11/21/23 07:13 11/21/23 07:13 11/21/23 07:13 11/21/23 07:13 11/21/23 07:13 11/17/23 21:45 Oxygen Flow Rate (L/min) 2 Oxygen Delivery Method Room Air Weight: 212 lb 15.465 oz Body Mass Index (BMI) 32.3 Intake & Output: Intake and Output for Last 24 Hours 11/19/23 11/20/23 11/21/23 23:59 23:59 23:59 Intake Total 1460 / 1460 960 / 960 60 / 60 Output Total 1500 / 1950 1325 / 1325 250 / 250 Balance -40 / -490 -365 / -365 -190 / -190 Lab / Micro Data 11/23/23 05:15 11/23/23 05:15 Labs: Laboratory Results - last 24 hr 11/20/23 11:13: POC Glucose 129 H 11/20/23 16:54: POC Glucose 101 11/21/23 06:26: POC Glucose 114 H Physical Exam Const alert, oriented x3 and no apparent distress Resp normal respiratory effort and clear to auscultation bilaterally Resp Narrative: No conversational dyspnea Effort and Inspection: tachypneic Cardio regular rate, regular rhythm, no murmurs and no gallops Cardio Narrative: no ectopy GI normal to inspection, nondistended, normoactive bowel sounds, soft to palpation and non-tender Extremity no calf tenderness Extremity Narrative: mild ankle edema.....TEDS are in place. Skin General Skin Exam: no breakdown Rashes: no rashes Psych affect normal Appearance: appropriate Assessment & Plan Assessment/Plan (1) Debility: (2) Ischemic cerebrovascular accident (CVA): (3) Dysphagia: (4) Diabetes mellitus, type 2: QUALIFIERS: Diabetes mellitus assistant terminal manager insulin use: without senior living use Diabetes mellitus complication status: with circulatory complication (5) DEVI (obstructive sleep apnea): (6) Ischemic cardiomyopathy: (7) Grade II diastolic dysfunction: (8) Right ventricular enlargement: (9) Abnormal LFTs: PLAN: Plan 1. Continue therapy 2. Recheck a CBC and BMP on 3. Check orthostatics today 4. In negative fluid balance for several days but, wt went up 2.5 lbs? I suspect his fluid intake is better than what is being recorded. Charges/Coding Visit Charges Inpatient E&M: 31872 Subs Hosp L1
[2023-11-21 10:58] VITALS: BP 100/62; BP 110/67; BP 112/72; PULSE 89; PULSE 91; PULSE 97
[2023-11-21 17:07] LABS: Bedside Glucose 122 mg/dL (74-106)
[2023-11-21 21:35] VITALS: BP 91/59; PULSE 94; RESP 15; TEMP 36.4; O2SAT 97
[2023-11-21] MEDS: Atorvastatin Calcium 80 MG Tablet PO (21:39)
[2023-11-22] MEDS: Enoxaparin 40 MG/0.4 ML Syringe SC (06:23)
[2023-11-22] MEDS: Furosemide 40 MG Tablet PO (06:24)
[2023-11-22] MEDS: Levothyroxine 25 MCG TABLET PO (06:24)
[2023-11-22 06:26] VITALS: BMI 32.3
[2023-11-22 07:18] LABS: Bedside Glucose 103 mg/dL (74-106)
[2023-11-22 07:20] VITALS: BP 97/66; PULSE 73; RESP 15; TEMP 36.7; O2SAT 98
[2023-11-22] MEDS: Spironolactone 25 MG Tablet PO (08:10)
[2023-11-22] MEDS: Clopidogrel Bisulfate 75 MG Tablet PO (08:10)
[2023-11-22] MEDS: Aspirin E.C. 81 MG Tablet PO (08:10)
[2023-11-22] MEDS: Famotidine 20 MG Tablet PO (08:10)
[2023-11-22] MEDS: Empagliflozin 10 MG Tablet PO (08:10)
[2023-11-22] MEDS: Senna/Docusate Sodium 1 Tablet 2 TABLET PO (08:10)
[2023-11-22 17:19] LABS: Bedside Glucose 102 mg/dL (74-106)
[2023-11-22 20:00] VITALS: BP 104/67; PULSE 75; RESP 17; TEMP 36.9; O2SAT 97
[2023-11-22] MEDS: SACUBITRIL/VALSARTAN 49-51 MG TABLET 1 EACH PO (21:00)
[2023-11-22] MEDS: Atorvastatin Calcium 80 MG Tablet PO (21:00)
[2023-11-23 05:26] LABS: Hematocrit 46.6 % (40-54); Hemoglobin 15.3 g/dL (13.0-16.5); Mean Corp Hgb Conc 32.8 g/dL (32-36); Mean Corpuscular Hgb 29.3 pg (27.0-32.0); Mean Corpuscular Volume 89.3 fL (80-94); Mean Platelet Vol. 9.7 fl (6.2-12.0); Platelet Count 331 K/mm3 (150-450); RBC Distribution Width CV 14.5 % (11.6-14.6); RBC Distribution Width SD 47.2 fl (35.1-43.9); Red Blood Count 5.22 M/mm3 (4.6-6.2); White Blood Count 6.1 K/mm3 (4.4-11.0)
[2023-11-23 05:49] LABS: Anion Gap 5 (5-15); BUN 20 mg/dL (7-18); BUN/Creat Ratio 25.4 RATIO (10-20); Calcium,Total 9.4 mg/dL (8.5-10.1); Chloride 104 mmol/L (98-107); Creatinine, Serum 0.79 mg/dL (0.70-1.30); EST Glomerular Filtration Rate 106 mL/min (>60); Est Glom Filt Rate - Afr Amer 128 mL/min (>60); Estimated Creatinine Clearance 108.08 ml/min; Glucose 94 mg/dL (74-106); Potassium 3.8 mmol/L (3.5-5.1); Sodium Level 137 mmol/L (136-145)
[2023-11-23] MEDS: Levothyroxine 25 MCG TABLET PO (06:19)
[2023-11-23] MEDS: Enoxaparin 40 MG/0.4 ML Syringe SC (06:19)
[2023-11-23 06:32] LABS: Bedside Glucose 97 mg/dL (74-106)
[2023-11-23 06:57] VITALS: BP 96/69
[2023-11-23] MEDS: Aspirin E.C. 81 MG Tablet PO (07:57)
[2023-11-23] MEDS: Spironolactone 25 MG Tablet PO (07:57)
[2023-11-23] MEDS: Clopidogrel Bisulfate 75 MG Tablet PO (07:57)
[2023-11-23] MEDS: Famotidine 20 MG Tablet PO (07:58)
[2023-11-23] MEDS: Empagliflozin 10 MG Tablet PO (07:58)
[2023-11-23 08:07] VITALS: BMI 31.9
[2023-11-23 08:09] VITALS: BP 93/52; PULSE 75; RESP 17; TEMP 36.7; O2SAT 97
--- NOTE | 2023-11-23 11:12 | PN_ITS ---
Subjective Subjective Afebrile VSS -blood pressures over the past 24 hours have ranged 93/52 to 104/67. Entresto is being held more often than not. Orthostatics are negative. Maintaining appropriate oxygen saturation on RA Oral intake - FOOD good FLUIDS. variable...... Blood sugars are very well-controlled with no hypoglycemia Weight is down 6 pounds since arrival on rehab. He is on an 1800-calorie carb consistent, cardiac diet. Discussed with nursing - no problems that need addressed Reviewed the THERAPY notes Medication list reviewed. All lab drawn today was personally reviewed. White blood cell count is normal and the hemoglobin is stable at 15.3. Platelet count is 331,000. Sodium is 137 potassium is 3.8. Creatinine is 0.79 today, down from 1.04 on 11/17/2023. BUN is stable at 20. Calcium is normal. Denies lightheadedness, chest pain, shortness of breath with exertion, orthopnea, paroxysmal nocturnal dyspnea, nausea/vomiting/abdominal pain, dysuria and calf tenderness. Objective Data Objective Data Vital Signs: Vital Signs Temp Pulse Resp BP Pulse Ox O2 Del Method O2 Flow Rate 98.0 F 75 17 93/52 L 97 Room Air 2 11/23/23 08:09 11/23/23 08:09 11/23/23 08:09 11/23/23 08:09 11/23/23 08:09 11/23/23 08:09 11/17/23 21:45 Oxygen Flow Rate (L/min) 2 Oxygen Delivery Method Room Air Weight: 211 lb Body Mass Index (BMI) 31.9 Intake & Output: Intake and Output for Last 24 Hours 11/21/23 11/22/23 11/23/23 23:59 23:59 23:59 Intake Total 1310 / 1310 2380 / 2380 300 / 300 Output Total 1850 / 1850 1775 / 1775 475 / 475 Balance -540 / -540 605 / 605 -175 / -175 Lab / Micro Data 11/23/23 05:15 11/23/23 05:15 Labs: Laboratory Results - last 24 hr 11/22/23 16:59: POC Glucose 102 11/23/23 05:15: WBC 6.1, RBC 5.22, Hgb 15.3, Hct 46.6, MCV 89.3, MCH 29.3, MCHC 32.8, RDW Std Deviation 47.2 H, RDW Coeff of Miles 14.5, Plt Count 331, MPV 9.7, Sodium 137, Potassium 3.8, Chloride 104, Carbon Dioxide 28.0, Anion Gap 5, BUN 20 H, Creatinine 0.79, Estim Creat Clear Calc 108.08, Est GFR (MDRD) Af Amer 128, Est GFR (MDRD) Non-Af 106, BUN/Creatinine Ratio 25.4 H, Glucose 94, Calcium 9.4 11/23/23 06:10: POC Glucose 97 Physical Exam Const alert, oriented x3 and no apparent distress Constitutional Narrative: Sitting in the recliner at the bedside with his legs dependent. General Appearance: cooperative Orientation / Consciousness: Negative for confused HEENT moist oral mucous membranes Eyes PERRL Eyes Narrative: Has a few beats of nystagmus with lateral gaze to the R. Neck no lymphadenopathy, supple, no JVD, No nodes and no carotid bruits General: trachea midline Resp normal respiratory effort, normal air movement and clear to auscultation bilaterally Resp Narrative: No conversational dyspnea. Able to speak in complete sentences. No cough with deep breathing. Effort and Inspection: tachypneic; Negative for labored Cardio regular rate, regular rhythm, no murmurs, no rub and no gallops Cardio Narrative: No ectopy GI normal to inspection, nondistended, normoactive bowel sounds, soft to palpation and non-tender GI Narrative: No guarding with palpation Extremity no calf tenderness Extremity Narrative: He has knee high TEDS on. He has mild edema of the ankles.......this may be related to having his legs dependent. Edema is mild and Lungs are CTA. General Extremity: edema Skin no jaundice and no petechiae Skin Narrative: There is evidence of a puncture wound on the right forearm extensor surface. This was site of a previous IV. There is no discharge from the puncture however he has erythema and increased warmth to touch and also has some tenderness with palpation of the area. General Skin Exam: no breakdown Rashes: no rashes Neuro CN's II-XII intact bilaterally, no focal motor deficits and no sensory deficits noted Neuro Narrative: No nystagmus. Using a SC for ambulation now with no LOB. Good pace when ambulating and has ambulated on various surfaces with a SC at [facility] with no LOB. Speech: speech normal Psych cooperative and affect normal Psych Narrative: Affect is a little flat. Appearance: appropriate Attitude: No agitated Activity / Motor Behavior: Negative for restless Mood & Affect: Negative for anxious Thought Content: No suicidality, No homicidality, No delusion(s) and No hallucination(s) Assessment & Plan Assessment/Plan (1) Debility: (2) Ischemic cerebrovascular accident (CVA): (3) Dysphagia: (4) Diabetes mellitus, type 2: QUALIFIERS: Diabetes mellitus intermediate designer insulin use: without chcf use Diabetes mellitus complication status: with circulatory complication (5) DEVI (obstructive sleep apnea): (6) Ischemic cardiomyopathy: (7) Grade II diastolic dysfunction: (8) Right ventricular enlargement: (9) Abnormal LFTs: PLAN: Plan 1. Continue therapy 2. Plan discharge on 11/25/2023. 3. Will follow-up with cardiology. 4. I advised him to get a blood pressure cuff if he does not have 1 and to take his blood pressure daily prior to taking Entresto. If the systolic is less than 100 he is not to take the Entresto. 5. I answered Agatha's questions today. He gets his RX's from [facility]. 6. Will need a str cane at DC. 7. DC Monday to home. Family/shared care training with Agatha went well. She feels confident she can provide the assistance he needs at home. Charges/Coding Visit Charges Inpatient E&M: 58116 Subs Hosp L1
--- NOTE | 2023-11-23 15:22 | CHAPLAIN ---
Type of Pastoral Visit ___ Initial Visit ___ Follow-up Visit ___ On-call Visit ___ General Patient Visit ___ Spiritual Assessment ___ Family Conference ___ Bereavement ___ Rapid Response ___ Code Blue ___ Other (describe below) Pastoral Care Referral From ___ Patient ___ Family ___ Nurse ___ Physician ___ Shadowgraph Scale Operator ___ Coremaker Machine ___ Other (describe below) Sacrament/Intervention ___ Active listening ___ Anointing ___ Catholic ___ Bereavement ___ Communion ___ Sierra exploration ___ ___ Life review ___ Prayer ___ Reconciliation ___ Sacrament of Sick ___ Supportive presence ___ Wedding ___ Other (describe below) Pastoral Comments patient speaks of his departure date of Monday and the improvements made; pt is apprehension about about home too quickly but will have help of family; pt goal is to eat food that tastes better; conversation and listening on how th pt is coping
--- NOTE | 2023-11-23 16:20 | CASEMGMT ---
Addendum entered by Akil Tobias 11/23/23 16:29: Correction discharge 11/25/2023 Original Note: SOCIAL WORK SW met with patient at bedside to provide Rx for cane. Patient confirmed that he would like to discharge to [facility]. SW submitted referral to [facility] to assist in arranging outpatient therapy. Discharge 11/26/23: Home with outpatient therapy at [facility] for PT/OT BERT King
[2023-11-23 17:03] LABS: Bedside Glucose 103 mg/dL (74-106)
[2023-11-23 19:29] VITALS: BP 102/63; PULSE 75; RESP 18; TEMP 36.6; O2SAT 98
[2023-11-23 21:16] VITALS: BP 99/66; PULSE 75
[2023-11-23] MEDS: Atorvastatin Calcium 80 MG Tablet PO (21:35)
[2023-11-23 22:00] VITALS: PULSE 75; RESP 16; O2SAT 98
[2023-11-24 06:00] VITALS: BMI 31.9
[2023-11-24] MEDS: Levothyroxine 25 MCG TABLET PO (06:22)
[2023-11-24] MEDS: Enoxaparin 40 MG/0.4 ML Syringe SC (06:22)
[2023-11-24 06:32] LABS: Bedside Glucose 110 mg/dL (74-106)
[2023-11-24 07:00] VITALS: BP 95/66; PULSE 71; RESP 16; TEMP 36.4; O2SAT 98
[2023-11-24 08:41] VITALS: BP 92/56
[2023-11-24] MEDS: Empagliflozin 10 MG Tablet PO (08:46)
[2023-11-24] MEDS: Famotidine 20 MG Tablet PO (08:46)
[2023-11-24] MEDS: Aspirin E.C. 81 MG Tablet PO (08:46)
[2023-11-24] MEDS: Spironolactone 25 MG Tablet PO (08:46)
[2023-11-24] MEDS: Clopidogrel Bisulfate 75 MG Tablet PO (08:47)
--- NOTE | 2023-11-24 11:07 | DCINST_ITS ---
Discharge Instructions Diet Discharge Diet: - (1800 calorie carbohydrate consistent, low salt and low fat) Activity Discharge Activity: May Not Drive, May Shower (Should be supervised in the shower for the first 2 weeks post Discharge. ) and - (use cane) Return to work on:: 02/09/24 Weight Bearing Status: Full weight bearing Lifting Restrictions: No more than 10 lbs Keep extremity elevated above heart level: Legs Additional Activity Instructions:: Do the exercises given to you by the therapists prior to discharge at least 6 days a week. Dressing / Incision Call your doctor if you observe: Fever of 101 or Higher, Inability to urinate, Shortness of breath, Dizziness, Fainting spells, Swelling in the ankles (Increased swelling in the legs over what is was the day of discharge from rehab. ), Chest pain, Increased palpitations (irregular heartbeat), Calf discomfort and - (STROKE symptoms: facial droop, slurred speech, inability to get words out, weakness on 1 side of the body and not the other, numbness on 1 side of the body and not the other, inability to maintain your balance sitting or standing, vertigo. ) Follow Up Care Please Follow Up With: Carri Gannon, When: within 5-10 days post DC from rehab. you will also need to foLlow up with Dr. Melo and with neurology. Test Results: Test results from this visit will be discussed in further detail at your follow- up appointment, if applicable. Pending Tests Upon Discharge: none Discharge Plan Admission Admit Date/Time: 11/09/23 18:09 Primary Reason for Your Visit: Post stroke debility Attending Provider: Serenity Jalloh Primary Care Provider: Carri Gannon Instructions Patient Instructions: Cardiomyopathy Dc, Discharge Instructions for Stroke, AFib, Heart Failure Additional Instructions / Restrictions: 1. You have done very well in therapy. I did not expect you to progress in therapy as fast as you have. You had multiple strokes on both sides of the brain. There are 2 kinds of strokes, hemorrhagic and ischemic. The hemorrhagic is when a blood vessel bursts in the brain usually due to very high BP or to an aneurysm. About 15% of all strokes are hemorrhagic. You had ischemic strokes. An ischemic stroke happens when there is a blockage in an artery in the neck or head and then oxygen can not get to the portion of the brain distal to the blockage. Blockage is usually caused by atherosclerosis (narrowing of an artery due to uncontrolled diabetes, hypertension, cholesterol) or to blood clots (called emboli). Because you had multiple strokes and they were on both sides of the brain I suspect the strokes were embolic. One of the most common causes of emboli to the brain is atrial fibrillation, also called AF. AFIB is a problem with the rhythm of the heart. AFIB can happen sporadically and it can be difficult to detect it. If you have AFIB you need to be on an anticoagulant to prevent more strokes going forward. You have heart disease and your heart is weak and does not pump as well as it should. When you came into the hospital you were in heart failure. Being in heart failure increases your risk for AFIB. This is related to not taking the Lasix as instructed. Now that you are back on Lasix daily your lungs are clear and you have only mild swelling of your legs. You have lost over 30 lbs (a lot of this is due to fluid loss) since your initial presentation to the ER. It is very important to take your medications exactly as prescribed. 2. Your blood sugars are very well controlled on your current medications and a 1800 calorie, carb consistent diet. I think you should do your best to stick to an 1800 calorie diet. Right now your BMI is 32 and we would like to see it under 30. A BMI of 26-30 is considered overweight and over 30 is considered obese. 3. Stay ACTIVE. This will help with weight control, blood sugar control, it will help your heart perform better and it will make it easier for you to stay functional. Do the exercises given to you by the therapists at least 6 days a week. 4. I gave you some literature to read about strokes and heart failure and AFIB. Please read these handouts.....they have a lot of good information in them that will help keep you healthy going forward. 5. Your display carver will talk to you about the rhythm of your heart once he reviews the results of the 30 day event monitor. 6. You will need to follow up with a neurologist for the strokes. 7. If you or Agatha have any questions after you leave rehab please do not hesitate to call me. OFFICE: [phone] CELL: [phone] 1. Remember these 3 goals: LDL (bad cholesterol) 70 or less, HGBA1C 7 or less and BP less than 120/80. Your BP has been on the low side since you have been on low salt and you have lost weight. We have not been able to give you the Entresto often times because the top number of the BP has been less than 100. You should have a BP cuff at home and take your BP prior to taking the Entresto. If the top number is less than 100 then do not take the Entresto. 2. Get in the habit of weighing yourself every morning after urinating. If your weight increases by 5 lbs or more in 1 week call your display carver and cut back on salt and fluids until your weight is back to baseline. 3. You have not needed any supplemental oxygen for the past couple weeks in rehab. I think in the past you needed oxygen with ambulation because you were chronically in CHF (congestive heart failure) because you were not compliant with your medications) I think the wheezing was also due to CHF and not to asthma. You have not used the Albuterol inhaler or the other inhaler since you arrived on rehab. Discharge Orders/Prescriptions Prescriptions: New furosemide 40 mg Tablet 40 mg PO 0700 Qty: 30 0RF spironolactone 25 mg Tablet 25 mg PO DAILY Qty: 30 0RF Continued clopidogrel 75 mg tablet 75 mg PO DAILY albuterol sulfate 90 mcg/actuation HFA aerosol inhaler 2 puff inhalation Q4H PRN (Reason: shortness of breath or wheezing) Qty: 8.5 3RF Rx Instructions: administer with spacer levothyroxine 25 mcg tablet 25 mcg PO DAILY Jardiance 10 mg tablet 10 mg PO DAILY Qty: 30 1RF atorvastatin 80 mg Tablet 80 mg PO QHS famotidine 20 mg tablet 20 mg PO DAILY aspirin 81 mg Tablet,Delayed Release (Dr/Ec) 81 mg PO DAILY Entresto 49-51 mg tablet 1 tab PO BID Discontinued torsemide 20 mg tablet 20 mg PO BID budesonide-formoterol [Symbicort] 160-4.5 mcg/actuation HFA aerosol inhaler 2 puff inhalation BID PRN (Reason: sob) Rx Instructions: administer with spacer, rinse mouth after each use Referrals / Follow Up: Carri Gannon DO [Primary Care Provider] - 11/28/23 2:00 pm Refugio Welch MD [Non-Staff] - 12/06/23 10:45 am (office will send paperwork to your home and bring with you to the appt) Disposition Disposition (needs filled in before D/C Order can be placed): Home, Self Care
--- NOTE | 2023-11-24 12:40 | DS.PCM_ITS ---
Providers Date of Admission: 11/09/23 Date of Discharge: 11/25/23 Primary Care Physician: Dr. Carri Gannon, DO none Reason For Visit: STROKE Diagnosis Discharge Diagnosis (1) Debility: Status: Acute Code(s): R53.81 - Other malaise (2) Ischemic cerebrovascular accident (CVA): Status: Acute Code(s): I63.9 - Cerebral infarction, unspecified Plan: Multiple BL ischemic strokes involving the bilateral cerebellar infarcts, left occipital infarct and thalamic CVA's. ASA, Plavix, atorvastatin at DC. Has a 30 [address] monitor in place at the time of DC. (3) Dysphagia: Status: Acute Code(s): R13.10 - Dysphagia, unspecified Qualifiers: Dysphagia type: unspecified Qualified Code(s): R13.10 - Dysphagia, unspecified (4) Diabetes mellitus, type 2: Status: Acute Code(s): E11.9 - Type 2 diabetes mellitus without complications Qualifiers: Diabetes mellitus complication status: with neurologic complications D iabetes mellitus group home insulin use: without superintendent container terminal use Diabetes mellitus complication detail: with other neurological complication Qualified Code(s): E 11.49 - Type 2 diabetes mellitus with other diabetic neurological complication Plan: Well controlled at the time of discharge from rehab on an 1800 calorie, carb consistent diet and Jardiance 10 mg daily. (5) Ischemic cardiomyopathy: Status: Acute Code(s): I25.5 - Ischemic cardiomyopathy Plan: Transthoracic echocardiogram at [facility] showed a mildly dilated left ventricle with an ejection fraction estimated to be 25 to 30%. There was evidence of diastolic dysfunction and severe hypokinesis of the apex, inferior wall and lateral wall. Repeat transthoracic echocardiogram at [facility] showed a 35 to 40% ejection fraction with grade 2 diastolic dysfunction and right ventricular enlargement. (6) Grade II diastolic dysfunction: Status: Acute Code(s): I51.89 - Other ill-defined heart diseases (7) Right ventricular enlargement: Status: Acute Code(s): I51.7 - Cardiomegaly (8) Abnormal LFTs: Status: Acute Code(s): R79.89 - Other specified abnormal findings of blood chemistry (9) Cellulitis: Status: Resolved Code(s): L03.90 - Cellulitis, unspecified Qualifiers: Site of cellulitis: extremity Site of cellulitis of extremity: upper extremity Laterality: right Qualified Code(s): L03.113 - Cellulitis of right upper limb (10) Noncompliance: Status: Chronic Code(s): Z91.199 - Patient's noncompliance with other medical treatment and regimen due to unspecified reason Plan: Was not taking his diuretics at home. He has lost over 30 lbs since initial presentation to the ER. Much of this was fluid loss. HE is stable on Lasix 40 mg and Spironolactone 25 mg daily at the time of DC from rehab. He was educated while in rehab on the importance of taking his medications exactly as prescribed and being upfront with his manager of clinical when he is not taking his medications. (11) Acute on chronic systolic CHF (congestive heart failure): Status: Chronic Code(s): I50.23 - Acute on chronic systolic (congestive) heart failure Plan: BL pleural effusions and pulmonary vascular congestion on XRAY at presentation to ER. Weight at presentation to the emergency room on 11/03/2023 was 246 pounds and 0.574 ounces. Weight at discharge from rehab is 210 pounds and 12.2 ounces. Plan 1. DC to home with OP therapy at [facility]. DME - straight cane. Medications at Discharge Home Medications levothyroxine 25 mcg tablet 25 mcg PO DAILY Thyroid] 04/29/22 empagliflozin 10 mg tablet (Jardiance) 10 mg PO DAILY Diabetes #30 tabs 05/04/22 clopidogrel 75 mg tablet 75 mg PO DAILY heart 09/21/22 albuterol sulfate 90 mcg/actuation aerosol inhaler 2 puff inhalation Q4H PRN shortness of breath or wheezing #8.5 grams 11/10/22 atorvastatin 80 mg tablet 80 mg PO QHS cholesterol 11/03/23 aspirin 81 mg tablet,delayed release 81 mg PO DAILY heart health 11/09/23 famotidine 20 mg tablet 20 mg PO DAILY antacid 11/09/23 sacubitril 49 mg-valsartan 51 mg tablet (Entresto) 1 tab PO BID Blood Pressure 11/15/23 furosemide 40 mg tablet 40 mg PO 0700 #30 tabs 11/24/23 spironolactone 25 mg tablet 25 mg PO DAILY #30 tabs 11/24/23 Hospital Course Operations None Procedures 2-D Echocardiogram (TTE done at [facility] and repeated at [facility]. ) and - (FEES done at [facility]. ) Summary of Care Provided Minutes Spent on Discharge: 45 Hospital Course: ESSENCE ENGLAND, is a 63 YO M with a PMH of obesity, hypothyroidism, coronary artery disease, Hx of STEMI, Hx of stenting of the LAD on 06/14/2022, ischemic cardiomyopathy (EF 15-20% in the past) , diabetes mellitus type 2, essential hypertension, obstructive sleep apnea, secondary pulmonary hypertension, non- compliance with medications as OP and a lung mass who presented to the emergency department at [facility] on 11/03/2023 complaining of vertigo/dizziness. He felt fine when he went to bed on 11/02/23 but, he awoke in the middle of the night to use the restroom and was severely dizzy and nauseated. He felt weak had had difficulty ambulating. Stat noncontrast CT brain showed chronic white matter changes but no acute findings. He was given Antivert with no improvement and he was unable to ambulate. He was admitted to the hospitalist service. MRI showed a moderate size acute infarct present in left cerebellar lobe. There were also small acute infarcts present on the right side of the cerebellar vermis and in the posterior midline aspect of the right cerebellar lobe. CTA of the head and neck showed an occluded left superior cerebellar artery and an occluded right vertebral artery. There was mild atherosclerotic plaque and stenosis of the bilateral internal carotid arteries of the neck with less than 50% stenosis. Transthoracic echocardiogram showed a mildly dilated left ventricle with an ejection fraction estimated at 25 to 30%. There was evidence of diastolic dysfunction and there was severe hypokinesis of the apex, inferior wall and lateral wall. There was no significant valvular disease. Consult was obtained with tele-neurology and he was transferred to [facility] for additional W/U on 11/04/23. At presentation to [facility] he was alert but agitated. NIH was 3 for dysarthria, limb ataxia and left upper extremity weakness. Repeat CT head at [facility] showed bilateral cerebellar infarcts, left occipital infarct, right greater than left thalamic CVA's with hemorrhagic conversion. There was acute cytotoxic cerebral edema with brain compression. Neurosurgery was consulted but the patient did not require EVD or craniotomy. Antiplatelet agents were placed on hold but, ASA was restarted on 11/05 when follow up CTH showed the hemorrhagic transformation to be stable. He had a FEES on 10/27/23 and was placed on a carb controlled diet with regular textures and thin liquids. While at [facility] he was seen by PT/OT/ST and recommendation was made for acute inpatient rehab at discharge from [facility]. He was transferred to the acute inpatient rehab unit at [facility] on 11/09/2023 for 3 hours of therapy daily to restore function/independence at or near his level prior to the recent strokes. Plavix was restarted at the time of transfer to acute rehab. Significant lab during his stay in the acute hospital included a hemoglobin A1c of 5.7, LDL of 40 and HDL of 51. Lab prior to discharge from rehab showed a potassium of 3.8 and a BUN of 20 with a stable creatinine at 0.79. Magnesium is 2.1. At presentation to rehab Essence had cellulitis of the R forearm at the site of a previous IV. He was treated with Keflex with good success. NIH at presentation to rehab was 2 for ataxia in 1 limb (LUE) and the R eye did not adduct completely to the lateral canthus. He had no visual field cuts. He had nystagmus with right lateral gaze. He had cognitive dysfunction and was having difficulty with memory and word recall. He was seen by PT/OT and ST. Essence did very well in therapy and prior to DC he was independent with eating, grooming, upper body dressing and bathing, lower body bathing and dressing with AE as needed, toilet transfer and toileting and shower transfer. He was able to ascend/descend three 4 inch steps with a straight cane at contact-guard assist. He has ambulated up to 472 feet on various surfaces with a straight cane at mod I. Essence's Agatha came in for family training prior to his DC and Essence and Agatha both thought he would be safe at home by himself for short periods of time when Agatha can not be there. Essence elected to follow up at [facility] as an OP and an appt was made by the prior to DC. Several doses of Entresto had to be held during his stay on rehab due to the systolic being < 100. Orthostatic VS's were negative and Essence denies lightheadedness. His exercise tolerance is much better than at admission to rehab and he denies BAILEY. He also denies orthopnea and PND. He has mild edema of the ankles which is being controlled with CRYSTAL hose. His lungs have been clear with no wheezing and no rales. Essence was discharged from rehab on 11/25/23 and will follow up with Dr. Carri Gannon, Dr. Melo (cardiology) and Dr. Welch from neurology. Physical Exam Const alert, oriented x3 and no apparent distress Constitutional Narrative: Making good eye contact with me. Pleasant. Appropriate. General Appearance: cooperative and well kempt Eyes PERRL, EOMs intact bilaterally, conjunctivae normal and no scleral icterus Eyes Narrative: mild nystagmus with no complaints of vertigo with lateral gaze. No discharge from the eyes and no mattering of the eyelashes. General Eye: normal appearance of both eyes Neck no lymphadenopathy and supple General: trachea midline Chest Chest Narrative: Event monitor is in place Chest: symmetrical chest wall rise Resp normal respiratory effort, normal air movement and clear to auscultation bilaterally Effort and Inspection: able to speak in complete sentences Cardio regular rate, regular rhythm, no murmurs, no rub and no gallops GI normal to inspection, nondistended, normoactive bowel sounds, soft to palpation and non-tender Extremity no calf tenderness and no pedal edema Skin General Skin Exam: no breakdown Rashes: no rashes Neuro oriented x3, CN's II-XII intact bilaterally, moves all extremities, no focal motor deficits and no sensory deficits noted Neuro Narrative: Normal gaze now. Full ROM. Still with a mild slow nystagmus with extreme lateral gaze. Still with mild ataxia of the LUE. No extinction and no sensory loss. Walking at a good pace with a straight cane with no LOB. Psych mental status grossly normal, cooperative, affect normal and speech normal Appearance: appropriate and well kempt Attitude: calm Weight / BMI Weight Weight: 210 lb 12.191 oz Body Mass Index (BMI) 31.9 ABG / Lab / Microbiology Data 11/23/23 05:15 11/23/23 05:15 Laboratory: Laboratory Results - last 24 hr 11/23/23 16:39: POC Glucose 103 11/24/23 06:12: POC Glucose 110 H Indicators for Scoring Admitted with or Primary Diagnosis of CVA/Stroke: Yes Hx of CVA/Stroke: Yes Modified Celina Score MRS Score at time of Evaluation: 2-Slight disability NIHSS NIHSS 1a. Level of Consciousness: Alert; keenly responsive 1b. LOC Questions: Answers BOTH questions correctly. 1c. LOC Commands: Performs both tasks correctly. 2. Best Gaze: Normal (still with a mild nystagmus with lateral gaze) 3. Visual: No visual loss 4. Facial Palsy: Normal symmetrical movements 5a. Left Arm: No drift; arm holds 90 (or 45) degrees for full 10 seconds 5b. Right Arm: No drift; arm holds 90 (or 45) degrees for full 10 seconds 6a. Left Leg: No drift; leg holds 30-degree position for full 5 seconds 6b. Right Leg: No drift; leg holds 30-degree position for full 5 seconds 7. Limb Ataxia: Present in 1 limb (LUE) 8. Sensory: Normal; no sensory loss 9. Best Language: No aphasia; normal 10. Dysarthria: Normal 11. Extinction and Inattention: No abnormality Total: 1 (for L arm ataxia) Stroke Questions Stroke Team Activated: No D/C Instructions Discharge Diet: - (1800 calorie carbohydrate consistent, low salt and low fat) Discharge Activity: May Not Drive Return to work on: 02/09/24 Weight Bearing Status: Full weight bearing Keep extremity elevated above heart level: Legs Additional Activity Instructions: Do the exercises given to you by the therapists prior to discharge at least 6 days a week. Call your doctor if you observe: Fever of 101 or Higher, Inability to urinate, Shortness of breath, Dizziness, Fainting spells, Swelling in the ankles (Increased swelling in the legs over what is was the day of discharge from rehab. ), Chest pain, Increased palpitations (irregular heartbeat), Calf discomfort and - (STROKE symptoms: facial droop, slurred speech, inability to get words out, weakness on 1 side of the body and not the other, numbness on 1 side of the body and not the other, inability to maintain your balance sitting or standing, vertigo. ) Pending Tests Upon Discharge: none Please Follow Up With: Carri Gannon DO When: within 5-10 days post DC from rehab. you will also need to foLlow up with Dr. Melo and with neurology. Meaningful Use Info Meaningful Use Meaningful Use Diagnoses (Choose all that apply): Ischemic CVA CVA Therapy Assessed for PT,OT and/or ST?: Yes Ischemic Stroke Antithrombotic order at d/c?: Yes Dx of Atrial fib/flutter?: No Anticoagulant at discharge?: No Reason anticoagulant not ordered: Treatment not Indicated Statin Dosing Therapy Reference: STATIN DOSE THERAPY REFERENCE: * Patients > 75 years receive moderate or high dose statin therapy. * Patients 75 years or YOUNGER should receive HIGH intensity statin dose unless contraindicated. You will be required to document reason for non-treatment if statin daily dose does not meet guidelines. HIGH DOSE STATIN THERAPY DAILY Atorvastatin > than or = to 40 mg Rosuvastatin > than or = to 20 mg Amlodipine + Atorvastatin > than or = to 2.5/40 mg Ezetimibe + Simvastatin 10/80 mg Simvastatin 80mg Statins at discharge?: Yes If patient is 75 or younger, pt will be discharged on HIGH intensity statin.: Y es Primary Dx Acute Ischemic CVA?: Yes IV thrombolytic ordered during stay?: No Reason IV thrombolytic not ordered: Procedure not Indicated Discharge Plan Admission Admit Date/Time: 11/09/23 18:09 Primary Reason for Your Visit: Post stroke debility Attending Provider: Serenity Jalloh Primary Care Provider: Carri Gannon Instructions Patient Instructions: Cardiomyopathy Dc, Discharge Instructions for Stroke, AFib, Heart Failure Additional Instructions / Restrictions: 1. You have done very well in therapy. I did not expect you to progress in therapy as fast as you have. You had multiple strokes on both sides of the brain. There are 2 kinds of strokes, hemorrhagic and ischemic. The hemorrhagic is when a blood vessel bursts in the brain usually due to very high BP or to an aneurysm. About 15% of all strokes are hemorrhagic. You had ischemic strokes. An ischemic stroke happens when there is a blockage in an artery in the neck or head and then oxygen can not get to the portion of the brain distal to the blockage. Blockage is usually caused by atherosclerosis (narrowing of an artery due to uncontrolled diabetes, hypertension, cholesterol) or to blood clots (called emboli). Because you had multiple strokes and they were on both sides of the brain I suspect the strokes were embolic. One of the most common causes of emboli to the brain is atrial fibrillation, also called AF. AFIB is a problem with the rhythm of the heart. AFIB can happen sporadically and it can be difficult to detect it. If you have AFIB you need to be on an anticoagulant to prevent more strokes going forward. You have heart disease and your heart is weak and does not pump as well as it should. When you came into the hospital you were in heart failure. Being in heart failure increases your risk for AFIB. This is related to not taking the Lasix as instructed. Now that you are back on Lasix daily your lungs are clear and you have only mild swelling of your legs. You have lost over 30 lbs (a lot of this is due to fluid loss) since your initial presentation to the ER. It is very important to take your medications exactly as prescribed. 2. Your blood sugars are very well controlled on your current medications and a 1800 calorie, carb consistent diet. I think you should do your best to stick to an 1800 calorie diet. Right now your BMI is 32 and we would like to see it under 30. A BMI of 26-30 is considered overweight and over 30 is considered obese. 3. Stay ACTIVE. This will help with weight control, blood sugar control, it will help your heart perform better and it will make it easier for you to stay functional. Do the exercises given to you by the therapists at least 6 days a week. 4. I gave you some literature to read about strokes and heart failure and AFIB. Please read these handouts.....they have a lot of good information in them that will help keep you healthy going forward. 5. Your manager of clinical will talk to you about the rhythm of your heart once he reviews the results of the 30 day event monitor. 6. You will need to follow up with a neurologist for the strokes. 7. If you or Agatha have any questions after you leave rehab please do not hesitate to call me. OFFICE: [phone] CELL: [phone] 1. Remember these 3 goals: LDL (bad cholesterol) 70 or less, HGBA1C 7 or less and BP less than 120/80. Your BP has been on the low side since you have been on low salt and you have lost weight. We have not been able to give you the Entresto often times because the top number of the BP has been less than 100. You should have a BP cuff at home and take your BP prior to taking the Entresto. If the top number is less than 100 then do not take the Entresto. 2. Get in the habit of weighing yourself every morning after urinating. If your weight increases by 5 lbs or more in 1 week call your manager of clinical and cut back on salt and fluids until your weight is back to baseline. 3. You have not needed any supplemental oxygen for the past couple weeks in rehab. I think in the past you needed oxygen with ambulation because you were chronically in CHF (congestive heart failure) because you were not compliant with your medications) I think the wheezing was also due to CHF and not to asthma. You have not used the Albuterol inhaler or the other inhaler since you arrived on rehab. Discharge Orders/Prescriptions Prescriptions: New furosemide 40 mg Tablet 40 mg PO 0700 Qty: 30 0RF spironolactone 25 mg Tablet 25 mg PO DAILY Qty: 30 0RF Continued clopidogrel 75 mg tablet 75 mg PO DAILY albuterol sulfate 90 mcg/actuation HFA aerosol inhaler 2 puff inhalation Q4H PRN (Reason: shortness of breath or wheezing) Qty: 8.5 3RF Rx Instructions: administer with spacer levothyroxine 25 mcg tablet 25 mcg PO DAILY Jardiance 10 mg tablet 10 mg PO DAILY Qty: 30 1RF atorvastatin 80 mg Tablet 80 mg PO QHS famotidine 20 mg tablet 20 mg PO DAILY aspirin 81 mg Tablet,Delayed Release (Dr/Ec) 81 mg PO DAILY Entresto 49-51 mg tablet 1 tab PO BID Discontinued torsemide 20 mg tablet 20 mg PO BID budesonide-formoterol [Symbicort] 160-4.5 mcg/actuation HFA aerosol inhaler 2 puff inhalation BID PRN (Reason: sob) Rx Instructions: administer with spacer, rinse mouth after each use Referrals / Follow Up: Carri Gannon DO [Primary Care Provider] - 11/28/23 2:00 pm Refugio eWlch MD [Non-Staff] - 12/06/23 10:45 am (office will send paperwork to your home and bring with you to the appt) Disposition Disposition (needs filled in before D/C Order can be placed): Home, Self Care Charges/Coding Visit Charges Inpatient E&M: 74182 Disch Hosp >30min
--- NOTE | 2023-11-24 14:40 | CASEMGMT ---
Social Work SW received notification from Physician, Dr. Jalloh that the patient requires referral and information for [facility]. SW provided information to Physician. Physician will not be restricting patient's drivers license at this time. SW submitted referral to [facility]. Patient anticipates discharge home with outpatient therapy via [facility]. [facility] informed SW that they've attempted to schedule appointment with no success in reaching patient. SW notified patient and at bedside to follow up with [facility] to schedule PT/OT visits. Discharge: 11/25/2023 Home with [facility]patient [facility]. BERT King
[2023-11-24 17:06] LABS: Bedside Glucose 104 mg/dL (74-106)
[2023-11-24 20:00] VITALS: BP 88/55; PULSE 75; RESP 17; TEMP 36.9; O2SAT 96
[2023-11-24 21:51] VITALS: BMI 31.9
[2023-11-24 22:00] VITALS: PULSE 74; RESP 17; O2SAT 96
[2023-11-24 22:12] VITALS: BP 96/72; PULSE 74
[2023-11-24] MEDS: Atorvastatin Calcium 80 MG Tablet PO (22:14)
[2023-11-25 06:00] VITALS: BMI 31.9
[2023-11-25] MEDS: Enoxaparin 40 MG/0.4 ML Syringe SC (06:23)
[2023-11-25] MEDS: Levothyroxine 25 MCG TABLET PO (06:26)
[2023-11-25 07:01] LABS: Bedside Glucose 92 mg/dL (74-106)
[2023-11-25 07:10] VITALS: O2SAT 97
[2023-11-25 08:39] VITALS: BP 99/69; PULSE 81; RESP 16; TEMP 36.7; O2SAT 98
[2023-11-25] MEDS: Clopidogrel Bisulfate 75 MG Tablet PO (08:40)
[2023-11-25] MEDS: Famotidine 20 MG Tablet PO (08:41)
[2023-11-25] MEDS: Empagliflozin 10 MG Tablet PO (08:42)
[2023-11-25] MEDS: Aspirin E.C. 81 MG Tablet PO (08:42)
[2023-11-25] MEDS: Spironolactone 25 MG Tablet PO (08:42)
[2023-11-25 10:53] VITALS: BMI 31.9
[2023-11-25 12:37] VITALS: BP 98/62; PULSE 81; RESP 16; TEMP 36.8
== END 2023-11-25 13:00 | disposition home or self-care (01) | DRG 56 ==
PROVIDERS: Admitting Provider Internal Medicine; PCP Family Medicine; Visit Provider Internal Medicine
DX: I69.334 Monoplegia of upper limb following cerebral infarction affecting left non-dominant side (principal); G93.6 Cerebral edema; I50.23 Acute on chronic systolic (congestive) heart failure; G93.5 Compression of brain; E87.3 Alkalosis; L03.113 Cellulitis of right upper limb; E11.59 Type 2 diabetes mellitus with other circulatory complications; I11.0 Hypertensive heart disease with heart failure; E03.9 Hypothyroidism, unspecified; I69.393 Ataxia following cerebral infarction; G47.33 Obstructive sleep apnea (adult) (pediatric); E87.6 Hypokalemia; I25.5 Ischemic cardiomyopathy; I25.10 Atherosclerotic heart disease of native coronary artery without angina pectoris; H55.00 Unspecified nystagmus; I69.322 Dysarthria following cerebral infarction; E66.9 Obesity, unspecified; Z79.02 Long term (current) use of antithrombotics/antiplatelets; R13.10 Dysphagia, unspecified; Z95.5 Presence of coronary angioplasty implant and graft; Z79.82 Long term (current) use of aspirin; Z68.32 Body mass index [BMI] 32.0-32.9, adult; R91.8 Other nonspecific abnormal finding of lung field; Z79.899 Other long term (current) drug therapy; Z79.890 Hormone replacement therapy; Z91.199 Patient's noncompliance with other medical treatment and regimen due to unspecified reason
CPT/HCPCS: 36415; 80048; 80053; 82140; 82962; 83735; 83880; 84100; 84132; 85025; 85027; 92507; 92523; 97110; 97112; 97116; 97129; 97130; 97162; 97166; 97530; 97535; 97802

== ENCOUNTER → 2023-12-19 | Outpatient (CLI) | payer OTHER, SELFPAY ==
[2022-10-03 11:48] VITALS: BMI 33.7
--- NOTE | 2023-12-19 07:17 | MRI_ITS ---
ACR Level 3 findings have been noted. An addendum which confirms receipt of the report will follow. HISTORY: CVA D/T EMBOLISM OF PRECEREBRAL ARTERY; COMPARE EVAL FOR BLEED. TECHNIQUE: Multiplanar and multisequence MR images of the brain were obtained without contrast. 283 images. COMPARISON: CT 11/04/2023, MR 11/03/2023. FINDINGS: BRAIN PARENCHYMA: Small faint focus of restricted diffusion in the left parieto-occipital lobe. Evolution of chronic moderate left and mild right cerebellar infarcts with susceptibility artifact and corresponding T1 hyperintensity. Mildly decreased cytotoxic edema of the left cerebellar infarct. Mildly increased size of the chronic right cerebellar infarct particularly medially. Moderate chronic white matter changes noted. CSF SPACES: Cerebral ventricles, cortical sulci, and other extra-axial CSF spaces within normal limits in size for age. No significant midline shift or other mass effect.No extra-axial fluid collection. VASCULAR SYSTEM: Major intracranial flow voids unchanged in appearance. PARANASAL SINUSES AND MASTOID AIR CELLS: No significant air fluid levels. ORBITS: Bilateral lens resections. MRI/Brain without Contrast IMPRESSION: Evolution of late subacute-chronic bilateral cerebellar infarcts with mild subacute hemorrhage. Consider follow-up CT. Small subacute left parietal occipital lacunar infarct. Chronic involutional and matter changes. Electronically Signed: Shena Mohan MD at 8:48 EDT ,
== END | disposition home or self-care (01) ==
LOC: MRI 07:13
PROVIDERS: PCP Family Medicine; Referring Provider Psychiatry & Neurology Neurology; Visit Provider Psychiatry & Neurology Neurology
DX: I63.10 Cerebral infarction due to embolism of unspecified precerebral artery (principal)
CPT/HCPCS: 70551

== ENCOUNTER 2024-01-05 10:30 | Outpatient (RCR) | payer OTHER, SELFPAY ==
[2022-10-03 11:48] VITALS: BMI 33.7
--- NOTE | 2023-12-07 15:02 | HP.PTEVAL ---
Patient's Visit Information Visit Information Visit Information: ESSENCE ENGLAND is a 63 year old M referred to Physical Therapy by Dr. Serenity Jalloh DO with a diagnosis of CVA. Date of Evaluation: 12/07/23 Physical Therapist: Shaylee Guzman DPT Visit Plan Frequency: 2x /Week Duration: 4 Weeks Plan: Focus on functional mobility and proprioception HEP: SLS, Sit to Stand Subjective Subjective: November 02- got up and had trouble standing dizziness- squad came- [facility] did tests and did not find anything- MRI then found the CVA. Sent him to [facility] the next day- came back to rehab on the 4th floor November 08. November 24 headed home from rehab- Home is a single story with a basemen that he does not use- going into the stairs there are 2 stairs with a no railing- he is able to manage holding onto the door frame and the cane. is able to assist as needed- but he is able to be alone as needed. He takes a shower with her home- they have a good set up with grab bars. Fully I prior to CVA was working- did work and was sitting at a desk most of the day. He is planning to return to work and plans to go back but does not have a specific date. His goals are to be able to get back to doing normal activities like moving around better and more independent and confidence. reports that he needs more confidence. He is completely off his walker. Left sideded weakness. Right hand dominate. He has no pain. Sleep: recliner- since his heart attack in 2021 due to his CPAP. PMHx/Meds: no changes since he left rehab. Objective Objective: Posture: forward head, rounded shoulders- can correct with verbal cues but not maintain Gait: slightly ataxic- straight cane- slower amy. HR/TR: able with UE A Balance: see below ROM: WFL in all planes Strength: Core: fair minus, Right: Hip: 4+/5, Knee: 5/5, Ankle: 5/5 Left: Hip: 4-/5 throughout, Knee: 5/5, Ankle: 5/5 Balance/Special Test Scores Functional Gait Assessment Score: 13 % Disability: 56.6700 CATSIB Score (Max score 120 seconds): 90 Lower Extremity Functional Score: 44 TUG Test Time Seconds: 13.6 30 Second Chair Rise Test Seconds: 11 Goals Goal 1:: Patient will be I with HEP and progression Goal Time Frame: 4-6 Weeks Goal 2:: Patient will perform TUG under 10 seconds with AD Goal Time Frame: 4-6 Weeks Goal 3:: Patient will perform 17 sit to stands in 30 seconds Goal Time Frame: 4-6 Weeks Goal 4:: Patient will asc/desc 8 stairs with 1 HR Goal Time Frame: 4-6 Weeks Goal 5:: Patient will report 80% improvement Goal Time Frame: 4-6 Weeks Rehabilitation Potential Physical Therapy Diagnosis: Patient presents s/p CVA- he has decreased LE strength/stabilization, proprioception, flexibility, muscular endurance leading to abnormal gait, balance and decreased ability to perform ADL's. Rehabilitation Potential: Good Anticipated Interventions Patient/Client Instruction: Educate patient on: Benefits of Fitness Program Therapeutic Exercise to Include: Strength training, Balance training, Coordination, Agility training, Body mechanics, Postural training, Flexibilty training, Gait and locomotor training, Neuromotor development, Dynamic Lumbar Stabilization and Scapular Strength/Stabilization For the Purpose of:: To improve muscle performance and motor function Functional Training to Include: ADL Training and Gait training For the Purpose of:: To improve muscle performance and motor function Text: Thank you for the opportunity to evaluate your patient. For Medicare and Medicare HMO plans, please review the plan of care and approve it. It will need to be FAXED BACK to us at [phone] for Medicare purposes. For Medicare only, by signing this I certify the plan of care. Please let me know if there are questions or concerns regarding this plan of care. Physician Signature: Date:
--- NOTE | 2023-12-08 07:46 | HP.OTEVAL ---
Patient's Visit Information Visit Information Visit Information: ESSENCE ENGLAND is a 63 year old M, referred to Occupational Therapy by Dr. Serenity Jalloh DO, with a diagnosis of CVA left UE weakness /decrease coordination. Date of Evaluation: 12/07/23 Occupational Therapist: JEREL Salazar/Nohelia, CHT Subjective Subjective: This 63 year old male was seen for OT eval with dx of CVA. Pt suffered stroke November 02. pt states he woke up and was having difficulty with ambulation. Pt went to ER- on November 02 pt states MRI results sent him down to [place] on November 03. pt then returned to [facility] for rehab November 09, 2023. pt met speech goals while at [facility] rehab. D/C from rehab on November 24. pt states things are going ok at home- pt states balance and coordination he is uncomfortable with at this time. pt employed as [employer] - 40 hours a week ADLs Comments: pt has two steps to get in his home- standing for shower- has seat but not using it states ADLs are slower pt states left is weaker- and feels like he has no control over his arm pt MIMA with ADLs and IADLs. ROM ROM Comments: pt demo with ROM WNL noted left UE limited with gross and fine motor control Strength Shoulder: flexion right 20# left 20.9 ext right 36# left 25# Elbow: biceps right 34# left 31# triceps right 25# left 23# Product Safety Associate: right 90# left 85# Lateral Pinch: right 30# left 18# Tripod Pinch: right 24# left 22# Sensation Sensation Comments: denies Nine Hole Peg Right: 19.28 sec Left: 29.12 sec. Comments: decrease left hand speed Quick DASH-Disab of Arm,Shoulder& Hand Quick DASH Score: 61.6650 Goals Goal:: pt will demo a increase in fet2 testing by 10# indication of increase functional UB strength to perform ADLs by d/c Goal:: pt will demo increase Left UE gross motor control for isolated reach of left UE to simulate reaching or placing items on shelf by d/c Goal:: pt will demo a reduction in 9-hole testing by 20 sec. indicating increase in pts FMS to return to typing by d.c Goal:: pt will report a return to IADLs at IND level by d.c Rehabilitation General Assessment: pt demo with a decrease in left UE strength and coordination limiting pts IND with ADLs and return to work task. Pt would benefit from skilled OT services 2x week for 4 weeks to return pt to his PLOF. Today therapist ed. pt and gave handout on UB PRE free wt ex. as well as coordination task. pt demo understanding and agree to POC. Rehabilitation Potential: Good Anticipated Interventions Anticipated Interventions: A/AAROM/PROM, Strengthening, Ergonomic Education, Fine Motor Coord/Kyle, Neuro Reeducation, Education re Diagnosis, Caregiver Training and Home Program Visit Plan Frequency: 2-3x /Week Duration: 4 Weeks General Plan: initiate BTE and UB gym eq. exercise challenged FMS speed dexterity eye hand coordination TEXT: Thank you for the opportunity to evaluate your patient. For Medicare and Medicare HMO plans, please review the plan of care and approve it. It will need to be FAXED BACK to us at [phone] for Medicare purposes. Please let me know if there are questions or concerns regarding this plan of care. Physician Signature: Date:
--- NOTE | 2024-01-04 15:50 | HP.PTDCSUM ---
Discharge Summary D/C summary: It has been my pleasure to treat ESSENCE ENGLAND referred by Dr. Serenity Jalloh DO, with the diagnosis of CVA for a total of 10 visit(s). Discharge Date: Please see the following information for a summary of their discharge status. Subjective Subjective: Patient reports that he feels that he is better than when he started. He does not love the sit to stands but his balance has improved some. He is ready to start driving and get back to work. Overall Improvement % Improvement: 90 Objective Objective/Function: Posture: fair throughout Gait: good amy- no AD Stairs: asc/desc 8 recip with 1 HR- normal amy HR/TR: able with UE A Transfers: able to get up/down off the floor indep, sit to stand without UE A and weighted Balance: see below ROM: WFL in all planes Strength: Core: fair, Right: Hip: 5/5, Knee: 5/5, Ankle: 5/5 Left: Hip: 4+/5 throughout, Knee: 5/5, Ankle: 5/5 Goals Goal 1:: Patient will be I with HEP and progression Goal Progress: Goal Met Goal 2:: Patient will perform TUG under 10 seconds with AD Goal Progress: Goal Met Goal 3:: Patient will perform 17 sit to stands in 30 seconds Goal Progress: Goal Met Goal 4:: Patient will asc/desc 8 stairs with 1 HR Goal Progress: Goal Met Goal 5:: Patient will report 80% improvement Goal Progress: Goal Met Plan Plan: 01/04/24: Discharge to I HEP- continue with HW Focus on functional mobility and proprioception. D/C Information d/c sentence: If there are questions or concerns regarding this patient's physical therapy, please feel free to call me at [phone]. Thank you for the referral of this patient. Sincerely, Shaylee Guzman, DPT Balance/Gait/Functional tests Balance/Special Test Scores Functional Gait Assessment Score: 13 % Disability: 56.6700 CATSIB Score (Max score 120 seconds): 90 Lower Extremity Functional Score: 44 TUG Test Time Seconds: 9.8 Tug Test: <10 sec.=free mobile 30 Second Chair Rise Test Seconds: 11 Improvement % Improvement: 90
== END 2024-01-05 19:00 | disposition home or self-care (01) ==
LOC: OT 10:30
PROVIDERS: PCP Family Medicine; Referring Provider Internal Medicine; Visit Provider Internal Medicine
DX: Z86.73 Personal history of transient ischemic attack (TIA), and cerebral infarction without residual deficits (principal)
CPT/HCPCS: 97110; 97116; 97162; 97166; 97530

== ENCOUNTER → 2024-06-29 | Outpatient (CLI) | payer OTHER, SELFPAY ==
[2022-10-03 11:48] VITALS: BMI 33.7
--- NOTE | 2024-06-29 08:05 | MRI_ITS ---
STUDY: MRI BRAIN WITHOUT CONTRAST REASON FOR EXAM: Male, 63 years old. 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 COMPARISON: 12/19/2023 MRI brain FINDINGS: There is mild cerebral atrophy with widening of the extra-axial spaces and ventricular dilatation. There are multiple confluent white matter hyperintensities, distributed throughout the deep white matter tracts of the cerebral hemispheres, consistent with severe chronic white matter ischemic changes. Normal bilateral basal ganglia. Normal thalami. There is no extra-axial fluid accumulation. Normal flow voids within the major intracranial circulation suggesting patency by spin echo criteria. Normal sella turcica, pituitary gland, infundibular stalk, optic chiasm and hypothalamus. Normal tectal plate and pineal gland. There are chronic white matter ischemic changes of the malou. Right pontine lacunar infarct is present and chronic and similar compared to prior. The midbrain and medulla are otherwise normal. There is left superior cerebellar encephalomalacia with residual hemosiderin staining in reduced compared to prior exam with no evidence of new parenchymal bleed. Additional infarct in hemosiderin staining overlies the right inferior posterior cerebellum similar to prior with reduced blood product and residual hemosiderin staining remaining. Normal basal cisterns. Normal bilateral temporal bones. Normal bilateral internal auditory canals. No demonstrated orbital abnormality, within the constraints of a routine brain study. Normal visualized paranasal sinuses. Normal calvarium and skull base. Normal visualized soft tissue structures. Normal visualized upper cervical spine. MRI/Brain without Contrast IMPRESSION: 1.Multiple cerebellar previous infarcts as above with residual hemosiderin staining and encephalomalacia with reduced remnant blood product/hemosiderin staining compared to the prior imaging. No evidence of new acute intraparenchymal bleed or ischemia. 2. Extensive periventricular white matter microvascular ischemic changes similar to prior with no evidence of acute on chronic infarct present. Electronically Signed: Geo Alvarado, at 18:30 EST ,
== END | disposition home or self-care (01) ==
LOC: MRI 07:54
PROVIDERS: PCP Family Medicine; Referring Provider Nurse Practitioner Family; Visit Provider Nurse Practitioner Family
DX: Z86.73 Personal history of transient ischemic attack (TIA), and cerebral infarction without residual deficits (principal)
CPT/HCPCS: 70551